=== PATIENT | female | born 1955 | race Caucasian/White ===

== ENCOUNTER 2016-09-02 08:36 | Emergency (ER) | payer MEDICARE, OTHER ==
[~2016-09-02] VITALS: Ht 157.5 cm; Wt 82.0 kg
[~2016-09-02 08:36] MED LIST: CIPR500T4 PO; HYDR-3498 PO; IBUP-1542 PO; TAMS-14 PO
[2016-09-02 08:39] VITALS: Ht 157.5 cm; Wt 82.0 kg
[2016-09-02] MEDS ORDERED: morphine 4 MG/ML VIAL IV STA (09:04)
[2016-09-02] MEDS ORDERED: ONDANSETRON 4 MG INJ IV STA (09:04)
[2016-09-02] MEDS ORDERED: SOD CHLORIDE 0.9% 1,000 ML IV STA (09:04)
--- NOTE | 2016-09-02 09:27 | ERD ---
ER Documentation Chief Complaint Date/Time DATE: 09/02/16 TIME: 09:25 Chief Complaint back pain rad abd x 2 weeks HPI 60-year-old female with a history of recurrent kidney stones comes emergency department intermittent right-sided flank pain for the past 2 weeks. Pain is intermittent, and the right flank and radiates the right anterior abdomen, sharp , moderate pain. Patient states that she had gone to [place] and had given her oral ketorolac which is 10 mg that she has been taking on and off for pain. She reports 3 episodes of hematuria. Has not had any dysuria, urgency or frequency. She denies fevers or chills. ROS All systems reviewed and are negative except as per history of present illness. Medications Home Meds Active Scripts Tramadol HCl (Tramadol HCl) 50 Mg Tablet, 50 MG PO Q4 Y for PAIN, #20 TAB Prov:DEE BERGMAN PA-C 09/02/16 Ciprofloxacin Hcl* (Ciprofloxacin Hcl*) 500 Mg Tablet, 500 MG PO BID for 3 Days , TAB Prov:DEE BERGMAN PA-C 09/02/16 Ciprofloxacin Hcl* (Ciprofloxacin Hcl*) 500 Mg Tablet, 250 MG PO BID for 3 Days , TAB Prov:DURBINJORDAN I. ONLINE EDUCATION MANAGER 04/08/15 Hydrocodone Bit-Acetaminophen* ([place]*) 5-325 Mg Tab, 1 TAB PO Q6 Y for PAIN, # 20 TAB Prov:DURBINJORDAN I. ONLINE EDUCATION MANAGER 04/08/15 Tamsulosin Hcl* (Flomax*) 0.4 Mg Cap.er.24h, 0.4 MG PO BID, #30 CAP Prov:DURBINJORDAN I. ONLINE EDUCATION MANAGER 04/08/15 Ibuprofen* (Motrin*) 600 Mg Tab, 600 MG PO Q6, #30 TAB Prov:DURBINJORDAN I. ONLINE EDUCATION MANAGER 04/08/15 Allergies Allergies: Coded Allergies: No Known Drug Allergy (Verified Allergy, Unknown, 04/09/15) PMhx/Soc History of Surgery: Yes (OVARY REMOVED, BLADDER RECONSTRUCTION, CHOLECYSTECTOMY ,CSECTIONX2) Anesthesia Reaction: No Hx Neurological Disorder: No Hx Respiratory Disorders: No Hx Cardiac Disorders: No Hx Psychiatric Problems: No Hx Miscellaneous Medical Probl: Yes (kidney stones) Hx Alcohol Use: No Hx Substance Use: No Hx Tobacco Use: No Physical Exam Vitals Vital Signs Date Time Temp Pulse Resp B/P Pulse Ox O2 Delivery O2 Flow Rate FiO2 6/8/17 08:39 98.1 66 18 154/80 99 Physical Exam General: Well-developed, well-nourished. The patient appears in no acute distress. HEENT: Head is normocephalic, atraumatic. No scleral icterus. Neck: Supple. Nontender. Lungs: Clear to auscultation. Normal air movement. Heart: Regular rate and rhythm. S1 and S2 are normal. No murmurs, gallops, or rubs. Abdomen: Soft, nontender, nondistended. Bowel sounds are normoactive. No CVA tenderness, negative Miller sign. Extremities: No clubbing or cyanosis. Normal pulses. Moving extremities x 4. No weakness. Neurologic: Alert and oriented 3. No focal deficits. Skin: Normal turgor. No rash or lesions. Result Diagram: 09/02/1623 09/02/1623 Results 24 hrs Laboratory Tests Test 09/02/16 09:23 White Blood Count 7.310^3/ul Red Blood Count 4.6610^6/ul Hemoglobin 13.7g/dl Hematocrit 41.9% Mean Corpuscular Volume 89.9fl Mean Corpuscular Hemoglobin 29.4pg Mean Corpuscular Hemoglobin Concent 32.7g/dl Red Cell Distribution Width 13.9% Platelet Count 78847^3/UL Mean Platelet Volume 10.5fl Neutrophils % 44.3% Lymphocytes % 42.5% Monocytes % 6.5% Eosinophils % 5.8% Basophils % 0.8% Nucleated Red Blood Cells % 0.0/100WBC Neutrophils # 3.210^3/ul Lymphocytes # 3.110^3/ul Monocytes # 0.510^3/ul Eosinophils # 0.410^3/ul Basophils # 0.110^3/ul Nucleated Red Blood Cells # 0.010^3/ul Urine Color YELLOW Urine Clarity CLEAR Urine pH 5.5 Urine Specific [place] 1.010 Urine Ketones NEGATIVE Urine Nitrite POSITIVE Urine Bilirubin NEGATIVE Urine Urobilinogen 0.2 E.U./dL Urine Leukocyte Esterase 1+ Urine Microscopic RBC >200/HPF Urine Microscopic WBC 2-5/HPF Urine Epithelial Cells FEW Urine Bacteria FEW Urine Hemoglobin 3+ Urine Glucose NEGATIVE% Urine Total Protein NEGATIVE Sodium Level 142mmol/L Potassium Level 4.8mmol/L Chloride Level 107mmol/L Carbon Dioxide Level 27mmol/L Anion Gap 13 Blood Urea Nitrogen 21mg/dl Creatinine 0.73mg/dl Glucose Level 100mg/dl Calcium Level 12.2mg/dl Total Bilirubin 0.3mg/dl Direct Bilirubin 0.00mg/dl Indirect Bilirubin 0.3mg/dl Aspartate Amino Transf (AST/SGOT) 23IU/L Alanine Aminotransferase (ALT/SGPT) 27IU/L Alkaline Phosphatase 100IU/L Total Protein 7.8g/dl Albumin 5.0g/dl Globulin 2.80g/dl Albumin/Globulin Ratio 1.78 Lipase 199U/L Current Medications Medications (Trade) Dose Ordered Sig/Glen Route PRN Reason Start Time Stop Time Status Last Admin Dose Admin Sodium Chloride (NS) 1,000 ml @ 1,000 mls/hr Q1H STAT IV 09/02/16 09:04 09/02/16 10:03 DC 09/02/16 09:26 Morphine Sulfate (morphine) 4 mg ONCE STAT IV 09/02/16 09:04 09/02/16 09:06 DC 09/02/16 09:25 Ondansetron HCl 4 mg 4 mg ONCE STAT IV 09/02/16 09:04 09/02/16 09:06 DC 09/02/16 09:25 Ceftriaxone Sodium (Rocephin) 50 ml @ 100 mls/hr ONCE ONCE IVPB 09/02/16 10:30 09/02/16 10:30 DC Procedures/MDM ED course: Line was established, blood and urine were obtained. She was given IV fluids normal saline 1 L. Patient had already been taking ketorolac at home, therefore she was given 1 dose of morphine 4 mg IV, as well as Zofran 4 mg IV. MDM: 52-year-old female comes in with recurrent kidney stones, complaining of intermittent right-sided flank pain for 2 weeks. Patient has a normal white count, no fever, normal renal function. She has nitrate positive urine consistent with a urinary tract infection with flank pain. She does not show any signs of pyelonephritis. I doubt septic kidney stones. I did discuss this case with my attending physician, including labs, and the decision was that there was to make much radiation risk for the patient to undergo another CT scan. She is not septic. And can be discharged home with oral Cipro. She has follow-up with her primary care doctor in 2 days. I have asked her to speak with her primary care physician to get a referral to see a urologist for outpatient follow-up. The case was reviewed and discussed with Dr. Morley who agrees with the plan of care including labs, treatment, and advanced imaging as appropriate. Departure Diagnosis: Primary Impression: Flank pain Additional Impression: UTI (urinary tract infection) Condition: DEE Tripp PA-C Sep 02, 2016 09:27
[2016-09-02 09:29] LABS: ADD SCAN DIFF NO
[2016-09-02 09:34] LABS: BASOPHIL # 0.1 10^3/ul (0.0-0.1); BASOPHILS % 0.8 % (0.0-2.0); EOSINOPHILS # 0.4 10^3/ul (0.0-0.5); EOSINOPHILS % 5.8 % (0.0-7.0); HEMATOCRIT 41.9 % (37.0-47.0); HEMOGLOBIN 13.7 g/dl (12.0-16.0); LYMPHOCYTES # 3.1 10^3/ul (0.8-2.9); LYMPHOCYTES % 42.5 % (15.0-51.0); MEAN CORPUSCULAR HEMOGLOBIN 29.4 pg (29.0-33.0); MEAN CORPUSCULAR HGB CONC 32.7 g/dl (32.0-37.0); MEAN CORPUSCULAR VOLUME 89.9 fl (82.0-101.0); MEAN PLATELET VOLUME 10.5 fl (7.4-10.4); MONOCYTE # 0.5 10^3/ul (0.3-0.9); MONOCYTES % 6.5 % (0.0-11.0); NEUTROPHIL # 3.2 10^3/ul (1.6-7.5); NEUTROPHILS % 44.3 % (39.0-77.0); PLATELET COUNT 244 10^3/UL (140-415); RED BLOOD COUNT 4.66 10^6/ul (4.20-5.40); RED CELL DISTRIBUTION WIDTH 13.9 % (11.5-14.5); WHITE BLOOD COUNT 7.3 10^3/ul (4.8-10.8)
[2016-09-02 09:50] LABS: ALBUMIN/GLOBULIN RATIO 1.78; BILIRUBIN,INDIRECT 0.3 mg/dl (0-1.1); BILIRUBIN,TOTAL 0.3 mg/dl (0.2-1.3); CALCIUM 12.2 mg/dl (8.4-10.2); CREATININE 0.73 mg/dl (0.44-1.00); POTASSIUM 4.8 mmol/L (3.5-5.1); TOTAL PROTEIN 7.8 g/dl (6.1-8.1)
[2016-09-02 09:58] LABS: URINE BILIRUBIN (Dip) NEGATIVE (NEGATIVE); URINE COLOR YELLOW (YELLOW); URINE GLUCOSE (Dip) NEGATIVE (NEGATIVE); URINE KETONES (Dip) NEGATIVE (NEGATIVE); URINE TOTAL PROTEIN (Dip) NEGATIVE (NEGATIVE)
[2016-09-02 09:59] LABS: ADD UMIC YES; BACTERIA,URINE FEW; URINE BLOOD (Dip) 3+ (NEGATIVE); URINE LEUKOCYTE ESTERASE (Dip) 1+ (NEGATIVE); URINE NITRITE (Dip) POSITIVE (NEGATIVE); URINE RBCS >200 /HPF (0); URINE UROBILINOGEN (Dip) 0.2 E.U./dL (0.1-1.0)
[2016-09-02] MEDS ORDERED: TRAM50TA2 PO (10:30)
[2016-09-02] MEDS ORDERED: CIPR500T4 PO (10:30)
[2016-09-02] MEDS ORDERED: CEFTRIAXONE 1 GM/50 ML (PMX) 50 ML IVPB ONE (10:30)
[2016-09-02 10:53] VITALS: BP 158/72; PULSE 60; RESP 20; TEMP 98.2
== END 2016-09-02 10:58 | disposition home or self-care (01) ==
LOC: FTE 08:36
DX: R10.9 Unspecified abdominal pain (principal); N39.0 Urinary tract infection, site not specified
CPT/HCPCS: 36415; 80053; 81001; 83690; 85025; 96374; 96375; 99284; J0696; J2270; J2405; J7030

== ENCOUNTER 2016-09-03 08:33 | Inpatient (IN) | payer MEDICARE, OTHER ==
[~2016-09-03] VITALS: Ht 160 cm; Wt 81.3 kg
[~2016-09-03 08:33] MED LIST changes: +TRAM50TA2 PO
[2016-09-03] MEDS ORDERED: ONDANSETRON 4 MG INJ IV STA (08:40)
[2016-09-03] MEDS ORDERED: SOD CHLORIDE 0.9% 500 ML IV STA ×2 (08:40→10:12)
[2016-09-03] MEDS ORDERED: HYDROmorphONE 1 MG/ML SYG IV STA (08:40)
[2016-09-03] MEDS ORDERED: KETOROLAC 30 MG INJ IV STA (08:40)
[2016-09-03 09:04] LABS: ADD SCAN DIFF NO
[2016-09-03 09:09] LABS: BASOPHIL # 0.1 10^3/ul (0.0-0.1); BASOPHILS % 0.7 % (0.0-2.0); EOSINOPHILS # 0.4 10^3/ul (0.0-0.5); EOSINOPHILS % 5.6 % (0.0-7.0); HEMATOCRIT 40.2 % (37.0-47.0); HEMOGLOBIN 13.2 g/dl (12.0-16.0); LYMPHOCYTES # 2.6 10^3/ul (0.8-2.9); LYMPHOCYTES % 36.8 % (15.0-51.0); MEAN CORPUSCULAR HEMOGLOBIN 29.6 pg (29.0-33.0); MEAN CORPUSCULAR HGB CONC 32.8 g/dl (32.0-37.0); MEAN CORPUSCULAR VOLUME 90.1 fl (82.0-101.0); MEAN PLATELET VOLUME 10.1 fl (7.4-10.4); MONOCYTE # 0.5 10^3/ul (0.3-0.9); MONOCYTES % 7.2 % (0.0-11.0); NEUTROPHIL # 3.5 10^3/ul (1.6-7.5); NEUTROPHILS % 49.6 % (39.0-77.0); PLATELET COUNT 218 10^3/UL (140-415); RED BLOOD COUNT 4.46 10^6/ul (4.20-5.40); RED CELL DISTRIBUTION WIDTH 13.9 % (11.5-14.5); WHITE BLOOD COUNT 7.1 10^3/ul (4.8-10.8)
[2016-09-03 09:30] LABS: ALBUMIN 4.7 g/dl (3.3-4.9); ALBUMIN/GLOBULIN RATIO 2.13; BILIRUBIN,INDIRECT 0.3 mg/dl (0-1.1); BILIRUBIN,TOTAL 0.3 mg/dl (0.2-1.3); CALCIUM 11.8 mg/dl (8.4-10.2); CREATININE 0.96 mg/dl (0.44-1.00); TOTAL PROTEIN 6.9 g/dl (6.1-8.1)
--- NOTE | 2016-09-03 09:51 | RADRPT ---
PROCEDURE: CT Abdomen and pelvis without contrast. CLINICAL INDICATION: History of kidney stones. Abdominal pain. TECHNIQUE: CT scan of the abdomen and pelvis without contrast was performed on a multidetector hig h-resolution CT scan. . Coronal and sagittal reformatted images were obtained from the [facility] e images. Standard CT scan of the abdomen pelvis without contrast protocols were performed. The total exam CTDI equals 18.91 mGy and the total exam DLP equals 1123.79 mGy-cm. One or more of the following dose reduction techniques were used: - Automated exposure control. - Adjustment of the mA and/or kV according to patient size. Use of iterative reconstruction technique. COMPARISON: CT abdomen pelvis without contrast 04/09/2015 FINDINGS: There is surgical clips adjacent to the left urinary bladder and pelvic region. The kidneys are nor mal in size no change in the 1.2 cm cyst involving the posterior left mid kidney. No other intra re nal masses bilaterally. There is a punctate approximately 3 mm non-obstructing inferior left renal calculus. No other calcified calculi involving the renal collecting systems. Within the proximal l eft ureter is a large 2 cm calcified calculus resulting in severe proximal left hydroureter and hydr onephrosis. In addition there there are 2 approximately 2-3 mm distal left ureteral calcified calcu li that are nonobstructing. There is a 6 mm right ureteral vesicle junction calcified calculus resu lting in severe right hydronephrosis and hydroureter. In addition there is a 5 mm calcified calculu s involving the distal right ureter approximately 2-3 cm proximal to the right ureteral vesicle junc tion calculus. Urinary bladder is contracted but otherwise unremarkable. The uterus is anteverted anteflexed but otherwise unremarkable. No adnexal masses. Status post cholecystectomy without biliary ductal dilation. The liver spleen pancreas and adrenal glands are unremarkable. There is diverticular changes of the sigmoid colon but no CT evidence of diverticulitis. The colon is otherwise unremarkable. The stomach and small bowel are unremarkable. No CT evidence of appendi citis. Negative for intra-abdominal free air, free fluid, abscesses or lymphadenopathy. The lung bases are unremarkable. The aorta is unremarkable. There are degenerative changes of the lower thoracic and lumbar spine without acute osseous findings are osteoblastic/osteolytic lesions. There is a total left hip prosthesis in place without evidence of dislocation or loosening. IMPRESSION: 1. Severe left hydronephrosis and proximal left hydroureter secondary to a large 2 cm calcified pro ximal left ureteral calculus. Note, there are additional 2 approximately 2-3 mm distal left uretera l calculi that are nonobstructing. 2. Severe right hydronephrosis and hydroureter secondary to a 6 mm right ureterovesical junction ca lcified calculus. In addition approximately 2-3 cm proximal to the right ureteral vesicle junction c alculus is a 5 mm calcified calculus. 3. 3 mm non-obstructing left inferior renal calcified calculus. 4. No change of a 1.2 cm cyst involving the posterior left mid kidney. 5. Status post cholecystectomy without biliary ductal dilation. 6. Diverticulosis of the sigmoid colon without CT evidence of diverticulitis. RPTAT:AAJJ Physician Katia Date Time Electronically viewed and signed by Anabel Lewis Physician on 09/03/2016 09:51 BM/
[2016-09-03 09:55] LABS: ADD UMIC YES; URINE BILIRUBIN (Dip) NEGATIVE (NEGATIVE); URINE BLOOD (Dip) 3+ (NEGATIVE); URINE COLOR LT. YELLOW (YELLOW); URINE GLUCOSE (Dip) NEGATIVE (NEGATIVE); URINE KETONES (Dip) NEGATIVE (NEGATIVE); URINE LEUKOCYTE ESTERASE (Dip) 1+ (NEGATIVE); URINE NITRITE (Dip) NEGATIVE (NEGATIVE); URINE TOTAL PROTEIN (Dip) NEGATIVE (NEGATIVE); URINE UROBILINOGEN (Dip) 0.2 E.U./dL (0.1-1.0)
[2016-09-03 10:06] LABS: BACTERIA,URINE MODERATE; URINE RBCS >200 /HPF (0)
[2016-09-03] MEDS ORDERED: CEFTRIAXONE 1 GM/50 ML (PMX) 50 ML IVPB ONE (10:30)
--- NOTE | 2016-09-03 10:50 | ERA ---
ER Documentation Chief Complaint Date/Time DATE: 09/03/16 TIME: 0840 Chief Complaint right flank pain HPI 60-year-old female presents to the emergency department complaining of severe right flank pain. Patient was initially evaluated yesterday and diagnosed with empiric kidney stones as well as a kidney infection. Despite outpatient medication, patient returns to the emergency department today complaining of severe colicky right flank pain radiating towards her groin. She has nausea but no vomiting. She denies fevers or chills. She denies diarrhea or hematuria. Patient describes her pain as severe in 9-10 out of 10. ROS All systems reviewed and are negative except as per history of present illness. Medications Home Meds Active Scripts Tramadol HCl (Tramadol HCl) 50 Mg Tablet, 50 MG PO Q4 Y for PAIN, #20 TAB Prov:DEE BERGMAN PA-C 09/02/16 Ciprofloxacin Hcl* (Ciprofloxacin Hcl*) 500 Mg Tablet, 500 MG PO BID for 3 Days , TAB Prov:DEE BERGMAN PA-C 09/02/16 Ibuprofen* (Motrin*) 600 Mg Tab, 600 MG PO Q6, #30 TAB Prov:DURBINJORDAN ARANDA I. STATISTICAL PROGRAMMER ANALYST 04/08/15 Discontinued Scripts Ciprofloxacin Hcl* (Ciprofloxacin Hcl*) 500 Mg Tablet, 250 MG PO BID for 3 Days , TAB Prov:DURBINJORDAN WHITE I. STATISTICAL PROGRAMMER ANALYST 04/08/15 Hydrocodone Bit-Acetaminophen* ([place]*) 5-325 Mg Tab, 1 TAB PO Q6 Y for PAIN, # 20 TAB Prov:JORDAN DURBIN I. STATISTICAL PROGRAMMER ANALYST 04/08/15 Tamsulosin Hcl* (Flomax*) 0.4 Mg Cap.er.24h, 0.4 MG PO BID, #30 CAP Prov:JORDAN DURBIN I. STATISTICAL PROGRAMMER ANALYST 04/08/15 Allergies Allergies: Coded Allergies: No Known Drug Allergy (Verified Allergy, Unknown, 09/03/16) PMhx/Soc History of Surgery: Yes (OVARY REMOVED, BLADDER RECONSTRUCTION, CHOLECYSTECTOMY ,CSECTIONX2) Anesthesia Reaction: No Hx Neurological Disorder: No Hx Respiratory Disorders: No Hx Cardiac Disorders: No Hx Psychiatric Problems: No Hx Miscellaneous Medical Probl: Yes (kidney stones) Hx Alcohol Use: No Hx Substance Use: No Hx Tobacco Use: No Smoking Status: Never smoker FmHx Noncontributory for chief complaint Physical Exam Vitals Vital Signs Date Time Temp Pulse Resp B/P Pulse Ox O2 Delivery O2 Flow Rate FiO2 09/03/16 08:36 98.1 67 19 170/83 99 09/03/16 08:35 98.4 72 18 151/82 99 Room Air Physical Exam GENERAL: The patient is well developed and appropriate for usual state of health in no apparent distress, but patient appears uncomfortable HEENT: Pupils equal, round, and reactive to light. EOMI. There is no scleral icterus. NECK: C-spine is soft and supple, there is no meningismus. There is no cervical lymphadenopathy. LUNGS: Clear to auscultation bilaterally. There are no rales, wheezes or rhonchi. HEART: Regular rate and rhythm, no murmurs, clicks, rubs or gallops. ABDOMEN: Soft, non-tender, non-distended. There are bowel sounds in all four quadrants. No rebound or guarding. EXTREMITIES: There is no peripheral cyanosis or edema. No focal swelling or erythema. NEURO: The patient moves all four extremities with 5/5 strength. Cranial nerves II - XII are intact. Normal gait. Alert and oriented SKIN: There is no apparent rash or petechiae. HEME/LYMPHATIC: There is no evidence of excessive bruising or lymphedema. PSYCHIATRIC: The patient does not appear anxious or depressed. Result Diagram: 09/03/16 0856 09/03/16 0856 Results 24 hrs Laboratory Tests Test 09/03/16 08:56 09/03/16 09:33 White Blood Count 7.110^3/ul Red Blood Count 4.4610^6/ul Hemoglobin 13.2g/dl Hematocrit 40.2% Mean Corpuscular Volume 90.1fl Mean Corpuscular Hemoglobin 29.6pg Mean Corpuscular Hemoglobin Concent 32.8g/dl Red Cell Distribution Width 13.9% Platelet Count 80193^3/UL Mean Platelet Volume 10.1fl Neutrophils % 49.6% Lymphocytes % 36.8% Monocytes % 7.2% Eosinophils % 5.6% Basophils % 0.7% Nucleated Red Blood Cells % 0.0/100WBC Neutrophils # 3.510^3/ul Lymphocytes # 2.610^3/ul Monocytes # 0.510^3/ul Eosinophils # 0.410^3/ul Basophils # 0.110^3/ul Nucleated Red Blood Cells # 0.010^3/ul Sodium Level 144mmol/L Potassium Level 5.0mmol/L Chloride Level 109mmol/L Carbon Dioxide Level 28mmol/L Anion Gap 12 Blood Urea Nitrogen 19mg/dl Creatinine 0.96mg/dl Glucose Level 94mg/dl Calcium Level 11.8mg/dl Total Bilirubin 0.3mg/dl Direct Bilirubin 0.00mg/dl Indirect Bilirubin 0.3mg/dl Aspartate Amino Transf (AST/SGOT) 23IU/L Alanine Aminotransferase (ALT/SGPT) 29IU/L Alkaline Phosphatase 76IU/L Total Protein 6.9g/dl Albumin 4.7g/dl Globulin 2.20g/dl Albumin/Globulin Ratio 2.13 Lipase 208U/L Urine Color LT. YELLOW Urine Clarity CLEAR Urine pH 6.0 Urine Specific [place] 1.010 Urine Ketones NEGATIVE Urine Nitrite NEGATIVE Urine Bilirubin NEGATIVE Urine Urobilinogen 0.2 E.U./dL Urine Leukocyte Esterase 1+ Urine Microscopic RBC >200/HPF Urine Microscopic WBC 5-10/HPF Urine Epithelial Cells FEW Urine Bacteria MODERATE Urine Hemoglobin 3+ Urine Glucose NEGATIVE% Urine Total Protein NEGATIVE Current Medications Medications (Trade) Dose Ordered Sig/Glen Route PRN Reason Start Time Stop Time Status Last Admin Dose Admin Sodium Chloride (NS) 500 ml @ 500 mls/hr Q1H STAT IV 09/03/16 08:40 09/03/16 09:39 DC 09/03/16 09:04 Hydromorphone HCl (Dilaudid) 1 mg ONCE STAT IV 09/03/16 08:40 09/03/16 08:42 DC 09/03/16 09:05 Ondansetron HCl (Zofran Inj) 4 mg ONCE STAT IV 09/03/16 08:40 09/03/16 08:42 DC 09/03/16 09:05 Ketorolac Tromethamine 30 mg 30 mg ONCE STAT IV 09/03/16 08:40 09/03/16 08:42 DC 09/03/16 09:05 Ceftriaxone Sodium 50 ml @ 100 mls/hr ONCE ONCE IVPB 09/03/16 10:30 09/03/16 10:59 09/03/16 10:12 Sodium Chloride (NS) 500 ml @ 500 mls/hr Q1H STAT IV 09/03/16 10:12 09/03/16 11:11 09/03/16 10:42 Procedures/MDM Patient was taken to a room, seen and evaluated. Comfort measures were initiated. Diagnostic tests were ordered and reviewed. RADIOLOGY: reviewed with the radiologist CONSULTATION: hospitalist was notified for admission, urology consultation was obtained REEVALUATION: Pain was controlled and patient remained hemo-dynamically stable MEDICAL DECISION MAKIN-year-old female presents the emergency part with flank pain of uncertain etiology. Differential diagnosis entertained was broad and potential high acuity, but ultimately the patient was found to have significant kidney stones with severe hydronephrosis. The size of the stones is very large and she has failed outpatient therapy with ongoing pain. She has a secondary infection which is concerning as well, but does not appear to be septic at this time. Patient will be admitted for urologic consultation, pain control, fluids, antibiotics and further treatment. Departure Diagnosis: Primary Impression: Kidney stone Condition: TREVON Burk Sep 03, 2016 10:50
[2016-09-03] MEDS ORDERED: HYDROCODONE/APAP (5/325) TAB PO PRN (16:30)
[2016-09-03] MEDS ORDERED: NITROGLYCERIN (SL) 0.4 MG TAB SL PRN (16:30)
[2016-09-03] MEDS ORDERED: ONDANSETRON 4 MG INJ IV PRN (16:30)
[2016-09-03] MEDS ORDERED: traMADol 50 MG TAB PO PRN (16:30)
[2016-09-03] MEDS ORDERED: DOCUSATE SODIUM 100 MG CAP PO PRN (16:30)
[2016-09-03] MEDS ORDERED: hydrALAzine 20 MG INJ IV PRN (16:30)
[2016-09-03] MEDS ORDERED: LORAZEPAM 2 MG INJ IV PRN (16:30)
[2016-09-03] MEDS ORDERED: morphine 2 MG INJ IV PRN (16:30)
[2016-09-03] MEDS ORDERED: NA PHOSPHATE/BIPHOS 133 ML ENEMA PR PRN (16:30)
[2016-09-03] MEDS ORDERED: MAGNESIUM HYDROXIDE 30ML CUP PO PRN (16:30)
[2016-09-03] MEDS ORDERED: NACL 0.9% 3 ML SYG IV SCH (16:30)
[2016-09-03] MEDS ORDERED: ALBUTEROL/IPRATROPIUM (NEB) 3 ML AMP HHN PRN (16:30)
[2016-09-03] MEDS: SOD CHLORIDE 0.45% 1,000 ML IV SCH ×2 (16:47→22:20)
[2016-09-03 17:16] LABS: INR 0.91; PROTIME 12.3 Sec (12.2-14.2)
[2016-09-03 17:17] LABS: PARTIAL THROMBOPLASTIN TIME 29.7 Sec (25.0-35.0)
--- NOTE | 2016-09-03 17:37 | HP ---
DATE OF ADMISSION: 09/03/2016 CHIEF COMPLAINT: Right flank pain. HISTORY OF PRESENT ILLNESS: A 60-year-old female with past medical history of prior kidney stones w laz came in with severe right flank pain going on for the last few days. She initially came into the ER yesterday and was diagnosed with empiric kidney stones as well as a UTI. She was sent home with outpatient medications including antibiotics and pain control medications, but the pain is still se rajeev, colicky in nature, radiating toward her groin. She has some nausea symptoms but no vomiting, so she decided to come back to the ER today. No fevers or chills. No upper or lower GI bleeding. No diarrhea or constipation. No hematuria. She described the pain 9/10 in intensity. When she cam e in, she had a CT scan performed that shows severe left hydronephrosis and proximal left hydrourete r secondary to large 2 cm calcified proximal left ureteral calculus. There are also additionally 2 approximately 2 x 3 mm distal left ureteral calculi that are nonobstructing. She also has severe ri ght hydronephrosis and hydroureter secondary to 6 mm right UV junction calcified calculus. There is also approximately 2 to 3 cm proximal right ureterovesical junction calculus and a 5 mm calcified c alculus and also 3 mm nonobstructing left inferior renal calcified calculus. The patient was hospit alized from 11/23/2014 to 11/27/2014 for kidney stone issue at that time and saw urology at that [facility]. PAST MEDICAL HISTORY: As stated above. ALLERGIES: NO KNOWN DRUG ALLERGIES. MEDICATIONS AT HOME: 1. Ciprofloxacin 500 mg b.i.d. 2. Motrin 600 mg q. 6 hours. 3. Tramadol 50 mg q. 4 p.r.n. PAST SURGICAL HISTORY: She has had ovarian removal in the past, bladder reconstruction in the past, cholecystectomy, and x2 in the past. SOCIAL HISTORY: Negative for smoking, drinking, or IV drug abuse. FAMILY HISTORY: Noncontributory. PHYSICAL EXAMINATION: VITAL SIGNS: T-max 98.4, pulse 67, respirations 18, blood pressure 151 to 170 systolic over 82 to 8 3 diastolic, saturating at 99% on room air. GENERAL: The patient is lying in bed, answering questions appropriately. No acute distress. HEENT: Pupils equal, round, react to light. Extraocular muscles intact. NECK: Supple, no thyromegaly. LUNGS: Clear to auscultation bilaterally. CARDIOVASCULAR: S1, S2 heard. No rubs or gallops. ABDOMEN: Soft, nontender, nondistended. Normal bowel sounds. No rebound or guarding. MUSCULOSKELETAL: No lower extremity bilaterally. NEUROLOGIC: No focal deficits. LABORATORIES: CBC is completely normal. Basic metabolic panel is normal. Calcium is a little high at 11.8. UA shows 1+ leukocyte esterase positive. IMAGING: CT abdomen and pelvis results above in HPI. ASSESSMENT AND PLAN: A 60-year-old female coming in with multiple kidney stones after experiencing flank pain, now with signs of a UTI and multiple kidney stones. Right flank pain, again secondary t o bilateral kidney stones. We will admit the patient, give her pain control medications, IV fluids, antiemetics, IV antibiotics, get a urology consult as well. Check a TSH, A1c and lipid panel. Put her on prophylaxis for GI with PPI and DVT prophylaxis with heparin subcutaneously. Dictated By: MO BILYL Conf#: [id number] DID#: [id number]
[2016-09-03] MEDS: PIPER-TAZO 3.375 GM IV (PMX) 100 ML IVPB SCH (18:03)
[2016-09-03 18:27] LABS: ADD UMIC YES; URINE BILIRUBIN (Dip) NEGATIVE (NEGATIVE); URINE BLOOD (Dip) 2+ (NEGATIVE); URINE COLOR LT. YELLOW (YELLOW); URINE GLUCOSE (Dip) NEGATIVE (NEGATIVE); URINE KETONES (Dip) NEGATIVE (NEGATIVE); URINE LEUKOCYTE ESTERASE (Dip) TRACE (NEGATIVE); URINE NITRITE (Dip) NEGATIVE (NEGATIVE); URINE TOTAL PROTEIN (Dip) NEGATIVE (NEGATIVE); URINE UROBILINOGEN (Dip) 0.2 E.U./dL (0.1-1.0)
[2016-09-03 18:34] LABS: URINE RBCS >50 /HPF (0)
[2016-09-03 21:02] VITALS: TEMP 97.8
[2016-09-03 21:34] VITALS: BP 145/67; PULSE 48; RESP 19
[2016-09-03 22:31] VITALS: BP 121/58; PULSE 45
[2016-09-03 22:33] VITALS: PULSE 45
[2016-09-03 22:55] VITALS: BP 133/60; PULSE 44
[2016-09-03 23:22] VITALS: BP 122/61; PULSE 49
[2016-09-03] MEDS: HEPARIN 5,000 UNIT/0.5 ML VIAL SC SCH (23:26)
[2016-09-04] VITALS (26 sets, daily range): BP systolic 122–159; BP diastolic 61–86; PULSE 45–88; RESP 10–22; Ht 160 cm; Wt 81.3 kg
[2016-09-04] MEDS: PIPER-TAZO 3.375 GM IV (PMX) 100 ML IVPB SCH ×5 (00:16→23:32)
[2016-09-04] MEDS: ACETAMINOPHEN 325 MG TAB PO PRN (04:16)
[2016-09-04] MEDS: SOD CHLORIDE 0.45% 1,000 ML IV SCH ×2 (05:09→17:25)
[2016-09-04 07:40] LABS: ADD SCAN DIFF NO
[2016-09-04 07:46] LABS: BASOPHILS % 0.7 % (0.0-2.0); EOSINOPHILS # 0.4 10^3/ul (0.0-0.5); EOSINOPHILS % 7.4 % (0.0-7.0); HEMATOCRIT 35.8 % (37.0-47.0); LYMPHOCYTES # 2.9 10^3/ul (0.8-2.9); LYMPHOCYTES % 48.9 % (15.0-51.0); MEAN CORPUSCULAR HEMOGLOBIN 30.5 pg (29.0-33.0); MEAN CORPUSCULAR HGB CONC 33.5 g/dl (32.0-37.0); MEAN CORPUSCULAR VOLUME 91.1 fl (82.0-101.0); MEAN PLATELET VOLUME 10.4 fl (7.4-10.4); MONOCYTE # 0.3 10^3/ul (0.3-0.9); MONOCYTES % 5.7 % (0.0-11.0); NEUTROPHIL # 2.2 10^3/ul (1.6-7.5); NEUTROPHILS % 37.1 % (39.0-77.0); PLATELET COUNT 192 10^3/UL (140-415); RED BLOOD COUNT 3.93 10^6/ul (4.20-5.40); RED CELL DISTRIBUTION WIDTH 13.9 % (11.5-14.5)
[2016-09-04 08:04] LABS: CHOL/HDL RATIO 4.9 RATIO
[2016-09-04 08:28] LABS: THYROID STIMULATING HORMONE 4.65 MIU/L (0.465-4.680)
[2016-09-04 09:07] LABS: CALCIUM 10.8 mg/dl (8.4-10.2); CREATININE 0.87 mg/dl (0.44-1.00); MAGNESIUM 1.8 mg/dl (1.7-2.5); PHOSPHORUS 2.8 mg/dl (2.5-4.9)
[2016-09-04] MEDS: HEPARIN 5,000 UNIT/0.5 ML VIAL SC SCH ×2 (09:12→20:48)
--- NOTE | 2016-09-04 09:44 | CONS ---
Date/Time of Note Date/Time of Note DATE: 09/04/16 TIME: 09:41 Assessment/Plan Assessment/Plan Chief Complaint/Hosp Course Bilateral ureteral stones bilateral hydronephrosis right-sided flank pain history of multiple stones in the past A suggested that she have bilateral stenting today. She understands I will not be removing the stones. She understands she will need to follow-up at a later date to have the stones removed. She can go have that done anywhere. The reason we are doing this is because I want avoid the risk of infection and the risk of renal failure. She understands of bilateral stenting will cause bladder discomfort All questions were answered she is also given the option of going home and coming back for definitive procedure but I do not think it is a good option because she has bilateral hydronephrosis All questions are answered nurses in attendance Problems: Consultation Date/Type/Reason Admit Date/Time Sep 03, 2016 at 10:47 Date of Consultation: Sep 04, 2016 Type of Consultation: Urology Reason for Consultation Stones Hx of Present Illness 61-year-old female who has had 2 admissions in the last couple of days to the emergency room for stone pain. The CT scan shows bilateral partially obstructing stones bilateral hydronephrosis. He has a large stone left proximal ureter and several smaller stones left lower ureter and she has has a lower ureteral stone on the right and her pain is on the right. She is bilateral moderate hydronephrosis She has had multiple stone surgeries by Dr. henry and other urologist as well. She denies fever or chills. Social History Smoking Status: Never smoker Exam/Review of Systems Vital Signs Vitals Vital Signs Date Time Temp Pulse Resp B/P Pulse Ox O2 Delivery O2 Flow Rate FiO2 09/04/16 08:45 52 09/04/16 07:02 98.2 19 122/62 94 09/04/16 00:46 Room Air Intake and Output 09/03/16 09/03/16 09/04/16 15:00 23:00 07:00 Intake Total 100 ml 815 ml Output Total 1700 ml Balance 100 ml -885 ml Exam Constitutional: alert, oriented Psych: no complaints Head: normocephalic Eyes: nl lids Neck: supple Respiratory: normal air movement Gastrointestinal: soft Musculoskeletal: other (Left hip replacement) Results Result Diagram: 09/04/16 0640 09/04/16 0640 Results 24 hrs Laboratory Tests Test 09/03/16 14:56 09/03/16 18:00 09/04/16 06:40 Prothrombin Time 12.3 Prothrombin Time Ratio 1.0 INR International Normalized Ratio 0.91 Activated Partial Thromboplast Time 29.7 Free Thyroxine 0.80 Urine Color LT. YELLOW Urine Clarity CLEAR Urine pH 6.0 Urine Specific [place] 1.010 Urine Ketones NEGATIVE Urine Nitrite NEGATIVE Urine Bilirubin NEGATIVE Urine Urobilinogen 0.2 E.U./dL Urine Leukocyte Esterase TRACE H Urine Microscopic RBC >50 Urine Microscopic WBC 2-5 Urine Epithelial Cells RARE Urine Hemoglobin 2+ H Urine Glucose NEGATIVE Urine Total Protein NEGATIVE White Blood Count 6.0 Red Blood Count 3.93 L Hemoglobin 12.0 Hematocrit 35.8 L Mean Corpuscular Volume 91.1 Mean Corpuscular Hemoglobin 30.5 Mean Corpuscular Hemoglobin Concent 33.5 Red Cell Distribution Width 13.9 Platelet Count 192 Mean Platelet Volume 10.4 Neutrophils % 37.1 L Lymphocytes % 48.9 Monocytes % 5.7 Eosinophils % 7.4 H Basophils % 0.7 Nucleated Red Blood Cells % 0.0 Neutrophils # 2.2 Lymphocytes # 2.9 Monocytes # 0.3 Eosinophils # 0.4 Basophils # 0.0 Nucleated Red Blood Cells # 0.0 Sodium Level 144 Potassium Level 4.0 Chloride Level 112 H Carbon Dioxide Level 27 Anion Gap 9 Blood Urea Nitrogen 12 Creatinine 0.87 Glucose Level 85 Hemoglobin A1c 5.1 Calcium Level 10.8 H Phosphorus Level 2.8 Magnesium Level 1.8 Triglycerides Level 126 Cholesterol Level 157 LDL Cholesterol, Calculated 100 HDL Cholesterol 32 L Cholesterol/HDL Ratio 4.9 Thyroid Stimulating Hormone (TSH) 4.650 Medications Medications Current Medications Ondansetron HCl (Zofran Inj) 4 mg Q6H PRN IV NAUSEA AND/OR VOMITING; Start 09/03 at 16:30 Acetaminophen (Tylenol Tab) 650 mg Q6H PRN PO PAIN LEVEL 1-3 OR FEVER Last administered on 09/04/16t 04:16; Admin Dose 650 MG; Start 09/03/16 at 16:30 Acetaminophen/ Hydrocodone Bitart ([place] (5/325)) 1 tab Q6H PRN PO MODERATE PAIN LEVEL 4-6; Start 09/03/16 at 16:30 Morphine Sulfate (morphine) 2 mg Q4H PRN IV SEVERE PAIN LEVEL 7-10; Start at 16:30 Docusate Sodium (Colace) 100 mg Q12H PRN PO CONSTIPATION; Start 09/03/16 at 16: 30 Magnesium Hydroxide (Milk Of Mag) 30 ml DAILY PRN PO CONSTIPATION; Start at 16:30 Sodium Biphosphate/ Sodium Phosphate (Fleet Enema) [address] CONSTIPATION; Start 09/03/16 at 16:30 Heparin Sodium (Porcine) 5000 unit 5,000 unit Q12 SC Last administered on 09:12; Admin Dose 5,000 UNIT; Start 09/03/16 at 21:00 Sodium Chloride (1/2 NS) 1,000 ml @ 75 mls/hr [id number] IV Last administered on 09/03/16 22:20; Admin Dose 75 MLS/HR; Start 09/03/16 at 16:22 Lorazepam 0.5 mg 0.5 mg Q6H PRN IV ANXIETY; Start 09/03/16 at 16:30 Piperacillin Sod/ Tazobactam Sod (Zosyn 3.375gm/ 100 ml (Pmx)) 100 ml @ 200 mls /hr Q6 IVPB Last administered on 09/04/16 05:16; Admin Dose 200 MLS/HR; Start 09/03/16 at 18:00 Hydralazine HCl (Apresoline) 10 mg Q6H PRN IV ELEVATED BLOOD PRESSURE; Start at 16:30 Clonidine (Catapres) 0.1 mg Q6H PRN PO ELEVATED BLOOD PRESSURE; Start 09/03/16 at 16:30 Nitroglycerin (Nitroglycerin (Sl Tab) 0.4 Mg) 1 tab Q5M PRN SL ANGINA; Start at 16:30 Tramadol HCl (Ultram) 50 mg Q4 PRN PO PAIN; Start 09/03/16 at 16:30 SHARON SIMON MD Sep 04, 2016 09:44
[2016-09-04] MEDS ORDERED: IOHEXOL 300MG/ML 30 ML BTL ONE (10:28)
[2016-09-04] MEDS ORDERED: MIDAZOLAM 1 MG/ML 2 ML INJ ONE (10:52)
[2016-09-04] MEDS ORDERED: PROPOFOL 20 ML ONE (10:52)
[2016-09-04] MEDS ORDERED: LIDOCAINE 2% (SDV) 5 ML INJ ONE (10:52)
[2016-09-04] MEDS ORDERED: FENTAnyl 50 MCG/ML VIAL ONE (11:22)
[2016-09-04] MEDS ORDERED: CEFAZOLIN 1 GM INJ ONE (11:36)
[2016-09-04] MEDS ORDERED: DEXAMETHASONE 4 MG/ML 1 ML INJ ONE (11:39)
[2016-09-04] MEDS ORDERED: FAMOTIDINE 20 MG INJ ONE (11:39)
[2016-09-04] MEDS ORDERED: ONDANSETRON 4 MG INJ ONE (11:39)
[2016-09-04] MEDS ORDERED: FENTAnyl 50 MCG/ML VIAL IV PRN (12:00)
[2016-09-04] MEDS ORDERED: PROCHLORPERAZINE 10 MG INJ IV PRN (12:00)
[2016-09-04] MEDS ORDERED: ONDANSETRON 4 MG INJ IV PRN (12:00)
[2016-09-04] MEDS ORDERED: MEPERIDINE 25 MG INJ IV PRN (12:00)
[2016-09-04] MEDS ORDERED: DIPHENHYDRAMINE 50 MG INJ IV PRN (12:00)
[2016-09-04] MEDS ORDERED: HYDROmorphONE (0.2 MG/ML) 10ML SYG IV PRN (12:00)
--- NOTE | 2016-09-04 12:29 | PN ---
Date/Time of Note Date/Time of Note DATE: 09/04/16 TIME: 12:25 Assessment/Plan VTE Prophylaxis VTE Prophylaxis Intervention: heparin Lines/Catheters IV Catheter Type (from Nrsg): Peripheral IV Urinary Cath still in place: No Assessment/Plan Chief Complaint/Hosp Course ASSESSMENT AND PLAN: 60-year-old female coming in with multiple kidney stones after experiencing flank pain, now with signs of a UTI and multiple kidney stones. 1. Right flank pain - again secondary to bilateral kidney stones. Pt with prior Hx of kidney stones. - f/u rec's and post procedure rec's (as pt getting B/L stenting performed by now) - continue pain control medications, IV fluids, antiemetics, IV antibiotics - f/u TSH, A1c and lipid panel. 2. GI ppx - with PPI 3. DVT prophylaxis - heparin subcutaneously. Problems: Subjective 24 Hr Interval Summary Free Text/Dictation Pt seen by team, off floor at procedure, no acute events overnight. Exam/Review of Systems Vital Signs Vitals Vital Signs Date Time Temp Pulse Resp B/P Pulse Ox O2 Delivery O2 Flow Rate FiO2 09/04/16 08:45 52 09/04/16 07:02 98.2 19 122/62 94 09/04/16 00:46 Room Air Intake and Output 09/03/16 09/03/16 09/04/16 15:00 23:00 07:00 Intake Total 100 ml 815 ml Output Total 1700 ml Balance 100 ml -885 ml Exam PE: - unable to be performed today b/c pt off floor at procedure Results Result Diagram: 09/04/16 0640 09/04/16 0640 Results 24 hrs Laboratory Tests Test 09/03/16 14:56 09/03/16 18:00 09/04/16 06:40 Prothrombin Time 12.3 Prothrombin Time Ratio 1.0 INR International Normalized Ratio 0.91 Activated Partial Thromboplast Time 29.7 Free Thyroxine 0.80 Urine Color LT. YELLOW Urine Clarity CLEAR Urine pH 6.0 Urine Specific [place] 1.010 Urine Ketones NEGATIVE Urine Nitrite NEGATIVE Urine Bilirubin NEGATIVE Urine Urobilinogen 0.2 E.U./dL Urine Leukocyte Esterase TRACE H Urine Microscopic RBC >50 Urine Microscopic WBC 2-5 Urine Epithelial Cells RARE Urine Hemoglobin 2+ H Urine Glucose NEGATIVE Urine Total Protein NEGATIVE White Blood Count 6.0 Red Blood Count 3.93 L Hemoglobin 12.0 Hematocrit 35.8 L Mean Corpuscular Volume 91.1 Mean Corpuscular Hemoglobin 30.5 Mean Corpuscular Hemoglobin Concent 33.5 Red Cell Distribution Width 13.9 Platelet Count 192 Mean Platelet Volume 10.4 Neutrophils % 37.1 L Lymphocytes % 48.9 Monocytes % 5.7 Eosinophils % 7.4 H Basophils % 0.7 Nucleated Red Blood Cells % 0.0 Neutrophils # 2.2 Lymphocytes # 2.9 Monocytes # 0.3 Eosinophils # 0.4 Basophils # 0.0 Nucleated Red Blood Cells # 0.0 Sodium Level 144 Potassium Level 4.0 Chloride Level 112 H Carbon Dioxide Level 27 Anion Gap 9 Blood Urea Nitrogen 12 Creatinine 0.87 Glucose Level 85 Hemoglobin A1c 5.1 Calcium Level 10.8 H Phosphorus Level 2.8 Magnesium Level 1.8 Triglycerides Level 126 Cholesterol Level 157 LDL Cholesterol, Calculated 100 HDL Cholesterol 32 L Cholesterol/HDL Ratio 4.9 Thyroid Stimulating Hormone (TSH) 4.650 Medications Medications Current Medications Ondansetron HCl (Zofran Inj) 4 mg Q6H PRN IV NAUSEA AND/OR VOMITING; Start 09/03 at 16:30 Acetaminophen (Tylenol Tab) 650 mg Q6H PRN PO PAIN LEVEL 1-3 OR FEVER Last administered on 09/04/16 04:16; Admin Dose 650 MG; Start 09/03/16 at 16:30 Acetaminophen/ Hydrocodone Bitart ([place] (5/325)) 1 tab Q6H PRN PO MODERATE PAIN LEVEL 4-6; Start 09/03/16 at 16:30 Morphine Sulfate (morphine) 2 mg Q4H PRN IV SEVERE PAIN LEVEL 7-10; Start at 16:30 Docusate Sodium (Colace) 100 mg Q12H PRN PO CONSTIPATION; Start 09/03/16 at 16: 30 Magnesium Hydroxide (Milk Of Mag) 30 ml DAILY PRN PO CONSTIPATION; Start at 16:30 Sodium Biphosphate/ Sodium Phosphate (Fleet Enema) 133 ml DAILY PRN [place] CONSTIPATION; Start 09/03/16 at 16:30 Heparin Sodium (Porcine) 5000 unit 5,000 unit Q12 SC Last administered on 09:12; Admin Dose 5,000 UNIT; Start 09/03/16 at 21:00 Sodium Chloride (1/2 NS) 1,000 ml @ 75 mls/hr [id number] IV Last administered on 09/03/16 22:20; Admin Dose 75 MLS/HR; Start 09/03/16 at 16:22 Lorazepam 0.5 mg 0.5 mg Q6H PRN IV ANXIETY; Start 09/03/16 at 16:30 Piperacillin Sod/ Tazobactam Sod (Zosyn 3.375gm/ 100 ml (Pmx)) 100 ml @ 200 mls /hr Q6 IVPB Last administered on 09/04/16 05:16; Admin Dose 200 MLS/HR; Start 09/03/16 at 18:00 Hydralazine HCl (Apresoline) 10 mg Q6H PRN IV ELEVATED BLOOD PRESSURE; Start at 16:30 Clonidine (Catapres) 0.1 mg Q6H PRN PO ELEVATED BLOOD PRESSURE; Start 09/03/16 at 16:30 Nitroglycerin (Nitroglycerin (Sl Tab) 0.4 Mg) 1 tab Q5M PRN SL ANGINA; Start at 16:30 Tramadol HCl (Ultram) 50 mg Q4 PRN PO PAIN; Start 09/03/16 at 16:30 MO ARAUJO Sep 04, 2016 12:29
--- NOTE | 2016-09-04 12:40 | OPR ---
Date/Time of Note Date/Time of Note DATE: 09/04/16 TIME: 12:34 Operative Report Procedure Date: Sep 04, 2016 Preoperative Diagnosis Bilateral ureteral stones bilateral [id number]-aspol flank pain Postoperative Diagnosis Same Operation Performed Cystoscopy right-sided retrograde pyelogram stent placement left-sided retrograde pyelogram stone manipulation and stent placement Surgeon: SHARON SIMON MD Anesthesia: general, other Estimated Blood Loss: minimal Tubes/Drains Bilateral stents Complications: None Indications Patient tolerated procedure well left the operating room satisfactory condition Operative\Procedure Findings Operative report Patient placed in the lithotomy position prepped and draped in sterile fashion cystoscopy is performed bladder is negative on the right side a ureteral catheter followed by guidewires inserted up into the kidney stent is inserted 7 x 22 double-J stent On the left side a retrograde pyelogram was performed a large stone was seen in the proximal ureter. If there are any stones distally they were bypassed by the ureteral catheter. I had great difficulty passing this stone with a wire. I used a contrast which would not all go beyond the stone. I attempted a Glidewire then an angled Glidewire and then I injected a large amount of jelly into the ureter and then again tried with a guidewire a Glidewire and angled sensor wire. I was careful not to undermine the mucosa to the best of my ability took about half an hour I was eventually able to get an angled glide wire into the kidney. But I could still not advance the ureteral 5 [place] catheter over the wire. Then I inserted a ureteral catheter alongside the wire and again I attempted with a second wire this time an angled sensor wire and was eventually able to pass stone after multiple attempts. I then still could not advance the 5 [place] open-ended catheter over the second wire. I then removed the first wire leaving the second wire and ureteral catheter over the second wire and was able to advance that into the kidney. I then removed the ureteral catheter and was able to successfully place a 6 x 24 double-J stent into the kidney. It took at least half an hour to 45 minutes to get the left side in. The conclusion bilateral stents are in good position based on cystoscopy and fluoroscopy. She had a large hydronephrosis on the left side which I drained and the fluid was clear SAHRON SIMON MD Sep 04, 2016 12:40
--- NOTE | 2016-09-04 16:55 | RADRPT ---
Vent Rate: 48 bpm RR Interval: 0 msec HI Interval: 190 msec QRS Duration: 88 msec QT Interval: 440 msec QTC Interval: 393 msec P-R-T [place]: 8 - 5 - 3 degrees Marked sinus bradycardia Abnormal ECG Nonspecific ST-T changes No previous tracing available for comparison Electronically Signed By: Joe Huitron [id number]
--- NOTE | 2016-09-04 17:20 | RADRPT ---
PROCEDURE: Fluoroscopy CLINICAL INDICATION: Ureteral stent placement. TECHNIQUE: 408 seconds fluoroscopic time utilized by Dr. SIMON for procedure. 21 images/sequences of are submitted. COMPARISON: None FINDINGS: There is left-sided proximal ureteral stone with left hydronephrosis is seen. Placement of left ure teral stent is demonstrated. IMPRESSION: Fluoroscopy utilized by Dr. SIMON for left-sided retrograde pyelogram with ureteral stent placement. Please see procedural report for complete details. RPTAT: QQ .Joe Santana MD, Date Time Electronically viewed and signed by .Joe Santana MD, on 09/04/2016 17:19 .L/
[2016-09-05] VITALS (12 sets, daily range): BP systolic 130–139; BP diastolic 58–67; PULSE 42–60; RESP 18–19
[2016-09-05] MEDS: PIPER-TAZO 3.375 GM IV (PMX) 100 ML IVPB SCH ×4 (05:34→23:48)
[2016-09-05] MEDS: SOD CHLORIDE 0.45% 1,000 ML IV SCH (09:06)
[2016-09-05] MEDS: HEPARIN 5,000 UNIT/0.5 ML VIAL SC SCH ×2 (09:11→22:52)
[2016-09-05 09:52] LABS: ADD SCAN DIFF NO
[2016-09-05 09:55] LABS: BASOPHILS % 0.3 % (0.0-2.0); EOSINOPHILS % 0.3 % (0.0-7.0); HEMATOCRIT 36.2 % (37.0-47.0); LYMPHOCYTES # 2.9 10^3/ul (0.8-2.9); LYMPHOCYTES % 29.2 % (15.0-51.0); MEAN CORPUSCULAR HEMOGLOBIN 29.8 pg (29.0-33.0); MEAN CORPUSCULAR HGB CONC 33.1 g/dl (32.0-37.0); MEAN CORPUSCULAR VOLUME 89.8 fl (82.0-101.0); MEAN PLATELET VOLUME 11.1 fl (7.4-10.4); MONOCYTE # 0.6 10^3/ul (0.3-0.9); MONOCYTES % 5.6 % (0.0-11.0); NEUTROPHIL # 6.3 10^3/ul (1.6-7.5); NEUTROPHILS % 64.3 % (39.0-77.0); PLATELET COUNT 194 10^3/UL (140-415); RED BLOOD COUNT 4.03 10^6/ul (4.20-5.40); RED CELL DISTRIBUTION WIDTH 13.8 % (11.5-14.5); WHITE BLOOD COUNT 9.8 10^3/ul (4.8-10.8)
[2016-09-05 10:18] LABS: CALCIUM 11.3 mg/dl (8.4-10.2); CREATININE 0.84 mg/dl (0.44-1.00); POTASSIUM 3.9 mmol/L (3.5-5.1)
--- NOTE | 2016-09-05 15:44 | PDOCDIS ---
Discharge Instructions CONDITION Patient Condition: Stable HOME CARE INSTRUCTIONS: Diet Instructions: Low Fat /Cholesterol ACTIVITY: Activity Restrictions: Slowly Increase Activity FOLLOW UP/APPOINTMENTS Appointments Take your meds, see your doctor in the clinic MO ARAUJO Sep 05, 2016 15:44
[2016-09-05] MEDS ORDERED: HYDR-906 PO (15:46)
[2016-09-05] MEDS ORDERED: LEVO750T8 PO (15:46)
[2016-09-05] MEDS ORDERED: SOD CHLORIDE 0.9% 250 ML IV ONE (16:00)
--- NOTE | 2016-09-05 16:13 | DS ---
DATE OF ADMISSION: 09/03/2016 DATE OF DISCHARGE: 09/05/2016 HOSPITAL COURSE: The patient came in with right flank pain. She has a prior history of multiple ki dney stones, including procedure in the past. She was admitted and found multiple with kidney stone s again. Seen by urology team and admitted to med/surg floor. She underwent surgical procedure; sp ecifically, she had bilateral ureteral stones, bilateral right-sided flank pain, and she underwent c ystoscopy, right-sided retrograde pyelogram, stent placement, left side retrograde pyelograms, stone manipulation, and stent placement. The patient tolerated the procedure well. She had some bradyca rdia but afterward was asymptomatic. The bradycardia has been there in the past. No known history of any heart blocks. In any event, she had some mild hematuria afterward, but her vital signs were stable, her hemoglobin was stable. She was able to ambulate and tolerate a p.o. diet. She had some mildly high calcium levels as well. She was given IV fluids as well. If her heart rate continues to be greater than 55, we will discharge her home today in improved condition. She will be sent with the following medications: 1. Levaquin 750 mg p.o. daily for 7 days. 2. [place] 5/325, one tab p.o. q. 6 p.r.n. 3. Tramadol 50 mg p.o. q. 6 p.r.n. She will follow up with urology team in the clinic in the next 1 to 2 weeks for possible further man ipulation of her other kidney stones and has strict return precautions in the event she develops any further hematuria or flank pain or groin pain. FINAL DIAGNOSES: 1. Right flank pain secondary to bilateral kidney stones status post cystoscopy and right-sided ret rograde pyelogram and stent placement and left-sided retrograde pyelogram and stone manipulation and stent placement. 2. Urinary tract infection. 3. Prior history of multiple kidney stones in the past. Time spent discharging the patient: 40 minutes. Dictated By: MO BILLY Conf#: [id number] DID#: [id number]
[2016-09-06] VITALS (8 sets, daily range): BP systolic 135–146; BP diastolic 66–75; PULSE 48–56; RESP 17–19
[2016-09-06] MEDS: SOD CHLORIDE 0.45% 1,000 ML IV SCH ×2 (01:27→11:02)
[2016-09-06] MEDS: PIPER-TAZO 3.375 GM IV (PMX) 100 ML IVPB SCH ×2 (05:51→11:25)
[2016-09-06 08:19] LABS: ADD SCAN DIFF NO
[2016-09-06] MEDS: HEPARIN 5,000 UNIT/0.5 ML VIAL SC SCH (08:24)
[2016-09-06 08:30] LABS: BASOPHIL # 0.1 10^3/ul (0.0-0.1); BASOPHILS % 0.6 % (0.0-2.0); EOSINOPHILS # 0.3 10^3/ul (0.0-0.5); EOSINOPHILS % 3.5 % (0.0-7.0); HEMATOCRIT 35.8 % (37.0-47.0); HEMOGLOBIN 11.7 g/dl (12.0-16.0); LYMPHOCYTES # 3.8 10^3/ul (0.8-2.9); LYMPHOCYTES % 47.2 % (15.0-51.0); MEAN CORPUSCULAR HEMOGLOBIN 29.5 pg (29.0-33.0); MEAN CORPUSCULAR HGB CONC 32.7 g/dl (32.0-37.0); MEAN CORPUSCULAR VOLUME 90.2 fl (82.0-101.0); MEAN PLATELET VOLUME 10.6 fl (7.4-10.4); MONOCYTE # 0.5 10^3/ul (0.3-0.9); MONOCYTES % 6.2 % (0.0-11.0); NEUTROPHIL # 3.4 10^3/ul (1.6-7.5); NEUTROPHILS % 42.1 % (39.0-77.0); PLATELET COUNT 186 10^3/UL (140-415); RED BLOOD COUNT 3.97 10^6/ul (4.20-5.40); RED CELL DISTRIBUTION WIDTH 14.2 % (11.5-14.5); WHITE BLOOD COUNT 8.1 10^3/ul (4.8-10.8)
[2016-09-06] MEDS: ACETAMINOPHEN 325 MG TAB PO PRN (08:31)
[2016-09-06 09:31] LABS: CALCIUM 11.1 mg/dl (8.4-10.2); CREATININE 0.81 mg/dl (0.44-1.00); POTASSIUM 4.1 mmol/L (3.5-5.1)
== END 2016-09-06 13:28 | disposition home or self-care (01) | DRG 669 ==
LOC: E/R 08:33 → MS2 10:47 → TEL 21:05
PROVIDERS: ADMIT Internal Medicine; ATTEND Internal Medicine
PROC: 0TC68ZZ Extirpation of Matter from Right Ureter, Via Natural or Artificial Opening Endoscopic (ICD-10-PCS; 2016-09-04)
PROC: 0T778DZ Dilation of Left Ureter with Intraluminal Device, Via Natural or Artificial Opening Endoscopic (ICD-10-PCS; 2016-09-04)
PROC: BT1B1ZZ Fluoroscopy of Bladder and Urethra using Low Osmolar Contrast (ICD-10-PCS; 2016-09-04)
PROC: 0TC78ZZ Extirpation of Matter from Left Ureter, Via Natural or Artificial Opening Endoscopic (ICD-10-PCS; principal; 2016-09-04 10:30)
DX: N13.2 Hydronephrosis with renal and ureteral calculous obstruction (principal); N39.0 Urinary tract infection, site not specified; Z87.442 Personal history of urinary calculi
CPT/HCPCS: 36415; 74176; 74430; 80048; 80053; 80061; 81001; 83036; 83690; 83735; 84100; 84439; 84443; 85025; 85610; 85730; 87086; 93005; 96365; 96366; 96375; C2617; J0690; J0696; J1100; J1170; J1644; J1885; J2175; J2250; J2270; J2405; J2543; J3010; J7040; Q9967

== ENCOUNTER 2016-09-08 23:32 | Inpatient (IN) | payer MEDICARE, OTHER ==
[~2016-09-08] VITALS: Ht 160 cm; Wt 78.6 kg
[~2016-09-08 23:32] MED LIST changes: -CIPR500T4 PO; -HYDR-3498 PO; +HYDR-906 PO; -IBUP-1542 PO; +LEVO750T8 PO; -TAMS-14 PO
[2016-09-09] MEDS ORDERED: SOD CHLORIDE 0.9% 1,000 ML IV STA (00:56)
[2016-09-09 01:36] LABS: ADD SCAN DIFF NO
[2016-09-09 01:39] LABS: BASOPHIL # 0.1 10^3/ul (0.0-0.1); BASOPHILS % 0.5 % (0.0-2.0); EOSINOPHILS # 0.3 10^3/ul (0.0-0.5); EOSINOPHILS % 1.8 % (0.0-7.0); HEMATOCRIT 42.9 % (37.0-47.0); HEMOGLOBIN 14.4 g/dl (12.0-16.0); LYMPHOCYTES # 2.4 10^3/ul (0.8-2.9); LYMPHOCYTES % 17.1 % (15.0-51.0); MEAN CORPUSCULAR HEMOGLOBIN 29.6 pg (29.0-33.0); MEAN CORPUSCULAR HGB CONC 33.6 g/dl (32.0-37.0); MEAN CORPUSCULAR VOLUME 88.1 fl (82.0-101.0); MEAN PLATELET VOLUME 10.7 fl (7.4-10.4); MONOCYTE # 0.9 10^3/ul (0.3-0.9); MONOCYTES % 6.5 % (0.0-11.0); NEUTROPHIL # 10.4 10^3/ul (1.6-7.5); NEUTROPHILS % 73.3 % (39.0-77.0); PLATELET COUNT 251 10^3/UL (140-415); RED BLOOD COUNT 4.87 10^6/ul (4.20-5.40); RED CELL DISTRIBUTION WIDTH 13.9 % (11.5-14.5); WHITE BLOOD COUNT 14.1 10^3/ul (4.8-10.8)
[2016-09-09 01:41] LABS: ADD UMIC YES; UR BLOOD (Dip) 3+ (NEGATIVE); UR CLARITY CLEAR (CLEAR); UR COLOR RED (YELLOW); UR GLUCOSE (Dip) NEGATIVE (NEGATIVE); UR KETONES (Dip) TRACE (NEGATIVE); UR LEUKOCYTE ESTERASE (Dip) 2+ (NEGATIVE); UR NITRITE (Dip) POSITIVE (NEGATIVE); UR TOTAL PROTEIN (Dip) 4+ (NEGATIVE); UR UROBILINOGEN (Dip) 1.0 E.U./dL (0.1-1.0)
[2016-09-09 01:52] LABS: UR BILIRUBIN (Dip) NEGATIVE (NEGATIVE)
[2016-09-09 01:54] LABS: URINE RBCS >200 /HPF (0)
[2016-09-09 01:55] LABS: UR BACTERIA MODERATE; UR SQUAMOUS EPITHELIAL CELL MODERATE
[2016-09-09 02:16] LABS: CALCIUM 12.3 mg/dl (8.4-10.2); CREATININE 0.82 mg/dl (0.44-1.00); POTASSIUM 4.1 mmol/L (3.5-5.1)
[2016-09-09] MEDS: morphine 4 MG/ML VIAL IV STA ×2 (03:48→03:51)
[2016-09-09] MEDS ORDERED: ONDANSETRON 4 MG INJ IV PRN (04:00)
[2016-09-09] MEDS ORDERED: PIPER-TAZO 3.375 GM IV (PMX) 100 ML IVPB ONE (04:00)
[2016-09-09] MEDS ORDERED: ACETAMINOPHEN 325 MG TAB PO PRN ×2 (04:00→06:00)
[2016-09-09] MEDS ORDERED: OMEG-129 PO (04:41)
[2016-09-09 04:59] VITALS: Ht 160 cm; Wt 78.6 kg
[2016-09-09 05:00] VITALS: BP 127/68; PULSE 68; RESP 18
--- NOTE | 2016-09-09 05:08 | ERA ---
ER Documentation Chief Complaint Date/Time DATE: 09/09/16 TIME: 04:31 Chief Complaint right flank pain, epigastric pain HPI 60-year-old female with a recent history of bilateral obstructing kidney stones complicated by infection and hydronephrosis status post stent placement discharged 3 days ago returning to the ER with worsening right flank pain and low-grade fevers. She has been having associated chills, palpitations, and dizziness. She denies any nausea, vomiting, diarrhea, dysuria. She continues to have hematuria after the procedure. She is taking Levaquin, but it does not seem to be helping. She has an appointment to see the urologist this Tuesday. ROS All systems reviewed and are negative except as per history of present illness. Medications Home Meds Active Scripts Levofloxacin* (Levofloxacin*) 750 Mg Tablet, 750 MG PO DAILY for 7 Days, TAB Prov:MO ARAUJO S. 09/05/16 Hydrocodone/Acetaminophen ([place] 5-325 Tablet) 1 Each Tablet, 1 EACH PO Q6 for 10 Days, TAB Prov:MO ARAUJO S. 09/05/16 Tramadol HCl (Tramadol HCl) 50 Mg Tablet, 50 MG PO Q4 Y for PAIN, #20 TAB Prov:DEE BERGMAN PA-C 09/02/16 Discontinued Scripts Ciprofloxacin Hcl* (Ciprofloxacin Hcl*) 500 Mg Tablet, 500 MG PO BID for 3 Days , TAB Prov:DEE BERGMAN PA-C 09/02/16 Ibuprofen* (Motrin*) 600 Mg Tab, 600 MG PO Q6, #30 TAB Prov:DURBINJORDAN I. HOOP RIVETER 04/08/15 Ciprofloxacin Hcl* (Ciprofloxacin Hcl*) 500 Mg Tablet, 250 MG PO BID for 3 Days , TAB Prov:DURBINJORDAN I. HOOP RIVETER 04/08/15 Hydrocodone Bit-Acetaminophen* ([place]*) 5-325 Mg Tab, 1 TAB PO Q6 Y for PAIN, # 20 TAB Prov:DURBINJORDAN I. HOOP RIVETER 04/08/15 Tamsulosin Hcl* (Flomax*) 0.4 Mg Cap.er.24h, 0.4 MG PO BID, #30 CAP Prov:DURBINJORDAN I. HOOP RIVETER 04/08/15 Allergies Allergies: Coded Allergies: No Known Drug Allergy (Verified Allergy, Unknown, 09/03/16) PMhx/Soc History of Surgery: Yes (left knee reconstruction (Feb 2016), left hip replacement (Feb 2016)) Anesthesia Reaction: No Hx Neurological Disorder: No Hx Respiratory Disorders: Yes (asthma attacks every few years ) Hx Cardiac Disorders: No Hx Psychiatric Problems: No Hx Miscellaneous Medical Probl: Yes (right rotary cuff reconstruction, cholecystectomy, varicose veins surgery) Hx Alcohol Use: No Hx Substance Use: No Hx Tobacco Use: No Smoking Status: Never smoker FmHx Family History: No diabetes Physical Exam Vitals Vital Signs Date Time Temp Pulse Resp B/P Pulse Ox O2 Delivery O2 Flow Rate FiO2 09/09/16 02:44 79 18 117/78 98 Room Air 09/08/16 23:41 100.3 90 20 116/56 98 Physical Exam Const: Well-appearing, no distress, nontoxic Head: Atraumatic Eyes: Normal Conjunctiva ENT: Normal External Ears, Nose and Mouth. Neck: Full range of motion..~ No meningismus. Resp: Clear to auscultation bilaterally Cardio: Regular rate and rhythm, no murmurs Abd: Soft, right lower quadrant tenderness to palpation, no rebound or guarding, non distended. Normal bowel sounds Skin: No petechiae or rashes Back: Right CVA tenderness to palpation Ext: No cyanosis, or edema Neur: Awake and alert Psych: Normal Mood and Affect Result Diagram: 09/09/1610709/09/16107 Results 24 hrs Laboratory Tests Test 09/09/16 01:08 White Blood Count 14.110^3/ul Red Blood Count 4.8710^6/ul Hemoglobin 14.4g/dl Hematocrit 42.9% Mean Corpuscular Volume 88.1fl Mean Corpuscular Hemoglobin 29.6pg Mean Corpuscular Hemoglobin Concent 33.6g/dl Red Cell Distribution Width 13.9% Platelet Count 38096^3/UL Mean Platelet Volume 10.7fl Neutrophils % 73.3% Lymphocytes % 17.1% Monocytes % 6.5% Eosinophils % 1.8% Basophils % 0.5% Nucleated Red Blood Cells % 0.0/100WBC Neutrophils # 10.410^3/ul Lymphocytes # 2.410^3/ul Monocytes # 0.910^3/ul Eosinophils # 0.310^3/ul Basophils # 0.110^3/ul Nucleated Red Blood Cells # 0.010^3/ul Urine Color RED Urine Clarity CLEAR Urine pH 5.5 Urine Specific [employer] 1.025 Urine Ketones TRACE Urine Nitrite POSITIVE Urine Bilirubin NEGATIVE Urine Urobilinogen 1.0 E.U./dL Urine Leukocyte Esterase 2+ Urine Microscopic RBC >200/HPF Urine Microscopic WBC 25-50/HPF Urine Squamous Epithelial Cells MODERATE Urine Bacteria MODERATE Urine Hemoglobin 3+ Urine Glucose NEGATIVE% Urine Total Protein 4+ Sodium Level 140mmol/L Potassium Level 4.1mmol/L Chloride Level 106mmol/L Carbon Dioxide Level 24mmol/L Anion Gap 14 Blood Urea Nitrogen 14mg/dl Creatinine 0.82mg/dl Glucose Level 132mg/dl Calcium Level 12.3mg/dl Current Medications Medications (Trade) Dose Ordered Sig/Glen Route PRN Reason Start Time Stop Time Status Last Admin Dose Admin Sodium Chloride 1,000 ml @ 1,000 mls/hr Q1H STAT IV 09/09/16 00:56 09/09/16 01:55 DC 09/09/16 01:20 Piperacillin Sod/ Tazobactam Sod (Zosyn 3.375gm/ 100 ml (Pmx)) 100 ml @ 200 mls/hr ONCE ONCE IVPB 09/09/16 04:00 09/09/16 04:29 DC 09/09/16 03:52 Ondansetron HCl (Zofran Inj) 4 mg BRIDGE ORDER PRN IV NAUSEA AND/OR VOMITING 09/09/16 04:00 09/10/16 03:59 Acetaminophen (Tylenol Tab) 650 mg ER BRIDGE PRN PO MILD PAIN/FEVER 09/09/16 04:00 09/10/16 03:59 Morphine Sulfate (morphine) 4 mg ONCE STAT IV 09/09/16 03:38 09/09/16 03:39 DC Procedures/MDM Labs: CBC shows leukocytosis, urinalysis shows evidence of infection Ultrasound kidneys: Per tech read, bilateral hydronephrosis, left greater than right. Stent appears to be in bladder. Final read pending by radiologist [facility] Patient is presenting with signs and symptoms consistent with pyelonephritis. It seems that her stents may have failed as she continues to have persistent hydronephrosis. Her vitals were notable for a low-grade fever. Urinalysis shows evidence of infection. It is possible she is failing outpatient antibiotics or has grown a new buttock that is resistant to Levaquin. Urine culture was sent. IV fluids were started. Zosyn IV was given. Patient will be admitted for further workup and management. I spoke with , the urologist on-call, who recommended an ultrasound of the kidneys to evaluate for hydronephrosis. If the patient has persistent hydronephrosis, she may need nephrostomy tubes. I spoke with the admitting doctor, Dr. Savage, who will consult interventional radiology in the morning if needed. Accepting Care Team: Current data and ongoing care discussed. Time: Time of admission Primary Provider: Hussein Consulting: Jimbo Outstanding Data: none Departure Diagnosis: Primary Impression: Pyelonephritis Additional Impression: Bilateral hydronephrosis Condition: Serious LA MASTERS MD Sep 09, 2016 05:04
[2016-09-09] MEDS ORDERED: NACL 0.9% 3 ML SYG IV SCH (06:00)
[2016-09-09] MEDS ORDERED: PANTOPRAZOLE 40 MG INJ IV SCH (06:00)
--- NOTE | 2016-09-09 06:09 | HP ---
Date/Time of Note Date/Time of Note DATE: 09/09/16 TIME: 05:53 Assessment/Plan VTE Prophylaxis VTE Prophylaxis Intervention: LMWH Lines/Catheters IV Catheter Type (from [facility]): Saline Lock Urinary Cath still in place: No Assessment/Plan Chief Complaint/Hosp Course This is a 52-year-old female being admitted to the [facility] floor for: #1 Complicated UTI: Patient had positive urinalysis for nitrites and leuk esterase. And with right flank pain there is possibility of pyelonephritis. At the current time will obtain renal ultrasound to evaluate the kidneys bilaterally. As she was on fluoroquinolone therapy at home and developed this infection at the current time will try a different medication secondary to the complicated UTI as well as may be any possible resistance. Will try Zosyn 3.375 IV. Will obtain urine culture. Based on renal ultrasound we will consider urology consultation versus IR consultation for possible nephrostomy tube. #2 hypercalcemia: Patient states that she has been told she has hypercalcemia however she did not know why. Will order parathyroid hormone level at this time. #3 Bilateral renal calculi: Patient previously was admitted and diagnosed with bilateral colliculi in the setting of hydronephrosis. She and had bilateral stent placed at that time. We will continue to monitor in order renal ultrasound and adjust treatment strategy as indicated. #4 DVT and GI prophylaxis: Lovenox, Protonix. Further treatment strategy will be implemented as per the clinical course Problems: HPI/ROS Admit Date/Time Admit Date/Time Sep 09, 2016 at 03:39 Hx of Present Illness Chief complaint: Right flank pain 60-year-old female with a recent history of bilateral obstructing kidney stones complicated by infection and hydronephrosis status post stent placement discharged 3 days ago returning to the ER with worsening right flank pain and low-grade fevers. She has been having associated chills, palpitations, and dizziness. She denies any nausea, vomiting, diarrhea, dysuria. She continues to have hematuria after the procedure. She is taking Levaquin, but it does not seem to be helping. She has an appointment to see the urologist this Tuesday. Patient states the pain starts in her right flank and radiates down towards the anterior abdomen. Allergies: NKDA Medications: See May Const: As per HPI Eyes : No pain discharge or redness or change in visual acuity ENT: No pain, sore throat, congestion, congestion, dysphagia or discharge Respiratory: No shortness of breath, cough, sputum, wheezing, or pleuritic pain Cardiovascular: No chest pain, palpitation, PND, or edema GI : no change in appetite, abdominal pain, nausea, vomiting, diarrhea, constipation, or change in the color his stool Genitourinary: As per HPI Musculoskeletal: No joint pain, back pain, neck pain, restricted range of motion in neck or joints Skin: No rash, bruising or hives Neuro: No headache, dizziness, syncope, seizure, focal weakness Endocrine: No polyuria, polydipsia, temperature intolerance Psych: No hallucination, depression, anxiety or suicidal ideation PMH/Family/Social Past Medical History Arthritis, hypercalcemia, kidney stone Past Surgical History Bilateral ureteral stent placement, laser lithotripsy, cholecystectomy, oophorectomy, left hip surgery, left knee surgery, right shoulder rotator cuff repair. Family History Significant Family History: heart disease (Arrhythmia: Mother) Social History Alcohol Use: none Smoking Status: Never smoker Drug Use: none Exam/Review of Systems Vital Signs Vitals Vital Signs Date Time Temp Pulse Resp B/P Pulse Ox O2 Delivery O2 Flow Rate FiO2 09/09/16 05:00 97.7 68 18 127/68 97 Room Air Exam Exam General: This is a pleasant 52-year-old female currently lying in bed in no acute distress HEENT: Atraumatic, normocephalic. The pupils are equal, round and reactive. Extraocular motor are intact Neck: Supple with full range of motion. No rigidity or meningismus Chest: Nontender Lungs: Clear to auscultation bilaterally no crackles rales or wheezing Heart: Normal S1-S2, Regular rhythm and rate. No murmur, S3, or S4 Abdomen: Soft, mild tenderness to palpation of the right abdominal quadrant, right side costovertebral angle tenderness to palpation Extremities: Normal to inspection, no edema no cyanosis Neurologic: Normal mental status, speech normal, cranial nerves II through XII are intact, motor and sensory are intact, no focal weakness Labs Result Diagram: 09/09/168 09/09/16 0108 MARIO CARABALLO Sep 09, 2016 06:05
[2016-09-09] MEDS: SOD CHLORIDE 0.9% 1,000 ML IV SCH ×3 (06:33→21:02)
--- NOTE | 2016-09-09 06:49 | RADRPT ---
PROCEDURE: ULTRASOUND RETROPERITONEUM CLINICAL INDICATION: 60-year-old female with history of bilateral obstructive uropathy and recent left ureteral stent placement September 04, 2016. TECHNIQUE: Multiple sonographic images of the retroperitoneum were obtained. The images were revi ewed on a PACS workstation. COMPARISON: None. FINDINGS: The kidneys are visualized. The right kidney measures 11.1 x 4.9 x 6.0 cm. There is mild right-sided hydronephrosis. There is a shadowing echogenic focus within the right kidney measuring 4 mm consis tent with a calculus. The left kidney measures 10.6 x 5.3 x 4.5 cm. There is [id number] left- sided hydronephrosis. There is a left mid renal cyst measuring approximately 1.2 x 1.1 cm. The dis yas aspect of the ureteral stent is identified within the urinary bladder. IMPRESSION: 1. Mild right-sided hydronephrosis with nonobstructing right renal calculus. 2. [id number] left-sided hydronephrosis with ureteral stent identified within the bladder. 3. Small left renal cyst. .Chun Caballero MD, MD Date Time Electronically viewed and signed by .Chun Caballero MD, on 09/09/2016 06:49 .M/
[2016-09-09 08:30] VITALS: BP 110/63; RESP 14
[2016-09-09] MEDS: morphine 2 MG INJ IV PRN (09:16)
--- NOTE | 2016-09-09 09:44 | PN ---
Date/Time of Note Date/Time of Note DATE: 09/09/16 TIME: 09:40 Assessment/Plan VTE Prophylaxis VTE Prophylaxis Intervention: LMWH, SCD's Lines/Catheters IV Catheter Type (from Nrsg): Saline Lock Urinary Cath still in place: No Assessment/Plan Assessment/Plan 60 yo F admitted last month for kidney stones c/b hydro sp bl ureteral stent placement here for hematuria and fevers, concern for UTI v pyelo from infected kidney stone. PLAN case dw Dr Rodriguez of service. Will obtain NCCT A/P to eval stent patency if stents obstructed, will need exchange cont abx, ivfs-->urine culture in process strain urine for potential stone analysis Subjective 24 Hr Interval Summary Free Text/Dictation Pt reports pain control is ok. Anxious about the status of her stents Exam/Review of Systems Vital Signs Vitals Vital Signs Date Time Temp Pulse Resp B/P Pulse Ox O2 Delivery O2 Flow Rate FiO2 09/09/16 08:30 98.1 63 14 110/63 97 09/09/16 05:00 Room Air Exam anxious, laying in bed no mrg lungs clear abd soft no le edema Results Result Diagram: 09/09/16 0108 09/09/16 0108 Results 24 hrs Laboratory Tests Test 09/09/16 01:08 09/09/16 08:50 09/09/16 08:51 White Blood Count 14.1 #H Red Blood Count 4.87 # Hemoglobin 14.4 # Hematocrit 42.9 Mean Corpuscular Volume 88.1 Mean Corpuscular Hemoglobin 29.6 Mean Corpuscular Hemoglobin Concent 33.6 Red Cell Distribution Width 13.9 Platelet Count 251 # Mean Platelet Volume 10.7 H Neutrophils % 73.3 Lymphocytes % 17.1 Monocytes % 6.5 Eosinophils % 1.8 Basophils % 0.5 Nucleated Red Blood Cells % 0.0 Neutrophils # 10.4 H Lymphocytes # 2.4 Monocytes # 0.9 Eosinophils # 0.3 Basophils # 0.1 Nucleated Red Blood Cells # 0.0 Urine Color RED Urine Clarity CLEAR Urine pH 5.5 Urine Specific [place] 1.025 Urine Ketones TRACE H Urine Nitrite POSITIVE H Urine Bilirubin NEGATIVE Urine Urobilinogen 1.0 E.U./dL Urine Leukocyte Esterase 2+ H Urine Microscopic RBC >200 Urine Microscopic WBC 25-50 Urine Squamous Epithelial Cells MODERATE Urine Bacteria MODERATE Urine Hemoglobin 3+ H Urine Glucose NEGATIVE Urine Total Protein 4+ H Sodium Level 140 Potassium Level 4.1 Chloride Level 106 Carbon Dioxide Level 24 Anion Gap 14 Blood Urea Nitrogen 14 Creatinine 0.82 Glucose Level 132 Calcium Level 12.3 H Parathyroid Hormone (Intact) Bedside Glucose 98 Medications Medications Current Medications Sodium Chloride (NS) 1,000 ml @ 100 mls/hr Q10H IV Last administered on 06:33; Admin Dose 100 MLS/HR; Start 09/09/16 at 05:56 Ondansetron HCl (Zofran Inj) 4 mg Q6H PRN IV NAUSEA AND/OR VOMITING; Start at 06:00 Acetaminophen (Tylenol Tab) 650 mg Q6H PRN PO PAIN LEVEL 1-3 OR FEVER; Start at 06:00 Morphine Sulfate (morphine) 2 mg Q4H PRN IV SEVERE PAIN LEVEL 7-10 Last administered on 09/09/16 09:16; Admin Dose 2 MG; Start 09/09/16 at 06:00 Enoxaparin Sodium 40 mg 40 mg DAILY SC ; Start 09/09/16 at 09:00 Piperacillin Sod/ Tazobactam Sod (Zosyn 3.375gm/ 100 ml (Pmx)) 100 ml @ 200 mls /hr Q8 IVPB ; Start 09/09/16 at 14:00 LUIS IRWIN MD Sep 09, 2016 09:44
[2016-09-09] MEDS: ENOXAPARIN 40 MG/0.4 ML SYG SC SCH (10:26)
[2016-09-09] MEDS: PIPER-TAZO 3.375 GM IV (PMX) 100 ML IVPB SCH ×2 (14:42→21:02)
--- NOTE | 2016-09-09 15:04 | RADRPT ---
PROCEDURE: CT scan of the abdomen and pelvis without IV contrast. CLINICAL INDICATION: Evaluate for stones. History of ureteral stents. TECHNIQUE: Thin section axial, coronal and sagittal images were performed through the abdomen and pelvis without contrast. Radiation Dose: CTDI: 20.6 and DLP: 1238. One or more of the following dose reduction techniques were used: - Automated exposure control. - Adjustment of the mA and/or kV according to patient size. Use of iterative reconstruction technique. COMPARISON: Chest x-ray 04/30/2016 06:18 a.m. FINDINGS: Soft tissues: There is a scar from an incision in the midline of the lower abdomen. There is a 1 cm by the 1.8 cm hernia to the left of the incision which contains a bowel loop. The neck of the servando ia measures 1 cm.. Lungs and pleural spaces: The lungs are hyperinflated with increased AP diameter the chest noted. T here is atelectasis in the periphery of the right lower lobe and near the pleural surface in the lef t lower lobe. No pleural effusion or pulmonary nodule is identified. Heart: The heart is normal in size. No pericardial effusion is identified. The liver, common bile duct and gallbladder: Liver is enlarged measuring 18.3 cm AP. No hepatic mas s or intrahepatic biliary ductal dilatation is identified. The gallbladder is surgically removed wi th clips in the jose alfredo hepatis area and medial to the lower right lobe of the liver. Gastrointestinal: There is no evidence of a hiatal hernia. The stomach and small bowel loops are no rmal. There is fecal material throughout most of the colon. There is a midline umbilical hernia. It contains only fat. Some suture material is noted inferior to the cecum which might relate to katerina or cholecystectomy or other surgery. Pancreas: Pancreas is normal. The extrahepatic common bile duct measures 6.5 mm. Kidneys, bladder and adrenal glands : The adrenal glands are normal. There is moderate hydronephros is of the left kidney. There is a 1.5 mm nonobstructive nephrolith in the lower third of the left k idney. There is a 1.2 cm cyst in the subcapsular dorsal lower third of the left kidney. There is a double-J stent extending from the left renal pelvis to the left side of urinary bladder. There is a 8.8 mm x 5.90 mm ureterolith adjacent to the stent in the proximal third of the left ureter. There is a second 4 mm ureterolith adjacent to the stent proximal to the larger ureterolith. There is mild hydronephrosis of the right kidney with a double-J right ureteral stent extending from the right renal pelvis to the right side of the urinary bladder. There are 2 stones identified irma cent to the distal portion of the right ureteral stent. The more proximal ureterolith measures 3.4 mm. The more distal ureterolith measures 4 mm. Spleen: Normal. Lymph nodes: No enlarged periportal, retroperitoneal, mesenteric, pelvic sidewall or inguinal lymph nodes are identified. Reproductive system and pelvis : The uterus is anteflexed and normal in size. No abnormal adnexal m ass or free fluid is noted in the pelvis. Bony elements: There is a total left hip arthroplasty. The acetabular and femoral components are an atomically aligned. There are degenerative changes in the right hip. There are degenerative osteop hytes in the thoracic and lumbar spine. There is disk space narrowing at L4-5 with dorsal spondylos is. There is no evidence of spondylolysis or spondylolisthesis. No acute bony fracture or bone met astasis is identified. Vasculature: Normal. IMPRESSION: 1. A 4 mm ureterolith and adjacent larger ureterolith measuring at least 9 x 6 mm in size is identi fied adjacent to the stent in the proximal left ureter resulting in moderate hydronephrosis of the l eft kidney. 2. 3.4 mm an adjacent 4 mm ureterolith seen the distal right ureter at the right ureteral vesicle j unction causing mild hydronephrosis of the right kidney. 3. Suture material in the next of the cecum which might relate to prior appendectomy. 4. Bilateral double-J ureteral stents extend from the renal pelvis sees to the urinary bladder. Th ere is moderate hydronephrosis of the left kidney. There is very mild hydronephrosis of the right k idney. 5. 1.2 cm subcapsular benign cyst dorsal lower third right kidney. 1.5 mm nonobstructive nephrolit h lower third left kidney. 6. Status post total left hip arthroplasty. 7. There is a midline lower abdominal wall incision with a 1.8 cm AP incisional hernia which contai ns a small bowel loop inferior to the umbilicus. The neck of the hernia measures 1 cm transverse by about 1.4 cm in height. 8. Osteoarthritis of the thoracic and lumbosacral spine. 9. Hepatomegaly with evidence of prior cholecystectomy. 10. Small midline umbilical hernia. 11. Pulmonary hyperinflation with atelectasis in the dependent portions of the right and left lower lobes may. Fernandez Grullon Physician Date Time Electronically viewed and signed by Fernandez Grullon, Physician on 09/09/2016 15:04 /
[2016-09-09 19:00] VITALS: BP 126/67; RESP 19
[2016-09-10] MEDS: SOD CHLORIDE 0.9% 1,000 ML IV SCH ×3 (01:02→21:56)
[2016-09-10 05:04] LABS: ADD SCAN DIFF NO
[2016-09-10 05:26] LABS: BASOPHIL # 0.1 10^3/ul (0.0-0.1); BASOPHILS % 0.9 % (0.0-2.0); EOSINOPHILS # 0.7 10^3/ul (0.0-0.5); HEMATOCRIT 36.5 % (37.0-47.0); HEMOGLOBIN 12.2 g/dl (12.0-16.0); LYMPHOCYTES # 3.5 10^3/ul (0.8-2.9); LYMPHOCYTES % 44.3 % (15.0-51.0); MEAN CORPUSCULAR HEMOGLOBIN 30.2 pg (29.0-33.0); MEAN CORPUSCULAR HGB CONC 33.4 g/dl (32.0-37.0); MEAN CORPUSCULAR VOLUME 90.3 fl (82.0-101.0); MEAN PLATELET VOLUME 11.1 fl (7.4-10.4); MONOCYTE # 0.6 10^3/ul (0.3-0.9); MONOCYTES % 7.1 % (0.0-11.0); NEUTROPHILS % 38.1 % (39.0-77.0); PLATELET COUNT 201 10^3/UL (140-415); RED BLOOD COUNT 4.04 10^6/ul (4.20-5.40); RED CELL DISTRIBUTION WIDTH 14.6 % (11.5-14.5); WHITE BLOOD COUNT 7.9 10^3/ul (4.8-10.8)
[2016-09-10 06:01] LABS: ALBUMIN 3.9 g/dl (3.3-4.9); ALBUMIN/GLOBULIN RATIO 4.87; BILIRUBIN,INDIRECT 0.3 mg/dl (0-1.1); BILIRUBIN,TOTAL 0.3 mg/dl (0.2-1.3); CALCIUM 11.4 mg/dl (8.4-10.2); CREATININE 0.73 mg/dl (0.44-1.00); POTASSIUM 3.9 mmol/L (3.5-5.1); TOTAL PROTEIN 4.7 g/dl (6.1-8.1)
[2016-09-10] MEDS: PIPER-TAZO 3.375 GM IV (PMX) 100 ML IVPB SCH ×3 (06:17→21:13)
[2016-09-10 07:00] VITALS: BP 112/59; RESP 18
[2016-09-10] MEDS: ENOXAPARIN 40 MG/0.4 ML SYG SC SCH (09:20)
[2016-09-10] MEDS: traMADol 50 MG TAB PO PRN ×2 (10:51→23:15)
--- NOTE | 2016-09-10 13:35 | PN ---
Date/Time of Note Date/Time of Note DATE: 09/10/16 TIME: 13:34 Assessment/Plan VTE Prophylaxis VTE Prophylaxis Intervention: SCD's Lines/Catheters IV Catheter Type (from Nrs): Peripheral IV Urinary Cath still in place: No Assessment/Plan Assessment/Plan 60 yo F admitted last month for kidney stones c/b hydro sp bl ureteral stent placement here for hematuria and fevers, concern for UTI v pyelo from infected kidney stone. PLAN case dw Dr Rodriguez of service. stents patent cont abx, ivfs-->urine culture in process if sterile culture at 48 hours, consider stopping abx strain urine for potential stone analysis Subjective 24 Hr Interval Summary Free Text/Dictation Feeling much better. CT results from yesterday dw pt Exam/Review of Systems Vital Signs Vitals Vital Signs Date Time Temp Pulse Resp B/P Pulse Ox O2 Delivery O2 Flow Rate FiO2 09/10/16 07:00 98.0 63 18 112/59 98 09/09/16 05:00 Room Air Intake and Output 09/09/16 09/09/16 09/10/16 15:00 23:00 07:00 Intake Total 2100 ml 1950 ml Output Total 850 ml Balance 2100 ml 1100 ml Exam nad, sitting up in bed rrr lungs clear abd soft no rashes Results Result Diagram: 09/10/16 0424 09/10/16 0424 Results 24 hrs Laboratory Tests Test 09/10/16 04:24 White Blood Count 7.9 # Red Blood Count 4.04 L Hemoglobin 12.2 Hematocrit 36.5 L Mean Corpuscular Volume 90.3 Mean Corpuscular Hemoglobin 30.2 Mean Corpuscular Hemoglobin Concent 33.4 Red Cell Distribution Width 14.6 H Platelet Count 201 Mean Platelet Volume 11.1 H Neutrophils % 38.1 L Lymphocytes % 44.3 Monocytes % 7.1 Eosinophils % 9.0 H Basophils % 0.9 Nucleated Red Blood Cells % 0.0 Neutrophils # 3.0 Lymphocytes # 3.5 H Monocytes # 0.6 Eosinophils # 0.7 H Basophils # 0.1 Nucleated Red Blood Cells # 0.0 Sodium Level 143 Potassium Level 3.9 Chloride Level 114 H Carbon Dioxide Level 25 Anion Gap 8 Blood Urea Nitrogen 12 Creatinine 0.73 Glucose Level 95 Calcium Level 11.4 H Total Bilirubin 0.3 Direct Bilirubin 0.00 Indirect Bilirubin 0.3 Aspartate Amino Transf (AST/SGOT) 28 Alanine Aminotransferase (ALT/SGPT) 39 Alkaline Phosphatase 72 Total Protein 4.7 L Albumin 3.9 Globulin 0.80 L Albumin/Globulin Ratio 4.87 Medications Medications Current Medications Sodium Chloride (NS) 1,000 ml @ 100 mls/hr Q10H IV Last administered on 12:58; Admin Dose 100 MLS/HR; Start 09/09/16 at 05:56 Ondansetron HCl (Zofran Inj) 4 mg Q6H PRN IV NAUSEA AND/OR VOMITING; Start at 06:00 Acetaminophen (Tylenol Tab) 650 mg Q6H PRN PO PAIN LEVEL 1-3 OR FEVER; Start at 06:00 Morphine Sulfate (morphine) 2 mg Q4H PRN IV SEVERE PAIN LEVEL 7-10 Last administered on 09/09/16 09:16; Admin Dose 2 MG; Start 09/09/16 at 06:00 Enoxaparin Sodium 40 mg 40 mg DAILY SC Last administered on 09/10/16 09:20; Admin Dose 40 MG; Start 09/09/16 at 09:00 Piperacillin Sod/ Tazobactam Sod (Zosyn 3.375gm/ 100 ml (Pmx)) 100 ml @ 200 mls /hr Q8 IVPB Last administered on 09/10/16 06:17; Admin Dose 200 MLS/HR; Start 09/09/16 at 14:00 Tramadol HCl (Ultram) 50 mg Q4H PRN PO PAIN Last administered on 09/10/16 10: 51; Admin Dose 50 MG; Start 09/09/16 at 10:00 LUIS IRWIN MD Sep 10, 2016 13:35
[2016-09-10 19:00] VITALS: BP 124/68; RESP 18
[2016-09-11] MEDS: traMADol 50 MG TAB PO PRN ×3 (04:52→23:34)
[2016-09-11] MEDS: PIPER-TAZO 3.375 GM IV (PMX) 100 ML IVPB SCH ×3 (05:16→21:20)
[2016-09-11 07:00] VITALS: BP 128/72; RESP 18
[2016-09-11] MEDS: ENOXAPARIN 40 MG/0.4 ML SYG SC SCH (08:29)
[2016-09-11] MEDS: SOD CHLORIDE 0.9% 1,000 ML IV SCH ×3 (10:14→21:20)
--- NOTE | 2016-09-11 14:01 | PN ---
Date/Time of Note Date/Time of Note DATE: 09/11/16 TIME: 14:01 Assessment/Plan VTE Prophylaxis VTE Prophylaxis Intervention: SCD's Lines/Catheters IV Catheter Type (from Nrsg): Peripheral IV Urinary Cath still in place: No Assessment/Plan Assessment/Plan 60 yo F admitted last month for kidney stones c/b hydro sp bl ureteral stent placement here for hematuria and fevers, concern for UTI v pyelo from infected kidney stone. PLAN case dw Dr Rodriguez of service 09.10. stents patent. No indication for intervention. cont abx, ivfs-->urine culture remains negative. Possible symptoms solely due to kidney stones? ID consult for abx assistance strain urine for potential stone analysis discharge pending ID recs Subjective 24 Hr Interval Summary Free Text/Dictation Urine culture still negative. Pt feels well though still with occ R sided flank pain Exam/Review of Systems Vital Signs Vitals Vital Signs Date Time Temp Pulse Resp B/P Pulse Ox O2 Delivery O2 Flow Rate FiO2 09/11/16 07:00 97.9 58 18 128/72 98 09/09/16 05:00 Room Air Intake and Output 09/10/16 09/10/16 09/11/16 15:00 23:00 07:00 Intake Total 2100 ml 1850 ml Output Total 1100 ml 1300 ml Balance 1000 ml 550 ml Exam nad, pleasant, sitting up in bed no mrg lungs clear abd soft no le edema urine culture still ng Results Result Diagram: 09/10/16 0424 09/10/16 0424 Medications Medications Current Medications Sodium Chloride (NS) 1,000 ml @ 100 mls/hr Q10H IV Last administered on 10:14; Admin Dose 100 MLS/HR; Start 09/09/16 at 05:56 Ondansetron HCl (Zofran Inj) 4 mg Q6H PRN IV NAUSEA AND/OR VOMITING; Start at 06:00 Acetaminophen (Tylenol Tab) 650 mg Q6H PRN PO PAIN LEVEL 1-3 OR FEVER; Start at 06:00 Morphine Sulfate (morphine) 2 mg Q4H PRN IV SEVERE PAIN LEVEL 7-10 Last administered on 09/09/16 09:16; Admin Dose 2 MG; Start 09/09/16 at 06:00 Enoxaparin Sodium 40 mg 40 mg DAILY SC Last administered on 09/11/16 08:29; Admin Dose 40 MG; Start 09/09/16 at 09:00 Piperacillin Sod/ Tazobactam Sod (Zosyn 3.375gm/ 100 ml (Pmx)) 100 ml @ 200 mls /hr Q8 IVPB Last administered on 09/11/16 13:41; Admin Dose 200 MLS/HR; Start 09/09/16 at 14:00 Tramadol HCl (Ultram) 50 mg Q4H PRN PO PAIN Last administered on 09/11/16 13: 40; Admin Dose 50 MG; Start 09/09/16 at 10:00 LUIS IRWIN MD Sep 11, 2016 14:01
[2016-09-11] MEDS: morphine 2 MG INJ IV PRN (16:46)
[2016-09-11 19:00] VITALS: BP 137/79; RESP 20
--- NOTE | 2016-09-11 20:21 | CONS ---
DATE OF ADMISSION: 09/09/2016 DATE OF CONSULTATION: 09/11/2016 TYPE OF CONSULTATION: Infectious disease. REASON FOR CONSULTATION: Antibiotic management. HISTORY OF PRESENT ILLNESS: Dominique Chen is a 60-year-old female who comes in with right flank pain. She has recent history: 1. Bilateral obstructing kidney stones, complicated by infection and hydronephrosis. 2. Status post stent placement. The patient was discharged 3 days ago, but returned to the emergency room with worsening right flank pain associated with chills, palpitations and dizziness. She denies nausea, vomiting. She continu es to have hematuria. She is on Levaquin, but it does not seem to be helping. The patient states t hat the pain in her right flank radiates toward the anterior abdomen. She, therefore, was admitted on . On admission, white count was 14.1; H and H of 14.4, 42.9; platelet count 251,000. BUN an d creatinine 14/0.82, and glucose random was 132. She had a renal ultrasound which showed mild righ t-sided hydronephrosis, with nonobstructing right renal calculus, [id number] left-sided hydron ephrosis with ureteral stent identified within the bladder. A small left renal cyst. She had a CT scan of the abdomen and pelvis which showed a 4-mm ureterolith, adjacent larger ureterolith measurin g 9.6 in size, adjacent to the stent in the proximal left ureter resulting in moderate hydronephrosi s of the left kidney. She also has a 3.-mm to 4-mm ureterolith in the distal right ureter, at the r ight ureterovesicular junction causing mild hydronephrosis of the right kidney, suture material next to the cecum possibly related to prior appendectomy, bilateral double J ureteral stents extending f rom the renal pelvis to the urinary bladder, moderate hydronephrosis of left kidney, very mild hydro nephrosis of the right kidney, midline abdominal incision. She has an incisional hernia. This cont ains a small bowel loop inferior to the umbilicus. The neck of the hernia and measures 1 cm transve rse x about 1.4 cm in height, osteoarthritis, hepatomegaly, a small midline umbilical hernia, pulmon janna hyperinflation in the dependent portions of the right and left lower lobes. Urine culture showe d no growth. Her white count on the was 7.9. Urine showed 25 to 50 white cells per high-power field, 2+ leukocyte esterase, greater than 200 red cells per high powered field, and the BUN/creati nine 12/0.73. The patient was started on Zosyn 3.375 g q.6. PAST MEDICAL HISTORY: Operations, as outlined. FAMILY HISTORY: Noncontributory. SOCIAL HISTORY: She does not smoke, drink or abuse drugs. ALLERGIES: NONE TO PENICILLIN, SULFA OR FOODS. MEDICATIONS: Per chart. REVIEW OF SYSTEMS: As per HPI. PHYSICAL EXAMINATION GENERAL: The patient is a pleasant, 52-year-old female who is alert, responsive, in no acute distre ss. VITAL SIGNS: Stable. She is afebrile. SKIN: Without generalized rash. HEENT: Within normal limits. NECK: Supple. LYMPHATIC: Lymph nodes, none palpable. CHEST: Decreased breath sounds at the bases. HEART: Without murmur or gallop. ABDOMEN: Soft, nontender, without organosplenomegaly or masses. EXTREMITIES: Without cyanosis, clubbing, or edema. RECTAL: Deferred. GENITAL: Deferred. NEUROLOGIC: No focal neurological abnormalities. IMPRESSION AND PLAN: Presently, the patient will be seen by Dr. Rodriguez of service. Stents are pat ent, no indication for intervention. Symptoms may be related just to the kidney stones. For the ti me being, we will continue her on antibiotic therapy, but I would keep her for the next 24 to 48 salina rs, and if all is well, then stop the Zosyn and send her home. I will dictate my findings to the hospitalist. Dictated By: TAWANA BENNETT MD, JD/HARJINDER Conf#: [id number] DID#: [id number]
[2016-09-12] MEDS: SOD CHLORIDE 0.9% 1,000 ML IV SCH ×3 (03:56→16:23)
[2016-09-12] MEDS: PIPER-TAZO 3.375 GM IV (PMX) 100 ML IVPB SCH ×3 (05:23→21:17)
[2016-09-12 08:18] VITALS: BP 141/76; RESP 16
[2016-09-12] MEDS: ENOXAPARIN 40 MG/0.4 ML SYG SC SCH (09:26)
--- NOTE | 2016-09-12 10:48 | PN ---
Date/Time of Note Date/Time of Note DATE: 09/12/16 TIME: 10:47 Assessment/Plan VTE Prophylaxis VTE Prophylaxis Intervention: SCD's Lines/Catheters IV Catheter Type (from Nrsg): Peripheral IV Urinary Cath still in place: No Assessment/Plan Assessment/Plan 60 yo F admitted last month for kidney stones c/b hydro sp bl ureteral stent placement here for hematuria and fevers, concern for UTI v pyelo from infected kidney stone. PLAN case dw Dr Rodriguez of service 09.10. stents patent. No indication for intervention. cont abx, ivfs-->urine culture remains negative. Possible symptoms solely due to kidney stones? ID consult for abx assistance-->per Dr Harrison cont abx for time being strain urine for potential stone analysis discharge pending ID recs Subjective 24 Hr Interval Summary Free Text/Dictation Still with occ eps of R flank pain Exam/Review of Systems Vital Signs Vitals Vital Signs Date Time Temp Pulse Resp B/P Pulse Ox O2 Delivery O2 Flow Rate FiO2 09/12/16 08:18 97.7 60 16 141/76 98 09/09/16 05:00 Room Air Intake and Output 09/11/16 09/11/16 09/12/16 15:00 23:00 07:00 Intake Total 100 ml 2500 ml 800 ml Output Total 1600 ml 1150 ml Balance 100 ml 900 ml -350 ml Exam nad, pleasant no mrg lungs clear abd soft no rashes Results Result Diagram: 09/10/16 0424 09/10/16 0424 Medications Medications Current Medications Sodium Chloride (NS) 1,000 ml @ 100 mls/hr Q10H IV Last administered on 21:20; Admin Dose 100 MLS/HR; Start 09/09/16 at 05:56 Ondansetron HCl (Zofran Inj) 4 mg Q6H PRN IV NAUSEA AND/OR VOMITING; Start at 06:00 Acetaminophen (Tylenol Tab) 650 mg Q6H PRN PO PAIN LEVEL 1-3 OR FEVER; Start at 06:00 Morphine Sulfate (morphine) 2 mg Q4H PRN IV SEVERE PAIN LEVEL 7-10 Last administered on 09/11/16 16:46; Admin Dose 2 MG; Start 09/09/16 at 06:00 Enoxaparin Sodium 40 mg 40 mg DAILY SC Last administered on 09/12/16 09:26; Admin Dose 40 MG; Start 09/09/16 at 09:00 Piperacillin Sod/ Tazobactam Sod (Zosyn 3.375gm/ 100 ml (Pmx)) 100 ml @ 200 mls /hr Q8 IVPB Last administered on 09/12/16 05:23; Admin Dose 200 MLS/HR; Start 09/09/16 at 14:00 Tramadol HCl (Ultram) 50 mg Q4H PRN PO PAIN Last administered on 09/11/16 23: 34; Admin Dose 50 MG; Start 09/09/16 at 10:00 LUIS IRWIN MD Sep 12, 2016 10:48
--- NOTE | 2016-09-12 18:25 | PN ---
DATE: 09/12/2016 SUBJECTIVE: No acute changes. Patient is alert, feels better. She still has right flank pain radi ating in her right groin and also the back of her thigh. No labs this morning. MICROBIOLOGY: Urine culture negative. ANTIMICROBIALS: The patient is on Zosyn day #4. PHYSICAL EXAMINATION: GENERAL: Well-developed, middle-aged woman who is alert, in no distress. HEENT: Atraumatic, normocephalic. Sclerae anicteric. Buccal mucosa dry. NECK: Supple. CHEST: Rise symmetrical. Breath sounds clear. HEART: S1, S2. ABDOMEN: Soft. Bowel sounds present. EXTREMITIES: Without cyanosis. ASSESSMENT: 1. Right flank and groin pain, questionable pyelonephritis, although urine culture remains negative . 2. Kidney stones, status post ureteral stent placement. 3. Systemic inflammatory response syndrome secondary to above. 4. Right-sided and mild to moderate left-sided hydronephrosis with nonobstructive right renal calcu [place]. PLAN: The patient is clinically improving. Again, urine cultures have been negative. She looks no ntoxic and nonseptic. She is being seen by Dr. Rodriguez in service outpatient and there is no indica tion for intervention at this point. We are going to keep her on Zosyn and anticipate discharge her on oral amoxicillin and follow with Urology as an outpatient. Dictated By: DARYL MCDERMOTT WAREHOUSE TECHNICIAN for [employer] Conf#: [id number] DID#: [id number]
[2016-09-12 20:30] VITALS: BP 157/83; RESP 18
[2016-09-12] MEDS: traMADol 50 MG TAB PO PRN (21:18)
[2016-09-13] MEDS: ONDANSETRON 4 MG INJ IV PRN (02:32)
[2016-09-13] MEDS: SOD CHLORIDE 0.9% 1,000 ML IV SCH ×3 (02:33→23:28)
[2016-09-13] MEDS: PIPER-TAZO 3.375 GM IV (PMX) 100 ML IVPB SCH (05:45)
[2016-09-13 08:12] VITALS: BP 128/65; RESP 57
[2016-09-13] MEDS: ENOXAPARIN 40 MG/0.4 ML SYG SC SCH (08:21)
--- NOTE | 2016-09-13 12:58 | CONS ---
Date/Time of Note Date/Time of Note DATE: 09/13/16 TIME: 12:57 Assessment/Plan Assessment/Plan Chief Complaint/Hosp Course SUBJECTIVE: No acute changes. Sleeping, no fevers. MICROBIOLOGY: Urine culture negative. ANTIMICROBIALS: The patient is on Zosyn day #5. PHYSICAL EXAMINATION: GENERAL: Well-developed, middle-aged woman who is alert, in no distress. HEENT: Atraumatic, normocephalic. Sclerae anicteric. Buccal mucosa dry. NECK: Supple. CHEST: Rise symmetrical. Breath sounds clear. HEART: S1, S2. ABDOMEN: Soft. Bowel sounds present. EXTREMITIES: Without cyanosis. ASSESSMENT: 1. Right flank and groin pain, questionable pyelonephritis, although urine culture remains negative. 2. Kidney stones, status post ureteral stent placement. 3. Systemic inflammatory response syndrome secondary to above. 4. Right-sided and mild to moderate left-sided hydronephrosis with nonobstructive right renal calculus. PLAN: Stable, urine cultures have been negative. Will change abx to oral Amoxicillin, pt to f/u with DR Rodriguez op for further rec-s ==> no indication for intervention at this point. DW staff Problems: Consultation Date/Type/Reason Admit Date/Time Sep 09, 2016 at 03:39 Initial Consult Date Type of Consultation: ID Exam/Review of Systems Vital Signs Vitals Vital Signs Date Time Temp Pulse Resp B/P Pulse Ox O2 Delivery O2 Flow Rate FiO2 09/13/16 08:12 97.8 57 57 128/65 98 Intake and Output 09/12/16 09/12/16 09/13/16 15:00 23:00 07:00 Intake Total 200 ml 2740 ml 1900 ml Output Total 2700 ml 2300 ml Balance 200 ml 40 ml -400 ml Results Result Diagram: 09/10/16 0424 09/10/16 0424 Medications Medications Current Medications Sodium Chloride (NS) 1,000 ml @ 100 mls/hr Q10H IV Last administered on 02:33; Admin Dose 100 MLS/HR; Start 09/09/16 at 05:56 Ondansetron HCl (Zofran Inj) 4 mg Q6H PRN IV NAUSEA AND/OR VOMITING Last administered on 09/13/16 02:32; Admin Dose 4 MG; Start 09/09/16 at 06:00 Acetaminophen (Tylenol Tab) 650 mg Q6H PRN PO PAIN LEVEL 1-3 OR FEVER Last administered on 09/13/16 10:32; Admin Dose 650 MG; Start 09/09/16 at 06:00 Enoxaparin Sodium 40 mg 40 mg DAILY SC Last administered on 09/13/16 08:21; Admin Dose 40 MG; Start 09/09/16 at 09:00 Piperacillin Sod/ Tazobactam Sod (Zosyn 3.375gm/ 100 ml (Pmx)) 100 ml @ 200 mls /hr Q8 IVPB Last administered on 09/13/16 05:45; Admin Dose 200 MLS/HR; Start 09/09/16 at 14:00 Tramadol HCl (Ultram) 50 mg Q4H PRN PO PAIN Last administered on 09/12/16 21: 18; Admin Dose 50 MG; Start 09/09/16 at 10:00 Morphine Sulfate (morphine) 3 mg Q4H PRN IV SEVERE PAIN LEVEL 7-10; Start 09/12 at 11:00 DARYL MCDERMOTT NP Sep 13, 2016 12:58
[2016-09-13] MEDS: traMADol 50 MG TAB PO PRN ×2 (13:54→23:28)
[2016-09-13] MEDS: AMOXICILLIN 500 MG CAP PO SCH ×2 (14:41→21:26)
--- NOTE | 2016-09-13 21:49 | PN ---
Date/Time of Note Date/Time of Note DATE: 09/13/16 TIME: 21:49 Assessment/Plan VTE Prophylaxis VTE Prophylaxis Intervention: LMWH Lines/Catheters IV Catheter Type (from Nrsg): Peripheral IV Urinary Cath still in place: No Assessment/Plan Assessment/Plan IMPRESSION 1. Pyelonephritis 2. left-sided hydronephrosis with nonobstructive right renal calculus 3. Bilateral Ureterolithiasis: with hx of recent stent PLAN cont abx likely dc tmrw see Dr. Dsouza note from yesterday Subjective 24 Hr Interval Summary Free Text/Dictation no acute overnight events Exam/Review of Systems Vital Signs Vitals Vital Signs Date Time Temp Pulse Resp B/P Pulse Ox O2 Delivery O2 Flow Rate FiO2 09/13/16 08:12 97.8 57 57 128/65 98 Intake and Output 09/12/16 09/12/16 09/13/16 15:00 23:00 07:00 Intake Total 200 ml 2740 ml 1900 ml Output Total 2700 ml 2300 ml Balance 200 ml 40 ml -400 ml Exam Constitutional: alert, oriented, well developed Head: atraumatic, normocephalic Eyes: EOMI, PERRL Respiratory: clear to auscultation, normal air movement Cardiovascular: nl pulses, regular rate and rhythm Gastrointestinal: soft Extremities: normal pulses Results Result Diagram: 09/10/16 0424 09/10/16 0424 Medications Medications Current Medications Sodium Chloride (NS) 1,000 ml @ 100 mls/hr Q10H IV Last administered on 13:50; Admin Dose 100 MLS/HR; Start 09/09/16 at 05:56 Ondansetron HCl (Zofran Inj) 4 mg Q6H PRN IV NAUSEA AND/OR VOMITING Last administered on 09/13/16 02:32; Admin Dose 4 MG; Start 09/09/16 at 06:00 Acetaminophen (Tylenol Tab) 650 mg Q6H PRN PO PAIN LEVEL 1-3 OR FEVER Last administered on 09/13/16 10:32; Admin Dose 650 MG; Start 09/09/16 at 06:00 Enoxaparin Sodium (Lovenox) 40 mg DAILY SC Last administered on 09/13/16 08:21 ; Admin Dose 40 MG; Start 09/09/16 at 09:00 Tramadol HCl (Ultram) 50 mg Q4H PRN PO PAIN Last administered on 09/13/16 13: 54; Admin Dose 50 MG; Start 09/09/16 at 10:00 Morphine Sulfate (morphine) 3 mg Q4H PRN IV SEVERE PAIN LEVEL 7-10; Start 09/12 at 11:00 Amoxicillin (Amoxicillin) 500 mg Q8 PO Last administered on 09/13/16 21:26; Admin Dose 500 MG; Start 09/13/16 at 14:00 LAZARO JUAREZ MD Sep 13, 2016 21:49
[2016-09-14] MEDS: AMOXICILLIN 500 MG CAP PO SCH ×3 (06:27→21:19)
[2016-09-14 07:00] VITALS: BP 138/75; RESP 20
[2016-09-14] MEDS: ENOXAPARIN 40 MG/0.4 ML SYG SC SCH (08:36)
[2016-09-14] MEDS: traMADol 50 MG TAB PO PRN ×2 (12:20→21:19)
--- NOTE | 2016-09-14 12:55 | PN ---
DATE: 09/14/2016 INFECTIOUS DISEASE PROGRESS NOTE SUBJECTIVE: No acute events overnight. No fevers. The patient is alert, feels better. Still with some discomfort in the right lung, but no dysuria, no hematuria. MICROBIOLOGY: Urine culture came back negative. ANTIMICROBIALS: The patient is status Zosyn for 5 days now and amoxicillin. PHYSICAL EXAMINATION: GENERAL: Well-developed, middle-aged woman who is alert, in no distress. HEENT: Head atraumatic, normocephalic. Sclerae anicteric. Buccal mucosa pink. NECK: Supple, trachea midline. CHEST: Rise symmetrical. Breath sounds clear. HEART: S1, S2. ABDOMEN: Soft, bowel sounds present. EXTREMITIES: No cyanosis. ASSESSMENT: 1. Right flank pain secondary to kidney stones and pyelonephritis with urinalysis on admission was positive; however, negative urine culture, responding to antibiotics. 2. Bilateral hydronephrosis with a history of Double-J right ureteral stent. 3. Systemic inflammatory response syndrome on admission secondary to above. PLAN: The patient is stable, clinically improving. She is being followed by a urologist outpatient. We will continue her on current antimicrobials. Dictated By: DARYL MCDERMOTT APARTMENT RENTAL CLERK for [employer] Conf#: [id number] DID#: [id number]
[2016-09-14] MEDS: SOD CHLORIDE 0.9% 1,000 ML IV SCH (14:14)
[2016-09-14] MEDS: ONDANSETRON 4 MG INJ IV PRN (15:40)
[2016-09-14 20:45] VITALS: BP 118/68; PULSE 68; RESP 18
[2016-09-15] MEDS: SOD CHLORIDE 0.9% 1,000 ML IV SCH ×3 (03:07→14:10)
[2016-09-15] MEDS: AMOXICILLIN 500 MG CAP PO SCH ×3 (05:16→21:59)
[2016-09-15 08:00] VITALS: BP 118/69; RESP 20
[2016-09-15] MEDS: ENOXAPARIN 40 MG/0.4 ML SYG SC SCH (10:28)
--- NOTE | 2016-09-15 12:46 | PN ---
DATE: 09/15/2016 SUBJECTIVE: No events overnight. No fevers. The patient is awake, started to have some burning with urination and stated that urine is getting darker. No fevers. ANTIMICROBIALS: Amoxicillin, status post 5 days of Zosyn. MICROBIOLOGY: Urine culture had been negative. PHYSICAL EXAMINATION: GENERAL: This is well-developed, middle-aged woman who is alert, in no distress. HEENT: Head atraumatic, normocephalic. Sclerae anicteric. Buccal mucosa pink. NECK: Supple. CHEST: Rise symmetrical. Breath sounds clear. HEART: S1, S2. ABDOMEN: Soft, bowel tones present. EXTREMITIES: Without cyanosis or edema. ASSESSMENT: 1. Acute pyelonephritis with urine culture on admission had been negative, but positive urinalysis. 2. Obstructive uropathy status post bilateral double-J stent placement. 3. Bilateral hydronephrosis, moderate on the left and mild on the right. 4. Systemic inflammatory response syndrome on admission secondary to above. PLAN: We are going to repeat urine culture. Continue patient on amoxicillin, if she continues to have symptoms we may restart her on IV antibiotics. Dictated By: DARYL MCDERMOTT PARALLEL COMPUTING SOFTWARE ENGINEER for [employer] Conf#: [id number] DID#: [id number]
[2016-09-15] MEDS: traMADol 50 MG TAB PO PRN ×2 (14:12→21:05)
[2016-09-15 19:53] VITALS: BP 147/72; RESP 20
[2016-09-16] MEDS: SOD CHLORIDE 0.9% 1,000 ML IV SCH ×3 (00:56→20:52)
[2016-09-16] MEDS: traMADol 50 MG TAB PO PRN ×2 (00:59→18:22)
[2016-09-16] MEDS: AMOXICILLIN 500 MG CAP PO SCH ×3 (05:46→21:18)
[2016-09-16 06:00] LABS: ADD SCAN DIFF NO
[2016-09-16 06:14] LABS: BASOPHIL # 0.1 10^3/ul (0.0-0.1); BASOPHILS % 0.5 % (0.0-2.0); EOSINOPHILS # 0.5 10^3/ul (0.0-0.5); EOSINOPHILS % 5.3 % (0.0-7.0); HEMATOCRIT 34.1 % (37.0-47.0); HEMOGLOBIN 11.4 g/dl (12.0-16.0); LYMPHOCYTES % 40.8 % (15.0-51.0); MEAN CORPUSCULAR HEMOGLOBIN 29.8 pg (29.0-33.0); MEAN CORPUSCULAR HGB CONC 33.4 g/dl (32.0-37.0); MEAN CORPUSCULAR VOLUME 89.3 fl (82.0-101.0); MEAN PLATELET VOLUME 10.7 fl (7.4-10.4); MONOCYTE # 0.7 10^3/ul (0.3-0.9); MONOCYTES % 7.3 % (0.0-11.0); NEUTROPHIL # 4.5 10^3/ul (1.6-7.5); NEUTROPHILS % 45.9 % (39.0-77.0); PLATELET COUNT 205 10^3/UL (140-415); RED BLOOD COUNT 3.82 10^6/ul (4.20-5.40); WHITE BLOOD COUNT 9.7 10^3/ul (4.8-10.8)
[2016-09-16 06:47] LABS: ALBUMIN 3.6 g/dl (3.3-4.9); ALBUMIN/GLOBULIN RATIO 1.63; BILIRUBIN,INDIRECT 0.1 mg/dl (0-1.1); BILIRUBIN,TOTAL 0.1 mg/dl (0.2-1.3); CALCIUM 11.5 mg/dl (8.4-10.2); CREATININE 0.62 mg/dl (0.44-1.00); POTASSIUM 3.8 mmol/L (3.5-5.1); TOTAL PROTEIN 5.8 g/dl (6.1-8.1)
[2016-09-16 08:04] VITALS: BP 109/54; RESP 19
[2016-09-16] MEDS: ENOXAPARIN 40 MG/0.4 ML SYG SC SCH (09:52)
--- NOTE | 2016-09-16 13:47 | PN ---
DATE: 09/16/2016 INFECTIOUS DISEASE PROGRESS NOTE SUBJECTIVE: No events overnight. No fevers. The patient is alert, feels better, looks comfortable . Urine culture from yesterday, preliminary negative. ANTIMICROBIALS: AMOXICILLIN. PHYSICAL EXAMINATION: GENERAL: Well-developed, middle-aged woman who is alert, in no distress. HEENT: Head atraumatic, normocephalic. Sclerae anicteric. Buccal mucosa pink. NECK: Supple, trachea midline. CHEST: Chest rise is symmetrical. Breath sounds diminished to the bases. ABDOMEN: Soft. Bowel tones present. EXTREMITIES: No cyanosis. ASSESSMENT: 1. Pyelonephritis. So far urine cultures since admission have been negative and repeat urine cultu re negative as well. The patient is symptomatically improving. 2. Kidney stones. Status post bilateral stent placement. 3. Bilateral hydronephrosis. 4. Status post systemic inflammatory response syndrome on admission. PLAN: The patient remains stable, clinically improving. Urine culture remains negative. We will k eep her on the current antimicrobials for a total of 2 weeks. The patient is being followed by Dr. Rodriguez in urology consultation as an outpatient. Dictated By: DARYL MCDERMOTT FACING CUTTING MACHINE OPERATOR for [employer] Conf#: [id number] DID#: [id number]
[2016-09-16 14:15] VITALS: BP 168/81; RESP 19
[2016-09-16] MEDS: morphine 4 MG/ML VIAL IV PRN (19:58)
[2016-09-16 20:07] VITALS: BP 131/67; RESP 20
--- NOTE | 2016-09-16 23:51 | PN ---
Date/Time of Note Date/Time of Note DATE: 09/16/16 TIME: 23:51 Assessment/Plan VTE Prophylaxis VTE Prophylaxis Intervention: SCD's Lines/Catheters IV Catheter Type (from Nrsg): Peripheral IV Urinary Cath still in place: No Assessment/Plan Assessment/Plan IMPRESSION 1. Pyelonephritis 2. left-sided hydronephrosis with nonobstructive right renal calculus 3. Bilateral Ureterolithiasis: with hx of recent stent PLAN cont abx pain mgmt see Dr. Dsouza note from yesterday Subjective 24 Hr Interval Summary Free Text/Dictation c/o continued bloody urine Exam/Review of Systems Vital Signs Vitals Vital Signs Date Time Temp Pulse Resp B/P Pulse Ox O2 Delivery O2 Flow Rate FiO2 09/16/16 20:07 98.5 65 20 131/67 98 09/14/16 20:45 Room Air Intake and Output 09/15/16 09/15/16 09/16/16 15:00 23:00 07:00 Intake Total 2000 ml 1975 ml Output Total 1600 ml 2500 ml Balance 400 ml -525 ml Exam Constitutional: alert, oriented, well developed Head: atraumatic, normocephalic Eyes: EOMI, PERRL Respiratory: clear to auscultation, normal air movement Cardiovascular: nl pulses, regular rate and rhythm Gastrointestinal: soft Extremities: normal pulses Results Result Diagram: 09/16/16 0438 09/16/16 0450 Results 24 hrs Laboratory Tests Test 09/16/16 04:38 09/16/16 04:50 09/16/16 11:45 White Blood Count 9.7 # Red Blood Count 3.82 L Hemoglobin 11.4 L Hematocrit 34.1 L Mean Corpuscular Volume 89.3 Mean Corpuscular Hemoglobin 29.8 Mean Corpuscular Hemoglobin Concent 33.4 Red Cell Distribution Width 14.0 Platelet Count 205 Mean Platelet Volume 10.7 H Neutrophils % 45.9 Lymphocytes % 40.8 Monocytes % 7.3 Eosinophils % 5.3 Basophils % 0.5 Nucleated Red Blood Cells % 0.0 Neutrophils # 4.5 Lymphocytes # 4.0 H Monocytes # 0.7 Eosinophils # 0.5 Basophils # 0.1 Nucleated Red Blood Cells # 0.0 Sodium Level 145 H Potassium Level 3.8 Chloride Level 111 H Carbon Dioxide Level 25 Anion Gap 13 Blood Urea Nitrogen 11 Creatinine 0.62 Glucose Level 92 Calcium Level 11.5 H Total Bilirubin 0.1 L Direct Bilirubin 0.00 Indirect Bilirubin 0.1 Aspartate Amino Transf (AST/SGOT) 23 Alanine Aminotransferase (ALT/SGPT) 22 Alkaline Phosphatase 69 Total Protein 5.8 L Albumin 3.6 Globulin 2.20 Albumin/Globulin Ratio 1.63 Lab Scanned Report REFERENCE LAB Medications Medications Current Medications Sodium Chloride (NS) 1,000 ml @ 100 mls/hr Q10H IV Last administered on 20:52; Admin Dose 100 MLS/HR; Start 09/09/16 at 05:56 Ondansetron HCl (Zofran Inj) 4 mg Q6H PRN IV NAUSEA AND/OR VOMITING Last administered on 09/14/16 15:40; Admin Dose 4 MG; Start 09/09/16 at 06:00 Acetaminophen (Tylenol Tab) 650 mg Q6H PRN PO PAIN LEVEL 1-3 OR FEVER Last administered on 09/13/16 10:32; Admin Dose 650 MG; Start 09/09/16 at 06:00 Enoxaparin Sodium (Lovenox) 40 mg DAILY SC Last administered on 09/16/16 09:52 ; Admin Dose 40 MG; Start 09/09/16 at 09:00 Tramadol HCl (Ultram) 50 mg Q4H PRN PO PAIN Last administered on 09/16/16 18: 22; Admin Dose 50 MG; Start 09/09/16 at 10:00 Morphine Sulfate (morphine) 3 mg Q4H PRN IV SEVERE PAIN LEVEL 7-10 Last administered on 09/16/16 19:58; Admin Dose 3 MG; Start 09/12/16 at 11:00 Amoxicillin (Amoxicillin) 500 mg Q8 PO Last administered on 09/16/16 21:18; Admin Dose 500 MG; Start 09/13/16 at 14:00 LAZARO JUAREZ MD Sep 16, 2016 23:51
[2016-09-17] MEDS: SOD CHLORIDE 0.9% 1,000 ML IV SCH ×2 (03:56→08:27)
[2016-09-17] MEDS: AMOXICILLIN 500 MG CAP PO SCH (05:33)
[2016-09-17 05:46] LABS: ADD SCAN DIFF NO
[2016-09-17 05:51] LABS: BASOPHIL # 0.1 10^3/ul (0.0-0.1); BASOPHILS % 0.7 % (0.0-2.0); EOSINOPHILS # 0.5 10^3/ul (0.0-0.5); EOSINOPHILS % 5.9 % (0.0-7.0); HEMATOCRIT 34.6 % (37.0-47.0); HEMOGLOBIN 11.6 g/dl (12.0-16.0); LYMPHOCYTES # 3.5 10^3/ul (0.8-2.9); MEAN CORPUSCULAR HEMOGLOBIN 30.2 pg (29.0-33.0); MEAN CORPUSCULAR HGB CONC 33.5 g/dl (32.0-37.0); MEAN CORPUSCULAR VOLUME 90.1 fl (82.0-101.0); MEAN PLATELET VOLUME 10.6 fl (7.4-10.4); MONOCYTE # 0.6 10^3/ul (0.3-0.9); MONOCYTES % 6.9 % (0.0-11.0); NEUTROPHILS % 46.2 % (39.0-77.0); PLATELET COUNT 209 10^3/UL (140-415); RED BLOOD COUNT 3.84 10^6/ul (4.20-5.40); RED CELL DISTRIBUTION WIDTH 13.9 % (11.5-14.5); WHITE BLOOD COUNT 8.7 10^3/ul (4.8-10.8)
[2016-09-17 06:48] LABS: ALBUMIN 3.8 g/dl (3.3-4.9); ALBUMIN/GLOBULIN RATIO 1.65; BILIRUBIN,INDIRECT 0.2 mg/dl (0-1.1); BILIRUBIN,TOTAL 0.2 mg/dl (0.2-1.3); CALCIUM 11.7 mg/dl (8.4-10.2); CREATININE 0.68 mg/dl (0.44-1.00); POTASSIUM 4.2 mmol/L (3.5-5.1); TOTAL PROTEIN 6.1 g/dl (6.1-8.1)
[2016-09-17 07:55] VITALS: BP 138/76; RESP 19
[2016-09-17] MEDS: ENOXAPARIN 40 MG/0.4 ML SYG SC SCH (08:30)
[2016-09-17] MEDS: traMADol 50 MG TAB PO PRN (12:27)
[2016-09-17] MEDS: FLUCONAZOLE 100 MG TAB PO SCH (13:43)
[2016-09-17] MEDS: MEROPENEM 500 MG/100 ML (PMX) 100 ML IVPB SCH ×2 (13:54→21:37)
[2016-09-17 19:38] VITALS: BP 145/70; PULSE 84; RESP 18
--- NOTE | 2016-09-17 23:51 | PN ---
Date/Time of Note Date/Time of Note DATE: 09/17/16 TIME: 23:51 Assessment/Plan VTE Prophylaxis VTE Prophylaxis Intervention: SCD's Lines/Catheters IV Catheter Type (from Nrsg): Peripheral IV Urinary Cath still in place: No Assessment/Plan Assessment/Plan IMPRESSION 1. Pyelonephritis 2. left-sided hydronephrosis with nonobstructive right renal calculus 3. Bilateral Ureterolithiasis: with hx of recent stent PLAN cont abx, now on Meropenem see Dr. Dsouza note from 09/12 for more info Subjective 24 Hr Interval Summary Free Text/Dictation c/o right flank pain Exam/Review of Systems Vital Signs Vitals Vital Signs Date Time Temp Pulse Resp B/P Pulse Ox O2 Delivery O2 Flow Rate FiO2 09/17/16 19:38 98.5 84 18 145/70 97 Room Air Intake and Output 09/16/16 09/16/16 09/17/16 15:00 23:00 07:00 Intake Total 400 ml 2240 ml 1600 ml Output Total 2100 ml 2800 ml Balance 400 ml 140 ml -1200 ml Exam Constitutional: alert, oriented, well developed Head: atraumatic, normocephalic Eyes: EOMI, PERRL Respiratory: clear to auscultation, normal air movement Cardiovascular: nl pulses, regular rate and rhythm Gastrointestinal: soft Extremities: normal pulses Results Result Diagram: 09/17/16 0435 09/17/16 0435 Results 24 hrs Laboratory Tests Test 09/17/16 04:35 White Blood Count 8.7 Red Blood Count 3.84 L Hemoglobin 11.6 L Hematocrit 34.6 L Mean Corpuscular Volume 90.1 Mean Corpuscular Hemoglobin 30.2 Mean Corpuscular Hemoglobin Concent 33.5 Red Cell Distribution Width 13.9 Platelet Count 209 Mean Platelet Volume 10.6 H Neutrophils % 46.2 Lymphocytes % 40.0 Monocytes % 6.9 Eosinophils % 5.9 Basophils % 0.7 Nucleated Red Blood Cells % 0.0 Neutrophils # 4.0 Lymphocytes # 3.5 H Monocytes # 0.6 Eosinophils # 0.5 Basophils # 0.1 Nucleated Red Blood Cells # 0.0 Sodium Level 144 Potassium Level 4.2 Chloride Level 110 Carbon Dioxide Level 26 Anion Gap 12 Blood Urea Nitrogen 11 Creatinine 0.68 Glucose Level 91 Calcium Level 11.7 H Total Bilirubin 0.2 Direct Bilirubin 0.00 Indirect Bilirubin 0.2 Aspartate Amino Transf (AST/SGOT) 21 Alanine Aminotransferase (ALT/SGPT) 26 Alkaline Phosphatase 58 Total Protein 6.1 Albumin 3.8 Globulin 2.30 Albumin/Globulin Ratio 1.65 Medications Medications Current Medications Sodium Chloride (NS) 1,000 ml @ 100 mls/hr Q10H IV Last administered on 08:27; Admin Dose 100 MLS/HR; Start 09/09/16 at 05:56 Ondansetron HCl (Zofran Inj) 4 mg Q6H PRN IV NAUSEA AND/OR VOMITING Last administered on 09/14/16 15:40; Admin Dose 4 MG; Start 09/09/16 at 06:00 Acetaminophen (Tylenol Tab) 650 mg Q6H PRN PO PAIN LEVEL 1-3 OR FEVER Last administered on 09/13/16 10:32; Admin Dose 650 MG; Start 09/09/16 at 06:00 Enoxaparin Sodium (Lovenox) 40 mg DAILY SC Last administered on 09/17/16 08:30 ; Admin Dose 40 MG; Start 09/09/16 at 09:00 Tramadol HCl (Ultram) 50 mg Q4H PRN PO PAIN Last administered on 09/17/16 12: 27; Admin Dose 50 MG; Start 09/09/16 at 10:00 Morphine Sulfate 3 mg 3 mg Q4H PRN IV SEVERE PAIN LEVEL 7-10 Last administered on 09/16/16 19:58; Admin Dose 3 MG; Start 09/12/16 at 11:00 Meropenem (Merrem 500 Mg/ 100 ml (Pmx)) 100 ml @ 200 mls/hr Q8 IVPB Last administered on 09/17/16 21:37; Admin Dose 200 MLS/HR; Start 09/17/16 at 14:00 Fluconazole (Diflucan) 100 mg DAILY PO Last administered on 09/17/16 13:43; Admin Dose 100 MG; Start 09/17/16 at 13:00 LAZARO JUAREZ MD Sep 17, 2016 23:51
[2016-09-18] MEDS: SOD CHLORIDE 0.9% 1,000 ML IV SCH ×3 (00:19→20:00)
[2016-09-18] MEDS: MEROPENEM 500 MG/100 ML (PMX) 100 ML IVPB SCH ×3 (06:02→22:08)
[2016-09-18] MEDS: traMADol 50 MG TAB PO PRN ×2 (06:31→13:59)
[2016-09-18 08:03] VITALS: BP 171/81; RESP 15
[2016-09-18 09:11] VITALS: BP 141/70; PULSE 62
[2016-09-18] MEDS: FLUCONAZOLE 100 MG TAB PO SCH (09:12)
[2016-09-18] MEDS: ENOXAPARIN 40 MG/0.4 ML SYG SC SCH (09:15)
--- NOTE | 2016-09-18 14:20 | PN ---
Date/Time of Note Date/Time of Note DATE: 09/18/16 TIME: 14:19 Assessment/Plan VTE Prophylaxis VTE Prophylaxis Intervention: SCD's Lines/Catheters IV Catheter Type (from Nrsg): Peripheral IV Urinary Cath still in place: No Assessment/Plan Assessment/Plan IMPRESSION 1. Pyelonephritis 2. left-sided hydronephrosis with nonobstructive right renal calculus 3. Bilateral Ureterolithiasis: with hx of recent stent PLAN cont abx, now on Meropenem see Dr. Dsouza note from 09/12 for more info Subjective 24 Hr Interval Summary Free Text/Dictation still with bloody urine Exam/Review of Systems Vital Signs Vitals Vital Signs Date Time Temp Pulse Resp B/P Pulse Ox O2 Delivery O2 Flow Rate FiO2 09/18/16 09:11 62 141/70 09/18/16 08:03 97.7 15 98 09/17/16 19:38 Room Air Intake and Output 09/17/16 09/17/16 09/18/16 15:00 23:00 07:00 Intake Total 300 ml 2120 ml 2400 ml Output Total 1500 ml 1700 ml Balance 300 ml 620 ml 700 ml Exam Constitutional: alert, oriented, well developed Head: atraumatic, normocephalic Eyes: EOMI, PERRL Respiratory: clear to auscultation, normal air movement Cardiovascular: nl pulses, regular rate and rhythm Gastrointestinal: soft Extremities: normal pulses Results Result Diagram: 09/17/16 0435 09/17/16 0435 Medications Medications Current Medications Sodium Chloride (NS) 1,000 ml @ 100 mls/hr Q10H IV Last administered on 12:39; Admin Dose 100 MLS/HR; Start 09/09/16 at 05:56 Ondansetron HCl (Zofran Inj) 4 mg Q6H PRN IV NAUSEA AND/OR VOMITING Last administered on 09/14/16 15:40; Admin Dose 4 MG; Start 09/09/16 at 06:00 Acetaminophen (Tylenol Tab) 650 mg Q6H PRN PO PAIN LEVEL 1-3 OR FEVER Last administered on 09/13/16 10:32; Admin Dose 650 MG; Start 09/09/16 at 06:00 Enoxaparin Sodium (Lovenox) 40 mg DAILY SC Last administered on 09/18/16 09:15 ; Admin Dose 40 MG; Start 09/09/16 at 09:00 Tramadol HCl (Ultram) 50 mg Q4H PRN PO PAIN Last administered on 09/18/16 13: 59; Admin Dose 50 MG; Start 09/09/16 at 10:00 Morphine Sulfate 3 mg 3 mg Q4H PRN IV SEVERE PAIN LEVEL 7-10 Last administered on 09/16/16 19:58; Admin Dose 3 MG; Start 09/12/16 at 11:00 Meropenem (Merrem 500 Mg/ 100 ml (Pmx)) 100 ml @ 200 mls/hr Q8 IVPB Last administered on 09/18/16 13:59; Admin Dose 200 MLS/HR; Start 09/17/16 at 14:00 Fluconazole (Diflucan) 100 mg DAILY PO Last administered on 09/18/16 09:12; Admin Dose 100 MG; Start 09/17/16 at 13:00 LAZARO JUAREZ MD Sep 18, 2016 14:20
--- NOTE | 2016-09-18 15:37 | CONS ---
Date/Time of Note Date/Time of Note DATE: 09/18/16 TIME: 15:36 Assessment/Plan Assessment/Plan Chief Complaint/Hosp Course ID PROGRESS NOTE SUBJECTIVE: Alert, no complaints, no fevers, chart reviewed, pt is completing ABX for Pyelonephritis MICRO: URINE CULTURE Final Organism 1 ENTEROBACTER CLOACAE COLONY COUNT <10,000 CFU/ml Organism 2 SCOTT ALBICANS COLONY COUNT <10,000 CFU/ml E CLOACAE M.I.C. RX --------- --- CEFOTAXIME S CIPROFLOXACIN <=0.25 S GENTAMICIN <=1 S LEVOFLOXACIN <=0.12 S NITROFURANTOIN 32 S TOBRAMYCIN <=1 S TRIMETHOPRIM/SULFAMETHOXAZOLE >=320 R ANTIMICROBIALS: Merrem, Diflucan s/p AMOXICILLIN. PHYSICAL EXAMINATION: GENERAL: Well-developed, middle-aged woman who is alert, in no distress. HEENT: Head atraumatic, normocephalic. Sclerae anicteric. Buccal mucosa pink. NECK: Supple, trachea midline. CHEST: Chest rise is symmetrical. Breath sounds diminished to the bases. ABDOMEN: Soft. Bowel tones present. EXTREMITIES: No cyanosis. ID ASSESSMENT: 1. Pyelonephritis. URINE CULTURE Final Organism 1 ENTEROBACTER CLOACAE COLONY COUNT <10,000 CFU/ml Organism 2 SCOTT ALBICANS COLONY COUNT <10,000 CFU/ml E CLOACAE M.I.C. RX --------- --- CEFOTAXIME S CIPROFLOXACIN <=0.25 S GENTAMICIN <=1 S LEVOFLOXACIN <=0.12 S NITROFURANTOIN 32 S TOBRAMYCIN <=1 S TRIMETHOPRIM/SULFAMETHOXAZOLE >=320 R 2. Kidney stones. Status post bilateral stent placement. 3. Bilateral hydronephrosis. 4. Status post systemic inflammatory response syndrome on admission. ID PLAN: * Continue Merrem + Diflucan ABX to complete total 2 weeks = DAY #3 days * May DC on ABX when cleared by primary * The patient is being followed by Dr. Rodriguez in urology consultation as an outpatient. . Problems: Consultation Date/Type/Reason Admit Date/Time Sep 09, 2016 at 03:39 Initial Consult Date Type of Consultation: ID Exam/Review of Systems Vital Signs Vitals Vital Signs Date Time Temp Pulse Resp B/P Pulse Ox O2 Delivery O2 Flow Rate FiO2 09/18/16 09:11 62 141/70 09/18/16 08:03 97.7 15 98 09/17/16 19:38 Room Air Intake and Output 09/17/16 09/17/16 09/18/16 15:00 23:00 07:00 Intake Total 300 ml 2120 ml 2400 ml Output Total 1500 ml 1700 ml Balance 300 ml 620 ml 700 ml Results Result Diagram: 09/17/16 0435 09/17/16 0435 Medications Medications Current Medications Sodium Chloride (NS) 1,000 ml @ 100 mls/hr Q10H IV Last administered on 12:39; Admin Dose 100 MLS/HR; Start 09/09/16 at 05:56 Ondansetron HCl (Zofran Inj) 4 mg Q6H PRN IV NAUSEA AND/OR VOMITING Last administered on 09/14/16 15:40; Admin Dose 4 MG; Start 09/09/16 at 06:00 Acetaminophen (Tylenol Tab) 650 mg Q6H PRN PO PAIN LEVEL 1-3 OR FEVER Last administered on 09/13/16 10:32; Admin Dose 650 MG; Start 09/09/16 at 06:00 Enoxaparin Sodium (Lovenox) 40 mg DAILY SC Last administered on 09/18/16 09:15 ; Admin Dose 40 MG; Start 09/09/16 at 09:00 Tramadol HCl (Ultram) 50 mg Q4H PRN PO PAIN Last administered on 09/18/16 13: 59; Admin Dose 50 MG; Start 09/09/16 at 10:00 Morphine Sulfate 3 mg 3 mg Q4H PRN IV SEVERE PAIN LEVEL 7-10 Last administered on 09/16/16 19:58; Admin Dose 3 MG; Start 09/12/16 at 11:00 Meropenem (Merrem 500 Mg/ 100 ml (Pmx)) 100 ml @ 200 mls/hr Q8 IVPB Last administered on 09/18/16 13:59; Admin Dose 200 MLS/HR; Start 09/17/16 at 14:00 Fluconazole (Diflucan) 100 mg DAILY PO Last administered on 09/18/16 09:12; Admin Dose 100 MG; Start 09/17/16 at 13:00 JUDE GREGORY NP Sep 18, 2016 15:36
[2016-09-18] MEDS: morphine 4 MG/ML VIAL IV PRN (16:05)
[2016-09-18 19:51] VITALS: BP 135/73; PULSE 78; RESP 18
[2016-09-19] MEDS: traMADol 50 MG TAB PO PRN ×2 (00:11→12:30)
[2016-09-19 04:55] LABS: ADD SCAN DIFF NO
[2016-09-19 05:02] LABS: BASOPHIL # 0.1 10^3/ul (0.0-0.1); BASOPHILS % 0.6 % (0.0-2.0); EOSINOPHILS # 0.5 10^3/ul (0.0-0.5); EOSINOPHILS % 5.8 % (0.0-7.0); HEMATOCRIT 35.3 % (37.0-47.0); HEMOGLOBIN 11.8 g/dl (12.0-16.0); LYMPHOCYTES # 3.7 10^3/ul (0.8-2.9); LYMPHOCYTES % 42.9 % (15.0-51.0); MEAN CORPUSCULAR HEMOGLOBIN 29.9 pg (29.0-33.0); MEAN CORPUSCULAR HGB CONC 33.4 g/dl (32.0-37.0); MEAN CORPUSCULAR VOLUME 89.4 fl (82.0-101.0); MEAN PLATELET VOLUME 10.2 fl (7.4-10.4); MONOCYTE # 0.6 10^3/ul (0.3-0.9); MONOCYTES % 6.8 % (0.0-11.0); NEUTROPHIL # 3.7 10^3/ul (1.6-7.5); NEUTROPHILS % 43.4 % (39.0-77.0); PLATELET COUNT 218 10^3/UL (140-415); RED BLOOD COUNT 3.95 10^6/ul (4.20-5.40); RED CELL DISTRIBUTION WIDTH 13.6 % (11.5-14.5); WHITE BLOOD COUNT 8.6 10^3/ul (4.8-10.8)
[2016-09-19 05:39] LABS: ALBUMIN 3.9 g/dl (3.3-4.9); ALBUMIN/GLOBULIN RATIO 1.77; BILIRUBIN,INDIRECT 0.2 mg/dl (0-1.1); BILIRUBIN,TOTAL 0.2 mg/dl (0.2-1.3); CALCIUM 11.5 mg/dl (8.4-10.2); CREATININE 0.69 mg/dl (0.44-1.00); POTASSIUM 4.3 mmol/L (3.5-5.1); TOTAL PROTEIN 6.1 g/dl (6.1-8.1)
[2016-09-19] MEDS: MEROPENEM 500 MG/100 ML (PMX) 100 ML IVPB SCH ×2 (06:07→13:49)
[2016-09-19] MEDS: SOD CHLORIDE 0.9% 1,000 ML IV SCH ×2 (06:07→10:58)
[2016-09-19 08:03] VITALS: BP 149/72; RESP 18
[2016-09-19] MEDS: FLUCONAZOLE 100 MG TAB PO SCH (09:02)
[2016-09-19] MEDS: ENOXAPARIN 40 MG/0.4 ML SYG SC SCH (09:03)
[2016-09-19] MEDS ORDERED: HYDR-902 PO (13:34)
[2016-09-19] MEDS ORDERED: FLUC100T PO (13:34)
[2016-09-19] MEDS ORDERED: CIPR500T4 PO (13:34)
--- NOTE | 2016-09-19 13:36 | PDOCDIS ---
Discharge Instructions CONDITION Patient Condition: Stable HOME CARE INSTRUCTIONS: Special Diet: regular ACTIVITY: Activity Restrictions: Slowly Increase Activity FOLLOW UP/APPOINTMENTS Follow-up Plan follow-up with Urology OTHER ORDERS: Other Orders: Call 911 and go to the nearest ER if you develop severe abdominal/flank pain, continued bloody urine, fever/chills, chest pain or shortness of breath LAZARO JUAREZ MD Sep 19, 2016 13:36
== END 2016-09-19 15:20 | disposition home or self-care (01) | DRG 690 ==
LOC: E/R 23:32 → MS1 09-09 03:39
PROVIDERS: ADMIT Family Medicine; ATTEND Family Medicine
DX: N10 Acute pyelonephritis (principal); N13.30 Unspecified hydronephrosis; N20.1 Calculus of ureter; N20.0 Calculus of kidney; E83.52 Hypercalcemia; B96.89 Other specified bacterial agents as the cause of diseases classified elsewhere; Z96.0 Presence of urogenital implants
CPT/HCPCS: 36415; 74176; 76775; 80048; 80053; 81001; 82330; 82962; 83970; 85025; 87086; 96374; C9113; J1650; J2185; J2270; J2405; J2543; J7030

== ENCOUNTER 2016-09-23 12:26 | Inpatient (IN) | payer MEDICARE, OTHER ==
[~2016-09-23] VITALS: Ht 160 cm; Wt 81.7 kg
[~2016-09-23 12:26] MED LIST changes: +CIPR500T4 PO; +FLUC100T PO; +HYDR-902 PO; -HYDR-906 PO; -LEVO750T8 PO; +OMEG-129 PO
[2016-09-23] MEDS ORDERED: SOD CHLORIDE 0.9% 1,000 ML IV STA ×2 (12:56→15:03)
[2016-09-23] MEDS ORDERED: ONDANSETRON 4 MG INJ IV STA (13:08)
[2016-09-23] MEDS ORDERED: morphine 4 MG/ML VIAL IV STA (13:08)
[2016-09-23 13:24] LABS: BASOPHIL # 0.1 10^3/ul (0.0-0.1); BASOPHILS % 0.6 % (0.0-2.0); EOSINOPHILS # 0.2 10^3/ul (0.0-0.5); EOSINOPHILS % 2.1 % (0.0-7.0); HEMATOCRIT 42.1 % (37.0-47.0); HEMOGLOBIN 14.6 g/dl (12.0-16.0); LYMPHOCYTES # 3.7 10^3/ul (0.8-2.9); LYMPHOCYTES % 34.6 % (15.0-51.0); MEAN CORPUSCULAR HEMOGLOBIN 30.5 pg (29.0-33.0); MEAN CORPUSCULAR HGB CONC 34.7 g/dl (32.0-37.0); MEAN CORPUSCULAR VOLUME 88.1 fl (82.0-101.0); MEAN PLATELET VOLUME 10.5 fl (7.4-10.4); MONOCYTE # 0.8 10^3/ul (0.3-0.9); MONOCYTES % 7.6 % (0.0-11.0); NEUTROPHIL # 5.9 10^3/ul (1.6-7.5); NEUTROPHILS % 54.8 % (39.0-77.0); PLATELET COUNT 301 10^3/UL (140-415); RED BLOOD COUNT 4.78 10^6/ul (4.20-5.40); RED CELL DISTRIBUTION WIDTH 13.5 % (11.5-14.5); WHITE BLOOD COUNT 10.7 10^3/ul (4.8-10.8)
[2016-09-23 13:32] LABS: ADD UMIC YES; UR ASCORBIC ACID NEGATIVE (NEGATIVE); UR BACTERIA FEW /HPF (NONE SEEN); UR BILIRUBIN (Dip) NEGATIVE (NEGATIVE); UR BLOOD (Dip) 3+ mg/dL (NEGATIVE); UR CLARITY CLOUDY (CLEAR); UR COLOR RED (YELLOW); UR GLUCOSE (Dip) NEGATIVE (NEGATIVE); UR KETONES (Dip) NEGATIVE (NEGATIVE); UR LEUKOCYTE ESTERASE (Dip) 2+ Leu/ul (NEGATIVE); UR NITRITE (Dip) NEGATIVE (NEGATIVE); UR RBC > 182 /HPF (0-5); UR SPECIFIC GRAVITY (Dip) 1.011 (1.003-1.030); UR SQUAMOUS EPITHELIAL CELL FEW /HPF (FEW); UR TOTAL PROTEIN (Dip) 2+ mg/dl (NEGATIVE); UR UROBILINOGEN (Dip) NEGATIVE (NEGATIVE)
[2016-09-23 13:42] LABS: ALBUMIN/GLOBULIN RATIO 1.56; BILIRUBIN,INDIRECT 0.5 mg/dl (0-1.1); BILIRUBIN,TOTAL 0.5 mg/dl (0.2-1.3); CREATININE 0.77 mg/dl (0.44-1.00); POTASSIUM 3.8 mmol/L (3.5-5.1); TOTAL PROTEIN 8.2 g/dl (6.1-8.1)
[2016-09-23 13:48] LABS: ADD SCAN DIFF NO
[2016-09-23 13:51] LABS: CALCIUM 13.5 mg/dl (8.4-10.2)
[2016-09-23] MEDS ORDERED: CIPROFLOXACIN 400MG/D5W 200 ML IVPB ONE (14:00)
[2016-09-23 14:25] LABS: UR WBC CLUMPS MANY /HPF (NONE SEEN)
--- NOTE | 2016-09-23 14:35 | RADRPT ---
PROCEDURE: CT scan of the abdomen and pelvis without IV contrast. CLINICAL INDICATION: Flank pain. Evaluate for stones. History of ureteral stents. TECHNIQUE: Thin section axial, coronal and sagittal images were performed through the abdomen and pelvis without contrast. One or more of the following dose reduction techniques were used: Automate d exposure control. Adjustment of the mA and/or kV according to patient size. Use of iterative recon struction technique. Radiation Dose: CTDI: 17.65 mGy and DLP: 996.1 mGy/cm. COMPARISON: CT abdomen pelvis from 09/09/2016. FINDINGS: The lung bases are clear. The heart is normal in size. No pericardial effusion is identified. There is interval increased moderate to severe bilateral hydronephrosis. Three nonobstructive calcu li are present within the inferior pole of the left kidney measuring up to 3.5 mm in diameter. Two of these are new since the prior exam. Bilateral double J ureteral stents remain in place. Again s een within the distal right ureter are two stones adjacent to the distal portion of the right ureter al stent. The more proximal ureterolith measures 3.4 mm. The more distal ureterolith measures 4 mm . Within the proximal left ureter, the previously described 9 x 6 mm ureterolith and 4 mm ureterol ith located adjacent to the proximal stent in the proximal third of the left ureter, are stable. Int erval increased bilateral periureteral fat stranding is likely reactive. A simple appearing left mahesh al cyst is again noted. Liver is enlarged measuring 18.3 cm AP. No hepatic mass or intrahepatic biliary ductal dilatation i s identified. The gallbladder is surgically removed with clips in the jose alfredo hepatis area and medial to the lower right lobe of the liver. A midline paraincisional hernia is again noted containing a loop of nonobstructed small bowel . The neck of the hernia measures 1 cm. There is no evidence of a hiatal hernia. The stomach and small b owel loops are normal. There is fecal material throughout most of the colon. There is a midline um bilical hernia. It contains only fat. Some suture material is noted inferior to the cecum which mi ght relate to prior cholecystectomy or other surgery. Pancreas is normal. The extrahepatic common bile duct measures 6.5 mm. The spleen is normal. The adrenal glands are normal. No enlarged periportal, retroperitoneal, mesenteric, pelvic sidewall or inguinal lymph nodes are khushbu ntified. The uterus is anteflexed and normal in size. No abnormal adnexal mass or free fluid is no rosa in the pelvis. There is a total left hip arthroplasty. The acetabular and femoral components are anatomically alig alisia. There are degenerative changes in the right hip. There are degenerative osteophytes in the th oracic and lumbar spine. There is disk space narrowing at L4-5 with dorsal spondylosis. There is n o evidence of spondylolysis or spondylolisthesis. No acute bony fracture or bone metastasis is iden tified. IMPRESSION: 1. Interval increased moderate to severe bilateral hydronephrosis with stable bilateral double J ur eteral stents in place and persistent bilateral ureteroliths within the proximal left ureter and dis yas right ureter, as described above and pictured below. Interval increased bilateral periureteral fat stranding is likely reactive. 2. Three nonobstructive left renal calculi measuring up to 3.5 mm, two of which are new since the p rior exam. 3. Small midline paraincisional hernia containing a loop of nonobstructed small bowel. 4. Osteoarthritis of the thoracic and lumbosacral spine. 5. Hepatomegaly with evidence of prior cholecystectomy. 6. Small midline umbilical hernia. 7. Status post total left hip arthroplasty. RPTAT: JJ .Javier Tom MD, Date Time Electronically viewed and signed by .Javier Tom MD, on 09/23/2016 14:35 .A/
[2016-09-23] MEDS ORDERED: SOD CHLORIDE 0.9% 1,000 ML IV SCH (14:53)
[2016-09-23] MEDS ORDERED: ACETAMINOPHEN 325 MG TAB PO PRN (15:00)
[2016-09-23] MEDS ORDERED: DOCUSATE SODIUM 100 MG CAP PO PRN (15:00)
[2016-09-23] MEDS ORDERED: NACL 0.9% 3 ML SYG IV SCH (15:00)
[2016-09-23] MEDS ORDERED: ONDANSETRON 4 MG INJ IV PRN (15:00)
--- NOTE | 2016-09-23 15:02 | HP ---
Date/Time of Note Date/Time of Note DATE: 09/23/16 TIME: 15:02 Assessment/Plan VTE Prophylaxis VTE Prophylaxis Intervention: SCD's Lines/Catheters Urinary Cath still in place: No Assessment/Plan Assessment/Plan 60 yo F with pmhx nephrolithiasis (likely 2/2 hypercalcemia from hyperparathyroidism) presents with L flank pain and worsening nephrolithiasis burden #nephrolithiasis eval to Dr Rodriguez (contacted by ED) to see if nephrostomy tubes v new ureteral stents are indicated IVFs and urine straining #hyperparathyroidism with resultant hypercalcemia and symptomatic nephrolithiasis: PTH checked during last admission given her hypercalcemia found to be elevated to high 140s will obtain endo consult in AM cont IVFs HPI/ROS Admit Date/Time Admit Date/Time Hx of Present Illness 60 yo F with h/o nephrolithiasis with resulting ureteral obstruction requiring ureteral stenting last admitted earlier this month for aseptic pyelonephritis presents with flank pain, hematuria. Imaging with worsening kidney stone burden. ROS 10pROS neg except as per HPI PMH/Family/Social Social History Smoking Status: Never smoker Exam/Review of Systems Vital Signs Vitals Vital Signs Date Time Temp Pulse Resp B/P Pulse Ox O2 Delivery O2 Flow Rate FiO2 09/23/16 12:37 97.4 83 18 134/66 98 Exam Exam sitting up in bed no mrg lungs clear abd soft +L CVA tenderness Labs Result Diagram: 09/23/16 1312 09/23/16 1312 Medications Medications Current Medications Sodium Chloride (NS) 1,000 ml @ 80 mls/hr [id number] IV ; Start 09/23/16 at 14:53 ; Stop 09/24/16 at 03:22 Acetaminophen (Tylenol Tab) 650 mg Q6H PRN PO PAIN LEVEL 1-3 OR FEVER; Start at 15:00; Status UNV Acetaminophen/ Hydrocodone Bitart ([place] (5/325)) 1 tab Q6H PRN PO MODERATE PAIN LEVEL 4-6; Start 09/23/16 at 15:00; Status UNV Docusate Sodium (Colace) 100 mg Q12H PRN PO CONSTIPATION; Start 09/23/16 at 15: 00; Status UNV Enoxaparin Sodium (Lovenox) 40 mg DAILY SC ; Start 09/24/16 at 09:00; Status UNV LUIS IRWIN MD Sep 23, 2016 15:02
--- NOTE | 2016-09-23 15:14 | ERA ---
ER Documentation Chief Complaint Date/Time DATE: 09/23/16 TIME: 15:10 Chief Complaint bilat flank and pelvic pain x 3 days but worse today; hematuria HPI This is a 60-year-old female who presents to the emergency room for evaluation of flank pain and pelvic pain for the past 3 days. This patient does state she has a history of multiple kidney stones, and recent stent placement done at this hospital. She states that her pain is progressively gotten worse and she localizes the pain to the lower portion of the back and she describes it as an achy pain worse with urination. She states today she noted that her urine was darker than normal and her pain was more than normal. The patient came to the ER for evaluation. The patient states that she was supposed to see a urologist as an outpatient, however she was not able to get in because the next available appointment was 1 month from now ROS All systems reviewed and are negative except as per history of present illness. Medications Home Meds Active Scripts Ciprofloxacin Hcl* (Ciprofloxacin Hcl*) 500 Mg Tablet, 500 MG PO BID, #10 TAB Prov:LAZARO JUAREZ MD 09/19/16 Fluconazole* (Diflucan*) 100 Mg Tablet, 100 MG PO DAILY, #5 TAB Prov:LAZARO JUAREZ MD 09/19/16 Hydrocodone/Acetaminophen ([place] 10-325 Tablet) 1 Each Tablet, 1 EACH PO Q4H WHILE AWAKE, #60 TAB Prov:LAZARO JUAREZ MD 09/19/16 Reported Medications Omega3,5,6,7,9 No.1/[place] Oil (Complete [place] Softgel) 1 Each Capsule, 1 EACH PO, CAP 09/09/16 Discontinued Scripts Tramadol HCl (Tramadol HCl) 50 Mg Tablet, 50 MG PO Q4 Y for PAIN, #20 TAB Prov:DEE BERGMAN PA-C 09/02/16 Levofloxacin* (Levofloxacin*) 750 Mg Tablet, 750 MG PO DAILY for 7 Days, TAB Prov:OM ARAUJO S. 09/05/16 Hydrocodone/Acetaminophen ([place] 5-325 Tablet) 1 Each Tablet, 1 EACH PO Q6 for 10 Days, TAB Prov:MO ARAUJO S. 09/05/16 Allergies Allergies: Coded Allergies: No Known Drug Allergy (Unverified Allergy, Unknown, 09/23/16) PMhx/Soc History of Surgery: Yes (LEFT KNEE SX 12-2017 , LEFT HIP 02/2017 [id number], URETERAL STENTS) Anesthesia Reaction: No Hx Neurological Disorder: No Hx Respiratory Disorders: Yes (HX ASTHMA) Hx Cardiac Disorders: No Hx Psychiatric Problems: No Hx Miscellaneous Medical Probl: Yes (HAD OVARIES REMOVAL 2006, KIDNEY STONES) Hx Alcohol Use: Yes (WINE - OCCASIONAL) Hx Substance Use: No Hx Tobacco Use: No Smoking Status: Never smoker Physical Exam Vitals Vital Signs Date Time Temp Pulse Resp B/P Pulse Ox O2 Delivery O2 Flow Rate FiO2 09/23/16 15:06 79 18 130/70 100 Room Air 09/23/16 12:37 97.4 83 18 134/66 98 Physical Exam INITIAL VITAL SIGNS: Reviewed by me GENERAL: The patient is well developed and appropriate for usual state of health in no apparent distress HEENT: Pupils equal, round, and reactive to light. EOMI. There is no scleral icterus. NECK: C-spine is soft and supple, there is no meningismus. There is no cervical lymphadenopathy. LUNGS: Clear to auscultation bilaterally. There are no rales, wheezes or rhonchi. HEART: Regular rate and rhythm, no murmurs, clicks, rubs or gallops. ABDOMEN: Bilateral CVAT soft, non-tender, non-distended. There are bowel sounds in all four quadrants. No rebound or guarding. EXTREMITIES: There is no peripheral cyanosis or edema. No focal swelling or erythema. NEUROLOGICAL: The patient moves all four extremities with 5/5 strength. Cranial nerves II - XII are intact. Normal gait. Alert and oriented SKIN: There is no apparent rash or petechiae. HEME/LYMPHATIC: There is no evidence of excessive bruising or lymphedema. PSYCHIATRIC: The patient does not appear anxious or depressed. Result Diagram: 09/23/16 1312 09/23/16 1312 Results 24 hrs Laboratory Tests Test 09/23/16 13:00 09/23/16 13:12 Urine Color RED Urine Clarity CLOUDY Urine pH 7.0 Urine Specific [place] 1.011 Urine Ketones NEGATIVEmg/dL Urine Nitrite NEGATIVEmg/dL Urine Bilirubin NEGATIVEmg/dL Urine Urobilinogen NEGATIVEmg/dL Urine Leukocyte Esterase 2+Caterina/ul Urine Microscopic RBC > 182/HPF Urine Microscopic WBC > 182/HPF Urine Squamous Epithelial Cells FEW/HPF Urine Bacteria FEW/HPF Urine Hemoglobin 3+mg/dL Urine Glucose NEGATIVEmg/dL Urine Total Protein 2+mg/dl White Blood Count 10.710^3/ul Red Blood Count 4.7810^6/ul Hemoglobin 14.6g/dl Hematocrit 42.1% Mean Corpuscular Volume 88.1fl Mean Corpuscular Hemoglobin 30.5pg Mean Corpuscular Hemoglobin Concent 34.7g/dl Red Cell Distribution Width 13.5% Platelet Count 29515^3/UL Mean Platelet Volume 10.5fl Neutrophils % 54.8% Lymphocytes % 34.6% Monocytes % 7.6% Eosinophils % 2.1% Basophils % 0.6% Nucleated Red Blood Cells % 0.0/100WBC Neutrophils # 5.910^3/ul Lymphocytes # 3.710^3/ul Monocytes # 0.810^3/ul Eosinophils # 0.210^3/ul Basophils # 0.110^3/ul Nucleated Red Blood Cells # 0.010^3/ul Sodium Level 142mmol/L Potassium Level 3.8mmol/L Chloride Level 104mmol/L Carbon Dioxide Level 27mmol/L Anion Gap 15 Blood Urea Nitrogen 12mg/dl Creatinine 0.77mg/dl Glucose Level 108mg/dl Calcium Level 13.5mg/dl Total Bilirubin 0.5mg/dl Direct Bilirubin 0.00mg/dl Indirect Bilirubin 0.5mg/dl Aspartate Amino Transf (AST/SGOT) 30IU/L Alanine Aminotransferase (ALT/SGPT) 35IU/L Alkaline Phosphatase 90IU/L Total Protein 8.2g/dl Albumin 5.0g/dl Globulin 3.20g/dl Albumin/Globulin Ratio 1.56 Lipase 136U/L Current Medications Medications (Trade) Dose Ordered Sig/Glen Route PRN Reason Start Time Stop Time Status Last Admin Dose Admin Sodium Chloride (NS) 1,000 ml @ 1,000 mls/hr Q1H STAT IV 09/23/16 12:56 09/23/16 13:55 DC 09/23/16 13:24 Morphine Sulfate (morphine) 4 mg ONCE STAT IV 09/23/16 13:08 09/23/16 13:09 DC 09/23/16 13:24 Ondansetron HCl 4 mg 4 mg ONCE STAT IV 09/23/16 13:08 09/23/16 13:09 DC 09/23/16 13:24 Ciprofloxacin/ Dextrose 200 ml @ 200 mls/hr ONCE ONCE IVPB 09/23/16 14:00 09/23/16 14:59 DC 09/23/16 13:55 Sodium Chloride (NS) 1,000 ml @ 80 mls/hr [id number] IV 09/23/16 14:53 09/24/16 03:22 Ondansetron HCl (Zofran Inj) 4 mg BRIDGE ORDER PRN IV NAUSEA AND/OR VOMITING 09/23/16 15:00 09/24/16 14:59 Acetaminophen (Tylenol Tab) 650 mg ER BRIDGE PRN PO MILD PAIN/FEVER 09/23/16 15:00 09/24/16 14:59 IV Flush (NS 3 ml) 3 ml PER PROTOCOL IV 09/23/16 15:00 UNV Acetaminophen (Tylenol Tab) 650 mg Q6H PRN PO PAIN LEVEL 1-3 OR FEVER 09/23/16 15:00 UNV Acetaminophen/ Hydrocodone Bitart ([place] (5/325)) 1 tab Q6H PRN PO MODERATE PAIN LEVEL 4-6 09/23/16 15:00 UNV Docusate Sodium (Colace) 100 mg Q12H PRN PO CONSTIPATION 09/23/16 15:00 UNV Enoxaparin Sodium 40 mg 40 mg DAILY SC 09/24/16 09:00 UNV Sodium Chloride (NS) 1,000 ml @ 1,000 mls/hr Q1H STAT IV 09/23/16 15:03 09/23/16 16:02 Procedures/MDM CT abdomen pelvis without: 1. Interval increased moderate to severe bilateral hydronephrosis with stable bilateral double J ureteral stents in place and persistent bilateral ureteroliths within the proximal left ureter and distal right ureter, as described above and pictured below. Interval increased bilateral periureteral fat stranding is likely reactive. 2. Three nonobstructive left renal calculi measuring up to 3.5 mm, two of which are new since the prior exam. 3. Small midline paraincisional hernia containing a loop of nonobstructed small bowel. 4. Osteoarthritis of the thoracic and lumbosacral spine. 5. Hepatomegaly with evidence of prior cholecystectomy. 6. Small midline umbilical hernia. 7. Status post total left hip arthroplasty. This 60-year-old female presents to the emergency room for evaluation of worsening flank pain. She does have a history of bilateral ureterolithiasis with hydronephrosis and ureteral stents in place. This patient was complaining of worsening pain. When I evaluated this patient she did have bilateral CVAT and I did repeat a CAT scan which shows 2 new left renal calculi. This patient' s lab work does demonstrate hypercalcemia with a calcium level of greater than 13. I do feel that this is the etiology of her ureterolithiasis. I did look at this patient's previous admission and previous workup. I was concerned because this patient had a gradually increased level of calcium. I did check a parathyroid hormone and that was elevated and I do feel that because of her hypercalcemia and subsequent renal sounds are primary hyperparathyroidism. This patient will be placed in for admission at this [facility] floor with urology consult and endocrinology consult as well. Departure Diagnosis: Primary Impression: Ureterolithiasis Additional Impressions: Hydronephrosis Hypercalcemia Hyperparathyroidism Condition: Stable MICHAELA OSUNA DO Sep 23, 2016 15:13
[2016-09-23 16:08] LABS: CALCIUM 12.5 mg/dl (8.4-10.2); CREATININE 0.68 mg/dl (0.44-1.00); POTASSIUM 3.7 mmol/L (3.5-5.1)
[2016-09-23] MEDS: ACETAMINOPHEN 325 MG TAB PO PRN (19:11)
[2016-09-23] MEDS ORDERED: KETOROLAC 30 MG INJ IV STA (21:04)
[2016-09-23 23:36] VITALS: Ht 160 cm; Wt 81.7 kg
[2016-09-24] MEDS: SOD CHLORIDE 0.9% 1,000 ML IV SCH ×5 (00:16→18:09)
[2016-09-24 06:22] LABS: BASOPHIL # 0.1 10^3/ul (0.0-0.1); BASOPHILS % 0.8 % (0.0-2.0); EOSINOPHILS # 0.5 10^3/ul (0.0-0.5); EOSINOPHILS % 7.2 % (0.0-7.0); HEMATOCRIT 33.8 % (37.0-47.0); HEMOGLOBIN 11.6 g/dl (12.0-16.0); LYMPHOCYTES # 3.4 10^3/ul (0.8-2.9); LYMPHOCYTES % 44.6 % (15.0-51.0); MEAN CORPUSCULAR HEMOGLOBIN 30.8 pg (29.0-33.0); MEAN CORPUSCULAR HGB CONC 34.3 g/dl (32.0-37.0); MEAN CORPUSCULAR VOLUME 89.7 fl (82.0-101.0); MEAN PLATELET VOLUME 11.1 fl (7.4-10.4); MONOCYTE # 0.6 10^3/ul (0.3-0.9); MONOCYTES % 8.1 % (0.0-11.0); PLATELET COUNT 234 10^3/UL (140-415); RED BLOOD COUNT 3.77 10^6/ul (4.20-5.40); RED CELL DISTRIBUTION WIDTH 13.6 % (11.5-14.5); WHITE BLOOD COUNT 7.6 10^3/ul (4.8-10.8)
[2016-09-24 06:43] LABS: CALCIUM 12.3 mg/dl (8.4-10.2); CREATININE 0.73 mg/dl (0.44-1.00); POTASSIUM 4.2 mmol/L (3.5-5.1)
[2016-09-24 07:22] LABS: ADD SCAN DIFF NO
[2016-09-24 08:43] VITALS: BP 122/67; RESP 18
[2016-09-24] MEDS: ENOXAPARIN 40 MG/0.4 ML SYG SC SCH (08:48)
--- NOTE | 2016-09-24 09:48 | RADRPT ---
PROCEDURE: Renal Ultrasound CLINICAL INDICATION: Flank pain. TECHNIQUE: Evaluation of the kidneys and bladder was performed as well with jones scale and color and Doppler evaluation using a curved array transducer. The images were reviewed on a high-resoluti on PACS workstation. COMPARISON: CT abdomen pelvis 09/23/2016 FINDINGS: The kidneys are well visualized. There is moderate to severe bilateral hydronephrosis. Echogenic st ructures within the bilateral kidneys and bladder are most consistent with known ureteral stents. The right kidney measures 12.2 cm in length. The left kidney measures 10.5 cm in length. No gloria nephric fluid collection is seen. IMPRESSION: 1. Persistent moderate to severe bilateral hydronephrosis. RPTAT: KK .Sanajy Valverde MD, MD Date Time Electronically viewed and signed by .Sanjay Valverde MD, MD on 09/24/2016 09:48 .B/
[2016-09-24] MEDS: HYDROCODONE/APAP (5/325) TAB PO PRN (10:16)
[2016-09-24] MEDS: morphine 2 MG INJ IV PRN (11:46)
--- NOTE | 2016-09-24 14:14 | PN ---
Date/Time of Note Date/Time of Note DATE: 09/24/16 TIME: 14:13 Assessment/Plan VTE Prophylaxis VTE Prophylaxis Intervention: SCD's Lines/Catheters IV Catheter Type (from Nrsg): Peripheral IV Urinary Cath still in place: No Assessment/Plan Assessment/Plan 60 yo F with pmhx nephrolithiasis (likely 2/2 hypercalcemia from hyperparathyroidism) presents with L flank pain and worsening nephrolithiasis burden #nephrolithiasis eval to Dr Rodriguez to see if nephrostomy tubes v new ureteral stents are indicated IVFs, pain control and urine straining I personally spoke with Dr Rodriguez this AM. He stated he would see the patient over the weekend and anticipated procedural intervention on tuesday #hyperparathyroidism with resultant hypercalcemia and symptomatic nephrolithiasis: PTH checked during last admission given her hypercalcemia found to be elevated to high 140s nephrology on consult cont IVFs Subjective 24 Hr Interval Summary Free Text/Dictation Pt still with L flank pain Exam/Review of Systems Vital Signs Vitals Vital Signs Date Time Temp Pulse Resp B/P Pulse Ox O2 Delivery O2 Flow Rate FiO2 09/24/16 08:43 97.7 57 18 122/67 97 09/23/16 19:00 Room Air Intake and Output 09/23/16 09/23/16 09/24/16 14:59 22:59 06:59 Intake Total 675 ml Output Total 400 ml Balance 275 ml Exam uncomfortable at times, laying in bed no mrg abd soft no rashes responds to questions appropriately ANTONELLA result reviewed Results Result Diagram: 09/24/16 0515 09/24/16 0517 Results 24 hrs Laboratory Tests Test 09/23/16 15:30 09/24/16 05:15 09/24/16 05:17 09/24/16 09:20 Sodium Level 140 145 H Potassium Level 3.7 4.2 Chloride Level 108 109 Carbon Dioxide Level 24 27 Anion Gap 12 13 Blood Urea Nitrogen 11 16 Creatinine 0.68 0.73 Glucose Level 88 102 Calcium Level 12.5 H 12.3 H Phosphorus Level 2.9 White Blood Count 7.6 # Red Blood Count 3.77 #L Hemoglobin 11.6 #L Hematocrit 33.8 L Mean Corpuscular Volume 89.7 Mean Corpuscular Hemoglobin 30.8 Mean Corpuscular Hemoglobin Concent 34.3 Red Cell Distribution Width 13.6 Platelet Count 234 # Mean Platelet Volume 11.1 H Neutrophils % 39.0 Lymphocytes % 44.6 Monocytes % 8.1 Eosinophils % 7.2 H Basophils % 0.8 Nucleated Red Blood Cells % 0.0 Neutrophils # 3.0 Lymphocytes # 3.4 H Monocytes # 0.6 Eosinophils # 0.5 Basophils # 0.1 Nucleated Red Blood Cells # 0.0 C-Reactive Protein 0.9 Vitamin D 1,25-Dihydroxy 15.8 L Test 09/24/16 09:30 09/24/16 10:25 Erythrocyte Sedimentation Rate 10 Ionized Calcium (Measured) 1.8 H Medications Medications Current Medications Acetaminophen (Tylenol Tab) 650 mg Q6H PRN PO PAIN LEVEL 1-3 OR FEVER Last administered on 09/23/16 19:11; Admin Dose 650 MG; Start 09/23/16 at 15:00 Acetaminophen/ Hydrocodone Bitart ([place] (5/325)) 1 tab Q6H PRN PO MODERATE PAIN LEVEL 4-6 Last administered on 09/24/16 10:16; Admin Dose 1 TAB; Start at 15:00 Docusate Sodium (Colace) 100 mg Q12H PRN PO CONSTIPATION; Start 09/23/16 at 15: 00 Enoxaparin Sodium 40 mg 40 mg DAILY SC ; Start 09/24/16 at 09:00 Sodium Chloride (NS) 1,000 ml @ 125 mls/hr Q8H IV Last administered on 08:50; Admin Dose 125 MLS/HR; Start 09/23/16 at 22:00 Morphine Sulfate (morphine) 1 mg Q3H PRN IV pain Last administered on 11:46; Admin Dose 1 MG; Start 09/24/16 at 11:30 LUIS IRWIN MD Sep 24, 2016 14:13
--- NOTE | 2016-09-24 17:38 | CONS ---
Date/Time of Note Date/Time of Note DATE: 09/24/16 TIME: 17:37 Assessment/Plan Assessment/Plan Additional Assessment/Plan # Bilateral Moderate Hydronephrosis due to obstrucive uropathy # Recurrent Nephrolithiasis with Hypercalcemia, Hyperparathyroidism with Last PTH 140 on last admissio, normally PTH should be suppressed with Hypercalcemia, Pt denies any Ca intake/Calcium containing meds Plan: IV fluids has been ordered Pt need Urology consult for moderate to severe hydronephrosis BP stable Thyroids US will order Nuclear parathyroid scan to assess for parathyroid adenoma vs Hyperplasia Thanks for consultation,w ill continue to follow up on patient Pain control as per pMD Consultation Date/Type/Reason Admit Date/Time 09/23/2016 Date of Consultation: Sep 24, 2016 Type of Consultation: NEPHROLOGY Reason for Consultation Hypercalcemia, Symptomatic, recurrent nephrolithiasis, elevated PTH Referring Provider: LUIS IRWIN MD Hx of Present Illness 60 yo F with h/o nephrolithiasis with resulting ureteral obstruction requiring ureteral stenting last admitted earlier this month for aseptic pyelonephritis presents with flank pain, hematuria. Imaging with worsening kidney stone burden. nephrology has been consulted for Hypercalcemia and rule out primary hyperparathyroidism Constitutional: improved Eyes: no complaints ENT: no complaints Respiratory: no complaints Cardiovascular: no complaints Gastrointestinal: decreased appetite, nausea, vomiting Genitourinary: no complaints Musculoskeletal: back pain, restricted range of motion Skin: no complaints Neurologic: no complaints Endocrine: no complaints Lymphatic: no complaints Psychological: no complaints Immunologic: no complaints Past Medical History Medical History: other (Nephrolithiasis ) Past Surgical History Past Surgical Hx: no surgical history Family History Significant Family History: no pertinent family hx Social History Alcohol Use: none Smoking Status: Never smoker Drug Use: none Exam/Review of Systems Vital Signs Vitals Vital Signs Date Time Temp Pulse Resp B/P Pulse Ox O2 Delivery O2 Flow Rate FiO2 09/24/16 08:43 97.7 57 18 122/67 97 09/23/16 19:00 Room Air Intake and Output 09/23/16 09/23/16 09/24/16 15:00 23:00 07:00 Intake Total 675 ml Output Total 400 ml Balance 275 ml Exam Constitutional: alert Psych: no complaints Head: normocephalic ENMT: nl external ears & nose Neck: supple Respiratory: clear to auscultation Cardiovascular: nl pulses, regular rate and rhythm Gastrointestinal: non-tender, soft Musculoskeletal: nl extremities to inspection, nl gait and stance, other ( BIlateral CVA tenderness, R>L) Extremities: normal pulses Neurological: SCHEDULING AGENT II-XII intact Skin: nl turgor Lymph: nl lymph nodes Results Result Diagram: 09/24/16 0515 09/24/16 0517 Results 24 hrs Laboratory Tests Test 09/24/16 05:15 09/24/16 05:17 09/24/16 09:20 09/24/16 09:30 White Blood Count 7.6 # Red Blood Count 3.77 #L Hemoglobin 11.6 #L Hematocrit 33.8 L Mean Corpuscular Volume 89.7 Mean Corpuscular Hemoglobin 30.8 Mean Corpuscular Hemoglobin Concent 34.3 Red Cell Distribution Width 13.6 Platelet Count 234 # Mean Platelet Volume 11.1 H Neutrophils % 39.0 Lymphocytes % 44.6 Monocytes % 8.1 Eosinophils % 7.2 H Basophils % 0.8 Nucleated Red Blood Cells % 0.0 Neutrophils # 3.0 Lymphocytes # 3.4 H Monocytes # 0.6 Eosinophils # 0.5 Basophils # 0.1 Nucleated Red Blood Cells # 0.0 Sodium Level 145 H Potassium Level 4.2 Chloride Level 109 Carbon Dioxide Level 27 Anion Gap 13 Blood Urea Nitrogen 16 Creatinine 0.73 Glucose Level 102 Calcium Level 12.3 H C-Reactive Protein 0.9 Vitamin D 1,25-Dihydroxy 15.8 L Erythrocyte Sedimentation Rate 10 Test 09/24/16 10:25 Ionized Calcium (Measured) 1.8 H Medications Medications Current Medications Acetaminophen (Tylenol Tab) 650 mg Q6H PRN PO PAIN LEVEL 1-3 OR FEVER Last administered on 09/23/16 19:11; Admin Dose 650 MG; Start 09/23/16 at 15:00 Acetaminophen/ Hydrocodone Bitart ([place] (5/325)) 1 tab Q6H PRN PO MODERATE PAIN LEVEL 4-6 Last administered on 09/24/16 10:16; Admin Dose 1 TAB; Start at 15:00 Docusate Sodium (Colace) 100 mg Q12H PRN PO CONSTIPATION; Start 09/23/16 at 15: 00 Enoxaparin Sodium 40 mg 40 mg DAILY SC ; Start 09/24/16 at 09:00 Sodium Chloride (NS) 1,000 ml @ 125 mls/hr Q8H IV Last administered on 08:50; Admin Dose 125 MLS/HR; Start 09/23/16 at 22:00 Morphine Sulfate (morphine) 1 mg Q3H PRN IV pain Last administered on 11:46; Admin Dose 1 MG; Start 09/24/16 at 11:30 JANI ADAMS MD Sep 24, 2016 17:38
[2016-09-24] MEDS: ACETAMINOPHEN 325 MG TAB PO PRN (18:09)
[2016-09-24 22:01] VITALS: BP 132/87; RESP 16
--- NOTE | 2016-09-25 00:10 | RADRPT ---
PROCEDURE: US Thyroid. CLINICAL INDICATION: Hypercalcemia TECHNIQUE: Multiple sonographic images of the thyroid were obtained. Transverse and sagittal imagi ng of the gland and gloria-thyroidal tissues was performed with a high frequency linear array transduc er. Color interrogation was performed as well. The images were reviewed on a PACS workstation. COMPARISON: No prior studies are available for comparison. FINDINGS: The thyroid gland is diffusely heterogeneous.. The right lobe of the thyroid gland measures 5.4 x 2. 3 x 1.9 cm in length. The left lobe of the thyroid gland measures 4.4 x 2.1 x 2.1 cm. There is cys t discrete solid mass within the midpole of the right lobe measuring 9 x 7 x 9 mm. The isthmus is o f normal thickness at 6 mm.. The adjacent gloria-thyroidal tissues are equally unremarkable. IMPRESSION: Diffusely heterogeneous thyroid gland with a focal nodule in the right lobe. RPTAT: HMVK .Kaushik Guzman MD, Date Time Electronically viewed and signed by .Kaushik Guzman MD, MD on 09/25/2016 00:10 .K/
[2016-09-25 08:15] VITALS: BP 144/68; RESP 20
[2016-09-25] MEDS: HYDROCODONE/APAP (5/325) TAB PO PRN ×2 (08:59→16:43)
[2016-09-25] MEDS: SOD CHLORIDE 0.9% 1,000 ML IV SCH ×2 (09:01→17:58)
[2016-09-25] MEDS: ENOXAPARIN 40 MG/0.4 ML SYG SC SCH (09:02)
--- NOTE | 2016-09-25 11:26 | PN ---
Date/Time of Note Date/Time of Note DATE: 09/25/16 TIME: 11:25 Assessment/Plan VTE Prophylaxis VTE Prophylaxis Intervention: SCD's Lines/Catheters IV Catheter Type (from Nrsg): Peripheral IV Urinary Cath still in place: No Assessment/Plan Assessment/Plan 60 yo F with pmhx nephrolithiasis (likely 2/2 hypercalcemia from hyperparathyroidism) presents with L flank pain and worsening nephrolithiasis burden #nephrolithiasis eval to Dr Rodriguez to see if nephrostomy tubes v new ureteral stents are indicated IVFs, pain control and urine straining I personally spoke with Dr Rodriguez 09.24. He stated he would see the patient over the weekend and anticipated procedural intervention on tuesday #hyperparathyroidism with resultant hypercalcemia and symptomatic nephrolithiasis: PTH checked during last admission given her hypercalcemia found to be elevated to high 140s nephrology on consult cont IVFs Subjective 24 Hr Interval Summary Free Text/Dictation Pre Op orders from anesthesia ordered, but unclear what procedure pt is being pre op'ed for. Pt without complaint Exam/Review of Systems Vital Signs Vitals Vital Signs Date Time Temp Pulse Resp B/P Pulse Ox O2 Delivery O2 Flow Rate FiO2 09/25/16 08:15 97.7 63 20 144/68 97 09/23/16 19:00 Room Air Intake and Output 09/24/16 09/24/16 09/25/16 15:00 23:00 07:00 Intake Total 375 ml 1500 ml 800 ml Output Total 1700 ml 3000 ml Balance 375 ml -200 ml -2200 ml Exam nad laying in bed no mrg lungs clear abd soft no rashes thyroid US results noted Results Result Diagram: 09/24/16 0515 09/24/16 05 Medications Medications Current Medications Acetaminophen (Tylenol Tab) 650 mg Q6H PRN PO PAIN LEVEL 1-3 OR FEVER Last administered on 09/24/16 18:09; Admin Dose 650 MG; Start 09/23/16 at 15:00 Acetaminophen/ Hydrocodone Bitart ([place] (5/325)) 1 tab Q6H PRN PO MODERATE PAIN LEVEL 4-6 Last administered on 09/25/16 08:59; Admin Dose 1 TAB; Start at 15:00 Docusate Sodium (Colace) 100 mg Q12H PRN PO CONSTIPATION; Start 6/29/17 at 15: 00 Enoxaparin Sodium (Lovenox) 40 mg DAILY SC Last administered on 09/25/16 09:02 ; Admin Dose 40 MG; Start 09/24/16 at 09:00 Morphine Sulfate 1 mg 1 mg Q3H PRN IV pain Last administered on 09/24/16 11:46 ; Admin Dose 1 MG; Start 09/24/16 at 11:30 Sodium Chloride (NS) 1,000 ml @ 125 mls/hr Q8H IV Last administered on 09:01; Admin Dose 125 MLS/HR; Start 09/25/16 at 09:00 LUIS IRWIN MD Sep 25, 2016 11:26
[2016-09-25] MEDS ORDERED: ONDANSETRON (ODT) 4 MG TAB ODT PRN (11:30)
[2016-09-25 19:55] VITALS: BP 129/60; RESP 18
--- NOTE | 2016-09-25 22:44 | CONS ---
Date/Time of Note Date/Time of Note DATE: 09/25/16 TIME: 22:41 Assessment/Plan Assessment/Plan Chief Complaint/Hosp Course 60 yo F with h/o nephrolithiasis with resulting ureteral obstruction requiring ureteral stenting last admitted earlier this month for aseptic pyelonephritis presents with flank pain, hematuria. Imaging with worsening kidney stone burden. nephrology has been consulted for Hypercalcemia and rule out primary hyperparathyroidism Problems: Additional Assessment/Plan # Bilateral Moderate Hydronephrosis due to obstrucive uropathy # Recurrent Nephrolithiasis with Hypercalcemia, Hyperparathyroidism with Last PTH 140 on last admissio, normally PTH should be suppressed with Hypercalcemia, Pt denies any Ca intake/Calcium containing meds Plan: IV fluids has been ordered Ca 12.3 today, US thyroid showed Diffusely heterogeneous thyroid gland with a focal nodule in the right lobe. Pt need Urology consult for moderate to severe hydronephrosis BP stable Nuclear parathyroid scan to assess for parathyroid adenoma vs Hyperplasia- pending at this time, PTH 140, ca 12.3 will follow up Consultation Date/Type/Reason Admit Date/Time Sep 23, 2016 at 14:54 Initial Consult Date 09/24/16 Type of Consultation: NEPHROLOGY Referring Provider: LUIS IRWIN MD 24 HR Interval Summary Free Text/Dictation Pain controlled, awaiting urology consult Exam/Review of Systems Vital Signs Vitals Vital Signs Date Time Temp Pulse Resp B/P Pulse Ox O2 Delivery O2 Flow Rate FiO2 09/25/16 19:55 98.1 60 18 129/60 97 09/23/16 19:00 Room Air Intake and Output 09/24/16 09/24/16 09/25/16 15:00 23:00 07:00 Intake Total 375 ml 1500 ml 800 ml Output Total 1700 ml 3000 ml Balance 375 ml -200 ml -2200 ml Results Result Diagram: 09/24/16 0515 09/24/16 0517 Results 24 hrs Laboratory Tests Test 09/25/16 10:50 Thyroid Stimulating Hormone (TSH) 2.520 Medications Medications Current Medications Acetaminophen (Tylenol Tab) 650 mg Q6H PRN PO PAIN LEVEL 1-3 OR FEVER Last administered on 09/24/16t 18:09; Admin Dose 650 MG; Start 09/23/16 at 15:00 Acetaminophen/ Hydrocodone Bitart ([place] (5/325)) 1 tab Q6H PRN PO MODERATE PAIN LEVEL 4-6 Last administered on 09/25/16 16:43; Admin Dose 1 TAB; Start at 15:00 Docusate Sodium (Colace) 100 mg Q12H PRN PO CONSTIPATION; Start 09/23/16 at 15: 00 Enoxaparin Sodium (Lovenox) 40 mg DAILY SC Last administered on 09/25/16 09:02 ; Admin Dose 40 MG; Start 09/24/16 at 09:00 Morphine Sulfate 1 mg 1 mg Q3H PRN IV pain Last administered on 09/24/16 11:46 ; Admin Dose 1 MG; Start 09/24/16 at 11:30 Sodium Chloride (NS) 1,000 ml @ 125 mls/hr Q8H IV Last administered on 17:58; Admin Dose 125 MLS/HR; Start 09/25/16 at 09:00 Ondansetron HCl (Zofran Odt) 4 mg Q6H PRN ODT nausea; Start 09/25/16 at 11:30 Ondansetron HCl (Zofran Inj) 4 mg Q6H PRN IV NAUSEA AND/OR VOMITING; Start 09/25 at 11:30 JANI ADAMS MD Sep 25, 2016 22:43
[2016-09-26] MEDS: ACETAMINOPHEN 325 MG TAB PO PRN ×2 (00:40→23:48)
[2016-09-26] MEDS: SOD CHLORIDE 0.9% 1,000 ML IV SCH ×4 (01:00→18:30)
[2016-09-26 05:51] LABS: BASOPHILS % 0.5 % (0.0-2.0); EOSINOPHILS # 0.6 10^3/ul (0.0-0.5); EOSINOPHILS % 7.7 % (0.0-7.0); HEMATOCRIT 32.9 % (37.0-47.0); HEMOGLOBIN 10.9 g/dl (12.0-16.0); LYMPHOCYTES # 3.3 10^3/ul (0.8-2.9); LYMPHOCYTES % 45.1 % (15.0-51.0); MEAN CORPUSCULAR HEMOGLOBIN 29.7 pg (29.0-33.0); MEAN CORPUSCULAR HGB CONC 33.1 g/dl (32.0-37.0); MEAN CORPUSCULAR VOLUME 89.6 fl (82.0-101.0); MEAN PLATELET VOLUME 10.7 fl (7.4-10.4); MONOCYTE # 0.6 10^3/ul (0.3-0.9); MONOCYTES % 7.5 % (0.0-11.0); NEUTROPHIL # 2.9 10^3/ul (1.6-7.5); NEUTROPHILS % 39.1 % (39.0-77.0); PLATELET COUNT 217 10^3/UL (140-415); RED BLOOD COUNT 3.67 10^6/ul (4.20-5.40); RED CELL DISTRIBUTION WIDTH 13.3 % (11.5-14.5); WHITE BLOOD COUNT 7.3 10^3/ul (4.8-10.8)
[2016-09-26 05:56] LABS: INR 0.94; PROTIME 12.6 Sec (12.2-14.2)
[2016-09-26 05:57] LABS: PARTIAL THROMBOPLASTIN TIME 31.5 Sec (25.0-35.0)
[2016-09-26 06:01] LABS: CALCIUM 11.8 mg/dl (8.4-10.2); CREATININE 0.58 mg/dl (0.44-1.00); POTASSIUM 3.8 mmol/L (3.5-5.1)
[2016-09-26 06:35] LABS: ADD SCAN DIFF NO
[2016-09-26] MEDS: ENOXAPARIN 40 MG/0.4 ML SYG SC SCH (09:00)
[2016-09-26 10:12] VITALS: BP 135/63; RESP 17
[2016-09-26] MEDS: HYDROCODONE/APAP (5/325) TAB PO PRN (10:38)
--- NOTE | 2016-09-26 14:07 | PN ---
Date/Time of Note Date/Time of Note DATE: 09/26/16 TIME: 14:06 Assessment/Plan VTE Prophylaxis VTE Prophylaxis Intervention: SCD's Lines/Catheters IV Catheter Type (from Nrs): Peripheral IV Urinary Cath still in place: No Assessment/Plan Assessment/Plan 60 yo F with pmhx nephrolithiasis (likely 2/2 hypercalcemia from hyperparathyroidism) presents with L flank pain and worsening nephrolithiasis burden #nephrolithiasis Dr Rodriguez from service following, procedural intervention planned for tomorrow IVFs, pain control and urine straining I #hyperparathyroidism with resultant hypercalcemia and symptomatic nephrolithiasis: PTH checked during last admission given her hypercalcemia found to be elevated to high 140s nephrology on consult cont IVFs Subjective 24 Hr Interval Summary Free Text/Dictation Pain control ok. States urologist came by and said pt would be going for a procedure tomorrow but doesn't know what type of procedure it will be. Exam/Review of Systems Vital Signs Vitals Vital Signs Date Time Temp Pulse Resp B/P Pulse Ox O2 Delivery O2 Flow Rate FiO2 09/26/16 10:12 98.3 88 17 135/63 96 09/23/16 19:00 Room Air Intake and Output 09/25/16 09/25/16 09/26/16 15:00 23:00 07:00 Intake Total 3000 ml 2125 ml Output Total 1800 ml 1700 ml Balance 1200 ml 425 ml Exam nad laying in bed no mrg lungs clear abd soft no rashes Results Result Diagram: 09/26/16 0515 09/26/16 0515 Results 24 hrs Laboratory Tests Test 09/26/16 05:15 White Blood Count 7.3 Red Blood Count 3.67 L Hemoglobin 10.9 L Hematocrit 32.9 L Mean Corpuscular Volume 89.6 Mean Corpuscular Hemoglobin 29.7 Mean Corpuscular Hemoglobin Concent 33.1 Red Cell Distribution Width 13.3 Platelet Count 217 Mean Platelet Volume 10.7 H Neutrophils % 39.1 Lymphocytes % 45.1 Monocytes % 7.5 Eosinophils % 7.7 H Basophils % 0.5 Nucleated Red Blood Cells % 0.0 Neutrophils # 2.9 Lymphocytes # 3.3 H Monocytes # 0.6 Eosinophils # 0.6 H Basophils # 0.0 Nucleated Red Blood Cells # 0.0 Prothrombin Time 12.6 Prothrombin Time Ratio 1.0 INR International Normalized Ratio 0.94 Activated Partial Thromboplast Time 31.5 Sodium Level 146 H Potassium Level 3.8 Chloride Level 108 Carbon Dioxide Level 27 Anion Gap 15 Blood Urea Nitrogen 11 Creatinine 0.58 Glucose Level 93 Calcium Level 11.8 H Medications Medications Current Medications Acetaminophen (Tylenol Tab) 650 mg Q6H PRN PO PAIN LEVEL 1-3 OR FEVER Last administered on 09/26/16 00:40; Admin Dose 650 MG; Start 09/23/16 at 15:00 Acetaminophen/ Hydrocodone Bitart ([place] (5/325)) 1 tab Q6H PRN PO MODERATE PAIN LEVEL 4-6 Last administered on 09/26/16 10:38; Admin Dose 1 TAB; Start at 15:00 Docusate Sodium (Colace) 100 mg Q12H PRN PO CONSTIPATION; Start 09/23/16 at 15: 00 Enoxaparin Sodium (Lovenox) 40 mg DAILY SC Last administered on 09/25/16 09:02 ; Admin Dose 40 MG; Start 09/24/16 at 09:00 Morphine Sulfate 1 mg 1 mg Q3H PRN IV pain Last administered on 09/24/16 11:46 ; Admin Dose 1 MG; Start 09/24/16 at 11:30 Sodium Chloride (NS) 1,000 ml @ 125 mls/hr Q8H IV Last administered on 10:42; Admin Dose 125 MLS/HR; Start 09/25/16 at 09:00 Ondansetron HCl (Zofran Odt) 4 mg Q6H PRN ODT nausea; Start 09/25/16 at 11:30 Ondansetron HCl (Zofran Inj) 4 mg Q6H PRN IV NAUSEA AND/OR VOMITING; Start 09/25 at 11:30 LUIS IRWIN MD Sep 26, 2016 14:07
--- NOTE | 2016-09-26 15:38 | CONS ---
Date/Time of Note Date/Time of Note DATE: 09/26/16 TIME: 15:36 Assessment/Plan Assessment/Plan Chief Complaint/Hosp Course 60 yo F with h/o nephrolithiasis with resulting ureteral obstruction requiring ureteral stenting last admitted earlier this month for aseptic pyelonephritis presents with flank pain, hematuria. Imaging with worsening kidney stone burden. nephrology has been consulted for Hypercalcemia and rule out primary hyperparathyroidism Problems: Additional Assessment/Plan # Bilateral Moderate Hydronephrosis due to obstrucive uropathy # Recurrent Nephrolithiasis with Hypercalcemia, Hyperparathyroidism with Last PTH 140 on last admissio, normally PTH should be suppressed with Hypercalcemia, Pt denies any Ca intake/Calcium containing meds Plan: IV fluids has been ordered Ca slightly improved to 11.8- US thyroid showed Diffusely heterogeneous thyroid gland with a focal nodule in the right lobe. S/p Urology consult for moderate to severe hydronephrosis- possible plan for Intervention by urology for moderate hydronephrosis Nuclear parathyroid scan to assess for parathyroid adenoma vs Hyperplasia- pending at this time, PTH 140, ca 12.3 hold lovenox for surgery will follow up Consultation Date/Type/Reason Admit Date/Time Sep 23, 2016 at 14:54 Initial Consult Date 09/24/16 Type of Consultation: NEPHROLOGY Referring Provider: LUIS IRWIN MD 24 HR Interval Summary Free Text/Dictation Ca slightly improved to 11.8, BP stable, Plan for Some procedure by Urology tomorrow Exam/Review of Systems Vital Signs Vitals Vital Signs Date Time Temp Pulse Resp B/P Pulse Ox O2 Delivery O2 Flow Rate FiO2 09/26/16 10:12 98.3 88 17 135/63 96 09/23/16 19:00 Room Air Intake and Output 09/25/16 09/25/16 09/26/16 15:00 23:00 07:00 Intake Total 3000 ml 2125 ml Output Total 1800 ml 1700 ml Balance 1200 ml 425 ml Results Result Diagram: 09/26/16 0515 09/26/16 0515 Results 24 hrs Laboratory Tests Test 09/26/16 05:15 White Blood Count 7.3 Red Blood Count 3.67 L Hemoglobin 10.9 L Hematocrit 32.9 L Mean Corpuscular Volume 89.6 Mean Corpuscular Hemoglobin 29.7 Mean Corpuscular Hemoglobin Concent 33.1 Red Cell Distribution Width 13.3 Platelet Count 217 Mean Platelet Volume 10.7 H Neutrophils % 39.1 Lymphocytes % 45.1 Monocytes % 7.5 Eosinophils % 7.7 H Basophils % 0.5 Nucleated Red Blood Cells % 0.0 Neutrophils # 2.9 Lymphocytes # 3.3 H Monocytes # 0.6 Eosinophils # 0.6 H Basophils # 0.0 Nucleated Red Blood Cells # 0.0 Prothrombin Time 12.6 Prothrombin Time Ratio 1.0 INR International Normalized Ratio 0.94 Activated Partial Thromboplast Time 31.5 Sodium Level 146 H Potassium Level 3.8 Chloride Level 108 Carbon Dioxide Level 27 Anion Gap 15 Blood Urea Nitrogen 11 Creatinine 0.58 Glucose Level 93 Calcium Level 11.8 H Medications Medications Current Medications Acetaminophen (Tylenol Tab) 650 mg Q6H PRN PO PAIN LEVEL 1-3 OR FEVER Last administered on 09/26/16 00:40; Admin Dose 650 MG; Start 09/23/16 at 15:00 Acetaminophen/ Hydrocodone Bitart ([place] (5/325)) 1 tab Q6H PRN PO MODERATE PAIN LEVEL 4-6 Last administered on 09/26/16 10:38; Admin Dose 1 TAB; Start at 15:00 Docusate Sodium (Colace) 100 mg Q12H PRN PO CONSTIPATION; Start 09/23/16 at 15: 00 Enoxaparin Sodium (Lovenox) 40 mg DAILY SC Last administered on 09/25/16 09:02 ; Admin Dose 40 MG; Start 09/24/16 at 09:00 Morphine Sulfate 1 mg 1 mg Q3H PRN IV pain Last administered on 09/24/16 11:46 ; Admin Dose 1 MG; Start 09/24/16 at 11:30 Sodium Chloride (NS) 1,000 ml @ 125 mls/hr Q8H IV Last administered on 10:42; Admin Dose 125 MLS/HR; Start 09/25/16 at 09:00 Ondansetron HCl (Zofran Odt) 4 mg Q6H PRN ODT nausea; Start 09/25/16 at 11:30 Ondansetron HCl (Zofran Inj) 4 mg Q6H PRN IV NAUSEA AND/OR VOMITING; Start 09/25 at 11:30 JANI ADAMS MD Sep 26, 2016 15:38
[2016-09-26] MEDS: morphine 2 MG INJ IV PRN (17:30)
[2016-09-26] MEDS: ONDANSETRON 4 MG INJ IV PRN (19:53)
[2016-09-26 20:25] VITALS: BP 148/77; RESP 19
[2016-09-27] VITALS (16 sets, daily range): BP systolic 137–187; BP diastolic 64–86; PULSE 54–68; RESP 15–21
[2016-09-27] MEDS: SOD CHLORIDE 0.9% 1,000 ML IV SCH ×4 (02:25→16:45)
[2016-09-27] MEDS: ENOXAPARIN 40 MG/0.4 ML SYG SC SCH (09:00)
--- NOTE | 2016-09-27 10:15 | PN ---
Date/Time of Note Date/Time of Note DATE: 09/27/16 TIME: 10:13 Assessment/Plan VTE Prophylaxis VTE Prophylaxis Intervention: SCD's Lines/Catheters IV Catheter Type (from Nrsg): Peripheral IV Urinary Cath still in place: No Assessment/Plan Assessment/Plan 60 yo F with pmhx nephrolithiasis (likely 2/2 hypercalcemia from hyperparathyroidism) presents with L flank pain and worsening nephrolithiasis burden #nephrolithiasis Dr Rodriguez of following. plan for cysto and bl ureteroscopy today per patient IVFs, pain control and urine straining #hyperparathyroidism with resultant hypercalcemia and symptomatic nephrolithiasis: PTH checked during last admission given her hypercalcemia found to be elevated to high 140s nephrology on consult-->assistance much appreciated nm parathyroid scan planned for today #migraines: Fioricet PRN dispo pending intervention and nephrology w/u Subjective 24 Hr Interval Summary Free Text/Dictation Pt reports a migraine of the past 2 days which is slowly improving Exam/Review of Systems Vital Signs Vitals Vital Signs Date Time Temp Pulse Resp B/P Pulse Ox O2 Delivery O2 Flow Rate FiO2 09/27/16 07:51 98.2 68 17 146/70 95 09/23/16 19:00 Room Air Intake and Output 09/26/16 09/26/16 09/27/16 15:00 23:00 07:00 Intake Total 1700 ml 1880 ml Output Total 1975 ml 3200 ml Balance -275 ml -1320 ml Exam nad, pleasant no mrg lungs clear abd soft no le edema Results Result Diagram: 09/26/16 0515 09/26/16 0515 Medications Medications Current Medications Acetaminophen (Tylenol Tab) 650 mg Q6H PRN PO PAIN LEVEL 1-3 OR FEVER Last administered on 09/26/16 23:48; Admin Dose 650 MG; Start 09/23/16 at 15:00 Acetaminophen/ Hydrocodone Bitart ([place] (5/325)) 1 tab Q6H PRN PO MODERATE PAIN LEVEL 4-6 Last administered on 09/26/16 10:38; Admin Dose 1 TAB; Start at 15:00 Docusate Sodium (Colace) 100 mg Q12H PRN PO CONSTIPATION; Start 09/23/16 at 15: 00 Enoxaparin Sodium (Lovenox) 40 mg DAILY SC Last administered on 09/25/16 09:02 ; Admin Dose 40 MG; Start 09/24/16 at 09:00 Morphine Sulfate 1 mg 1 mg Q3H PRN IV pain Last administered on 09/26/16 17:30 ; Admin Dose 1 MG; Start 09/24/16 at 11:30 Sodium Chloride (NS) 1,000 ml @ 125 mls/hr Q8H IV Last administered on 02:25; Admin Dose 125 MLS/HR; Start 09/25/16 at 09:00 Ondansetron HCl (Zofran Odt) 4 mg Q6H PRN ODT nausea; Start 09/25/16 at 11:30 Ondansetron HCl (Zofran Inj) 4 mg Q6H PRN IV NAUSEA AND/OR VOMITING Last administered on 09/26/16 19:53; Admin Dose 4 MG; Start 09/25/16 at 11:30 LUIS IRWIN MD Sep 27, 2016 10:15
[2016-09-27] MEDS: morphine 2 MG INJ IV PRN ×2 (11:15→19:47)
--- NOTE | 2016-09-27 15:04 | HPN ---
Date/Time of Note Date/Time of Note DATE: 09/27/16 TIME: 15:03 Interval H&P Admission Note Pt. seen H&P reviewed: No system changes MIRELLA FIGUEROA MD Sep 27, 2016 15:04
[2016-09-27] MEDS ORDERED: MIDAZOLAM 1 MG/ML 2 ML INJ ONE (15:13)
[2016-09-27] MEDS ORDERED: FENTAnyl 50 MCG/ML VIAL ONE (15:13)
[2016-09-27] MEDS ORDERED: PROPOFOL 20 ML ONE (15:31)
[2016-09-27] MEDS ORDERED: CEFAZOLIN 1 GM INJ ONE (15:36)
[2016-09-27] MEDS ORDERED: LIDOCAINE 1% (MDV) 20 ML INJ ONE (15:45)
[2016-09-27] MEDS ORDERED: HYDROCODONE/APAP (10/325) TAB GTB PRN (16:30)
--- NOTE | 2016-09-27 16:36 | PN ---
Date/Time of Note Date/Time of Note DATE: 09/27/16 TIME: 16:34 Assessment/Plan VTE Prophylaxis VTE Prophylaxis Intervention: other (getting lovenox) Lines/Catheters IV Catheter Type (from Nrsg): Peripheral IV Urinary Cath still in place: No Subjective 24 Hr Interval Summary Free Text/Dictation Pt can be discharged in the AM F/U in my office for double J stent removal Please send home on antibiotics Exam/Review of Systems Vital Signs Vitals Vital Signs Date Time Temp Pulse Resp B/P Pulse Ox O2 Delivery O2 Flow Rate FiO2 09/27/16 07:51 98.2 68 17 146/70 95 09/23/16 19:00 Room Air Intake and Output 09/26/16 09/26/16 09/27/16 15:00 23:00 07:00 Intake Total 1700 ml 1880 ml Output Total 1975 ml 3200 ml Balance -275 ml -1320 ml Results Result Diagram: 09/26/16 0515 09/26/16 0515 Medications Medications Current Medications Acetaminophen (Tylenol Tab) 650 mg Q6H PRN PO PAIN LEVEL 1-3 OR FEVER Last administered on 09/26/16 23:48; Admin Dose 650 MG; Start 09/23/16 at 15:00 Acetaminophen/ Hydrocodone Bitart ([facility] [place] [facility] (5/325)) 1 tab Q6H PRN PO MODERATE PAIN LEVEL 4-6 Last administered on 09/26/16 10:38; Admin Dose 1 TAB; Start at 15:00 Docusate Sodium (Colace) 100 mg Q12H PRN PO CONSTIPATION; Start 09/23/16 at 15: 00 Enoxaparin Sodium (Lovenox) 40 mg DAILY SC Last administered on 09/25/16 09:02 ; Admin Dose 40 MG; Start 09/24/16 at 09:00 Morphine Sulfate 1 mg 1 mg Q3H PRN IV pain Last administered on 09/27/16 11:15 ; Admin Dose 1 MG; Start 09/24/16 at 11:30 Sodium Chloride (NS) 1,000 ml @ 125 mls/hr Q8H IV Last administered on 16:03; Start 09/25/16 at 09:00 Ondansetron HCl (Zofran Odt) 4 mg Q6H PRN ODT nausea; Start 09/25/16 at 11:30 Ondansetron HCl (Zofran Inj) 4 mg Q6H PRN IV NAUSEA AND/OR VOMITING Last administered on 09/26/16t 19:53; Admin Dose 4 MG; Start 09/25/16 at 11:30 Acetaminophen/ Butalbital/ Caffeine (Fioricet) 1 tab Q6H PRN PO PAIN; Start 09/27/16 at 10:30 MIRELLA FIGUEROA MD Sep 27, 2016 16:36
[2016-09-27] MEDS ORDERED: DIPHENHYDRAMINE 50 MG INJ IV PRN (17:00)
[2016-09-27] MEDS ORDERED: MEPERIDINE 25 MG INJ IV PRN (17:00)
[2016-09-27] MEDS ORDERED: HYDROmorphONE (0.2 MG/ML) 10ML SYG IV PRN ×2 (17:00)
[2016-09-27] MEDS ORDERED: ONDANSETRON 4 MG INJ IV PRN (17:00)
[2016-09-27] MEDS ORDERED: hydrALAzine 20 MG INJ ONE (17:35)
[2016-09-27] MEDS ORDERED: hydrALAzine 20 MG INJ IV ONE (18:00)
--- NOTE | 2016-09-27 18:05 | RADRPT ---
PROCEDURE: Intraoperative imaging of the abdomen and pelvis with fluoroscopy. CLINICAL INDICATION: Abdominal pain. Intraoperative. TECHNIQUE: 8 images of the abdomen and pelvis were obtained in the operating room with an image in tensifier. No radiologist was in attendance. 11.4 seconds of fluoroscopy time was used. COMPARISON: CT scan of the abdomen and pelvis dated 09/23/2016. FINDINGS: Images demonstrate instrumentation of both ureters and kidneys final images demonstrate placement of bilateral double pigtail ureteral stents. IMPRESSION: 1. Satisfactory intraoperative imaging of the abdomen and pelvis. RPTAT: QQ .Devendra Frank MD, Date Time Electronically viewed and signed by .Devendra Frank MD, on 09/27/2016 18:05 .R/
[2016-09-27] MEDS: ONDANSETRON 4 MG INJ IV PRN (18:13)
--- NOTE | 2016-09-27 19:13 | CONS ---
Date/Time of Note Date/Time of Note DATE: 09/27/16 TIME: 19:11 Assessment/Plan Assessment/Plan Chief Complaint/Hosp Course 60 yo F with h/o nephrolithiasis with resulting ureteral obstruction requiring ureteral stenting last admitted earlier this month for aseptic pyelonephritis presents with flank pain, hematuria. Imaging with worsening kidney stone burden. nephrology has been consulted for Hypercalcemia and rule out primary hyperparathyroidism Problems: Additional Assessment/Plan # Bilateral Moderate Hydronephrosis due to obstrucive uropathy # Recurrent Nephrolithiasis with Hypercalcemia, Hyperparathyroidism with Last PTH 140 on last admissio, normally PTH should be suppressed with Hypercalcemia, Pt denies any Ca intake/Calcium containing meds Plan: s/p Cystogram today Ca slightly improved to 11.8- US thyroid showed Diffusely heterogeneous thyroid gland with a focal nodule in the right lobe. S/p Urology consult for moderate to severe hydronephrosis- possible plan for Intervention by urology for moderate hydronephrosis Nuclear parathyroid scan to assess for parathyroid adenoma vs Hyperplasia- pending at this time, PTH 140, ca 12.3 will follow up Consultation Date/Type/Reason Admit Date/Time Sep 23, 2016 at 14:54 Initial Consult Date 09/24/16 Type of Consultation: NEPHROLOGY Referring Provider: LUIS IRWIN MD Exam/Review of Systems Vital Signs Vitals Vital Signs Date Time Temp Pulse Resp B/P Pulse Ox O2 Delivery O2 Flow Rate FiO2 09/27/16 17:37 60 19 150/86 97 Room Air 09/27/16 16:54 98.3 Intake and Output 09/26/16 09/26/16 09/27/16 14:59 22:59 06:59 Intake Total 1700 ml 1880 ml Output Total 1975 ml 3200 ml Balance -275 ml -1320 ml Exam Constitutional: alert Psych: no complaints Head: normocephalic ENMT: nl external ears & nose Neck: supple Respiratory: clear to auscultation Cardiovascular: nl pulses, regular rate and rhythm Gastrointestinal: non-tender, soft Musculoskeletal: nl extremities to inspection, nl gait and stance, other ( BIlateral CVA tenderness, R>L) Extremities: normal pulses Neurological: SUPPORT SPECIALIST II-XII intact Skin: nl turgor Lymph: nl lymph node Results Result Diagram: 09/26/1615 09/26/1615 Medications Medications Current Medications Acetaminophen (Tylenol Tab) 650 mg Q6H PRN PO PAIN LEVEL 1-3 OR FEVER Last administered on 09/26/16 23:48; Admin Dose 650 MG; Start 09/23/16 at 15:00 Docusate Sodium (Colace) 100 mg Q12H PRN PO CONSTIPATION; Start 09/23/16 at 15: 00 Ondansetron HCl (Zofran Odt) 4 mg Q6H PRN ODT nausea; Start 09/25/16 at 11:30 Ondansetron HCl (Zofran Inj) 4 mg Q6H PRN IV NAUSEA AND/OR VOMITING Last administered on 09/27/16 18:13; Admin Dose 4 MG; Start 09/25/16 at 11:30 Acetaminophen/ Butalbital/ Caffeine (Fioricet) 1 tab Q6H PRN PO PAIN; Start 09/27/16 at 10:30 Enoxaparin Sodium (Lovenox) 40 mg DAILY SC ; Start 09/28/16 at 09:00 Acetaminophen/ Hydrocodone Bitart ([place] (10/325)) 1 tab Q4H PRN GTB PAIN; Start 09/27/16 at 16:30 Morphine Sulfate 1 mg 1 mg Q4H PRN IV PAIN; Start 09/27/16 at 16:30 Potassium Chloride/Sodium Chloride (KCl/1/2 NS) 1,005 ml @ 100 mls/hr Q10H3M IV ; Start 09/27/16 at 16:30 JANI ADAMS MD Sep 27, 2016 19:13
[2016-09-27] MEDS: POTASSIUM CHLORIDE 10 MEQ in SOD CHLORIDE 0.45% 1,000 ML IV SCH (19:55)
--- NOTE | 2016-09-27 20:57 | RADRPT ---
Vent Rate: 63 bpm RR Interval: 0 msec ME Interval: 184 msec QRS Duration: 82 msec QT Interval: 396 msec QTC Interval: 405 msec P-R-T [place]: 50 - 47 - 21 degrees Normal sinus rhythm Normal ECG Electronically Signed By: Georgi Uribe [id number]
[2016-09-27] MEDS: ACET/BUTAL/CAFF TAB PO PRN (22:45)
[2016-09-28] MEDS: POTASSIUM CHLORIDE 10 MEQ in SOD CHLORIDE 0.45% 1,000 ML IV SCH ×3 (04:40→14:11)
[2016-09-28] MEDS: ACET/BUTAL/CAFF TAB PO PRN ×2 (04:41→16:02)
[2016-09-28 08:21] VITALS: BP 128/60; RESP 18
[2016-09-28] MEDS: ENOXAPARIN 40 MG/0.4 ML SYG SC SCH (09:16)
--- NOTE | 2016-09-28 09:32 | PN ---
Date/Time of Note Date/Time of Note DATE: 09/28/16 TIME: 09:29 Assessment/Plan VTE Prophylaxis VTE Prophylaxis Intervention: LMWH Lines/Catheters IV Catheter Type (from Nrs): Peripheral IV Urinary Cath still in place: Yes Reason Cath still needed: other (indicate) Assessment/Plan Chief Complaint/Hosp Course 1. Bilateral moderate to severe hydronephrosis. Status post cystoscopy with bilateral ureteroscopy and bilateral JJ stent replacement on 09/27/2016. Continue pain control. Continue antibiotics. 2. Recurrent nephrolithiasis with hypercalcemia. Continue IV hydration. Continue management as per urology and nephrology. 3. Vitamin D deficiency. Management as per nephrology. 4. Migraine headache. Continue as needed analgesics. 5. Fluids. Regular diet as tolerated. 6. DVT prophylaxis. Subcutaneous Lovenox. Bilateral sequential compression devices. 7. Gastrointestinal prophylaxis. Not indicated. 8. Plan. Continue IV hydration. Continue antibiotics. Continue pain control. The patient is scheduled for a nuclear medicine parathyroid scan. Await clearance from consultants before discharge. Case discussed with . Problems: Subjective 24 Hr Interval Summary Free Text/Dictation Complains of minimal abdominal pain. Exam/Review of Systems Vital Signs Vitals Vital Signs Date Time Temp Pulse Resp B/P Pulse Ox O2 Delivery O2 Flow Rate FiO2 09/28/16 08:21 98.3 54 18 128/60 97 09/27/16 17:37 Room Air Intake and Output 09/27/16 09/27/16 09/28/16 15:00 23:00 07:00 Intake Total 1150 ml 1620 ml Output Total 10 ml 4500 ml Balance 1140 ml -2880 ml Exam General: Adequately build 60 year-old female lying in bed in no apparent distress. HEENT: Normocephalic, atraumatic. Eyes: Anicteric sclerae, conjunctivae clear. ENT: Nasal septum midline, oral mucosa moist. Neck supple, no JVD noticed. Respiratory: Bilaterally clear breath sounds. No use of accessory muscles of respiration. No adventitious breath sounds. Cardiovascular: S1, S2 heard. No murmurs or gallops. Abdomen: Soft and nondistended. Bowel sounds positive in all 4 quadrants. Minimal right and left lower quadrant tenderness. Genitourinary: Coley catheter in place. Extremities: No cyanosis, no clubbing, no edema. Peripheral pulses palpable. Neurologic: Cranial nerves II through XII grossly intact. The patient is awake, alert, and oriented. Skin: Normal skin turgor. No skin rashes. Results Result Diagram: 09/26/1651409/26/16 0515 Medications Medications Current Medications Acetaminophen (Tylenol Tab) 650 mg Q6H PRN PO PAIN LEVEL 1-3 OR FEVER Last administered on 09/26/16 23:48; Admin Dose 650 MG; Start 09/23/16 at 15:00 Docusate Sodium (Colace) 100 mg Q12H PRN PO CONSTIPATION; Start 09/23/16 at 15: 00 Ondansetron HCl (Zofran Odt) 4 mg Q6H PRN ODT nausea; Start 09/25/16 at 11:30 Ondansetron HCl (Zofran Inj) 4 mg Q6H PRN IV NAUSEA AND/OR VOMITING Last administered on 09/27/16 18:13; Admin Dose 4 MG; Start 09/25/16 at 11:30 Acetaminophen/ Butalbital/ Caffeine (Fioricet) 1 tab Q6H PRN PO PAIN Last administered on 09/28/16 04:41; Admin Dose 1 TAB; Start 09/27/16 at 10:30 Enoxaparin Sodium (Lovenox) 40 mg DAILY SC Last administered on 09/28/16 09:16 ; Admin Dose 40 MG; Start 09/28/16 at 09:00 Acetaminophen/ Hydrocodone Bitart ([place] (10/325)) 1 tab Q4H PRN GTB PAIN; Start 09/27/16 at 16:30 Morphine Sulfate 1 mg 1 mg Q4H PRN IV PAIN Last administered on 09/27/16 19:47 ; Admin Dose 1 MG; Start 09/27/16 at 16:30 Potassium Chloride/Sodium Chloride (KCl/1/2 NS) 1,005 ml @ 100 mls/hr Q10H3M IV Last administered on 09/28/16 04:40; Admin Dose 100 MLS/HR; Start 09/27/16 at 16:30 YOSELIN GARNETT NP Sep 28, 2016 09:32
[2016-09-28] MEDS: CEFTRIAXONE 1 GM/50 ML (PMX) 50 ML IVPB SCH (10:56)
--- NOTE | 2016-09-28 14:01 | CONS ---
Date/Time of Note Date/Time of Note DATE: 09/28/16 TIME: 13:57 Assessment/Plan Assessment/Plan Chief Complaint/Hosp Course 60 yo F with h/o nephrolithiasis with resulting ureteral obstruction requiring ureteral stenting last admitted earlier this month for aseptic pyelonephritis presents with flank pain, hematuria. Imaging with worsening kidney stone burden. nephrology has been consulted for Hypercalcemia and rule out primary hyperparathyroidism Problems: Additional Assessment/Plan # Bilateral Moderate Hydronephrosis due to obstrucive uropathy s/p cystogram with stent placement by Urology # Recurrent Nephrolithiasis with Hypercalcemia, Hyperparathyroidism with Last PTH 140 on last admissio, normally PTH should be suppressed with Hypercalcemia, Pt denies any Ca intake/Calcium containing meds Plan: s/p Cystogram with Bilateral Ureteral Stent placement , no labs today Ca slightly improved to 11.8- US thyroid showed Diffusely heterogeneous thyroid gland with a focal nodule in the right lobe. S/p Urology consult for moderate to severe hydronephrosis- s/p cystogram with stent placement Nuclear parathyroid scan to assess for parathyroid adenoma vs Hyperplasia- pending at this time, PTH 140, ca 11.8 will follow up pt needs to see me in clinic as outpatient upon discharge( she is not ready for discharge yet) Consultation Date/Type/Reason Admit Date/Time Sep 23, 2016 at 14:54 Initial Consult Date 09/24/16 Type of Consultation: NEPHROLOGY Referring Provider: LUIS IRWIN MD Exam/Review of Systems Vital Signs Vitals Vital Signs Date Time Temp Pulse Resp B/P Pulse Ox O2 Delivery O2 Flow Rate FiO2 09/28/16 08:21 98.3 54 18 128/60 97 09/27/16 17:37 Room Air Intake and Output 09/27/16 09/27/16 09/28/16 15:00 23:00 07:00 Intake Total 1150 ml 1620 ml Output Total 10 ml 4500 ml Balance 1140 ml -2880 ml Exam Constitutional: alert Psych: no complaints Head: normocephalic ENMT: nl external ears & nose Neck: supple Respiratory: clear to auscultation Cardiovascular: nl pulses, regular rate and rhythm Gastrointestinal: non-tender, soft Musculoskeletal: nl extremities to inspection, nl gait and stance, other ( BIlateral CVA tenderness, R>L) Extremities: normal pulses Neurological: FLAVORING MACHINE OPERATOR II-XII intact Skin: nl turgor Lymph: nl lymph node Results Result Diagram: 09/26/1615 09/26/1615 Medications Medications Current Medications Acetaminophen (Tylenol Tab) 650 mg Q6H PRN PO PAIN LEVEL 1-3 OR FEVER Last administered on 09/26/16 23:48; Admin Dose 650 MG; Start 09/23/16 at 15:00 Docusate Sodium (Colace) 100 mg Q12H PRN PO CONSTIPATION; Start 09/23/16 at 15: 00 Ondansetron HCl (Zofran Odt) 4 mg Q6H PRN ODT nausea; Start 09/25/16 at 11:30 Ondansetron HCl (Zofran Inj) 4 mg Q6H PRN IV NAUSEA AND/OR VOMITING Last administered on 09/27/16 18:13; Admin Dose 4 MG; Start 09/25/16 at 11:30 Acetaminophen/ Butalbital/ Caffeine (Fioricet) 1 tab Q6H PRN PO PAIN Last administered on 09/28/16 04:41; Admin Dose 1 TAB; Start 09/27/16 at 10:30 Enoxaparin Sodium (Lovenox) 40 mg DAILY SC Last administered on 09/28/16 09:16 ; Admin Dose 40 MG; Start 09/28/16 at 09:00 Acetaminophen/ Hydrocodone Bitart ([place] (10/325)) 1 tab Q4H PRN GTB PAIN; Start 09/27/16 at 16:30 Morphine Sulfate 1 mg 1 mg Q4H PRN IV PAIN Last administered on 09/27/16 19:47 ; Admin Dose 1 MG; Start 09/27/16 at 16:30 Potassium Chloride 10 meq/ Sodium Chloride 1,005 ml @ 100 mls/hr Q10H3M IV Last administered on 09/28/16 04:40; Admin Dose 100 MLS/HR; Start 09/27/16 at 16: 30 Ceftriaxone Sodium (Rocephin) 50 ml @ 100 mls/hr Q24H IVPB Last administered on 09/28/16 10:56; Admin Dose 100 MLS/HR; Start 09/28/16 at 09:30 JANI ADAMS MD Sep 28, 2016 14:01
[2016-09-28 16:03] VITALS: BP 135/64; RESP 19
[2016-09-28 20:00] VITALS: BP 129/61; RESP 19
[2016-09-28] MEDS: morphine 2 MG INJ IV PRN (20:58)
[2016-09-28] MEDS: ONDANSETRON 4 MG INJ IV PRN (21:29)
[2016-09-29] MEDS: ACET/BUTAL/CAFF TAB PO PRN ×3 (01:30→18:21)
[2016-09-29] MEDS: POTASSIUM CHLORIDE 10 MEQ in SOD CHLORIDE 0.45% 1,000 ML IV SCH ×3 (01:30→18:45)
--- NOTE | 2016-09-29 03:55 | RADRPT ---
PROCEDURE: Nuclear medicine parathyroid scan CLINICAL INDICATION: Elevated PTH, Recurrent kidney stone, Hypercalcemia TECHNIQUE: Intravenous injection of 20.3 mCi of technetium 99m sestamibi was performed. AP and ob lique views of the neck were obtained 5 minutes and 3 hours following injection. COMPARISON: 09/24/2016 ultrasound FINDINGS: Relatively homogeneous uptake of the thyroid is seen on the initial scan. On the delayed images, th ere is a focal rounded area of increased uptake in the region of the upper pole of the left thyroid. Mild residual increased uptake in the upper pole of the right thyroid may correspond to the nodule seen on ultrasound. Uptake is seen in the minor salivary glands as expected. IMPRESSION: Retained uptake in or at the level of the upper pole of the left thyroid suspicious for parathyroid adenoma. Physician Claudio Date Time Electronically viewed and signed by Josiane Jewell Physician on 09/29/2016 03:54 SILVIA/
[2016-09-29 05:28] LABS: ADD SCAN DIFF NO
[2016-09-29 05:37] LABS: BASOPHILS % 0.3 % (0.0-2.0); EOSINOPHILS # 1.1 10^3/ul (0.0-0.5); EOSINOPHILS % 10.6 % (0.0-7.0); HEMATOCRIT 32.7 % (37.0-47.0); HEMOGLOBIN 11.3 g/dl (12.0-16.0); LYMPHOCYTES % 30.7 % (15.0-51.0); MEAN CORPUSCULAR HEMOGLOBIN 30.1 pg (29.0-33.0); MEAN CORPUSCULAR HGB CONC 34.6 g/dl (32.0-37.0); MEAN CORPUSCULAR VOLUME 87.2 fl (82.0-101.0); MEAN PLATELET VOLUME 11.1 fl (7.4-10.4); MONOCYTE # 0.9 10^3/ul (0.3-0.9); MONOCYTES % 8.6 % (0.0-11.0); NEUTROPHIL # 4.9 10^3/ul (1.6-7.5); NEUTROPHILS % 49.6 % (39.0-77.0); PLATELET COUNT 220 10^3/UL (140-415); RED BLOOD COUNT 3.75 10^6/ul (4.20-5.40); WHITE BLOOD COUNT 9.9 10^3/ul (4.8-10.8)
[2016-09-29 06:08] LABS: CALCIUM 11.4 mg/dl (8.4-10.2); CREATININE 0.65 mg/dl (0.44-1.00); POTASSIUM 3.2 mmol/L (3.5-5.1)
[2016-09-29 06:29] LABS: MAGNESIUM 1.5 mg/dl (1.7-2.5); PHOSPHORUS 2.5 mg/dl (2.5-4.9)
[2016-09-29 07:00] VITALS: BP 140/66; RESP 18
[2016-09-29] MEDS ORDERED: POTASSIUM CHLORIDE (SR) 20 MEQ TAB PO STA (07:52)
--- NOTE | 2016-09-29 07:52 | PN ---
Date/Time of Note Date/Time of Note DATE: 09/29/16 TIME: 07:49 Assessment/Plan VTE Prophylaxis VTE Prophylaxis Intervention: SCD's Lines/Catheters IV Catheter Type (from Nrsg): Peripheral IV Urinary Cath still in place: Yes Reason Cath still needed: other (indicate) Assessment/Plan Chief Complaint/Hosp Course 1. Bilateral moderate to severe hydronephrosis. Status post cystoscopy with bilateral ureteroscopy and bilateral JJ stent replacement on 09/27/2016. Continue pain control. Continue antibiotics. 2. Recurrent nephrolithiasis with hypercalcemia. Continue IV hydration. Continue management as per urology and nephrology. 3. Vitamin D deficiency. Management as per nephrology. 4. Migraine headache. Continue as needed analgesics. 5. Nuclear medicine parathyroid scan showing retained uptake in or at the level of the upper pole of the left thyroid suspicious for parathyroid adenoma. Will call endocrinology consult. 6. Fluids. Regular diet as tolerated. 7. DVT prophylaxis. Subcutaneous Lovenox. Bilateral sequential compression devices. 8. Gastrointestinal prophylaxis. Not indicated. 9. Plan. Continue IV hydration. Continue antibiotics. Replete potassium and magnesium. Continue pain control. Will call endocrinology consult. Case discussed with . Problems: Subjective 24 Hr Interval Summary Free Text/Dictation Abdominal pain well controlled. Denies any nausea vomiting today. Exam/Review of Systems Vital Signs Vitals Vital Signs Date Time Temp Pulse Resp B/P Pulse Ox O2 Delivery O2 Flow Rate FiO2 09/28/16 20:00 98.1 68 19 129/61 96 09/27/16 17:37 Room Air Intake and Output 09/28/16 09/28/16 09/29/16 15:00 23:00 07:00 Intake Total 1450 ml 700 ml 1863 ml Output Total 800 ml 400 ml 1600 ml Balance 650 ml 300 ml 263 ml Exam General: Adequately build 60 year-old female lying in bed in no apparent distress. HEENT: Normocephalic, atraumatic. Eyes: Anicteric sclerae, conjunctivae clear. ENT: Nasal septum midline, oral mucosa moist. Neck supple, no JVD noticed. Respiratory: Bilaterally clear breath sounds. No use of accessory muscles of respiration. No adventitious breath sounds. Cardiovascular: S1, S2 heard. No murmurs or gallops. Abdomen: Soft and nondistended. Bowel sounds positive in all 4 quadrants. Minimal right and left lower quadrant tenderness. Genitourinary: Coley catheter in place. Extremities: No cyanosis, no clubbing, no edema. Peripheral pulses palpable. Neurologic: Cranial nerves II through XII grossly intact. The patient is awake, alert, and oriented. Skin: Normal skin turgor. No skin rashes. Results Result Diagram: 09/29/16 0445 09/29/165 Results 24 hrs Laboratory Tests Test 09/29/16 04:45 White Blood Count 9.9 # Red Blood Count 3.75 L Hemoglobin 11.3 L Hematocrit 32.7 L Mean Corpuscular Volume 87.2 Mean Corpuscular Hemoglobin 30.1 Mean Corpuscular Hemoglobin Concent 34.6 Red Cell Distribution Width 13.0 Platelet Count 220 Mean Platelet Volume 11.1 H Neutrophils % 49.6 Lymphocytes % 30.7 Monocytes % 8.6 Eosinophils % 10.6 H Basophils % 0.3 Nucleated Red Blood Cells % 0.0 Neutrophils # 4.9 Lymphocytes # 3.0 H Monocytes # 0.9 Eosinophils # 1.1 H Basophils # 0.0 Nucleated Red Blood Cells # 0.0 Sodium Level 144 Potassium Level 3.2 L Chloride Level 104 Carbon Dioxide Level 28 Anion Gap 15 Blood Urea Nitrogen 9 Creatinine 0.65 Glucose Level 92 Calcium Level 11.4 H Phosphorus Level 2.5 Magnesium Level 1.5 L Medications Medications Current Medications Acetaminophen (Tylenol Tab) 650 mg Q6H PRN PO PAIN LEVEL 1-3 OR FEVER Last administered on 09/26/16 23:48; Admin Dose 650 MG; Start 09/23/16 at 15:00 Docusate Sodium (Colace) 100 mg Q12H PRN PO CONSTIPATION; Start 09/23/16 at 15: 00 Ondansetron HCl (Zofran Odt) 4 mg Q6H PRN ODT nausea; Start 09/25/16 at 11:30 Ondansetron HCl (Zofran Inj) 4 mg Q6H PRN IV NAUSEA AND/OR VOMITING Last administered on 09/28/16 21:29; Admin Dose 4 MG; Start 09/25/16 at 11:30 Acetaminophen/ Butalbital/ Caffeine (Fioricet) 1 tab Q6H PRN PO PAIN Last administered on 09/29/16 01:30; Admin Dose 1 TAB; Start 09/27/16 at 10:30 Enoxaparin Sodium (Lovenox) 40 mg DAILY SC Last administered on 09/28/16 09:16 ; Admin Dose 40 MG; Start 09/28/16 at 09:00 Acetaminophen/ Hydrocodone Bitart ([place] (10)) 1 tab Q4H PRN GTB PAIN; Start 09/27/16 at 16:30 Morphine Sulfate 1 mg 1 mg Q4H PRN IV PAIN Last administered on 09/28/16 20:58 ; Admin Dose 1 MG; Start 09/27/16 at 16:30 Potassium Chloride 10 meq/ Sodium Chloride 1,005 ml @ 100 mls/hr Q10H3M IV Last administered on 09/29/16 01:30; Admin Dose 100 MLS/HR; Start 09/27/16 at 16: 30 Ceftriaxone Sodium (Rocephin) 50 ml @ 100 mls/hr Q24H IVPB Last administered on 09/28/16 10:56; Admin Dose 100 MLS/HR; Start 09/28/16 at 09:30 YOSELIN GARNETT NP Sep 29, 2016 07:51
[2016-09-29] MEDS ORDERED: MAGNESIUM SULFATE 2 GM/50 ML 50 ML IVPB ONE (08:30)
[2016-09-29] MEDS: CEFTRIAXONE 1 GM/50 ML (PMX) 50 ML IVPB SCH (08:50)
[2016-09-29] MEDS: ENOXAPARIN 40 MG/0.4 ML SYG SC SCH (09:00)
--- NOTE | 2016-09-29 12:25 | CONS ---
Date/Time of Note Date/Time of Note DATE: 09/29/16 TIME: 12:23 Assessment/Plan Assessment/Plan Chief Complaint/Hosp Course 60 yo F with h/o nephrolithiasis with resulting ureteral obstruction requiring ureteral stenting last admitted earlier this month for aseptic pyelonephritis presents with flank pain, hematuria. Imaging with worsening kidney stone burden. nephrology has been consulted for Hypercalcemia and rule out primary hyperparathyroidism Problems: Additional Assessment/Plan # Bilateral Moderate Hydronephrosis due to obstrucive uropathy s/p cystogram with stent placement by Urology # Recurrent Nephrolithiasis with Hypercalcemia, Hyperparathyroidism with Last PTH 140 on last admissio, normally PTH should be suppressed with Hypercalcemia, Pt denies any Ca intake/Calcium containing meds # parathyroid adenoma on Parathyroid Nuclear scan Plan: s/p Cystogram with Bilateral Ureteral Stent placement Ca slightly improved to 11.8- US thyroid showed Diffusely heterogeneous thyroid gland with a focal nodule in the right lobe. S/p Urology consult for moderate to severe hydronephrosis- s/p cystogram with stent placement Nuclear parathyroid scan showed parathyroid adenoma, need endocrine consult will follow up pt needs to see me in clinic as outpatient upon discharge( she is not ready for discharge yet) Consultation Date/Type/Reason Admit Date/Time Sep 23, 2016 at 14:54 Initial Consult Date 09/24/16 Type of Consultation: NEPHROLOGY Reason for Consultation Hypercalcemia, s/p ROSALINO , Recurrent nephrolithiasis Referring Provider: LUIS IRWIN MD 24 HR Interval Summary Free Text/Dictation Nuclear medicine Parthyroid suspicious for Parathyroid adenoma Exam/Review of Systems Vital Signs Vitals Vital Signs Date Time Temp Pulse Resp B/P Pulse Ox O2 Delivery O2 Flow Rate FiO2 09/29/16 07:00 98.7 67 18 140/66 97 09/27/16 17:37 Room Air Intake and Output 09/28/16 09/28/16 09/29/16 15:00 23:00 07:00 Intake Total 1450 ml 700 ml 1863 ml Output Total 800 ml 400 ml 1600 ml Balance 650 ml 300 ml 263 ml Exam Constitutional: alert Psych: no complaints Head: normocephalic ENMT: nl external ears & nose Neck: supple Respiratory: clear to auscultation Cardiovascular: nl pulses, regular rate and rhythm Gastrointestinal: non-tender, soft Musculoskeletal: nl extremities to inspection, nl gait and stance, other ( BIlateral CVA tenderness, R>L) Extremities: normal pulses Neurological: STUDENT LIFE DEAN II-XII intact Skin: nl turgor Lymph: nl lymph node Results Result Diagram: 09/29/1644409/29/16444 Results 24 hrs Laboratory Tests Test 09/29/16 04:45 White Blood Count 9.9 # Red Blood Count 3.75 L Hemoglobin 11.3 L Hematocrit 32.7 L Mean Corpuscular Volume 87.2 Mean Corpuscular Hemoglobin 30.1 Mean Corpuscular Hemoglobin Concent 34.6 Red Cell Distribution Width 13.0 Platelet Count 220 Mean Platelet Volume 11.1 H Neutrophils % 49.6 Lymphocytes % 30.7 Monocytes % 8.6 Eosinophils % 10.6 H Basophils % 0.3 Nucleated Red Blood Cells % 0.0 Neutrophils # 4.9 Lymphocytes # 3.0 H Monocytes # 0.9 Eosinophils # 1.1 H Basophils # 0.0 Nucleated Red Blood Cells # 0.0 Sodium Level 144 Potassium Level 3.2 L Chloride Level 104 Carbon Dioxide Level 28 Anion Gap 15 Blood Urea Nitrogen 9 Creatinine 0.65 Glucose Level 92 Calcium Level 11.4 H Phosphorus Level 2.5 Magnesium Level 1.5 L Medications Medications Current Medications Acetaminophen (Tylenol Tab) 650 mg Q6H PRN PO PAIN LEVEL 1-3 OR FEVER Last administered on 09/26/16 23:48; Admin Dose 650 MG; Start 09/23/16 at 15:00 Docusate Sodium (Colace) 100 mg Q12H PRN PO CONSTIPATION; Start 09/23/16 at 15: 00 Ondansetron HCl (Zofran Odt) 4 mg Q6H PRN ODT nausea; Start 09/25/16 at 11:30 Ondansetron HCl (Zofran Inj) 4 mg Q6H PRN IV NAUSEA AND/OR VOMITING Last administered on 09/28/16 21:29; Admin Dose 4 MG; Start 09/25/16 at 11:30 Acetaminophen/ Butalbital/ Caffeine (Fioricet) 1 tab Q6H PRN PO PAIN Last administered on 09/29/16 08:48; Admin Dose 1 TAB; Start 09/27/16 at 10:30 Enoxaparin Sodium (Lovenox) 40 mg DAILY SC Last administered on 09/29/16 09:00 ; Admin Dose 40 MG; Start 09/28/16 at 09:00 Acetaminophen/ Hydrocodone Bitart ([place] ()) 1 tab Q4H PRN GTB PAIN; Start 09/27/16 at 16:30 Morphine Sulfate 1 mg 1 mg Q4H PRN IV PAIN Last administered on 09/28/16 20:58 ; Admin Dose 1 MG; Start 09/27/16 at 16:30 Potassium Chloride 10 meq/ Sodium Chloride 1,005 ml @ 100 mls/hr Q10H3M IV Last administered on 09/29/16 01:30; Admin Dose 100 MLS/HR; Start 09/27/16 at 16: 30 Ceftriaxone Sodium (Rocephin) 50 ml @ 100 mls/hr Q24H IVPB Last administered on 09/29/16 08:50; Admin Dose 100 MLS/HR; Start 09/28/16 at 09:30 JANI ADAMS MD Sep 29, 2016 12:25
--- NOTE | 2016-09-29 13:42 | CONS ---
Date/Time of Note Date/Time of Note DATE: 09/29/16 TIME: 13:21 Assessment/Plan Assessment/Plan Problems: (1) Primary hyperparathyroidism Status: Chronic Comment: Malaika 60-year-old female. She reports no history of thyroid disorder. She however has had multiple recurrent renal stones; some problems of depression; osteoporosis with fractures. She has been identified by the primary care team is having elevated serum calcium was above 11 and an elevated ionized calcium in the setting of an elevated PTH level and a modestly suppressed vitamin D level. Her nuclear medicine sestamibi scan has identified a left upper pole parathyroid adenoma. She also has a right lower pole thyroid nodule is less than 1 cm in size. She has no family history to suggest an dulce or DULCE syndrome. She has no personal history to suggest an DULCE or MEN syndrome. She is recently had a surgical intervention for hydronephrosis. This establishes a diagnosis of primary hyperparathyroidism. While she does have vitamin D deficiency this is not secondary hyperparathyroidism. Indication for surgery is already established and the real issue here will be finding incompetent parathyroid surgeon. We are fortunate that we do have such an individual on our medical staff. I will contact Dr. Juan Hough to see the patient in consultation and proceed directly with parathyroidectomy. Please note that she is at some risk for postoperative hungry bone syndrome and hypocalcemia. Postoperatively she will need vitamin D and calcium supplementation. I am not doing that preoperatively due to her recurrent renal stone disease. Consultation Date/Type/Reason Admit Date/Time Sep 23, 2016 at 14:54 Date of Consultation: Sep 29, 2016 Type of Consultation: Endocrinology Reason for Consultation Primary hyperparathyroidism with complications of osteoporosis fractures recurrent renal stones etc. Referring Provider: LUIS IRWIN MD Hx of Present Illness 60-year-old female with a history of calcium disturbance. The duration of this is probably at least 10 years. She has had recurrent renal stones and has developed osteoporosis. In addition she has had dysthymia. She has not had peptic ulcer disease she has not had hypertension she has not had any sequelae to suggest ME and or DULCE syndromes. The primary care team has already got a positive nuclear medicine sestamibi scan; and the appropriate laboratory testing to establish the diagnosis. Constitutional: no complaints Eyes: no complaints Respiratory: no complaints Cardiovascular: no complaints Gastrointestinal: constipation, decreased appetite, nausea, vomiting Genitourinary: bleeding, flank pain Musculoskeletal: back pain, restricted range of motion Skin: no complaints Neurologic: no complaints Endocrine: no complaints Lymphatic: no complaints Psychological: no complaints Immunologic: no complaints Past Medical History Primary hyperparathyroidism; osteoporosis; history of arthritis; bone fractures ; recurrent renal stones; chronic kidney disease Medical History: other (Nephrolithiasis ) Past Surgical History Past Surgical Hx: noncontributory Family History Significant Family History: no pertinent family hx Social History Alcohol Use: none Smoking Status: Never smoker Drug Use: none Exam/Review of Systems Vital Signs Vitals Vital Signs Date Time Temp Pulse Resp B/P Pulse Ox O2 Delivery O2 Flow Rate FiO2 09/29/16 07:00 98.7 67 18 140/66 97 09/27/16 17:37 Room Air Intake and Output 09/28/16 09/28/16 09/29/16 15:00 23:00 07:00 Intake Total 1450 ml 700 ml 1863 ml Output Total 800 ml 400 ml 1600 ml Balance 650 ml 300 ml 263 ml Exam Constitutional: alert, oriented Neck: non-tender, supple Respiratory: clear to auscultation, normal air movement Cardiovascular: nl pulses, regular rate and rhythm Gastrointestinal: nl liver, spleen, non-tender, soft Results Result Diagram: 09/29/16 0445 09/29/16 0445 Results 24 hrs Laboratory Tests Test 09/29/16 04:45 White Blood Count 9.9 # Red Blood Count 3.75 L Hemoglobin 11.3 L Hematocrit 32.7 L Mean Corpuscular Volume 87.2 Mean Corpuscular Hemoglobin 30.1 Mean Corpuscular Hemoglobin Concent 34.6 Red Cell Distribution Width 13.0 Platelet Count 220 Mean Platelet Volume 11.1 H Neutrophils % 49.6 Lymphocytes % 30.7 Monocytes % 8.6 Eosinophils % 10.6 H Basophils % 0.3 Nucleated Red Blood Cells % 0.0 Neutrophils # 4.9 Lymphocytes # 3.0 H Monocytes # 0.9 Eosinophils # 1.1 H Basophils # 0.0 Nucleated Red Blood Cells # 0.0 Sodium Level 144 Potassium Level 3.2 L Chloride Level 104 Carbon Dioxide Level 28 Anion Gap 15 Blood Urea Nitrogen 9 Creatinine 0.65 Glucose Level 92 Calcium Level 11.4 H Phosphorus Level 2.5 Magnesium Level 1.5 L Medications Medications Current Medications Acetaminophen (Tylenol Tab) 650 mg Q6H PRN PO PAIN LEVEL 1-3 OR FEVER Last administered on 09/26/16 23:48; Admin Dose 650 MG; Start 09/23/16 at 15:00 Docusate Sodium (Colace) 100 mg Q12H PRN PO CONSTIPATION; Start 09/23/16 at 15: 00 Ondansetron HCl (Zofran Odt) 4 mg Q6H PRN ODT nausea; Start 09/25/16 at 11:30 Ondansetron HCl (Zofran Inj) 4 mg Q6H PRN IV NAUSEA AND/OR VOMITING Last administered on 09/28/16 21:29; Admin Dose 4 MG; Start 09/25/16 at 11:30 Acetaminophen/ Butalbital/ Caffeine (Fioricet) 1 tab Q6H PRN PO PAIN Last administered on 09/29/16 08:48; Admin Dose 1 TAB; Start 09/27/16 at 10:30 Enoxaparin Sodium (Lovenox) 40 mg DAILY SC Last administered on 09/29/16 09:00 ; Admin Dose 40 MG; Start 09/28/16 at 09:00 Acetaminophen/ Hydrocodone Bitart ([place] (10/325)) 1 tab Q4H PRN GTB PAIN; Start 09/27/16 at 16:30 Morphine Sulfate 1 mg 1 mg Q4H PRN IV PAIN Last administered on 09/28/16 20:58 ; Admin Dose 1 MG; Start 09/27/16 at 16:30 Potassium Chloride 10 meq/ Sodium Chloride 1,005 ml @ 100 mls/hr Q10H3M IV Last administered on 09/29/16 01:30; Admin Dose 100 MLS/HR; Start 09/27/16 at 16: 30 Ceftriaxone Sodium (Rocephin) 50 ml @ 100 mls/hr Q24H IVPB Last administered on 09/29/16 08:50; Admin Dose 100 MLS/HR; Start 09/28/16 at 09:30 FOX COOPER MD Sep 29, 2016 13:31
--- NOTE | 2016-09-29 15:15 | CONS ---
Date/Time of Note Date/Time of Note DATE: 09/29/16 TIME: 15:09 Assessment/Plan Assessment/Plan Chief Complaint/Hosp Course hyperparathyroidism parathyroid adenoma Problems: Additional Assessment/Plan plan parathyroidectomy. will [facility] primary team as to the timing risks and benefits [facility] Consultation Date/Type/Reason Admit Date/Time Sep 23, 2016 at 14:54 Date of Consultation: Oct 06, 2016 Type of Consultation: ENT Reason for Consultation Parathyroidectomy Hx of Present Illness Charjohn 60-year-old female. She reports no history of thyroid disorder. She however has had multiple recurrent renal stones; some problems of depression; osteoporosis with fractures. She has been identified by the primary care team is having elevated serum calcium was above 11 and an elevated ionized calcium in the setting of an elevated PTH level and a modestly suppressed vitamin D level. Her nuclear medicine sestamibi scan has identified a left upper pole parathyroid adenoma. She also has a right lower pole thyroid nodule is less than 1 cm in size. She has no family history to suggest an mal or MAL syndrome. She has no personal history to suggest an MAL or MEN syndrome. She is recently had a surgical intervention for hydronephrosis. This establishes a diagnosis of primary hyperparathyroidism. While she does have vitamin D deficiency this is not secondary hyperparathyroidism. Please note that she is at some risk for postoperative hungry bone syndrome and hypocalcemia. I agree that postoperatively she will need vitamin D and calcium supplementation Constitutional: no complaints Eyes: no complaints Respiratory: no complaints Cardiovascular: no complaints Gastrointestinal: constipation, decreased appetite, nausea, vomiting Genitourinary: bleeding, flank pain Musculoskeletal: back pain, restricted range of motion Skin: no complaints Neurologic: no complaints Endocrine: no complaints Lymphatic: no complaints Psychological: no complaints Immunologic: no complaints Constitutional: no complaints Eyes: no complaints Respiratory: no complaints Cardiovascular: no complaints Gastrointestinal: constipation, decreased appetite, nausea, vomiting Genitourinary: bleeding, flank pain Musculoskeletal: back pain, restricted range of motion Skin: no complaints Neurologic: no complaints Endocrine: no complaints Lymphatic: no complaints Psychological: no complaints Immunologic: no complaints Past Medical History Medical History: no pertinent history, other (Nephrolithiasis ) Past Surgical History Past Surgical Hx: noncontributory, other Family History Significant Family History: no pertinent family hx Social History Alcohol Use: none Smoking Status: Never smoker Drug Use: none Exam/Review of Systems Vital Signs Vitals Vital Signs Date Time Temp Pulse Resp B/P Pulse Ox O2 Delivery O2 Flow Rate FiO2 09/29/16 07:00 98.7 67 18 140/66 97 09/27/16 17:37 Room Air Intake and Output 09/28/16 09/28/16 09/29/16 15:00 23:00 07:00 Intake Total 1450 ml 700 ml 1863 ml Output Total 800 ml 400 ml 1600 ml Balance 650 ml 300 ml 263 ml Exam Constitutional: alert Psych: no complaints Head: normocephalic Eyes: nl conjunctiva ENMT: nl external ears & nose Neck: supple Respiratory: clear to auscultation Cardiovascular: regular rate and rhythm Gastrointestinal: soft Extremities: normal pulses Neurological: PERSONAL DEVELOPMENT MENTOR II-XII intact Lymph: nl lymph nodes Results Result Diagram: 09/29/1644409/29/16444 Results 24 hrs Laboratory Tests Test 09/29/16 04:45 White Blood Count 9.9 # Red Blood Count 3.75 L Hemoglobin 11.3 L Hematocrit 32.7 L Mean Corpuscular Volume 87.2 Mean Corpuscular Hemoglobin 30.1 Mean Corpuscular Hemoglobin Concent 34.6 Red Cell Distribution Width 13.0 Platelet Count 220 Mean Platelet Volume 11.1 H Neutrophils % 49.6 Lymphocytes % 30.7 Monocytes % 8.6 Eosinophils % 10.6 H Basophils % 0.3 Nucleated Red Blood Cells % 0.0 Neutrophils # 4.9 Lymphocytes # 3.0 H Monocytes # 0.9 Eosinophils # 1.1 H Basophils # 0.0 Nucleated Red Blood Cells # 0.0 Sodium Level 144 Potassium Level 3.2 L Chloride Level 104 Carbon Dioxide Level 28 Anion Gap 15 Blood Urea Nitrogen 9 Creatinine 0.65 Glucose Level 92 Calcium Level 11.4 H Phosphorus Level 2.5 Magnesium Level 1.5 L Medications Medications Current Medications Acetaminophen (Tylenol Tab) 650 mg Q6H PRN PO PAIN LEVEL 1-3 OR FEVER Last administered on 09/26/16t 23:48; Admin Dose 650 MG; Start 09/23/16 at 15:00 Docusate Sodium (Colace) 100 mg Q12H PRN PO CONSTIPATION; Start 09/23/16 at 15: 00 Ondansetron HCl (Zofran Odt) 4 mg Q6H PRN ODT nausea; Start 09/25/16 at 11:30 Ondansetron HCl (Zofran Inj) 4 mg Q6H PRN IV NAUSEA AND/OR VOMITING Last administered on 09/28/16 21:29; Admin Dose 4 MG; Start 09/25/16 at 11:30 Acetaminophen/ Butalbital/ Caffeine (Fioricet) 1 tab Q6H PRN PO PAIN Last administered on 09/29/16 08:48; Admin Dose 1 TAB; Start 09/27/16 at 10:30 Enoxaparin Sodium (Lovenox) 40 mg DAILY SC Last administered on 09/29/16 09:00 ; Admin Dose 40 MG; Start 09/28/16 at 09:00 Acetaminophen/ Hydrocodone Bitart ([place] ()) 1 tab Q4H PRN GTB PAIN; Start 09/27/16 at 16:30 Morphine Sulfate 1 mg 1 mg Q4H PRN IV PAIN Last administered on 09/28/16 20:58 ; Admin Dose 1 MG; Start 09/27/16 at 16:30 Potassium Chloride 10 meq/ Sodium Chloride 1,005 ml @ 100 mls/hr Q10H3M IV Last administered on 09/29/16 14:30; Admin Dose 100 MLS/HR; Start 09/27/16 at 16: 30 Ceftriaxone Sodium (Rocephin) 50 ml @ 100 mls/hr Q24H IVPB Last administered on 09/29/16 08:50; Admin Dose 100 MLS/HR; Start 09/28/16 at 09:30 Cholecalciferol (Vitamin D) 1,000 unit DAILY PO ; Start 09/29/16 at 14:15 VALERIE WALTER MD Sep 29, 2016 15:15
[2016-09-29 16:30] LABS: ACETYLCHOLINE RECEPTOR AB <0.30 nmol/L
[2016-09-29] MEDS: CHOLECALCIFEROL 1,000 UNIT TAB PO SCH (18:15)
[2016-09-29 20:03] VITALS: BP 122/60; RESP 17
[2016-09-30] MEDS: POTASSIUM CHLORIDE 10 MEQ in SOD CHLORIDE 0.45% 1,000 ML IV SCH ×3 (01:02→19:31)
[2016-09-30 05:05] LABS: ADD SCAN DIFF NO
[2016-09-30 05:18] LABS: BASOPHILS % 0.5 % (0.0-2.0); EOSINOPHILS # 1.3 10^3/ul (0.0-0.5); EOSINOPHILS % 17.4 % (0.0-7.0); HEMATOCRIT 33.2 % (37.0-47.0); HEMOGLOBIN 11.4 g/dl (12.0-16.0); LYMPHOCYTES # 2.8 10^3/ul (0.8-2.9); LYMPHOCYTES % 35.9 % (15.0-51.0); MEAN CORPUSCULAR HEMOGLOBIN 30.1 pg (29.0-33.0); MEAN CORPUSCULAR HGB CONC 34.3 g/dl (32.0-37.0); MEAN CORPUSCULAR VOLUME 87.6 fl (82.0-101.0); MEAN PLATELET VOLUME 10.8 fl (7.4-10.4); MONOCYTE # 0.6 10^3/ul (0.3-0.9); MONOCYTES % 7.4 % (0.0-11.0); NEUTROPHILS % 38.5 % (39.0-77.0); PLATELET COUNT 222 10^3/UL (140-415); RED BLOOD COUNT 3.79 10^6/ul (4.20-5.40); RED CELL DISTRIBUTION WIDTH 13.3 % (11.5-14.5); WHITE BLOOD COUNT 7.7 10^3/ul (4.8-10.8)
[2016-09-30 05:38] LABS: MAGNESIUM 1.9 mg/dl (1.7-2.5); PHOSPHORUS 2.6 mg/dl (2.5-4.9)
[2016-09-30 05:41] LABS: POTASSIUM 3.8 mmol/L (3.5-5.1)
[2016-09-30 06:09] LABS: CREATININE 0.61 mg/dl (0.44-1.00)
[2016-09-30 08:37] VITALS: BP 128/60; RESP 18
[2016-09-30] MEDS: CHOLECALCIFEROL 1,000 UNIT TAB PO SCH (08:58)
[2016-09-30] MEDS: CEFTRIAXONE 1 GM/50 ML (PMX) 50 ML IVPB SCH (08:58)
[2016-09-30] MEDS: ENOXAPARIN 40 MG/0.4 ML SYG SC SCH (09:01)
[2016-09-30] MEDS: ACET/BUTAL/CAFF TAB PO PRN ×2 (09:03→20:39)
--- NOTE | 2016-09-30 11:08 | RADRPT ---
Vent Rate: 60 bpm RR Interval: 0 msec TX Interval: 184 msec QRS Duration: 86 msec QT Interval: 390 msec QTC Interval: 390 msec P-R-T [place]: 48 - 39 - 37 degrees Normal sinus rhythm with sinus arrhythmia ST abnormality, possible digitalis effect Abnormal ECG Electronically Signed By: Pancho Savage [id number]
--- NOTE | 2016-09-30 13:16 | PN ---
Date/Time of Note Date/Time of Note DATE: 09/30/16 TIME: 13:12 Assessment/Plan VTE Prophylaxis VTE Prophylaxis Intervention: LMWH Lines/Catheters IV Catheter Type (from Nrs): Peripheral IV Urinary Cath still in place: Yes Reason Cath still needed: urinary retention Assessment/Plan Chief Complaint/Hosp Course S: No distress. Some lower genitourinary abd pain. [place]?. Positive nausea poor appetite. Diarrhea. No upper abd pain. Nonproductive cough. O: Vital signs stable PE No pallor. Irregular enlarged thyroid Regular no tachycardia Clear Bowel sounds present, nontender, nondistended, no RR G. No edema Assessment and plan 1. Obstructive uropathy, nephrolithiasis. Sp stent placement. DC [place] if ok with urology. 2. Hyperparathyroidism with symptomatic hypercalcemia. Improved. 3. Parathyroid adenoma left upper pole. Patient medically optimized for surgery. Low perioperative risk. May proceed forward when surgical time is available. 4. Chronic depression 5. Chronic osteoporosis 6. Vitamin D deficiency 7. Anemia 8. Diarrhea. Problems: Exam/Review of Systems Vital Signs Vitals Vital Signs Date Time Temp Pulse Resp B/P Pulse Ox O2 Delivery O2 Flow Rate FiO2 09/30/16 08:37 98.0 63 18 128/60 98 09/27/16 17:37 Room Air Intake and Output 09/29/16 09/29/16 09/30/16 15:00 23:00 07:00 Intake Total 500 ml 1930 ml 2100 ml Output Total 2050 ml 1700 ml Balance 500 ml -120 ml 400 ml Results Result Diagram: 09/30/16 0447 09/30/16 0447 Results 24 hrs Laboratory Tests Test 09/29/16 14:30 09/30/16 04:47 Hepatitis B Surface Antigen NEGATIVE Hepatitis C Antibody NEGATIVE White Blood Count 7.7 # Red Blood Count 3.79 L Hemoglobin 11.4 L Hematocrit 33.2 L Mean Corpuscular Volume 87.6 Mean Corpuscular Hemoglobin 30.1 Mean Corpuscular Hemoglobin Concent 34.3 Red Cell Distribution Width 13.3 Platelet Count 222 Mean Platelet Volume 10.8 H Neutrophils % 38.5 L Lymphocytes % 35.9 Monocytes % 7.4 Eosinophils % 17.4 H Basophils % 0.5 Nucleated Red Blood Cells % 0.0 Neutrophils # 3.0 Lymphocytes # 2.8 Monocytes # 0.6 Eosinophils # 1.3 H Basophils # 0.0 Nucleated Red Blood Cells # 0.0 Sodium Level 143 Potassium Level 3.8 Chloride Level 110 Carbon Dioxide Level 28 Anion Gap 9 # Blood Urea Nitrogen 6 L Creatinine 0.61 Glucose Level 94 Calcium Level 11.0 H Phosphorus Level 2.6 Magnesium Level 1.9 Medications Medications Current Medications Acetaminophen (Tylenol Tab) 650 mg Q6H PRN PO PAIN LEVEL 1-3 OR FEVER Last administered on 09/26/16 23:48; Admin Dose 650 MG; Start 09/23/16 at 15:00 Docusate Sodium (Colace) 100 mg Q12H PRN PO CONSTIPATION; Start 09/23/16 at 15: 00 Ondansetron HCl (Zofran Odt) 4 mg Q6H PRN ODT nausea; Start 09/25/16 at 11:30 Ondansetron HCl (Zofran Inj) 4 mg Q6H PRN IV NAUSEA AND/OR VOMITING Last administered on 09/28/16 21:29; Admin Dose 4 MG; Start 09/25/16 at 11:30 Acetaminophen/ Butalbital/ Caffeine (Fioricet) 1 tab Q6H PRN PO PAIN Last administered on 09/30/16 09:03; Admin Dose 1 TAB; Start 09/27/16 at 10:30 Enoxaparin Sodium (Lovenox) 40 mg DAILY SC Last administered on 09/30/16 09:01 ; Admin Dose 40 MG; Start 09/28/16 at 09:00 Acetaminophen/ Hydrocodone Bitart ([place] (10325)) 1 tab Q4H PRN GTB PAIN; Start 09/27/16 at 16:30 Morphine Sulfate 1 mg 1 mg Q4H PRN IV PAIN Last administered on 09/28/16 20:58 ; Admin Dose 1 MG; Start 09/27/16 at 16:30 Potassium Chloride 10 meq/ Sodium Chloride 1,005 ml @ 100 mls/hr Q10H3M IV Last administered on 09/30/16 11:26; Admin Dose 100 MLS/HR; Start 09/27/16 at 16: 30 Ceftriaxone Sodium (Rocephin) 50 ml @ 100 mls/hr Q24H IVPB Last administered on 09/30/16 08:58; Admin Dose 100 MLS/HR; Start 09/28/16 at 09:30 Cholecalciferol (Vitamin D) 1,000 unit DAILY PO Last administered on 09/30/16t 08:58; Admin Dose 1,000 UNIT; Start 09/29/16 at 14:15 KELVIN ORTIZ MD Sep 30, 2016 13:16
--- NOTE | 2016-09-30 14:13 | CONS ---
Date/Time of Note Date/Time of Note DATE: 09/30/16 TIME: 14:11 Assessment/Plan Assessment/Plan Chief Complaint/Hosp Course 60-year-old female with a history of calcium disturbance. The duration of this is probably at least 10 years. She has had recurrent renal stones and has developed osteoporosis. In addition she has had dysthymia. She has not had peptic ulcer disease she has not had hypertension she has not had any sequelae to suggest ME and or DULCE syndromes. The primary care team has already got a positive nuclear medicine sestamibi scan; and the appropriate laboratory testing to establish the diagnosis. Problems: (1) Primary hyperparathyroidism Status: Chronic Comment: She has been seen in consultation by our colleague Dr. Hough. He is graciously already set her up for surgery in 7 days. This is the appropriate course of action. Our main concern will be for postoperative hungry bone syndrome with hypocalcemia. From an endocrine standpoint she can be discharged and brought back electively. Please note regarding the issues for her recurrent renal stones and her recent cystoscopies I am not commenting on the plan here in deferring that off to the expertise of Dr. Figueroa. Consultation Date/Type/Reason Admit Date/Time Sep 23, 2016 at 14:54 Initial Consult Date 10/06/16 Type of Consultation: Endocrinology Reason for Consultation Primary hyperparathyroidism with multiple complications Referring Provider: LUIS IRWIN MD 24 HR Interval Summary Constitutional: no complaints Exam/Review of Systems Vital Signs Vitals Vital Signs Date Time Temp Pulse Resp B/P Pulse Ox O2 Delivery O2 Flow Rate FiO2 09/30/16 08:37 98.0 63 18 128/60 98 09/27/16 17:37 Room Air Intake and Output 09/29/16 09/29/16 09/30/16 15:00 23:00 07:00 Intake Total 500 ml 1930 ml 2100 ml Output Total 2050 ml 1700 ml Balance 500 ml -120 ml 400 ml Exam No changes Results Result Diagram: 09/30/16 0447 09/30/16 0447 Results 24 hrs Laboratory Tests Test 09/29/16 14:30 09/30/16 04:47 Hepatitis B Surface Antigen NEGATIVE Hepatitis C Antibody NEGATIVE White Blood Count 7.7 # Red Blood Count 3.79 L Hemoglobin 11.4 L Hematocrit 33.2 L Mean Corpuscular Volume 87.6 Mean Corpuscular Hemoglobin 30.1 Mean Corpuscular Hemoglobin Concent 34.3 Red Cell Distribution Width 13.3 Platelet Count 222 Mean Platelet Volume 10.8 H Neutrophils % 38.5 L Lymphocytes % 35.9 Monocytes % 7.4 Eosinophils % 17.4 H Basophils % 0.5 Nucleated Red Blood Cells % 0.0 Neutrophils # 3.0 Lymphocytes # 2.8 Monocytes # 0.6 Eosinophils # 1.3 H Basophils # 0.0 Nucleated Red Blood Cells # 0.0 Sodium Level 143 Potassium Level 3.8 Chloride Level 110 Carbon Dioxide Level 28 Anion Gap 9 # Blood Urea Nitrogen 6 L Creatinine 0.61 Glucose Level 94 Calcium Level 11.0 H Phosphorus Level 2.6 Magnesium Level 1.9 Medications Medications Current Medications Acetaminophen (Tylenol Tab) 650 mg Q6H PRN PO PAIN LEVEL 1-3 OR FEVER Last administered on 09/26/16 23:48; Admin Dose 650 MG; Start 09/23/16 at 15:00 Docusate Sodium (Colace) 100 mg Q12H PRN PO CONSTIPATION; Start 09/23/16 at 15: 00 Ondansetron HCl (Zofran Odt) 4 mg Q6H PRN ODT nausea; Start 09/25/16 at 11:30 Ondansetron HCl (Zofran Inj) 4 mg Q6H PRN IV NAUSEA AND/OR VOMITING Last administered on 09/28/16 21:29; Admin Dose 4 MG; Start 09/25/16 at 11:30 Acetaminophen/ Butalbital/ Caffeine (Fioricet) 1 tab Q6H PRN PO PAIN Last administered on 09/30/16 09:03; Admin Dose 1 TAB; Start 09/27/16 at 10:30 Enoxaparin Sodium (Lovenox) 40 mg DAILY SC Last administered on 09/30/16 09:01 ; Admin Dose 40 MG; Start 09/28/16 at 09:00 Acetaminophen/ Hydrocodone Bitart ([place] ()) 1 tab Q4H PRN GTB PAIN; Start 09/27/16 at 16:30 Morphine Sulfate 1 mg 1 mg Q4H PRN IV PAIN Last administered on 09/28/16 20:58 ; Admin Dose 1 MG; Start 09/27/16 at 16:30 Potassium Chloride 10 meq/ Sodium Chloride 1,005 ml @ 50 mls/hr Q20H6M IV Last administered on 09/30/16 11:26; Admin Dose 100 MLS/HR; Start 09/27/16 at 16: 30 Ceftriaxone Sodium (Rocephin) 50 ml @ 100 mls/hr Q24H IVPB Last administered on 09/30/16 08:58; Admin Dose 100 MLS/HR; Start 09/28/16 at 09:30 Cholecalciferol (Vitamin D) 1,000 unit DAILY PO Last administered on 09/30/16 08:58; Admin Dose 1,000 UNIT; Start 09/29/16 at 14:15 Lactobacillus Acidophilus/ Rhamnosus (Culturelle) 1 cap BID PO ; Start 09/30/16 at 21:00 Copies To: CC: MIRELLA FIGUEROA MD, JOSHUA A MD Sep 30, 2016 14:12
[2016-09-30] MEDS: morphine 2 MG INJ IV PRN (14:59)
--- NOTE | 2016-09-30 16:37 | RADRPT ---
PROCEDURE: XR Chest. CLINICAL INDICATION: Pyelonephritis. TECHNIQUE: Single frontal view. COMPARISON: 11/23/2014. FINDINGS: The lungs are clear. The heart size is normal. There is no pleural effusion. There is no pneumothorax. IMPRESSION: 1. Normal chest radiograph. 2. No change from 11/23/2014. RPTAT: QQ .Devendra Frank MD, MD Date Time Electronically viewed and signed by .Devendra Frank MD, MD on 09/30/2016 16:36 .R/
--- NOTE | 2016-09-30 16:54 | CONS ---
Date/Time of Note Date/Time of Note DATE: 09/30/16 TIME: 16:52 Assessment/Plan Assessment/Plan Chief Complaint/Hosp Course 60 yo F with h/o nephrolithiasis with resulting ureteral obstruction requiring ureteral stenting last admitted earlier this month for aseptic pyelonephritis presents with flank pain, hematuria. Imaging with worsening kidney stone burden. nephrology has been consulted for Hypercalcemia and rule out primary hyperparathyroidism Problems: Additional Assessment/Plan # Bilateral Moderate Hydronephrosis due to obstrucive uropathy s/p cystogram with stent placement by Urology # Recurrent Nephrolithiasis with Hypercalcemia, Hyperparathyroidism with Last PTH 140 on last admissio, normally PTH should be suppressed with Hypercalcemia, Pt denies any Ca intake/Calcium containing meds # parathyroid adenoma on Parathyroid Nuclear scan Plan: s/p Cystogram with Bilateral Ureteral Stent placement Ca slightly improved to 11.8- US thyroid showed Diffusely heterogeneous thyroid gland with a focal nodule in the right lobe. S/p Urology consult for moderate to severe hydronephrosis- s/p cystogram with stent placement Nuclear parathyroid scan showed parathyroid adenoma,s/p Endocrine and ENT consult, plan for parathyroidectomy will follow up pt needs to see me in clinic as outpatient upon discharge( she is not ready for discharge yet) Consultation Date/Type/Reason Admit Date/Time Sep 23, 2016 at 14:54 Initial Consult Date 09/24/16 Type of Consultation: NEPHROLOGY Referring Provider: LUIS IRWIN MD 24 HR Interval Summary Free Text/Dictation no acute events, S/p Endocrine consult, s/p ENT consult, plan for parathyroidectomy Exam/Review of Systems Vital Signs Vitals Vital Signs Date Time Temp Pulse Resp B/P Pulse Ox O2 Delivery O2 Flow Rate FiO2 09/30/16 08:37 98.0 63 18 128/60 98 09/27/16 17:37 Room Air Intake and Output 09/29/16 09/29/16 09/30/16 15:00 23:00 07:00 Intake Total 500 ml 1930 ml 2100 ml Output Total 2050 ml 1700 ml Balance 500 ml -120 ml 400 ml Exam Constitutional: alert Psych: no complaints Head: normocephalic ENMT: nl external ears & nose Neck: supple Respiratory: clear to auscultation Cardiovascular: nl pulses, regular rate and rhythm Gastrointestinal: non-tender, soft Musculoskeletal: nl extremities to inspection, nl gait and stance, other ( BIlateral CVA tenderness, R>L) Extremities: normal pulses Neurological: MOLD UNLOADER II-XII intact Skin: nl turgor Lymph: nl lymph node Results Result Diagram: 09/30/1644609/30/16446 Results 24 hrs Laboratory Tests Test 09/30/16 04:47 White Blood Count 7.7 # Red Blood Count 3.79 L Hemoglobin 11.4 L Hematocrit 33.2 L Mean Corpuscular Volume 87.6 Mean Corpuscular Hemoglobin 30.1 Mean Corpuscular Hemoglobin Concent 34.3 Red Cell Distribution Width 13.3 Platelet Count 222 Mean Platelet Volume 10.8 H Neutrophils % 38.5 L Lymphocytes % 35.9 Monocytes % 7.4 Eosinophils % 17.4 H Basophils % 0.5 Nucleated Red Blood Cells % 0.0 Neutrophils # 3.0 Lymphocytes # 2.8 Monocytes # 0.6 Eosinophils # 1.3 H Basophils # 0.0 Nucleated Red Blood Cells # 0.0 Sodium Level 143 Potassium Level 3.8 Chloride Level 110 Carbon Dioxide Level 28 Anion Gap 9 # Blood Urea Nitrogen 6 L Creatinine 0.61 Glucose Level 94 Calcium Level 11.0 H Phosphorus Level 2.6 Magnesium Level 1.9 Medications Medications Current Medications Acetaminophen (Tylenol Tab) 650 mg Q6H PRN PO PAIN LEVEL 1-3 OR FEVER Last administered on 09/26/16 23:48; Admin Dose 650 MG; Start 09/23/16 at 15:00 Docusate Sodium (Colace) 100 mg Q12H PRN PO CONSTIPATION; Start 09/23/16 at 15: 00 Ondansetron HCl (Zofran Odt) 4 mg Q6H PRN ODT nausea; Start 09/25/16 at 11:30 Ondansetron HCl (Zofran Inj) 4 mg Q6H PRN IV NAUSEA AND/OR VOMITING Last administered on 09/28/16 21:29; Admin Dose 4 MG; Start 09/25/16 at 11:30 Acetaminophen/ Butalbital/ Caffeine (Fioricet) 1 tab Q6H PRN PO PAIN Last administered on 09/30/16 09:03; Admin Dose 1 TAB; Start 09/27/16 at 10:30 Enoxaparin Sodium (Lovenox) 40 mg DAILY SC Last administered on 7/6/17at 09:01 ; Admin Dose 40 MG; Start 09/28/16 at 09:00 Acetaminophen/ Hydrocodone Bitart ([place] (10/)) 1 tab Q4H PRN GTB PAIN; Start 09/27/16 at 16:30 Morphine Sulfate 1 mg 1 mg Q4H PRN IV PAIN Last administered on 09/30/16 14:59 ; Admin Dose 1 MG; Start 09/27/16 at 16:30 Potassium Chloride 10 meq/ Sodium Chloride 1,005 ml @ 50 mls/hr Q20H6M IV Last administered on 09/30/16 11:26; Admin Dose 100 MLS/HR; Start 09/27/16 at 16: 30 Ceftriaxone Sodium (Rocephin) 50 ml @ 100 mls/hr Q24H IVPB Last administered on 09/30/16 08:58; Admin Dose 100 MLS/HR; Start 09/28/16 at 09:30 Cholecalciferol (Vitamin D) 1,000 unit DAILY PO Last administered on 09/30/16 08:58; Admin Dose 1,000 UNIT; Start 09/29/16 at 14:15 Lactobacillus Acidophilus/ Rhamnosus (Culturelle) 1 cap BID PO ; Start 09/30/16 at 21:00 JANI ADAMS MD Sep 30, 2016 16:54
[2016-09-30] MEDS: LACTOBACILLUS RHAMNOSUS CAP PO SCH (20:39)
[2016-09-30 22:26] VITALS: BP 130/71; RESP 20
[2016-10-01 05:02] LABS: ADD SCAN DIFF NO
[2016-10-01 05:05] LABS: BASOPHILS % 0.4 % (0.0-2.0); EOSINOPHILS # 1.3 10^3/ul (0.0-0.5); EOSINOPHILS % 17.6 % (0.0-7.0); HEMATOCRIT 32.7 % (37.0-47.0); HEMOGLOBIN 11.1 g/dl (12.0-16.0); LYMPHOCYTES # 2.6 10^3/ul (0.8-2.9); LYMPHOCYTES % 35.4 % (15.0-51.0); MEAN CORPUSCULAR HEMOGLOBIN 29.8 pg (29.0-33.0); MEAN CORPUSCULAR HGB CONC 33.9 g/dl (32.0-37.0); MEAN CORPUSCULAR VOLUME 87.9 fl (82.0-101.0); MONOCYTE # 0.5 10^3/ul (0.3-0.9); MONOCYTES % 6.8 % (0.0-11.0); NEUTROPHIL # 2.9 10^3/ul (1.6-7.5); NEUTROPHILS % 39.5 % (39.0-77.0); PLATELET COUNT 235 10^3/UL (140-415); RED BLOOD COUNT 3.72 10^6/ul (4.20-5.40); RED CELL DISTRIBUTION WIDTH 13.2 % (11.5-14.5); WHITE BLOOD COUNT 7.3 10^3/ul (4.8-10.8)
[2016-10-01 05:20] LABS: INR 0.93; PROTIME 12.5 Sec (12.2-14.2)
[2016-10-01 05:47] LABS: ALBUMIN 3.5 g/dl (3.3-4.9); ALBUMIN/GLOBULIN RATIO 1.59; CREATININE 0.6 mg/dl (0.44-1.00); TOTAL PROTEIN 5.7 g/dl (6.1-8.1)
[2016-10-01] MEDS: POTASSIUM CHLORIDE 10 MEQ in SOD CHLORIDE 0.45% 1,000 ML IV SCH (06:19)
[2016-10-01] MEDS: ACET/BUTAL/CAFF TAB PO PRN ×2 (07:03→15:52)
[2016-10-01 08:05] VITALS: BP 137/65; RESP 18
[2016-10-01] MEDS: CEFTRIAXONE 1 GM/50 ML (PMX) 50 ML IVPB SCH (09:09)
[2016-10-01] MEDS: LACTOBACILLUS RHAMNOSUS CAP PO SCH ×2 (09:09→20:12)
[2016-10-01] MEDS: CHOLECALCIFEROL 1,000 UNIT TAB PO SCH (09:09)
[2016-10-01] MEDS: ENOXAPARIN 40 MG/0.4 ML SYG SC SCH (09:20)
--- NOTE | 2016-10-01 15:24 | DS ---
Date/Time of Note Date/Time of Note DATE: 10/01/16 TIME: 15:18 Discharge Summary Admission/Discharge Info Admit Date/Time Sep 23, 2016 at 14:54 Discharge Date/Time Hx of Present Illness 60 yo F with h/o nephrolithiasis with resulting ureteral obstruction requiring ureteral stenting last admitted earlier this month for aseptic pyelonephritis presents with flank pain, hematuria. Imaging with worsening kidney stone burden. Hospital Course Hospital course 60-year-old female admitted with obstructive uropathy nephrolithiasis hypercalcemia. Seen by urology, endocrinology, renal, ENT. In terms of obstructive uropathy was due to nephrolithiasis. She underwent status post stent placement and cystogram. Stents will need the stents in place for a little while. Follow-up with urology. Stable and fit for discharge. In terms of hypercalcemia patient was seen by ENT and endocrinology. Plan is for parathyroidectomy next week. 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 In terms of renal failure, it is stable and improved. Will need to follow-up with renal in 1-2 weeks. Patient still has some dysuria, possibly due to Coley irritation. Urine culture negative. A/P 1. Obstructive uropathy, nephrolithiasis. Sp stent placement. DC Coley 2. Hyperparathyroidism with symptomatic hypercalcemia. Improved. 3. Parathyroid adenoma left upper pole. Patient medically optimized for surgery. Low perioperative risk. May proceed forward when surgical time is available. 4. Chronic depression 5. Chronic osteoporosis 6. Vitamin D deficiency 7. Anemia 8. Diarrhea. Diet: Regular Activity: As tolerated DME none Allergies none CODE STATUS full Condition stable Barriers discharge: Retention. Pending tests none Functional status awake alert agrees to plan of care Reason for admission obstructive uropathy New medications Tylenol as needed Colace as needed Levaquin 500 daily for 3 more days Vitamin D 1000 units daily Parathyroid scan shows suspicious left upper lobe adenoma. Renal ultrasound and thyroid ultrasound done to CT abdomen/pelvis IMPRESSION: 1. Interval increased moderate to severe bilateral hydronephrosis with stable bilateral double J ureteral stents in place and persistent bilateral ureteroliths within the proximal left ureter and distal right ureter, as described above and pictured below. Interval increased bilateral periureteral fat stranding is likely reactive. 2. Three nonobstructive left renal calculi measuring up to 3.5 mm, two of which are new since the prior exam. 3. Small midline paraincisional hernia containing a loop of nonobstructed small bowel. 4. Osteoarthritis of the thoracic and lumbosacral spine. 5. Hepatomegaly with evidence of prior cholecystectomy. 6. Small midline umbilical hernia. 7. Status post total left hip arthroplasty. Home Meds Active Scripts Ciprofloxacin Hcl* (Ciprofloxacin Hcl*) 500 Mg Tablet, 500 MG PO BID, #10 TAB Prov:LAZRAO JUAREZ MD 09/19/16 Fluconazole* (Diflucan*) 100 Mg Tablet, 100 MG PO DAILY, #5 TAB Prov:LAZARO JUAREZ MD 09/19/16 Hydrocodone/Acetaminophen ([place] 10-325 Tablet) 1 Each Tablet, 1 EACH PO Q4H WHILE AWAKE, #60 TAB Prov:LAZARO JUAREZ MD 09/19/16 Reported Medications Omega3,5,6,7,9 No.1/[place] Oil (Complete [place] Softgel) 1 Each Capsule, 1 EACH PO, CAP 09/09/16 Primary Care Provider Addison Gonzales Pending Labs Laboratory Tests Test 10/01/16 04:20 White Blood Count 7.310^3/ul (4.8-10.8) Red Blood Count 3.7210^6/ul (4.20-5.40) Hemoglobin 11.1g/dl (12.0-16.0) Hematocrit 32.7% (37.0-47.0) Mean Corpuscular Volume 87.9fl (82.0-101.0) Mean Corpuscular Hemoglobin 29.8pg (29.0-33.0) Mean Corpuscular Hemoglobin Concent 33.9g/dl (32.0-37.0) Red Cell Distribution Width 13.2% (11.5-14.5) Platelet Count 27829^3/UL (140-415) Mean Platelet Volume 11.0fl (7.4-10.4) Neutrophils % 39.5% (39.0-77.0) Lymphocytes % 35.4% (15.0-51.0) Monocytes % 6.8% (0.0-11.0) Eosinophils % 17.6% (0.0-7.0) Basophils % 0.4% (0.0-2.0) Nucleated Red Blood Cells % 0.0/100WBC (0.0-0.0) Neutrophils # 2.910^3/ul (1.6-7.5) Lymphocytes # 2.610^3/ul (0.8-2.9) Monocytes # 0.510^3/ul (0.3-0.9) Eosinophils # 1.310^3/ul (0.0-0.5) Basophils # 0.010^3/ul (0.0-0.1) Nucleated Red Blood Cells # 0.010^3/ul (0.0-0.0) Prothrombin Time 12.5Sec (12.2-14.2) Prothrombin Time Ratio 1.0 INR International Normalized Ratio 0.93 Sodium Level 147mmol/L (135-144) Potassium Level 4.0mmol/L (3.5-5.1) Chloride Level 108mmol/L (97-110) Carbon Dioxide Level 30mmol/L (21-31) Anion Gap 13 (8-16) Blood Urea Nitrogen 9mg/dl (7-20) Creatinine 0.60mg/dl (0.44-1.00) Glucose Level 94mg/dl (70-220) Calcium Level 11.0mg/dl (8.4-10.2) Total Bilirubin 0.0mg/dl (0.2-1.3) Direct Bilirubin 0.00mg/dl (0.00-0.20) Indirect Bilirubin 0.0mg/dl (0-1.1) Aspartate Amino Transf (AST/SGOT) 19IU/L (15-46) Alanine Aminotransferase (ALT/SGPT) 24IU/L (13-69) Alkaline Phosphatase 62IU/L (42-121) Total Protein 5.7g/dl (6.1-8.1) Albumin 3.5g/dl (3.3-4.9) Globulin 2.20g/dl (1.3-3.2) Albumin/Globulin Ratio 1.59 KELVIN ORTIZ MD Oct 01, 2016 15:23
--- NOTE | 2016-10-01 15:26 | PDOCDIS ---
Discharge Instructions DIAGNOSIS Discharge Diagnosis Obstructive uropathy/hypercalcemia CONDITION Patient Condition: Good HOME CARE INSTRUCTIONS: Special Diet: Regular ACTIVITY: Activity Restrictions: Slowly Increase Activity FOLLOW UP/APPOINTMENTS Follow-up Plan Appointment primary [address] Dutch H[address] Nguyen [address] Srinivasan Lewsi [address] Rodriguez 2 week KELVIN ORTIZ MD Oct 01, 2016 15:26
[2016-10-01] MEDS ORDERED: LACT1CAP57 PO (15:29)
[2016-10-01] MEDS ORDERED: CHOL100062 PO (15:29)
[2016-10-01] MEDS ORDERED: ACET325T40 PO (15:29)
[2016-10-01] MEDS ORDERED: LEVO500T72 PO (15:29)
[2016-10-01] MEDS ORDERED: DOCU-216 PO (15:29)
--- NOTE | 2016-10-01 17:06 | CONS ---
Date/Time of Note Date/Time of Note DATE: 10/01/16 TIME: 17:06 Assessment/Plan Assessment/Plan Chief Complaint/Hosp Course 60 yo F with h/o nephrolithiasis with resulting ureteral obstruction requiring ureteral stenting last admitted earlier this month for aseptic pyelonephritis presents with flank pain, hematuria. Imaging with worsening kidney stone burden. nephrology has been consulted for Hypercalcemia and rule out primary hyperparathyroidism Problems: Additional Assessment/Plan # Bilateral Moderate Hydronephrosis due to obstrucive uropathy s/p cystogram with stent placement by Urology # Recurrent Nephrolithiasis with Hypercalcemia, Hyperparathyroidism with Last PTH 140 on last admissio, normally PTH should be suppressed with Hypercalcemia, Pt denies any Ca intake/Calcium containing meds # parathyroid adenoma on Parathyroid Nuclear scan Plan: s/p Cystogram with Bilateral Ureteral Stent placement Ca slightly improved to 11.8- US thyroid showed Diffusely heterogeneous thyroid gland with a focal nodule in the right lobe. S/p Urology consult for moderate to severe hydronephrosis- s/p cystogram with stent placement Nuclear parathyroid scan showed parathyroid adenoma,s/p Endocrine and ENT consult, plan for parathyroidectomy will follow up pt needs to see me in clinic as outpatient upon discharge 2-3 weeks Consultation Date/Type/Reason Admit Date/Time Sep 23, 2016 at 14:54 Initial Consult Date 09/24/16 Type of Consultation: NEPHROLOGY Referring Provider: LUIS IRWIN MD 24 HR Interval Summary Free Text/Dictation doing ok, BP stable, paln for parathyroid surgery Exam/Review of Systems Vital Signs Vitals Vital Signs Date Time Temp Pulse Resp B/P Pulse Ox O2 Delivery O2 Flow Rate FiO2 10/01/16 08:05 97.5 58 18 137/65 98 09/27/16 17:37 Room Air Intake and Output 09/30/16 09/30/16 10/01/16 15:00 23:00 07:00 Intake Total 50 ml 1150 ml 2160 ml Output Total 2500 ml Balance 50 ml 1150 ml -340 ml Results Result Diagram: 10/01/16 0420 10/01/16 0420 Results 24 hrs Laboratory Tests Test 10/01/16 04:20 White Blood Count 7.3 Red Blood Count 3.72 L Hemoglobin 11.1 L Hematocrit 32.7 L Mean Corpuscular Volume 87.9 Mean Corpuscular Hemoglobin 29.8 Mean Corpuscular Hemoglobin Concent 33.9 Red Cell Distribution Width 13.2 Platelet Count 235 Mean Platelet Volume 11.0 H Neutrophils % 39.5 Lymphocytes % 35.4 Monocytes % 6.8 Eosinophils % 17.6 H Basophils % 0.4 Nucleated Red Blood Cells % 0.0 Neutrophils # 2.9 Lymphocytes # 2.6 Monocytes # 0.5 Eosinophils # 1.3 H Basophils # 0.0 Nucleated Red Blood Cells # 0.0 Prothrombin Time 12.5 Prothrombin Time Ratio 1.0 INR International Normalized Ratio 0.93 Sodium Level 147 H Potassium Level 4.0 Chloride Level 108 Carbon Dioxide Level 30 Anion Gap 13 Blood Urea Nitrogen 9 Creatinine 0.60 Glucose Level 94 Calcium Level 11.0 H Total Bilirubin 0.0 L Direct Bilirubin 0.00 Indirect Bilirubin 0.0 Aspartate Amino Transf (AST/SGOT) 19 Alanine Aminotransferase (ALT/SGPT) 24 Alkaline Phosphatase 62 Total Protein 5.7 L Albumin 3.5 Globulin 2.20 Albumin/Globulin Ratio 1.59 Medications Medications Current Medications Acetaminophen (Tylenol Tab) 650 mg Q6H PRN PO PAIN LEVEL 1-3 OR FEVER Last administered on 09/26/16 23:48; Admin Dose 650 MG; Start 09/23/16 at 15:00 Ondansetron HCl (Zofran Odt) 4 mg Q6H PRN ODT nausea; Start 09/25/16 at 11:30 Ondansetron HCl (Zofran Inj) 4 mg Q6H PRN IV NAUSEA AND/OR VOMITING Last administered on 09/28/16 21:29; Admin Dose 4 MG; Start 09/25/16 at 11:30 Acetaminophen/ Butalbital/ Caffeine (Fioricet) 1 tab Q6H PRN PO PAIN Last administered on 10/01/16 15:52; Admin Dose 1 TAB; Start 09/27/16 at 10:30 Enoxaparin Sodium (Lovenox) 40 mg DAILY SC Last administered on 10/01/16 09:20 ; Admin Dose 40 MG; Start 09/28/16 at 09:00 Acetaminophen/ Hydrocodone Bitart ([place] (10/325)) 1 tab Q4H PRN GTB PAIN; Start 09/27/16 at 16:30 Morphine Sulfate (morphine) 1 mg Q4H PRN IV PAIN Last administered on 09/30/16 14:59; Admin Dose 1 MG; Start 09/27/16 at 16:30 Cholecalciferol (Vitamin D) 1,000 unit DAILY PO Last administered on 10/01/16 09:09; Admin Dose 1,000 UNIT; Start 09/29/16 at 14:15 Lactobacillus Acidophilus/ Rhamnosus (Culturelle) 1 cap BID PO Last administered on 10/01/16 09:09; Admin Dose 1 CAP; Start 09/30/16 at 21:00 Docusate Sodium (Colace) 100 mg HS PRN PO CONSTIPATION; Start 10/01/16 at 21:00 Levofloxacin (Levaquin) 500 mg DAILY@06 PO ; Start 10/02/16 at 06:00 JANI ADAMS MD Oct 01, 2016 17:06
[2016-10-01] MEDS: morphine 2 MG INJ IV PRN (17:47)
[2016-10-01] MEDS ORDERED: DOCUSATE SODIUM 100 MG CAP PO PRN (21:00)
[2016-10-01 21:39] VITALS: BP 116/56; RESP 20
[2016-10-02] MEDS ORDERED: LEVOFLOXACIN 500 MG TAB PO SCH (06:00)
== END 2016-10-01 21:25 | disposition home or self-care (01) | DRG 669 ==
LOC: E/R 12:26 → PP2 14:54 → MS1 09-28 14:40
PROVIDERS: ADMIT Internal Medicine; ATTEND Internal Medicine
PROC: 0TC68ZZ Extirpation of Matter from Right Ureter, Via Natural or Artificial Opening Endoscopic (ICD-10-PCS; 2016-09-27)
PROC: 0T788DZ Dilation of Bilateral Ureters with Intraluminal Device, Via Natural or Artificial Opening Endoscopic (ICD-10-PCS; 2016-09-27)
PROC: 0TC78ZZ Extirpation of Matter from Left Ureter, Via Natural or Artificial Opening Endoscopic (ICD-10-PCS; principal; 2016-09-27 14:30)
DX: N13.2 Hydronephrosis with renal and ureteral calculous obstruction (principal); E55.9 Vitamin D deficiency, unspecified; E21.0 Primary hyperparathyroidism; G43.909 Migraine, unspecified, not intractable, without status migrainosus; D35.1 Benign neoplasm of parathyroid gland; M81.0 Age-related osteoporosis without current pathological fracture; D64.9 Anemia, unspecified; F32.9 Major depressive disorder, single episode, unspecified; R19.7 Diarrhea, unspecified
CPT/HCPCS: 36415; 71010; 74176; 74430; 76536; 76775; 78070; 80048; 80053; 81001; 82306; 82330; 82652; 83519; 83690; 83735; 84100; 84443; 85025; 85610; 85651; 85730; 86140; 86803; 87081; 87086; 87340; 88300; 93005; 96374; 96375; A9500; C2617; J0360; J0690; J0696; J0744; J1650; J1885; J2250; J2270; J2405; J3010; J3475; J3480; J7030

== ENCOUNTER 2016-10-07 09:24 | Inpatient (IN) | payer MEDICARE, OTHER ==
[2016-10-06 13:18] VITALS: BMI 29.3
[2016-10-07] VITALS (24 sets, daily range): BP systolic 116–161; BP diastolic 62–86; PULSE 73–106; RESP 10–19; Ht 160 cm; Wt 74.9 kg
[~2016-10-07] VITALS: Ht 160 cm; Wt 74.9 kg
[~2016-10-07 09:24] MED LIST changes: +ACET325T40 PO; +CEFAZOLIN 1 GM INJ ONE; +CHOL100062 PO; -CIPR500T4 PO; +DEXAMETHASONE 4 MG/ML 1 ML INJ ONE; +DOCU-216 PO; +FENTAnyl 50 MCG/ML VIAL ONE; -FLUC100T PO; +GLYCOPYRROLATE 0.4 MG INJ ONE; +HYDROmorphONE 2 MG/ML SYG ONE; +LACT1CAP57 PO; +LEVO500T72 PO; +LIDOCAINE 2% (SDV) 5 ML INJ ONE; +METOCLOPRAMIDE 10 MG INJ ONE; +MIDAZOLAM 1 MG/ML 2 ML INJ ONE; +NEOSTIGMINE 3 MG/3 ML SYRINGE ONE; +ONDANSETRON 4 MG INJ ONE; +PROPOFOL 200 MG INJ ONE; +ROCURONIUM 50 MG INJ ONE; +SUCCINYLCHOLINE CHLORIDE 100 MG/5 ML SYG IV ONE; -TRAM50TA2 PO
[2016-10-07] MEDS ORDERED: LACTATED RINGER'S 1,000 ML IV SCH (10:00)
[2016-10-07] MEDS ORDERED: LIDOCAINE 2%/EPI (MDV) 20ML INJ ONE (11:21)
[2016-10-07] MEDS ORDERED: METOCLOPRAMIDE 10 MG INJ IV PRN (11:30)
[2016-10-07] MEDS ORDERED: ONDANSETRON 4 MG INJ IV PRN ×2 (11:30→13:30)
[2016-10-07] MEDS: HYDROmorphONE (0.2 MG/ML) 10ML SYG IV PRN ×3 (13:23→17:20)
--- NOTE | 2016-10-07 13:26 | OPR ---
Date/Time of Note Date/Time of Note DATE: 10/07/16 TIME: 13:16 Operative Report Free Text/Dictation parathyroidectomy Preoperative Diagnosis parathyroid adenoma Postoperative Diagnosis same Operation/Procedure Performed parathyroidectomy Surgeon: VALERIE WALTER MD Anesthesia: general, other Estimated Blood Loss: minimal Specimens left upper parathyroid adenoma Grafts/Implants none Complications: None VALERIE WALTER MD Oct 07, 2016 13:26
[2016-10-07] MEDS ORDERED: HYDROCODONE/APAP (5/325) TAB PO PRN (13:30)
[2016-10-07] MEDS ORDERED: ACETAMINOPHEN 325 MG TAB PO PRN (13:30)
[2016-10-07] MEDS: CEFAZOLIN 2 GM/50 ML (PMX) 50 ML IVPB SCH ×2 (14:00→21:43)
[2016-10-07] MEDS: LACTATED RINGER'S 1,000 ML IV SCH ×2 (15:30→23:04)
--- NOTE | 2016-10-07 15:58 | HP ---
Date/Time of Note Date/Time of Note DATE: 10/07/16 TIME: 15:54 Assessment/Plan VTE Prophylaxis VTE Prophylaxis Intervention: SCD's Lines/Catheters IV [facility]ter Type (from [facility]): Peripheral IV Assessment/Plan Problems: (1) Primary hyperparathyroidism Status: Chronic Comment: She is now postop. Will need to follow her closely watching for hypo- calcium the hungry bone syndrome. Also not a guarantee given her clinical presentation duration this is a legitimate possibility. She will be also repleted with vitamin D since she had a known mild vitamin D deficiency per (2) Recurrent kidney stones Status: Chronic Comment: Noted. Now that she has had the parathyroid adenoma resected we can go ahead and replete the vitamin D HPI/ROS Admit Date/Time Admit Date/Time October 07, 2016 Hx of Present Illness Malaika 60-year-old female with a history of primary hyper parathyroidism with hypercalcemia and recurrent renal stones. She had been identified as having primary hyperparathyroidism and the parathyroid adenoma was identified radiologically. She has been brought in electively for resection of same and is now postoperative. ROS Constitutional: fatigue ENT: no complaints Respiratory: no complaints Cardiovascular: no complaints Gastrointestinal: no complaints Genitourinary: no complaints Musculoskeletal: no complaints (Specifically denies muscle cramping) Neurologic: no complaints PMH/Family/Social Past Medical History Primary hyperparathyroidism; recurrent renal stone disease; history of acute kidney injury Past Surgical History Status post placement of a double-J stent for renal stone induced hydronephrosis Past Surgical Hx: noncontributory, other Family History Significant Family History: no pertinent family hx Social History Alcohol Use: none Smoking Status: Never smoker Drug Use: none Exam/Review of Systems Vital Signs Vitals Vital Signs Date Time Temp Pulse Resp B/P Pulse Ox O2 Delivery O2 Flow Rate FiO2 10/07/16 15:33 Nasal Cannula 2.0 10/07/16 15:05 100 15 135/77 96 10/07/16 14:55 98.0 Exam Constitutional: alert Eyes: EOMI, nl conjunctiva, nl lids, nl sclera Neck: non-tender, supple Respiratory: clear to auscultation, normal air movement Cardiovascular: nl pulses, regular rate and rhythm Gastrointestinal: nl liver, spleen, non-tender, soft Extremities: normal pulses Neurological: PATTERN MARKER II-XII intact, nl mental status, nl speech, nl strength Medications Medications Current Medications Lactated Ringer's 1,000 ml @ 100 mls/hr Q10H IV ; Start 10/07/16 at 13:04 Cefazolin Sodium/ Dextrose (Ancef 2 Gm/50 ml (Pmx)) 50 ml @ 100 mls/hr Q8 IVPB ; Start 10/07/16 at 14:00; Stop 10/08/16 at 06:29 Acetaminophen (Tylenol Tab) 650 mg Q6H PRN PO PAIN AND OR ELEVATED TEMP; Start 10/07/16 at 13:30 Acetaminophen/ Hydrocodone Bitart ([place] (5/325)) 1 tab Q6H PRN PO PAIN LEVEL 6 -10; Start 10/07/16 at 13:30 Ondansetron HCl (Zofran Inj) 4 mg Q6H PRN IV NAUSEA AND/OR VOMITING; Start at 13:30 Ergocalciferol (Drisdol) 50,000 unit Th@18 PO ; Start 10/07/16 at 18:00; Status UNV Docusate Sodium (Colace) 100 mg Q12H PRN PO CONSTIPATION; Start 10/07/16 at 16: 00; Status UNV Magnesium Hydroxide (Milk Of Mag) 30 ml DAILY PRN PO CONSTIPATION; Start at 16:00; Status UNV Famotidine (Pepcid) 20 mg Q12 PO ; Start 10/07/16 at 21:00; Status UNV Copies To: CC: MIRELLA FIGUEROA MD, JOSHUA A MD Oct 07, 2016 15:58
[2016-10-07] MEDS ORDERED: DOCUSATE SODIUM 100 MG CAP PO PRN (16:00)
[2016-10-07] MEDS ORDERED: NACL 0.9% 3 ML SYG IV SCH (16:00)
[2016-10-07] MEDS ORDERED: MAGNESIUM HYDROXIDE 30ML CUP PO PRN (16:00)
[2016-10-07] MEDS ORDERED: ERGOCALCIFEROL 50,000 UNIT CAP PO SCH (18:00)
[2016-10-07] MEDS: CALCIUM CARBONATE 1.25 GM TAB PO SCH (20:37)
[2016-10-07] MEDS: FAMOTIDINE 20 MG TAB PO SCH (20:37)
[2016-10-08 02:00] VITALS: BP 105/52; RESP 18
[2016-10-08] MEDS: LACTATED RINGER'S 1,000 ML IV SCH ×3 (04:36→19:04)
[2016-10-08] MEDS: CEFAZOLIN 2 GM/50 ML (PMX) 50 ML IVPB SCH ×2 (05:58→14:22)
[2016-10-08 06:56] LABS: CALCIUM 11.1 mg/dl (8.4-10.2); CREATININE 0.74 mg/dl (0.44-1.00); POTASSIUM 3.7 mmol/L (3.5-5.1)
[2016-10-08 08:09] VITALS: BP 118/55; RESP 18
[2016-10-08] MEDS: FAMOTIDINE 20 MG TAB PO SCH ×2 (09:32→20:36)
[2016-10-08] MEDS: CALCIUM CARBONATE 1.25 GM TAB PO SCH ×2 (09:32→14:22)
[2016-10-08] MEDS ORDERED: HYDROmorphONE 1 MG/ML SYG IV STA (10:55)
[2016-10-08 12:57] LABS: CALCIUM 11.4 mg/dl (8.4-10.2); CREATININE 0.69 mg/dl (0.44-1.00); POTASSIUM 4.1 mmol/L (3.5-5.1)
[2016-10-08] MEDS: HYDROmorphONE 1 MG/ML SYG IV PRN ×2 (14:20→17:41)
[2016-10-08 15:38] VITALS: BP 163/73; RESP 18
--- NOTE | 2016-10-08 17:35 | PN ---
Date/Time of Note Date/Time of Note DATE: 10/08/16 TIME: 17:33 Assessment/Plan VTE Prophylaxis VTE Prophylaxis Intervention: other Lines/Catheters IV C[facility]ter Type (from [facility]): Peripheral IV Assessment/Plan Problems: (1) Status post parathyroidectomy Status: Acute Comment: There is a question of possible redness at the surgical site. I am going to hold her tonight and have the surgeon take a look at this. (2) Primary hyperparathyroidism Status: Chronic Comment: Her serum calcium is following although she can follow with the abruptness that I had been concerned before. We will continue to follow her serum calciums Subjective 24 Hr Interval Summary Free Text/Dictation Patient reports that over the course of the day she has had increasing tenderness and swelling Constitutional: no complaints (Denies fever chills or sweats) Respiratory: no complaints Cardiovascular: no complaints Gastrointestinal: no complaints Genitourinary: no complaints Exam/Review of Systems Vital Signs Vitals Vital Signs Date Time Temp Pulse Resp B/P Pulse Ox O2 Delivery O2 Flow Rate FiO2 10/08/16 15:38 98.8 57 18 163/73 95 10/07/16 16:05 Nasal Cannula 2.0 Intake and Output 10/07/16 10/07/16 10/08/16 15:00 23:00 07:00 Intake Total 1250 ml 740 ml 1320 ml Output Total 25 ml Balance 1225 ml 740 ml 1320 ml Exam Constitutional: alert, oriented Neck: other (At surgical site there is a area of erythema with mild warmth), supple Respiratory: clear to auscultation, normal air movement Results Result Diagram: 10/08/16 1202 Results 24 hrs Laboratory Tests Test 10/07/16 17:55 10/07/16 20:10 10/08/16 02:23 10/08/16 05:37 Ionized Calcium (Measured) 1.6 H Calcium Level 11.5 H 11.2 H 11.1 H Sodium Level 139 Potassium Level 3.7 Chloride Level 102 Carbon Dioxide Level 32 H Anion Gap 9 Blood Urea Nitrogen 10 Creatinine 0.74 Glucose Level 96 Test 10/08/16 12:02 10/08/16 13:52 Sodium Level 136 Potassium Level 4.1 Chloride Level 103 Carbon Dioxide Level 32 H Anion Gap 5 L Blood Urea Nitrogen 10 Creatinine 0.69 Glucose Level 93 Calcium Level 11.4 H 11.1 H Medications Medications Current Medications Lactated Ringer's (Lr) 1,000 ml @ 100 mls/hr Q10H IV Last administered on 10/08 04:36; Admin Dose 100 MLS/HR; Start 10/07/16 at 13:04 Acetaminophen (Tylenol Tab) 650 mg Q6H PRN PO PAIN AND OR ELEVATED TEMP Last administered on 10/08/16 02:45; Admin Dose 650 MG; Start 10/07/16 at 13:30 Acetaminophen/ Hydrocodone Bitart ([place] (5/325)) 1 tab Q6H PRN PO PAIN LEVEL 6 -10 Last administered on 10/07/16 17:04; Admin Dose 1 TAB; Start 10/07/16 at 13 :30 Ondansetron HCl (Zofran Inj) 4 mg Q6H PRN IV NAUSEA AND/OR VOMITING; Start at 13:30 Ergocalciferol (Drisdol) 50,000 unit Th@18 PO Last administered on 10/07/16 17 :04; Admin Dose 50,000 UNIT; Start 10/07/16 at 18:00 Docusate Sodium (Colace) 100 mg Q12H PRN PO CONSTIPATION; Start 10/07/16 at 16: 00 Magnesium Hydroxide (Milk Of Mag) 30 ml DAILY PRN PO CONSTIPATION; Start at 16:00 Famotidine (Pepcid) 20 mg Q12 PO Last administered on 10/08/16 09:32; Admin Dose 20 MG; Start 10/07/16 at 21:00 Calcium Carbonate ([place] Calcium) 1.25 gm TID PO Last administered on 14:22; Admin Dose 1.25 GM; Start 10/07/16 at 21:00 Hydromorphone HCl (Dilaudid) 1 mg Q3H PRN IV PAIN Last administered on 14:20; Admin Dose 1 MG; Start 10/08/16 at 11:00 FOX COOPER MD Oct 08, 2016 17:35
[2016-10-08] MEDS ORDERED: VANCOMYCIN IV PER PHARMACY XX SCH (18:00)
[2016-10-08] MEDS ORDERED: VANCOMYCIN 1.5 GM in SOD CHLORIDE 0.9% 250 ML IVPB SCH (18:30)
[2016-10-08 19:24] LABS: CREATININE 0.65 mg/dl (0.44-1.00); POTASSIUM 3.5 mmol/L (3.5-5.1)
[2016-10-08 19:29] VITALS: BP 130/63; RESP 20
[2016-10-09 01:23] LABS: CALCIUM 10.8 mg/dl (8.4-10.2); CREATININE 0.6 mg/dl (0.44-1.00); POTASSIUM 3.5 mmol/L (3.5-5.1)
[2016-10-09 02:00] VITALS: BP 131/73; RESP 20
[2016-10-09] MEDS: LACTATED RINGER'S 1,000 ML IV SCH ×2 (05:23→15:04)
--- NOTE | 2016-10-09 07:21 | PN ---
Date/Time of Note Date/Time of Note DATE: 10/09/16 TIME: 07:18 Assessment/Plan VTE Prophylaxis VTE Prophylaxis Intervention: SCD's Lines/Catheters IV Catheter Type (from Nrs): Peripheral IV Assessment/Plan Problems: (1) Primary hyperparathyroidism Status: Chronic Comment: Calciums are drifting down gently which while less common is a good sign,. She will need f/u levels in 1,3,6 months to observe properly. Renal stone disease as per urology if they can do it. (2) Status post parathyroidectomy Status: Acute Comment: Stable Subjective 24 Hr Interval Summary Free Text/Dictation patient reports she is feeling significantly better today Constitutional: no complaints Respiratory: no complaints Cardiovascular: no complaints Gastrointestinal: no complaints Musculoskeletal: no complaints Exam/Review of Systems Vital Signs Vitals Vital Signs Date Time Temp Pulse Resp B/P Pulse Ox O2 Delivery O2 Flow Rate FiO2 10/09/16 02:00 98.6 87 20 131/73 95 10/07/16 16:05 Nasal Cannula 2.0 Intake and Output 10/08/16 10/08/16 10/09/16 15:00 23:00 07:00 Intake Total 2430 ml 750 ml Output Total 1600 ml Balance 2430 ml -850 ml Exam Constitutional: alert, oriented Neck: non-tender, other (erythema much improved), supple Respiratory: clear to auscultation, normal air movement Cardiovascular: nl pulses, regular rate and rhythm Results Result Diagram: 10/09/16 0045 Results 24 hrs Laboratory Tests Test 10/08/16 12:02 10/08/16 13:52 10/08/16 17:25 10/08/16 19:45 Sodium Level 136 144 Potassium Level 4.1 3.5 Chloride Level 103 101 Carbon Dioxide Level 32 H 30 Anion Gap 5 L 17 #H Blood Urea Nitrogen 10 9 Creatinine 0.69 0.65 Glucose Level 93 101 Calcium Level 11.4 H 11.1 H 11.0 H 10.8 H Test 10/09/16 00:45 10/09/16 02:00 Sodium Level 145 H Potassium Level 3.5 Chloride Level 101 Carbon Dioxide Level 31 Anion Gap 17 H Blood Urea Nitrogen 8 Creatinine 0.60 Glucose Level 97 Calcium Level 10.8 H 10.7 H Medications Medications Current Medications Lactated Ringer's (Lr) 1,000 ml @ 100 mls/hr Q10H IV Last administered on 10/09 05:23; Admin Dose 100 MLS/HR; Start 10/07/16 at 13:04 Acetaminophen (Tylenol Tab) 650 mg Q6H PRN PO PAIN AND OR ELEVATED TEMP Last administered on 10/08/16 02:45; Admin Dose 650 MG; Start 10/07/16 at 13:30 Acetaminophen/ Hydrocodone Bitart ([place] (5/325)) 1 tab Q6H PRN PO PAIN LEVEL 6 -10 Last administered on 10/07/16 17:04; Admin Dose 1 TAB; Start 10/07/16 at 13 :30 Ondansetron HCl (Zofran Inj) 4 mg Q6H PRN IV NAUSEA AND/OR VOMITING Last administered on 10/08/16 17:40; Admin Dose 4 MG; Start 10/07/16 at 13:30 Docusate Sodium (Colace) 100 mg Q12H PRN PO CONSTIPATION; Start 10/07/16 at 16: 00 Magnesium Hydroxide (Milk Of Mag) 30 ml DAILY PRN PO CONSTIPATION; Start at 16:00 Famotidine (Pepcid) 20 mg Q12 PO Last administered on 10/08/16 09:32; Admin Dose 20 MG; Start 10/07/16 at 21:00 Calcium Carbonate (Oyster Shell Calcium) 1.25 gm TID PO Last administered on 14:22; Admin Dose 1.25 GM; Start 10/07/16 at 21:00; Status Future Hold Hydromorphone HCl 1 mg 1 mg Q3H PRN IV PAIN Last administered on 10/08/16 17: 41; Admin Dose 1 MG; Start 10/08/16 at 11:00 Vancomycin HCl (Vancocin) 250 ml @ 125 mls/hr Q12H IVPB ; Start 10/09/16 at 09: 00 Copies To: CC: MIRELLA FIGUEROA MD,FOX Judd MD Oct 09, 2016 07:21
[2016-10-09 07:53] VITALS: BP 146/70; RESP 16
[2016-10-09] MEDS: FAMOTIDINE 20 MG TAB PO SCH (08:37)
[2016-10-09] MEDS: HYDROmorphONE 1 MG/ML SYG IV PRN (08:37)
[2016-10-09 08:54] LABS: CALCIUM 10.8 mg/dl (8.4-10.2); CREATININE 0.62 mg/dl (0.44-1.00); POTASSIUM 3.8 mmol/L (3.5-5.1)
[2016-10-09] MEDS ORDERED: VANCOMYCIN 1 GM in NS 250 ML IVPB SCH (09:00)
--- NOTE | 2016-10-09 12:02 | PN ---
Date/Time of Note Date/Time of Note DATE: 10/09/16 TIME: 11:55 Assessment/Plan VTE Prophylaxis VTE Prophylaxis Intervention: contraindicated VTE Contraindication Reason: bleeding VTE Confirmed-Overlap Tx Rcvd Pt Rcvd Overlap Therapy: No Reason for no Overlap Therapy: Contraindicated Lines/Catheters IV Catheter Type (from Nrsg): Peripheral IV Subjective 24 Hr Interval Summary Free Text/Dictation POD 2 parathyroidectomy, calcium drifting down. PTH pending. Pt feels well. Constitutional: No chills, No diaphoresis, No disoriented, No febrile, No improved, No no complaints, No other, No poor po, No requiring IVF, No requiring O2 Eyes: No discharge, No no complaints, No other, No pain, No redness, No visual change ENT: No bleeding, No congestion, No discharge, No dysphagia, No no complaints, No other, No pain, No sore throat Respiratory: No cough, No no complaints, No other, No pain, No pleuritic pain, No shortness of breath, No sputum, No wheezing Cardiovascular: No chest pain, No edema, No lightheadedness, No no complaints, No orthopenea, No other, No palpitations, No paroxysmal nocturnal dyspnea Gastrointestinal: no complaints, No blood, No constipation, No decreased appetite, No diarrhea, No flatus, No nausea, No other, No pain, No passing stool, No vomiting Genitourinary: No bleeding, No discharge, No dysuria, No flank pain, No hematuria, No no complaints, No other Musculoskeletal: No back pain, No bone/joint pain, No neck pain, No no complaints, No other, No restricted range of motion, No swelling Skin: No bruising, No erythema, No laceration, No no complaints, No other, No pruritis, No rash, No skin lesions Neurologic: No confusion, No dizziness, No focal-weakness, No headache, No no complaints, No other, No seizure, No syncope Lymphatic: No adenopathy, No lymphadema, No no complaints, No other, No tender nodes Psychological: No anxiety, No confusion, No depression, No nl mood/affect, No no complaints, No other, No suicidal Immunologic: No immunodeficiency, No no complaints, No other, No pruritis, No rhinitis, No urticaria Exam/Review of Systems Vital Signs Vitals Vital Signs Date Time Temp Pulse Resp B/P Pulse Ox O2 Delivery O2 Flow Rate FiO2 10/09/16 07:53 98.1 80 16 146/70 93 10/07/16 16:05 Nasal Cannula 2.0 Intake and Output 10/08/16 10/08/16 10/09/16 15:00 23:00 07:00 Intake Total 950 ml 2980 ml 750 ml Output Total 1600 ml Balance 950 ml 2980 ml -850 ml Exam neck minimal tenderness, no hematoma formation, minimal erythema ENMT: intubated, mucosa pink and moist, nl external ears & nose, nl lips & teeth, nl nasal mucosa & septum, other, tympanic membranes Neck: bruits, jvd, masses, non-tender, nuchal rigidity, other, supple, thyromegaly Results Result Diagram: 10/09/16 0759 Results 24 hrs Laboratory Tests Test 10/08/16 12:02 10/08/16 13:52 10/08/16 17:25 10/08/16 19:45 Sodium Level 136 144 Potassium Level 4.1 3.5 Chloride Level 103 101 Carbon Dioxide Level 32 H 30 Anion Gap 5 L 17 #H Blood Urea Nitrogen 10 9 Creatinine 0.69 0.65 Glucose Level 93 101 Calcium Level 11.4 H 11.1 H 11.0 H 10.8 H Test 10/09/16 00:45 10/09/16 02:00 10/09/16 07:59 Sodium Level 145 H 146 H Potassium Level 3.5 3.8 Chloride Level 101 103 Carbon Dioxide Level 31 33 H Anion Gap 17 H 14 Blood Urea Nitrogen 8 6 L Creatinine 0.60 0.62 Glucose Level 97 92 Calcium Level 10.8 H 10.7 H 10.8 H Ionized Calcium (Measured) 1.4 Medications Medications Current Medications Lactated Ringer's (Lr) 1,000 ml @ 100 mls/hr Q10H IV Last administered on 10/09 05:23; Admin Dose 100 MLS/HR; Start 10/07/16 at 13:04 Acetaminophen (Tylenol Tab) 650 mg Q6H PRN PO PAIN AND OR ELEVATED TEMP Last administered on 10/08/16 02:45; Admin Dose 650 MG; Start 10/07/16 at 13:30 Acetaminophen/ Hydrocodone Bitart ([place] (5/325)) 1 tab Q6H PRN PO PAIN LEVEL 6 -10 Last administered on 10/07/16 17:04; Admin Dose 1 TAB; Start 10/07/16 at 13 :30 Ondansetron HCl (Zofran Inj) 4 mg Q6H PRN IV NAUSEA AND/OR VOMITING Last administered on 10/08/16 17:40; Admin Dose 4 MG; Start 10/07/16 at 13:30 Docusate Sodium (Colace) 100 mg Q12H PRN PO CONSTIPATION; Start 10/07/16 at 16: 00 Magnesium Hydroxide (Milk Of Mag) 30 ml DAILY PRN PO CONSTIPATION; Start at 16:00 Famotidine (Pepcid) 20 mg Q12 PO Last administered on 10/09/16 08:37; Admin Dose 20 MG; Start 10/07/16 at 21:00 Calcium Carbonate (Oyster Shell Calcium) 1.25 gm TID PO Last administered on 14:22; Admin Dose 1.25 GM; Start 10/07/16 at 21:00; Status Future Hold Hydromorphone HCl 1 mg 1 mg Q3H PRN IV PAIN Last administered on 10/09/16 08: 37; Admin Dose 1 MG; Start 10/08/16 at 11:00 Vancomycin HCl (Vancocin) 250 ml @ 125 mls/hr Q12H IVPB Last administered on 08:37; Admin Dose 125 MLS/HR; Start 10/09/16 at 09:00 Miscellaneous Information (*Rx Drug Level Order Reminder*) VANCOMYCIN TROUGH AT 0800 ONCE ONCE XX ; Start 10/10/16 at 08:00; Stop 10/10/16 at 08:01 VALERIE WALTER MD Oct 09, 2016 12:01
--- NOTE | 2016-10-09 12:23 | PDOCDIS ---
Discharge Instructions CONDITION Patient Condition: Good HOME CARE INSTRUCTIONS: Diet Instructions: RegularSpecial Diet: clears ACTIVITY: Activity Restrictions: Avoid heavy lifting FOLLOW UP/APPOINTMENTS Follow-up Plan 5 days REFERRALS Agency Name and Phone Number: none VALERIE WALTER MD Oct 09, 2016 12:23
[2016-10-09 13:21] LABS: CALCIUM 10.2 mg/dl (8.4-10.2); CREATININE 0.6 mg/dl (0.44-1.00); POTASSIUM 3.3 mmol/L (3.5-5.1)
[2016-10-09 16:20] VITALS: BP 122/70; PULSE 80; RESP 16
--- NOTE | 2016-10-13 03:48 | OPR ---
DATE OF OPERATION: 10/07/2016 PREOPERATIVE DIAGNOSIS: Parathyroid adenoma left upper pole. POSTOPERATIVE DIAGNOSIS: Parathyroid adenoma left upper pole. PROCEDURE PERFORMED: Neck exploration with parathyroidectomy. SURGEON: Juan Hough MD INDICATIONS: Hypercalcemia, hyperparathyroidism with parathyroid adenoma. DESCRIPTION OF PROCEDURE: The patient was consented and placed supine on the operating room table. After induction of general anesthesia, the neck was hyperextended. Ten mL of 1 percent lidocaine neck. The neck was prepped and draped in sterile fashion. A was used to make a curvilinear skin incision sternal notch. was elevated, the strap muscles divided in the midline. The thyroid fascia was visualized. Dissection of the left side of the thyroid was performed. The superior pole vessels were identified and ligated. The inferior pole vessels were identified. Inferior parathyroid was visualized, which appeared normal. Superior pole parathyroid was identified, which was significantly enlarged. Dissection was completed. The was ligated. It was . The adenoma was removed without difficulty. The wound was irrigated. Surgicel was applied into the wound. The deep fascia was closed with a 4-0 chromic in a fashion. The skin was closed with 5-0 subcuticular Monocryl. Dressings were applied. . Dictated By: Juan Hough MD /fnt/ec /Document#: [id number]
--- NOTE | 2016-10-13 15:41 | PN ---
DATE: 10/08/2016 SUBJECTIVE DATA: The patient has a history of having undergone a parathyroidectomy yesterday, admitted for calcium observation. OBJECTIVE DATA: On examination, there is mild erythema of the wound. Otherwise, the wound is dry and intact. There is no or evidence of hematoma formation. ASSESSMENT: Postoperative day 1 from neck exploration and parathyroidectomy. RECOMMENDATION: Continue to monitor her calcium levels, start vancomycin for wound infection and monitor calcium with possible discharge once wound inflammation subsides. Dictated By: Juan Hough MD /fnt/ec /Document#: [id number]
== END 2016-10-09 16:50 | disposition home or self-care (01) | DRG 627 ==
LOC: SDS 09:24 → MS2 14:00 → SDS 14:00 → MS2 14:43
PROVIDERS: ADMIT Internal Medicine; ATTEND Internal Medicine
PROC: 0GBM0ZZ Excision of Left Superior Parathyroid Gland, Open Approach (ICD-10-PCS; principal; 2016-10-07 12:30)
DX: D35.1 Benign neoplasm of parathyroid gland (principal); E83.52 Hypercalcemia; N20.0 Calculus of kidney
CPT/HCPCS: 80048; 82310; 82330; 83970; 84132; 88307; 88331; J0690; J1100; J1170; J2250; J2405; J2710; J2765; J3010; J3370; J7050; J7120; J7999

== ENCOUNTER 2016-11-22 14:35 | Inpatient (IN) | payer MEDICARE, OTHER ==
[~2016-11-22] VITALS: Ht 160 cm; Wt 81.4 kg
[2016-11-22] MEDS ORDERED: SOD CHLORIDE 0.9% 1,000 ML IV STA (18:26)
[2016-11-22] MEDS ORDERED: PIPER-TAZO 3.375 GM IV (PMX) 100 ML IVPB STA (18:26)
--- NOTE | 2016-11-22 18:29 | ERA ---
ER Documentation Chief Complaint Date/Time DATE: 11/22/16 TIME: 18:27 Chief Complaint BAXK PAIN, FLANK PAIN, WEAKNESS, FEELS FAINT HPI This is a 52-year-old female sent by Dr. Srinivasan Lewis for admission to the hospital for drug resistant UTI. The patient had bilateral ureter stents placed by Dr. Rodriguez on October 19. Patient states that she has had urinary frequency and is seeing her doctor multiple times with multiple urinary tract infections. She has tried several antibiotics multiple times without any relief. She has taken 10 days of keflex and levaquin. She has lots of suprapubic pain and frequency but no dysuria no fever no back pain. ROS All systems reviewed and are negative except as per history of present illness. Medications Home Meds Reported Medications Nitrofurantoin Monohyd Macrocr* (Macrobid*) 100 Mg Capsr, 100 MG PO DAILY for 10 Days, CAP START DATE 11/17/16 FOR 10 DAYS 11/22/16 Cephalexin* (Cephalexin*) 500 Mg Capsule, 500 MG PO DAILY, #10 CAP START DATE 11/17/16 FOR 10 DAYS 11/22/16 Allergies Allergies: Coded Allergies: No Known Drug Allergy (Unverified Allergy, Unknown, 10/07/16) PMhx/Soc History of Surgery: Yes (KIDNEY STENTS, OOPHRECTOMY BILAT, RIGHT SHOULDER, LEFT HIP, GALL BLADDER) Anesthesia Reaction: No Hx Neurological Disorder: No Hx Respiratory Disorders: Yes (ASTHMA) Hx Cardiac Disorders: No Hx Psychiatric Problems: No Hx Miscellaneous Medical Probl: Yes (KIDNEY STONES) Hx Alcohol Use: No Hx Substance Use: No Hx Tobacco Use: No FmHx Family History: No coronary disease Physical Exam Vitals Vital Signs Date Time Temp Pulse Resp B/P Pulse Ox O2 Delivery O2 Flow Rate FiO2 11/22/16 14:45 99.2 81 16 124/71 100 Physical Exam Const: Well-developed, well-nourished Head: Atraumatic, normocephalic Eyes: Normal Conjunctiva, PERRLA, EOMI, normal sclera, no nystagmus ENT: Normal External Ears, Nose and Mouth, moist mucus membranes. Neck: Full range of motion. No meningismus, no lymphadenopathy. Resp: Clear to auscultation bilaterally, no wheezing, rhonchi, rales Cardio: Regular rate and rhythm, no murmurs, S1 S2 present Abd: Soft, suprapubic tenderness is mild non distended. Normal bowel sounds, no guarding or rebound, no pulsitile abdominal masses or bruits Skin: No petechiae or rashes, no ecchymosis , no maculopapular rash Back: No midline or flank tenderness Ext: No cyanosis, or edema, FROM x 4, normal inspection, neurovascularly intact x 4 Neur: Awake and alert, STR 5/5 x 4, sensation intact x 4, no focal findings, cerebellum intact Psych: Normal Mood and Affect Result Diagram: 11/22/16189911/22/161899 Results 24 hrs Laboratory Tests Test 11/22/16 19:00 White Blood Count 8.510^3/ul Red Blood Count 4.3410^6/ul Hemoglobin 12.9g/dl Hematocrit 38.9% Mean Corpuscular Volume 89.6fl Mean Corpuscular Hemoglobin 29.7pg Mean Corpuscular Hemoglobin Concent 33.2g/dl Red Cell Distribution Width 13.2% Platelet Count 15206^3/UL Mean Platelet Volume 10.4fl Neutrophils % 47.1% Lymphocytes % 40.8% Monocytes % 8.3% Eosinophils % 3.0% Basophils % 0.6% Nucleated Red Blood Cells % 0.0/100WBC Neutrophils # (Manual) 4.010^3/ul Lymphocytes # 3.510^3/ul Monocytes # 0.710^3/ul Eosinophils # 0.310^3/ul Basophils # 0.110^3/ul Nucleated Red Blood Cells # 0.010^3/ul Urine Color YELLOW Urine Clarity CLOUDY Urine pH 6.0 Urine Specific [place] 1.016 Urine Ketones NEGATIVEmg/dL Urine Nitrite NEGATIVEmg/dL Urine Bilirubin NEGATIVEmg/dL Urine Urobilinogen NEGATIVEmg/dL Urine Leukocyte Esterase 3+Caterina/ul Urine Microscopic RBC 80/HPF Urine Microscopic WBC > 182/HPF Urine Bacteria MODERATE/HPF Urine Mucus FEW/HPF Urine Yeast (Budding) FEW/HPF Urine Hemoglobin 2+mg/dL Urine Glucose NEGATIVEmg/dL Urine Total Protein 2+mg/dl Sodium Level 143mmol/L Potassium Level 4.1mmol/L Chloride Level 101mmol/L Carbon Dioxide Level 30mmol/L Anion Gap 16 Blood Urea Nitrogen 13mg/dl Creatinine 0.67mg/dl Glucose Level 94mg/dl Calcium Level 10.3mg/dl Total Bilirubin 0.3mg/dl Direct Bilirubin 0.00mg/dl Indirect Bilirubin 0.3mg/dl Aspartate Amino Transf (AST/SGOT) 27IU/L Alanine Aminotransferase (ALT/SGPT) 22IU/L Alkaline Phosphatase 86IU/L Total Protein 7.5g/dl Albumin 4.1g/dl Globulin 3.40g/dl Albumin/Globulin Ratio 1.20 Lipase 174U/L Current Medications Medications (Trade) Dose Ordered Sig/Glen Route PRN Reason Start Time Stop Time Status Last Admin Dose Admin Sodium Chloride 1,000 ml @ 1,000 mls/hr Q1H STAT IV 11/22/16 18:26 11/22/16 19:25 DC 11/22/16 19:19 Piperacillin Sod/ Tazobactam Sod (Zosyn 3.375gm/ 100 ml (Pmx)) 100 ml @ 200 mls/hr ONCE STAT IVPB 11/22/16 18:26 11/22/16 18:55 DC 11/22/16 19:19 Procedures/MDM Patient has a urinary tract infection. I spoke with Dr. Lewis and informed him of the labs. He wants to admit for IV antibiotics and await urine culture Departure Diagnosis: Primary Impression: Cystitis Condition: Stable KENAN MUNOZ DO Nov 22, 2016 18:29
[2016-11-22 19:34] LABS: BASOPHIL # 0.1 10^3/ul (0.0-0.1); BASOPHILS % 0.6 % (0.0-2.0); EOSINOPHILS # 0.3 10^3/ul (0.0-0.5); HEMATOCRIT 38.9 % (37.0-47.0); HEMOGLOBIN 12.9 g/dl (12.0-16.0); LYMPHOCYTES # 3.5 10^3/ul (0.8-2.9); LYMPHOCYTES % 40.8 % (15.0-51.0); MEAN CORPUSCULAR HEMOGLOBIN 29.7 pg (29.0-33.0); MEAN CORPUSCULAR HGB CONC 33.2 g/dl (32.0-37.0); MEAN CORPUSCULAR VOLUME 89.6 fl (82.0-101.0); MEAN PLATELET VOLUME 10.4 fl (7.4-10.4); MONOCYTE # 0.7 10^3/ul (0.3-0.9); MONOCYTES % 8.3 % (0.0-11.0); NEUTROPHILS % 47.1 % (39.0-77.0); PLATELET COUNT 221 10^3/UL (140-415); RED BLOOD COUNT 4.34 10^6/ul (4.20-5.40); RED CELL DISTRIBUTION WIDTH 13.2 % (11.5-14.5); WHITE BLOOD COUNT 8.5 10^3/ul (4.8-10.8)
[2016-11-22 19:43] LABS: ADD UMIC YES; UR ASCORBIC ACID NEGATIVE (NEGATIVE); UR BACTERIA MODERATE /HPF (NONE SEEN); UR BILIRUBIN (Dip) NEGATIVE (NEGATIVE); UR BLOOD (Dip) 2+ mg/dL (NEGATIVE); UR BUDDING YEAST FEW /HPF (NONE SEEN); UR CLARITY CLOUDY (CLEAR); UR COLOR YELLOW (YELLOW); UR GLUCOSE (Dip) NEGATIVE (NEGATIVE); UR KETONES (Dip) NEGATIVE (NEGATIVE); UR LEUKOCYTE ESTERASE (Dip) 3+ Leu/ul (NEGATIVE); UR MUCUS FEW /HPF (NONE SEEN); UR NITRITE (Dip) NEGATIVE (NEGATIVE); UR RBC 80 /HPF (0-5); UR SPECIFIC GRAVITY (Dip) 1.016 (1.003-1.030); UR TOTAL PROTEIN (Dip) 2+ mg/dl (NEGATIVE); UR UROBILINOGEN (Dip) NEGATIVE (NEGATIVE); UR WBC CLUMPS FEW /HPF (NONE SEEN)
[2016-11-22 19:51] LABS: ALBUMIN 4.1 g/dl (3.3-4.9); ALBUMIN/GLOBULIN RATIO 1.2; BILIRUBIN,INDIRECT 0.3 mg/dl (0-1.1); BILIRUBIN,TOTAL 0.3 mg/dl (0.2-1.3); CALCIUM 10.3 mg/dl (8.4-10.2); CREATININE 0.67 mg/dl (0.44-1.00); POTASSIUM 4.1 mmol/L (3.5-5.1); TOTAL PROTEIN 7.5 g/dl (6.1-8.1)
[2016-11-22] MEDS ORDERED: CEPH500C PO (20:08)
[2016-11-22] MEDS ORDERED: NITR-58 PO (20:08)
[2016-11-22] MEDS ORDERED: SOD CHLORIDE 0.9% 1,000 ML IV SCH (20:14)
[2016-11-22] MEDS ORDERED: ONDANSETRON 4 MG INJ IV PRN (20:30)
[2016-11-22] MEDS ORDERED: ACETAMINOPHEN 325 MG TAB PO PRN (20:30)
[2016-11-22 21:39] VITALS: PULSE 65
[2016-11-22 22:00] VITALS: BP 118/69; RESP 19
[2016-11-22 22:50] VITALS: Ht 160 cm; Wt 81.4 kg
[2016-11-23] MEDS ORDERED: ACETAMINOPHEN 325 MG TAB PO PRN
[2016-11-23] MEDS ORDERED: ONDANSETRON 4 MG INJ IV PRN
[2016-11-23 01:08] LABS: BASOPHILS % 0.6 % (0.0-2.0); EOSINOPHILS # 0.2 10^3/ul (0.0-0.5); HEMATOCRIT 36.2 % (37.0-47.0); HEMOGLOBIN 11.5 g/dl (12.0-16.0); LYMPHOCYTES % 44.4 % (15.0-51.0); MEAN CORPUSCULAR HEMOGLOBIN 28.6 pg (29.0-33.0); MEAN CORPUSCULAR HGB CONC 31.8 g/dl (32.0-37.0); MEAN PLATELET VOLUME 10.4 fl (7.4-10.4); MONOCYTE # 0.5 10^3/ul (0.3-0.9); MONOCYTES % 7.7 % (0.0-11.0); NEUTROPHILS % 43.9 % (39.0-77.0); PLATELET COUNT 190 10^3/UL (140-415); RED BLOOD COUNT 4.02 10^6/ul (4.20-5.40); RED CELL DISTRIBUTION WIDTH 13.2 % (11.5-14.5); WHITE BLOOD COUNT 6.8 10^3/ul (4.8-10.8)
[2016-11-23 01:24] LABS: ALBUMIN 3.1 g/dl (3.3-4.9); ALBUMIN/GLOBULIN RATIO 1.06; BILIRUBIN,INDIRECT 0.1 mg/dl (0-1.1); BILIRUBIN,TOTAL 0.1 mg/dl (0.2-1.3); CALCIUM 9.4 mg/dl (8.4-10.2); CREATININE 0.66 mg/dl (0.44-1.00); MAGNESIUM 1.9 mg/dl (1.7-2.5); PHOSPHORUS 3.5 mg/dl (2.5-4.9); POTASSIUM 3.5 mmol/L (3.5-5.1)
[2016-11-23 02:00] VITALS: BP 110/57; RESP 19
[2016-11-23] MEDS: SOD CHLORIDE 0.9% 1,000 ML IV SCH ×3 (02:21→16:37)
[2016-11-23] MEDS ORDERED: VANCOMYCIN IV PER PHARMACY XX SCH (07:30)
[2016-11-23 08:30] VITALS: BP 115/60; RESP 19
[2016-11-23] MEDS ORDERED: VANCOMYCIN 1.5 GM in SOD CHLORIDE 0.9% 250 ML IVPB SCH (09:00)
[2016-11-23] MEDS: CEFEPIME 1GM/50 ML (PMX) 50 ML IVPB SCH ×2 (09:59→20:55)
[2016-11-23] MEDS: morphine 4 MG/ML VIAL IV PRN (10:08)
--- NOTE | 2016-11-23 10:21 | HP ---
Date/Time of Note Date/Time of Note DATE: 11/23/16 TIME: 10:12 Assessment/Plan VTE Prophylaxis VTE Prophylaxis Intervention: SCD's Lines/Catheters IV [facility] Peripheral IV Urinary Cath still in place: No Assessment/Plan Assessment/Plan 1. Recurrent UTI -IV antibiotic -Follow-up culture results -Notify urology about patient's admission to see if ureteral stent needs to be removed. 2. History of obstructive uropathy, status post bilateral stent placement -See above 3. History of parathyroid adenoma, status post parathyroidectomy -Her calcium seem to have normalized after surgery -No acute issue here HPI/ROS Admit Date/Time Admit Date/Time Nov 22, 2016 at 20:15 Hx of Present Illness Patient is a 60-year-old female with history of obstructive uropathy status post bilateral stent placement, hyperparathyroidism and parathyroid adenoma status post recent parathyroidectomy, depression, anemia who was sent for UTI and flank/lower back pain. Patient seems to have failed outpatient treatment. She says she was diagnosed with a UTI 3 weeks ago and has been on antibiotics since. Her antibiotics had been adjusted but she continues to be symptomatic with persistent UTI and as such she was sent here for evaluation. Patient was recently admitted here and had bilateral stent placement for obstructive uropathy. She also recently underwent parathyroidectomy for parathyroid adenoma. She presented to the ER, urinalysis was consistent with severe UTI. Vitals stable with normal white count. . PMH/Family/Social Past Surgical History Past Surgical Hx: noncontributory, other Social History Smoking Status: Never smoker Exam/Review of Systems Vital Signs Vitals Vital Signs Date Time Temp Pulse Resp B/P Pulse Ox O2 Delivery O2 Flow Rate FiO2 11/23/16 08:30 98.4 56 19 115/60 99 11/22/16 21:39 Room Air Intake and Output 11/22/16 11/22/16 11/23/16 15:00 23:00 07:00 Intake Total 1700 ml Balance 1700 ml Exam Constitutional: alert, oriented, well developed Head: atraumatic, normocephalic Eyes: EOMI Neck: non-tender, supple Respiratory: clear to auscultation, normal air movement Cardiovascular: nl pulses, regular rate and rhythm Gastrointestinal: soft Extremities: normal pulses Labs Result Diagram: 11/23/162 8/29/17 0032 Medications Medications Current Medications Cefepime HCl (Maxipime 1gm/50 ml (Pmx)) 50 ml @ 100 mls/hr Q12 IVPB Last administered on 11/23/16 09:59; Admin Dose 100 MLS/HR; Start 11/23/16 at 09:00 Morphine Sulfate (morphine) 3 mg Q4H PRN IV SEVERE PAIN LEVEL 7-10 Last administered on 11/23/16 10:08; Admin Dose 3 MG; Start 11/23/16 at 00:00 Ondansetron HCl (Zofran Inj) 4 mg Q6H PRN IV NAUSEA AND/OR VOMITING; Start at 00:00 Acetaminophen 650 mg 650 mg Q6H PRN PO PAIN AND OR ELEVATED TEMP; Start at 00:00 Sodium Chloride 1,000 ml @ 100 mls/hr Q10H IV Last administered on 11/23/16 02:21; Admin Dose 100 MLS/HR; Start 11/23/16 at 00:00; Stop 11/24/16 at 00:00 Vancomycin HCl/ Sodium Chloride (Vancocin/NS) 250 ml @ 83.333 mls/ hr ONCE IVPB Last administered on 11/23/16 09:59; Admin Dose 83.333 MLS/HR; Start at 09:00; Stop 11/23/16 at 11:59 LAZARO JUAREZ MD Nov 23, 2016 10:21
[2016-11-23] MEDS ORDERED: DIPHENHYDRAMINE 50 MG INJ IV PRN (14:00)
[2016-11-23 15:00] VITALS: BP 106/55; RESP 19
[2016-11-23 19:35] VITALS: BP 102/54; RESP 18
[2016-11-24 02:35] VITALS: BP 142/65; RESP 18
[2016-11-24] MEDS: SOD CHLORIDE 0.9% 1,000 ML IV SCH (04:19)
[2016-11-24 05:43] LABS: BASOPHIL # 0.1 10^3/ul (0.0-0.1); BASOPHILS % 0.7 % (0.0-2.0); EOSINOPHILS # 0.2 10^3/ul (0.0-0.5); EOSINOPHILS % 2.8 % (0.0-7.0); HEMOGLOBIN 11.8 g/dl (12.0-16.0); LYMPHOCYTES # 3.1 10^3/ul (0.8-2.9); LYMPHOCYTES % 42.6 % (15.0-51.0); MEAN CORPUSCULAR HEMOGLOBIN 29.8 pg (29.0-33.0); MEAN CORPUSCULAR HGB CONC 32.8 g/dl (32.0-37.0); MEAN CORPUSCULAR VOLUME 90.9 fl (82.0-101.0); MEAN PLATELET VOLUME 10.6 fl (7.4-10.4); MONOCYTE # 0.6 10^3/ul (0.3-0.9); MONOCYTES % 7.7 % (0.0-11.0); NEUTROPHILS % 45.9 % (39.0-77.0); PLATELET COUNT 182 10^3/UL (140-415); RED BLOOD COUNT 3.96 10^6/ul (4.20-5.40); WHITE BLOOD COUNT 7.2 10^3/ul (4.8-10.8)
[2016-11-24 06:35] LABS: CALCIUM 9.6 mg/dl (8.4-10.2); CREATININE 0.63 mg/dl (0.44-1.00); MAGNESIUM 1.8 mg/dl (1.7-2.5); POTASSIUM 4.5 mmol/L (3.5-5.1)
[2016-11-24 08:00] VITALS: BP 138/63; RESP 18
[2016-11-24] MEDS: CEFEPIME 1GM/50 ML (PMX) 50 ML IVPB SCH (08:17)
[2016-11-24] MEDS: morphine 4 MG/ML VIAL IV PRN (09:26)
[2016-11-24 10:00] VITALS: BP_SYST 149; RESP 20
--- NOTE | 2016-11-24 13:54 | PDOCDIS ---
Discharge Instructions CONDITION Patient Condition: Good HOME CARE INSTRUCTIONS: Diet Instructions: Regular ACTIVITY: Activity Restrictions: No Restrictions FOLLOW UP/APPOINTMENTS Follow-up Plan FOLLOW UP WITH DR SIMON THIS TUESDAY AT 1:30 PM AT HIS [facility], FOLLOW UP WITH DR Srinivasan ADAMS INSTRUCTED TANISHA MORFIN Nov 24, 2016 13:54
--- NOTE | 2016-11-25 19:18 | DS ---
Date/Time of Note Date/Time of Note DATE: 11/25/16 TIME: 19:14 Discharge Summary Admission/Discharge Info Admit Date/Time Nov 22, 2016 at 20:15 Discharge Date/Time Nov 24, 2016 at 16:30 Discharge Diagnosis 1. Recurrent UTI secondary to infected ureteral stents Patient to follow-up with urology in clinic in 2 days for removal of stents Continue p.o. antibiotics until then 2. History of obstructive uropathy, status post bilateral stent placement Follow with urology 3. History of parathyroid adenoma, status post parathyroidectomy Her calcium seem to have normalized after surgery No acute issue here Patient Condition: Good Hospital Course Patient is a 60-year-old female with history of obstructive uropathy status post bilateral stent placement, hyperparathyroidism and parathyroid adenoma status post recent parathyroidectomy, depression, anemia who was sent for UTI and flank/lower back pain. Patient seems to have failed outpatient treatment. She says she was diagnosed with a UTI 3 weeks ago and has been on antibiotics since. Patient has a persistent UTI, her urologist was spoken to and he recommended stent removal as an outpatient as will continue to have a UTI. Patient had no evidence of sepsis and was felt to be stable for DC with plans to follow-up with urology in 2 days for stent removal. The day of discharge patient's vitals, labs and physical exam are stable, she no acute complaints and questions answered. . Home Meds Reported Medications Nitrofurantoin Monohyd Macrocr* (Macrobid*) 100 Mg Capsr, 100 MG PO Q12H for 10 Days, CAP START DATE 11/17/16 FOR 10 DAYS 11/22/16 Cephalexin* (Cephalexin*) 500 Mg Capsule, 500 MG PO Q8H, #10 CAP START DATE 11/17/16 FOR 10 DAYS 11/22/16 Follow-up Plan Follow-up with urology in 2 days, follow with PCP 1-2 weeks Primary Care Provider Addison Gonzales Time spent on discharge: > 30 minutes TANISHA MORFIN Nov 25, 2016 19:17
== END 2016-11-24 16:30 | disposition home or self-care (01) | DRG 699 ==
LOC: FTE 14:35 → PP2 20:15
PROVIDERS: ADMIT Internal Medicine; ATTEND Internal Medicine
DX: T83.592A Infection and inflammatory reaction due to indwelling ureteral stent, initial encounter (principal); N39.0 Urinary tract infection, site not specified; N13.9 Obstructive and reflux uropathy, unspecified; J45.909 Unspecified asthma, uncomplicated; Z90.722 Acquired absence of ovaries, bilateral; Y84.6 Urinary catheterization as the cause of abnormal reaction of the patient, or of later complication, without mention of misadventure at the time of the procedure
CPT/HCPCS: 36415; 80048; 80053; 81001; 83690; 83735; 84100; 85025; 87040; 87086; 96374; J0692; J1200; J2270; J2543; J3370; J7030; J7050

== ENCOUNTER 2016-12-06 05:49 | Inpatient (IN) | payer MEDICARE, OTHER ==
[~2016-12-06] VITALS: Ht 160 cm; Wt 80.0 kg
[~2016-12-06 05:49] MED LIST changes: -ACET325T40 PO; -CEFAZOLIN 1 GM INJ ONE; +CEPH500C PO; -CHOL100062 PO; -DEXAMETHASONE 4 MG/ML 1 ML INJ ONE; -DOCU-216 PO; -FENTAnyl 50 MCG/ML VIAL ONE; -GLYCOPYRROLATE 0.4 MG INJ ONE; -HYDR-902 PO; -HYDROmorphONE 2 MG/ML SYG ONE; -LACT1CAP57 PO; -LEVO500T72 PO; -LIDOCAINE 2% (SDV) 5 ML INJ ONE; -METOCLOPRAMIDE 10 MG INJ ONE; -MIDAZOLAM 1 MG/ML 2 ML INJ ONE; -NEOSTIGMINE 3 MG/3 ML SYRINGE ONE; +NITR-58 PO; -OMEG-129 PO; -ONDANSETRON 4 MG INJ ONE; -PROPOFOL 200 MG INJ ONE; -ROCURONIUM 50 MG INJ ONE; -SUCCINYLCHOLINE CHLORIDE 100 MG/5 ML SYG IV ONE
[2016-12-06] MEDS ORDERED: KETOROLAC 30 MG INJ IV STA (06:41)
[2016-12-06] MEDS ORDERED: SOD CHLORIDE 0.9% 1,000 ML IV STA (06:41)
[2016-12-06] MEDS ORDERED: ONDANSETRON 4 MG INJ IV STA (06:41)
[2016-12-06 08:01] LABS: BASOPHILS % 0.5 % (0.0-2.0); EOSINOPHILS # 0.2 10^3/ul (0.0-0.5); EOSINOPHILS % 4.2 % (0.0-7.0); HEMATOCRIT 39.1 % (37.0-47.0); LYMPHOCYTES # 2.4 10^3/ul (0.8-2.9); LYMPHOCYTES % 43.6 % (15.0-51.0); MEAN CORPUSCULAR HEMOGLOBIN 30.4 pg (29.0-33.0); MEAN CORPUSCULAR HGB CONC 33.2 g/dl (32.0-37.0); MEAN CORPUSCULAR VOLUME 91.6 fl (82.0-101.0); MEAN PLATELET VOLUME 10.6 fl (7.4-10.4); MONOCYTE # 0.4 10^3/ul (0.3-0.9); MONOCYTES % 7.1 % (0.0-11.0); NEUTROPHILS % 44.4 % (39.0-77.0); PLATELET COUNT 212 10^3/UL (140-415); RED BLOOD COUNT 4.27 10^6/ul (4.20-5.40); RED CELL DISTRIBUTION WIDTH 12.8 % (11.5-14.5); WHITE BLOOD COUNT 5.5 10^3/ul (4.8-10.8)
[2016-12-06 08:11] LABS: ADD UMIC YES; UR ASCORBIC ACID NEGATIVE (NEGATIVE); UR BILIRUBIN (Dip) NEGATIVE (NEGATIVE); UR BLOOD (Dip) NEGATIVE (NEGATIVE); UR CLARITY CLEAR (CLEAR); UR COLOR STRAW (YELLOW); UR GLUCOSE (Dip) NEGATIVE (NEGATIVE); UR KETONES (Dip) NEGATIVE (NEGATIVE); UR LEUKOCYTE ESTERASE (Dip) 1+ Leu/ul (NEGATIVE); UR NITRITE (Dip) NEGATIVE (NEGATIVE); UR RBC 3 /HPF (0-5); UR TOTAL PROTEIN (Dip) NEGATIVE (NEGATIVE); UR UROBILINOGEN (Dip) NEGATIVE (NEGATIVE)
[2016-12-06 08:40] LABS: ALBUMIN/GLOBULIN RATIO 1.33; BILIRUBIN,INDIRECT 0.2 mg/dl (0-1.1); BILIRUBIN,TOTAL 0.2 mg/dl (0.2-1.3); CREATININE 0.61 mg/dl (0.44-1.00); POTASSIUM 3.7 mmol/L (3.5-5.1)
--- NOTE | 2016-12-06 09:48 | ERA ---
ER Documentation Chief Complaint Date/Time DATE: 12/06/16 TIME: 09:38 Chief Complaint TEQUILA flank pain x 2 months +kidney stones. sx 10/19/16 HPI This is a 60-year-old female with a past medical history of kidney stones in the past who is presenting with moderate bilateral flank pain, left worse than right, radiating to the left groin, for approximately 2 months. It started to get worse over the last week or so. She endorses nausea but no vomiting. She otherwise has not felt sick. She has had no fever or chills. She was seen by her accreditation manager, Dr. Lewis, who ordered a CAT scan of the abdomen and pelvis last week. The CT scan demonstrated left nephrolithiasis. There was moderate left hydronephrosis and proximal hydroureter. There was a 9 x 17 mm left proximal ureteral calculus present. There is a surgically absent gallbladder. There is a small anterior abdominal wall umbilical hernia containing a loop of small bowel without evidence of small bowel obstruction. Dr. Lewis requested that the patient go to the emergency department for further evaluation, so she presents today. Dr. Lewis notified Dr. Merrill, a urologist , of the patient's arrival. The patient denies any other symptoms. She has had no chest pain or trouble breathing. She has had no abdominal pain. She has had no changes to bowel movements. She did not endorse blood in her urine. She has had no weakness or numbness or tingling to the face or extremities. ROS All systems reviewed and are negative except as per history of present illness. Medications Home Meds Reported Medications Nitrofurantoin Monohyd Macrocr* (Macrobid*) 100 Mg Capsr, 100 MG PO Q12H for 10 Days, CAP START DATE 11/17/16 FOR 10 DAYS 11/22/16 Cephalexin* (Cephalexin*) 500 Mg Capsule, 500 MG PO Q8H, #10 CAP START DATE 11/17/16 FOR 10 DAYS 11/22/16 Allergies Allergies: Coded Allergies: No Known Drug Allergy (Unverified Allergy, Unknown, 12/06/16) PMhx/Soc History of Surgery: Yes Anesthesia Reaction: No Hx Neurological Disorder: No Hx Respiratory Disorders: No Hx Cardiac Disorders: No Hx Psychiatric Problems: No Hx Miscellaneous Medical Probl: Yes (varicose vein removed ( 2006)) Hx Alcohol Use: No Hx Substance Use: No Hx Tobacco Use: No Smoking Status: Never smoker FmHx Family History: No diabetes Physical Exam Vitals Vital Signs Date Time Temp Pulse Resp B/P Pulse Ox O2 Delivery O2 Flow Rate FiO2 12/06/16 06:03 98.7 60 18 135/81 98 Physical Exam Const: NAD, Well developed, Well nourished Head: Atraumatic Eyes: Normal Conjunctiva ENT: Normal External Ears, Nose and Mouth. Neck: Full range of motion..~ No meningismus. Resp: Clear to auscultation bilaterally Cardio: Regular rate and rhythm, no murmurs Abd: Soft, non tender, non distended. Normal bowel sounds. B/L CVA tenderness Skin: No petechiae or rashes Back: No midline or flank tenderness Ext: No cyanosis, or edema Neur: Awake and alert Psych: Normal Mood and Affect Result Diagram: 12/06/16 0700 12/06/16 0700 Results 24 hrs Laboratory Tests Test 12/06/16 07:00 White Blood Count 5.510^3/ul Red Blood Count 4.2710^6/ul Hemoglobin 13.0g/dl Hematocrit 39.1% Mean Corpuscular Volume 91.6fl Mean Corpuscular Hemoglobin 30.4pg Mean Corpuscular Hemoglobin Concent 33.2g/dl Red Cell Distribution Width 12.8% Platelet Count 17630^3/UL Mean Platelet Volume 10.6fl Neutrophils % 44.4% Lymphocytes % 43.6% Monocytes % 7.1% Eosinophils % 4.2% Basophils % 0.5% Nucleated Red Blood Cells % 0.0/100WBC Neutrophils # (Manual) 2.410^3/ul Lymphocytes # 2.410^3/ul Monocytes # 0.410^3/ul Eosinophils # 0.210^3/ul Basophils # 0.010^3/ul Nucleated Red Blood Cells # 0.010^3/ul Urine Color STRAW Urine Clarity CLEAR Urine pH 6.0 Urine Specific [place] 1.010 Urine Ketones NEGATIVEmg/dL Urine Nitrite NEGATIVEmg/dL Urine Bilirubin NEGATIVEmg/dL Urine Urobilinogen NEGATIVEmg/dL Urine Leukocyte Esterase 1+Caterina/ul Urine Microscopic RBC 3/HPF Urine Microscopic WBC 9/HPF Urine Hemoglobin NEGATIVEmg/dL Urine Glucose NEGATIVEmg/dL Urine Total Protein NEGATIVEmg/dl Sodium Level 145mmol/L Potassium Level 3.7mmol/L Chloride Level 109mmol/L Carbon Dioxide Level 29mmol/L Anion Gap 11 Blood Urea Nitrogen 13mg/dl Creatinine 0.61mg/dl Glucose Level 84mg/dl Calcium Level 10.0mg/dl Total Bilirubin 0.2mg/dl Direct Bilirubin 0.00mg/dl Indirect Bilirubin 0.2mg/dl Aspartate Amino Transf (AST/SGOT) 24IU/L Alanine Aminotransferase (ALT/SGPT) 34IU/L Alkaline Phosphatase 81IU/L Total Protein 7.0g/dl Albumin 4.0g/dl Globulin 3.00g/dl Albumin/Globulin Ratio 1.33 Lipase 152U/L Current Medications Medications (Trade) Dose Ordered Sig/Glen Route PRN Reason Start Time Stop Time Status Last Admin Dose Admin Sodium Chloride (NS) 1,000 ml @ 1,000 mls/hr Q1H STAT IV 12/06/16 06:41 12/06/16 07:40 DC 12/06/16 07:18 Ondansetron HCl (Zofran Inj) 4 mg ONCE STAT IV 12/06/16 06:41 12/06/16 06:42 DC 12/06/16 07:18 Ketorolac Tromethamine (Toradol) 30 mg ONCE STAT IV 12/06/16 06:41 12/06/16 06:42 DC 12/06/16 07:19 Procedures/MDM The patient presents with bilateral flank pain, left worse than right, and a CT of the abdomen and pelvis from last week that demonstrated obstructive nephrolithiasis on the left with hydroureter and hydronephrosis. The patient's accreditation manager and urologist are aware and requested admission for procedural intervention likely. The patient's blood work was obtained and reviewed. The patient's CMP shows mild elevation in her sodium that does not need to be emergently treated. It was otherwise unremarkable. The patient does not have findings of renal dysfunction and her blood work. The patient's CBC shows no leukocytosis or left shift. The patient's urinalysis shows leukocyte esterase and WBCs. However, there are no bacteria. I do not intend to give antibiotics at this time. Dr Merrill was called to discuss the case. He is aware of the patient's arrival and will see her in the hospital. The patient will be admitted to the panel service as per her insurance at 0938AM. Dr. Monet Gonzalez accepted the patient. Departure Diagnosis: Primary Impression: Nephrolithiasis Additional Impressions: Renal colic Hydronephrosis Qualified Code: N13.2 - Hydronephrosis with urinary obstruction due to renal calculus Hydroureter Condition: ABEL Meredtih MD Dec 06, 2016 09:48
[2016-12-06] MEDS ORDERED: ACETAMINOPHEN 325 MG TAB PO PRN (10:00)
[2016-12-06] MEDS ORDERED: ONDANSETRON 4 MG INJ IV PRN ×2 (10:00→12:30)
[2016-12-06] MEDS ORDERED: FENTAnyl 50 MCG/ML VIAL IV ONE (10:00)
[2016-12-06 11:00] VITALS: BP 127/69; RESP 20
[2016-12-06 11:40] VITALS: Ht 160 cm; Wt 80.0 kg
[2016-12-06] MEDS ORDERED: BISACODYL 10 MG SUPP PR PRN (12:30)
[2016-12-06] MEDS ORDERED: DOCUSATE SODIUM 100 MG CAP PO PRN (12:30)
[2016-12-06] MEDS ORDERED: MAGNESIUM HYDROXIDE 30ML CUP PO PRN (12:30)
[2016-12-06] MEDS ORDERED: HYDROCODONE/APAP (5/325) TAB PO PRN ×2 (12:30)
[2016-12-06] MEDS ORDERED: NACL 0.9% 3 ML SYG IV SCH (12:30)
[2016-12-06] MEDS ORDERED: ACETAMINOPHEN 650 MG SUPP PR PRN (12:30)
[2016-12-06] MEDS: SOD CHLORIDE 0.9% 1,000 ML IV SCH (12:56)
[2016-12-06] MEDS: ACETAMINOPHEN 325 MG TAB PO PRN ×2 (13:10→20:48)
--- NOTE | 2016-12-06 13:23 | CONS ---
Date/Time of Note Date/Time of Note DATE: 12/06/16 TIME: 13:14 Assessment/Plan Assessment/Plan Chief Complaint/Hosp Course 60-year-old female has a 9 x 17 mm stone in the left upper ureter was hydronephrosis. I will order a KUB to see the stone on the plain film , do a urine culture ,cover her with antibiotics. She will need to undergo cystoscopy left ureteroscopy laser lithotripsy removal of the stone from the left upper ureter and insertion of a new JJ stent Problems: Consultation Date/Type/Reason Admit Date/Time Dec 06, 2016 at 10:53 Date of Consultation: Dec 06, 2016 Type of Consultation: Urology Reason for Consultation Left upper ureteral stone Referring Provider: TANISHA MORFIN Hx of Present Illness 60-year-old female who is known to have a history of kidney stones was admitted here on September 27 was found to have left upper ureteral stone she had a JJ stent placed in patient later on underwent cystoscopy ureteroscopy and insertion of a JJ stent and also extracorporeal shockwave lithotripsy [facility] by Dr. Rodriguez. The patient did have a JJ stent which was removed. patient stated that she was told she is okay however she was having left flank pain and did see Dr. Reji Lewis who ordered a CT scan of the abdomen and pelvis and that showed a large stone 9 x 17 mm in the left upper ureter therefore the patient presented to the emergency room this morning and was admitted Constitutional: no complaints Eyes: no complaints ENT: other (Scar on the neck from recent parathyroid surgery) Respiratory: no complaints Cardiovascular: no complaints Gastrointestinal: no complaints Genitourinary: flank pain (Left flank) Musculoskeletal: no complaints Skin: no complaints Neurologic: no complaints Endocrine: other (She did have a parathyroid nodule for which she was operated on) Past Medical History Medical History: hypertension, urinary tract infection, other (Hyperparathyroid , her calcium level has come down after the parathyroid surgery) Past Surgical History Past Surgical Hx: noncontributory, other (Parathyroid surgery, left ureteroscopy and insertion of left ureteral JJ stent, left extracorporeal shockwave lithotripsy at [facility]) Family History Significant Family History: hypertension Social History Alcohol Use: none Smoking Status: Never smoker Drug Use: none Exam/Review of Systems Vital Signs Vitals Vital Signs Date Time Temp Pulse Resp B/P Pulse Ox O2 Delivery O2 Flow Rate FiO2 12/06/16 11:00 97.5 51 20 127/69 100 12/06/16 10:36 Room Air Exam Constitutional: alert, oriented Psych: no complaints Head: normocephalic Eyes: nl conjunctiva ENMT: nl external ears & nose Neck: non-tender, other (Scar from the parathyroid surgery) Respiratory: clear to auscultation Cardiovascular: regular rate and rhythm Gastrointestinal: soft Genitourinary - Female: CVA tenderness (Left flank) Extremities: normal pulses, No calf tenderness Results Result Diagram: 12/06/16 0700 12/06/16 0700 Results 24 hrs Laboratory Tests Test 12/06/16 07:00 White Blood Count 5.5 # Red Blood Count 4.27 Hemoglobin 13.0 Hematocrit 39.1 Mean Corpuscular Volume 91.6 Mean Corpuscular Hemoglobin 30.4 Mean Corpuscular Hemoglobin Concent 33.2 Red Cell Distribution Width 12.8 Platelet Count 212 Mean Platelet Volume 10.6 H Neutrophils % 44.4 Lymphocytes % 43.6 Monocytes % 7.1 Eosinophils % 4.2 Basophils % 0.5 Nucleated Red Blood Cells % 0.0 Neutrophils # (Manual) 2.4 Lymphocytes # 2.4 Monocytes # 0.4 Eosinophils # 0.2 Basophils # 0.0 Nucleated Red Blood Cells # 0.0 Urine Color STRAW Urine Clarity CLEAR Urine pH 6.0 Urine Specific [place] 1.010 Urine Ketones NEGATIVE Urine Nitrite NEGATIVE Urine Bilirubin NEGATIVE Urine Urobilinogen NEGATIVE Urine Leukocyte Esterase 1+ H Urine Microscopic RBC 3 Urine Microscopic WBC 9 H Urine Hemoglobin NEGATIVE Urine Glucose NEGATIVE Urine Total Protein NEGATIVE Sodium Level 145 H Potassium Level 3.7 Chloride Level 109 Carbon Dioxide Level 29 Anion Gap 11 Blood Urea Nitrogen 13 Creatinine 0.61 Glucose Level 84 Calcium Level 10.0 Total Bilirubin 0.2 Direct Bilirubin 0.00 Indirect Bilirubin 0.2 Aspartate Amino Transf (AST/SGOT) 24 Alanine Aminotransferase (ALT/SGPT) 34 Alkaline Phosphatase 81 Total Protein 7.0 Albumin 4.0 Globulin 3.00 Albumin/Globulin Ratio 1.33 Lipase 152 Medications Medications Current Medications Sodium Chloride (NS) 1,000 ml @ 100 mls/hr Q10H IV Last administered on t 12:56; Admin Dose 100 MLS/HR; Start 12/06/16 at 12:25 Ondansetron HCl (Zofran Inj) 4 mg Q6H PRN IV NAUSEA AND/OR VOMITING; Start 02/11 at 12:30 Acetaminophen (Tylenol Tab) 650 mg Q6H PRN PO PAIN LEVEL 1-3 OR FEVER Last administered on 12/06/16t 13:10; Admin Dose 650 MG; Start 12/06/16 at 12:30 Acetaminophen (Tylenol Supp) 650 mg Q6H PRN [place] PAIN LEVEL 1-3 OR FEVER; Start 12/06/16 at 12:30 Acetaminophen/ Hydrocodone Bitart ([place] (5/325)) 1 tab Q6H PRN PO MODERATE PAIN LEVEL 4-6; Start 12/06/16 at 12:30 Acetaminophen/ Hydrocodone Bitart ([place] (5/325)) 2 tab Q6H PRN PO SEVERE PAIN LEVEL 7-10; Start 12/06/16 at 12:30 Morphine Sulfate (morphine) 2 mg Q4H PRN IV SEVERE PAIN LEVEL 7-10; Start 12/06 at 12:30 Docusate Sodium (Colace) 100 mg Q12H PRN PO CONSTIPATION; Start 12/06/16 at 12: 30 Magnesium Hydroxide (Milk Of Mag) 30 ml DAILY PRN PO CONSTIPATION; Start at 12:30 Bisacodyl (Dulcolax Supp) 10 mg DAILY PRN [place] CONSTIPATION; Start 12/06/16 at 12 :30 Pantoprazole (Protonix Iv) 40 mg DAILY@06 IV ; Start 12/07/16 at 06:00 PHILL PAGE MD Dec 06, 2016 13:23
--- NOTE | 2016-12-06 13:30 | CONS ---
Date/Time of Note Date/Time of Note DATE: 12/06/16 TIME: 13:30 Assessment/Plan Assessment/Plan Additional Assessment/Plan 1. left Ureteral stone with obstructive uropathy and left moderate hydronephrosis 2. intractable left flank pain concerned abotu left pyelonephritis 3. H/o recurrent kidney stone due to Primary Hyperparathyroidism now s/p Parathyroidectomy 4. Osteoarthritis, left hip replacement surgery Plan: IV Fluids NS at 100 cc/hr IV abx ceftriaxone to cover for left pyelonephritis pain control with IV pain meds Urolgoy consult to see pt Possible plan for cystocopy with left uretereal JJ stent placement Thanks for consultation, we will continue to follow up Consultation Date/Type/Reason Admit Date/Time Dec 06, 2016 at 10:53 Date of Consultation: Dec 06, 2016 Type of Consultation: NEPHROLOGY Reason for Consultation Recurrent nephrolithiasis with left ureteral stone with hydronephrosis Referring Provider: TANISHA MORFIN of Present Illness 60-year-old female who has PMHx of Recurrent bilateral nephrolithiasis, admitted in 09/2016- She is known to me since then, work up revealed Primary Hyperparathyroidsm, then she underwent Parathyroidectomy. she had a Left uretereal stone causing Left moderate Hydronephrologist for which she had a cystoscopy with left ureteral stent placement, pt had a episode of recurrent UTI since stent was placed- she subsequently had a remvoal of left ureteral stent, pt is not happy with Urolgoy and she is requesting to have another Urolgoist to see pt. pt had a CT abdomen with plevis after stent removal - which still showed persistent left hydronephrosis with left ureteral stone- she is getting admitted for IV abx, IVF hydration, intractable pain and Urolgoy Evaluation by Constitutional: no complaints Eyes: no complaints ENT: other (Scar on the neck from recent parathyroid surgery) Respiratory: no complaints Cardiovascular: no complaints Gastrointestinal: no complaints Genitourinary: flank pain (Left flank) Musculoskeletal: no complaints Skin: no complaints Neurologic: no complaints Endocrine: other (She did have a parathyroid nodule for which she was operated on) Psychological: no complaints Past Medical History Medical History: hypertension, urinary tract infection, other (Hyperparathyroid , her calcium level has come down after the parathyroid surgery) Past Surgical History Past Surgical Hx: noncontributory, other (Parathyroid surgery, left ureteroscopy and insertion of left ureteral JJ stent, left extracorporeal shockwave lithotripsy at [facility]) Social History Alcohol Use: none Smoking Status: Never smoker Drug Use: none Exam/Review of Systems Vital Signs Vitals Vital Signs Date Time Temp Pulse Resp B/P Pulse Ox O2 Delivery O2 Flow Rate FiO2 12/06/16 11:00 97.5 51 20 127/69 100 12/06/16 10:36 Room Air Exam Constitutional: alert Psych: no complaints Head: normocephalic Eyes: nl conjunctiva Neck: non-tender, supple Respiratory: clear to auscultation, normal air movement Cardiovascular: nl pulses, regular rate and rhythm Gastrointestinal: non-tender, soft Musculoskeletal: nl extremities to inspection, nl gait and stance, other (back tenderness, left side ) Extremities: normal pulses Neurological: SEQUENCING MACHINE OPERATOR II-XII intact, nl mental status, nl speech, nl strength Results Result Diagram: 12/06/16 0700 12/06/16 0700 Results 24 hrs Laboratory Tests Test 12/06/16 07:00 White Blood Count 5.5 # Red Blood Count 4.27 Hemoglobin 13.0 Hematocrit 39.1 Mean Corpuscular Volume 91.6 Mean Corpuscular Hemoglobin 30.4 Mean Corpuscular Hemoglobin Concent 33.2 Red Cell Distribution Width 12.8 Platelet Count 212 Mean Platelet Volume 10.6 H Neutrophils % 44.4 Lymphocytes % 43.6 Monocytes % 7.1 Eosinophils % 4.2 Basophils % 0.5 Nucleated Red Blood Cells % 0.0 Neutrophils # (Manual) 2.4 Lymphocytes # 2.4 Monocytes # 0.4 Eosinophils # 0.2 Basophils # 0.0 Nucleated Red Blood Cells # 0.0 Urine Color STRAW Urine Clarity CLEAR Urine pH 6.0 Urine Specific [place] 1.010 Urine Ketones NEGATIVE Urine Nitrite NEGATIVE Urine Bilirubin NEGATIVE Urine Urobilinogen NEGATIVE Urine Leukocyte Esterase 1+ H Urine Microscopic RBC 3 Urine Microscopic WBC 9 H Urine Hemoglobin NEGATIVE Urine Glucose NEGATIVE Urine Total Protein NEGATIVE Sodium Level 145 H Potassium Level 3.7 Chloride Level 109 Carbon Dioxide Level 29 Anion Gap 11 Blood Urea Nitrogen 13 Creatinine 0.61 Glucose Level 84 Calcium Level 10.0 Total Bilirubin 0.2 Direct Bilirubin 0.00 Indirect Bilirubin 0.2 Aspartate Amino Transf (AST/SGOT) 24 Alanine Aminotransferase (ALT/SGPT) 34 Alkaline Phosphatase 81 Total Protein 7.0 Albumin 4.0 Globulin 3.00 Albumin/Globulin Ratio 1.33 Lipase 152 Medications Medications Current Medications Sodium Chloride (NS) 1,000 ml @ 100 mls/hr Q10H IV Last administered on 12:56; Admin Dose 100 MLS/HR; Start 12/06/16 at 12:25 Ondansetron HCl (Zofran Inj) 4 mg Q6H PRN IV NAUSEA AND/OR VOMITING; Start 02/11 at 12:30 Acetaminophen (Tylenol Tab) 650 mg Q6H PRN PO PAIN LEVEL 1-3 OR FEVER Last administered on 12/06/16 13:10; Admin Dose 650 MG; Start 12/06/16 at 12:30 Acetaminophen (Tylenol Supp) 650 mg Q6H PRN [place] PAIN LEVEL 1-3 OR FEVER; Start 12/06/16 at 12:30 Acetaminophen/ Hydrocodone Bitart ([place] (5/325)) 1 tab Q6H PRN PO MODERATE PAIN LEVEL 4-6; Start 12/06/16 at 12:30 Acetaminophen/ Hydrocodone Bitart ([place] (5/325)) 2 tab Q6H PRN PO SEVERE PAIN LEVEL 7-10; Start 12/06/16 at 12:30 Morphine Sulfate (morphine) 2 mg Q4H PRN IV SEVERE PAIN LEVEL 7-10; Start 12/06 at 12:30 Docusate Sodium (Colace) 100 mg Q12H PRN PO CONSTIPATION; Start 12/06/16 at 12: 30 Magnesium Hydroxide (Milk Of Mag) 30 ml DAILY PRN PO CONSTIPATION; Start at 12:30 Bisacodyl (Dulcolax Supp) 10 mg DAILY PRN [place] CONSTIPATION; Start 12/06/16 at 12 :30 Pantoprazole (Protonix Iv) 40 mg DAILY@06 IV ; Start 12/07/16 at 06:00 JANI ADAMS MD Dec 06, 2016 13:30
[2016-12-06 14:00] VITALS: BP 122/59; RESP 18
[2016-12-06 14:04] LABS: INR 0.98
[2016-12-06 14:05] LABS: PARTIAL THROMBOPLASTIN TIME 30.9 Sec (25.0-35.0)
--- NOTE | 2016-12-06 15:52 | RADRPT ---
PROCEDURE: XR Chest. CLINICAL INDICATION: Preoperative evaluation. TECHNIQUE: Single AP portable chest. COMPARISON: 09/30/2016 Chest x-ray FINDINGS: The cardiomediastinal silhouette is within normal limits of size. The lungs are clear without pleur al effusion or focal consolidation. No pneumothorax. The osseous structures and soft tissues are unr emarkable. IMPRESSION: 1. No evidence for active cardiopulmonary disease. RPTAT:AAJJ Joanna Wagoner Physician Date Time Electronically viewed and signed by Joanna Wagoner Physician on 12/06/2016 15:52 LORI/
--- NOTE | 2016-12-06 15:55 | RADRPT ---
PROCEDURE: XR Abdomen. CLINICAL INDICATION: Left ureteral stone. TECHNIQUE: AP abdomen x-ray. COMPARISON: CT abdomen 09/03/2016 11/26/2014 abdominal KUB FINDINGS: The bowel gas pattern is normal. There is no evidence of free air or obstruction. No abnormal calcif ications overlying the left ureter, kidney, or bladder. Surgical clips overlying the left prasanth pelvi s. Status post cholecystectomy. Left hip prosthesis in place. The osseus structures are unremarkable. IMPRESSION: 1. No free air or obstruction. 2. No evidence of abnormal left ureteral, renal, or bladder calcification. CT correlation may be co nsidered. RPTAT:AAJJ Physician Basilio Date Time Electronically viewed and signed by Physician Basilio on 12/06/2016 15:55 LORI/
[2016-12-06] MEDS ORDERED: CEFTRIAXONE 1 GM/50 ML (PMX) 50 ML IVPB ONE (17:00)
--- NOTE | 2016-12-06 17:04 | HP ---
Date/Time of Note Date/Time of Note DATE: 12/06/16 TIME: 17:00 Assessment/Plan VTE Prophylaxis VTE Prophylaxis Intervention: SCD's Lines/Catheters IV [facility] Saline Lock Urinary Cath still in place: No Assessment/Plan Chief Complaint/Hosp Course Impression and plan 1. Left ureteral stone with hydronephrosis. Urologist consulted. Continue IV fluids. 2. Suspect pyelonephritis. Urinalysis with positive leukocyte esterase test. Follow-up on urine culture. Continue antibiotics. 3. History of primary hyperparathyroidism. Patient is status post parathyroidectomy. Monitor for now. Admission process times 40 minutes Discussed plan of care with Dr. Perez Problems: HPI/ROS Admit Date/Time Admit Date/Time Dec 06, 2016 at 10:53 Hx of Present Illness This is a 60-year-old female with history of primary hyperparathyroidism status post surgical intervention, osteoporosis, recurrent renal stones, who is reportedly admitted on September 27 secondary to left upper ureteral stone status post JJ stent. She was seen at that time by urologist Dr. Rodriguez. She was discharged and follow-up with her neurologist as outpatient. She did see that she had follow-up for a few weeks ago where she had her stent removed. After removal of her stent a week ago she still reported having moderate flank pain bilaterally more notable on the left side. She of note per report had CT scan of her abdomen and pelvis which again redemonstrated left ureteral stone and hydronephrosis. She was brought to [facility] for further evaluation. Of note her CBC and BMP were unremarkable. She remained afebrile. No reports of dysuria however she does report having flank pain still. We will evaluate her for the aformentiond issues. ROS 12 point review of systems obtained and entirely negative except that mentioned in history present illness Eyes: no complaints ENT: other (Scar on the neck from recent parathyroid surgery) Respiratory: no complaints Cardiovascular: no complaints Gastrointestinal: no complaints Genitourinary: flank pain (Left flank) Musculoskeletal: no complaints Skin: no complaints Neurologic: no complaints Psychological: no complaints PMH/Family/Social Past Medical History Medical/surgical history 1. Primary hyperparathyroidism status post surgical intervention 2. Osteoarthritis 3. Recurrent renal stone Medical History: hypertension, urinary tract infection, other (Hyperparathyroid , her calcium level has come down after the parathyroid surgery) Past Surgical History Past Surgical Hx: noncontributory, other (Parathyroid surgery, left ureteroscopy and insertion of left ureteral JJ stent, left extracorporeal shockwave lithotripsy at [facility]) Social History Alcohol Use: none Smoking Status: Never smoker Drug Use: none Exam/Review of Systems Vital Signs Vitals Vital Signs Date Time Temp Pulse Resp B/P Pulse Ox O2 Delivery O2 Flow Rate FiO2 12/06/16 11:00 97.5 51 20 127/69 100 12/06/16 10:36 Room Air Exam Constitutional: alert, oriented Psych: nl mood/affect Head: normocephalic Neck: supple Respiratory: clear to auscultation, normal air movement Cardiovascular: regular rate and rhythm Gastrointestinal: soft, tender (On bilateral flank) Extremities: normal pulses Neurological: CAPACITY PLANNER II-XII intact, nl mental status, nl speech Labs Result Diagram: 12/06/16 0700 12/06/16 0700 Medications Medications Current Medications Sodium Chloride (NS) 1,000 ml @ 100 mls/hr Q10H IV Last administered on 12:56; Admin Dose 100 MLS/HR; Start 12/06/16 at 12:25 Ondansetron HCl (Zofran Inj) 4 mg Q6H PRN IV NAUSEA AND/OR VOMITING; Start 02/11 at 12:30 Acetaminophen (Tylenol Tab) 650 mg Q6H PRN PO PAIN LEVEL 1-3 OR FEVER Last administered on 12/06/16 13:10; Admin Dose 650 MG; Start 12/06/16 at 12:30 Acetaminophen (Tylenol Supp) 650 mg Q6H PRN [place] PAIN LEVEL 1-3 OR FEVER; Start 12/06/16 at 12:30 Acetaminophen/ Hydrocodone Bitart ([place] (5/325)) 1 tab Q6H PRN PO MODERATE PAIN LEVEL 4-6; Start 12/06/16 at 12:30 Acetaminophen/ Hydrocodone Bitart ([place] (5/325)) 2 tab Q6H PRN PO SEVERE PAIN LEVEL 7-10; Start 12/06/16 at 12:30 Morphine Sulfate (morphine) 2 mg Q4H PRN IV SEVERE PAIN LEVEL 7-10; Start 12/06 at 12:30 Docusate Sodium (Colace) 100 mg Q12H PRN PO CONSTIPATION; Start 12/06/16 at 12: 30 Magnesium Hydroxide (Milk Of Mag) 30 ml DAILY PRN PO CONSTIPATION; Start at 12:30 Bisacodyl (Dulcolax Supp) 10 mg DAILY PRN [place] CONSTIPATION; Start 12/06/16 at 12 :30 Pantoprazole 40 mg 40 mg DAILY@06 IV ; Start 12/07/16 at 06:00 Ceftriaxone Sodium 50 ml @ 100 mls/hr Q24H IVPB ; Start 12/07/16 at 17:00 Ceftriaxone Sodium (Rocephin) 50 ml @ 100 mls/hr ONCE ONCE IVPB ; Start at 17:00; Stop 12/06/16 at 17:29 JEANCARLOS JACQUES Dec 06, 2016 17:04
[2016-12-06 20:37] VITALS: BP 123/69; RESP 18
[2016-12-06 21:30] VITALS: PULSE 55
[2016-12-07] MEDS: SOD CHLORIDE 0.9% 1,000 ML IV SCH ×5 (01:12→23:10)
[2016-12-07 03:07] VITALS: BP 130/60; RESP 18
[2016-12-07] MEDS ORDERED: PANTOPRAZOLE 40 MG INJ IV SCH (06:00)
[2016-12-07 06:01] LABS: BASOPHILS % 0.6 % (0.0-2.0); EOSINOPHILS # 0.2 10^3/ul (0.0-0.5); EOSINOPHILS % 3.4 % (0.0-7.0); HEMATOCRIT 39.2 % (37.0-47.0); HEMOGLOBIN 12.5 g/dl (12.0-16.0); LYMPHOCYTES # 2.5 10^3/ul (0.8-2.9); LYMPHOCYTES % 38.5 % (15.0-51.0); MEAN CORPUSCULAR HGB CONC 31.9 g/dl (32.0-37.0); MEAN PLATELET VOLUME 10.5 fl (7.4-10.4); MONOCYTE # 0.5 10^3/ul (0.3-0.9); NEUTROPHILS % 50.3 % (39.0-77.0); PLATELET COUNT 208 10^3/UL (140-415); RED BLOOD COUNT 4.31 10^6/ul (4.20-5.40); RED CELL DISTRIBUTION WIDTH 13.1 % (11.5-14.5); WHITE BLOOD COUNT 6.5 10^3/ul (4.8-10.8)
[2016-12-07 06:27] LABS: ALBUMIN 3.4 g/dl (3.3-4.9); BILIRUBIN,INDIRECT 0.3 mg/dl (0-1.1); BILIRUBIN,TOTAL 0.3 mg/dl (0.2-1.3); CALCIUM 9.9 mg/dl (8.4-10.2); CREATININE 0.63 mg/dl (0.44-1.00); MAGNESIUM 1.9 mg/dl (1.7-2.5); PHOSPHORUS 3.2 mg/dl (2.5-4.9); POTASSIUM 4.3 mmol/L (3.5-5.1); TOTAL PROTEIN 6.2 g/dl (6.1-8.1)
[2016-12-07 06:28] LABS: ALBUMIN/GLOBULIN RATIO 1.21; CHOL/HDL RATIO 4.6 RATIO
[2016-12-07] MEDS: morphine 2 MG INJ IV PRN (06:31)
[2016-12-07 06:40] LABS: T3 UPTAKE 30.1 % (23.5-40.5)
[2016-12-07 06:54] LABS: THYROID STIMULATING HORMONE 0.573 MIU/L (0.465-4.680)
[2016-12-07 08:01] VITALS: BP 139/65; RESP 16
--- NOTE | 2016-12-07 08:33 | RADRPT ---
PROCEDURE: CT Abdomen and Pelvis without contrast. CLINICAL INDICATION: Abdominal and pelvic pain. Left upper ureteral calculus. TECHNIQUE: CT scan of the abdomen and pelvis without contrast was performed. Coronal and sagittal reformatted images were obtained from the axial source images. Images were reviewed on a high-resolu [employer] PACS workstation. Total exam DLP is 1094.14 mGy-cm. CTDIvol is 19.92 mGy. One or more of the following dose reduction techniques were used: Automated exposure control, adjustment of the mA and/ or kV according to patient size, use of iterative reconstruction technique. COMPARISON: CT scan of the abdomen and pelvis dated 09/23/2016 which demonstrated moderate to rafaela re bilateral hydronephrosis, bilateral ureteral stents, upper left ureteral calculi, distal right ur eteral calculi, nonobstructing left renal calculi, small midline abdominal wall hernia, osteoarthros is of the spine, hepatomegaly, previous cholecystectomy, and left hip arthroplasty. FINDINGS: The lung bases are normal. There is no pleural effusion. The liver is mildly enlarged. There is no focal lytic lesion. The gallbladder is surgically absent. Surgical clips are present in the gallbladder bed. The bile du cts are normal. The spleen is normal in size. There is no focal splenic lesion. Both adrenals are normal with no enlargement or mass. The pancreas is unremarkable with no mass or evidence of pancreatitis. There is no renal mass on either side. Previously noted bilateral ureteral stents have been removed. There is mild right hydronephrosis, improved. Previously no distal right ureteral calculi are no lo nger present. There is moderate left hydronephrosis, also improved. There are multiple small calculi in the proximal left ureter measuring between 0.1 cm and 0.5 cm and numbering approximately 8. Ther e is a nonobstructing 0.3 cm calculus in the mid to lower left kidney. There is no other renal calcu parish or ureteral calculus. The abdominal aorta is not dilated. There is no retroperitoneal lymphadenopathy or mass. There is no pelvic lymphadenopathy or mass. Multiple surgical clips are present in the left adnexal region. The bladder and distal ureters are normal. The periappendiceal region is unremarkable with no evidence of appendicitis. As seen previously, there is a midline abdominal wall hernia containing a small amount of small jasmine l without evidence of obstruction. The bowel and mesentery are otherwise normal. There is no free fluid or free gas. There is osteoarthrosis of the thoracic spine, lumbar spine, and right hip. There is a total left hi p arthroplasty. There is no fracture or lytic lesion. IMPRESSION: 1. Mild hepatomegaly. 2. Status post cholecystectomy. 3. Bilateral ureteral stents have been removed. 4. Mild right hydronephrosis, improved. No right urinary tract calculus. 5. Moderate left hydronephrosis, proved. Multiple small calculi in the proximal thigh ureter measur ing between 0.1 cm and 0.5 cm. Number see nonobstructing 0.3 cm calculus in the mid to lower left ki dney. 7. Prior left adnexal region surgery. 8. Small midline abdominal wall hernia containing small bowel without evidence of obstruction. 9. Osteoarthrosis of the thoracic spine, lumbar spine, and right hip. 10. Total left hip arthroplasty. RPTAT: QQ .Devendra Frank MD, MD Date Time Electronically viewed and signed by .Devendra Frank MD, on 12/07/2016 08:32 .R/
--- NOTE | 2016-12-07 09:00 | CONS ---
Date/Time of Note Date/Time of Note DATE: 12/07/16 TIME: 08:58 Assessment/Plan Assessment/Plan Additional Assessment/Plan 1. left Ureteral stone with obstructive uropathy and left moderate hydronephrosis 2. intractable left flank pain concerned abotu left pyelonephritis 3. H/o recurrent kidney stone due to Primary Hyperparathyroidism now s/p Parathyroidectomy 4. Osteoarthritis, left hip replacement surgery Plan: IV Fluids NS at 100 cc/hr IV abx ceftriaxone to cover for left pyelonephritis pain control with IV pain meds Urolgoy consult saw pt and Possible plan for cystocopy with left uretereal JJ stent placement will conitnue to follow up Consultation Date/Type/Reason Admit Date/Time Dec 06, 2016 at 10:53 Initial Consult Date 12/06/16 Type of Consultation: NEPHROLOGY Referring Provider: TANISHA MORFIN 24 HR Interval Summary Free Text/Dictation pain controlled, on IVF and IV abx, Electrolytes and Cr stable Exam/Review of Systems Vital Signs Vitals Vital Signs Date Time Temp Pulse Resp B/P Pulse Ox O2 Delivery O2 Flow Rate FiO2 12/07/16 08:01 98.3 54 16 139/65 98 12/06/16 10:36 Room Air Intake and Output 12/06/16 12/06/16 12/07/16 15:00 23:00 07:00 Intake Total 1040 ml 1800 ml Balance 1040 ml 1800 ml Exam Constitutional: alert Psych: no complaints Head: normocephalic Eyes: nl conjunctiva Neck: non-tender, supple Respiratory: clear to auscultation, normal air movement Cardiovascular: nl pulses, regular rate and rhythm Gastrointestinal: non-tender, soft Musculoskeletal: nl extremities to inspection, nl gait and stance, other (back tenderness, left side ) Extremities: normal pulses Neurological: STRAIGHTEDGE MAN II-XII intact, nl mental status, nl speech, nl strength Results Result Diagram: 12/07/16 0508 12/07/16 0508 Results 24 hrs Laboratory Tests Test 12/06/16 13:37 12/07/16 05:08 Prothrombin Time 13.0 Prothrombin Time Ratio 1.0 INR International Normalized Ratio 0.98 Activated Partial Thromboplast Time 30.9 White Blood Count 6.5 Red Blood Count 4.31 Hemoglobin 12.5 Hematocrit 39.2 Mean Corpuscular Volume 91.0 Mean Corpuscular Hemoglobin 29.0 Mean Corpuscular Hemoglobin Concent 31.9 L Red Cell Distribution Width 13.1 Platelet Count 208 Mean Platelet Volume 10.5 H Neutrophils % 50.3 Lymphocytes % 38.5 Monocytes % 7.0 Eosinophils % 3.4 Basophils % 0.6 Nucleated Red Blood Cells % 0.0 Neutrophils # (Manual) 3.3 Lymphocytes # 2.5 Monocytes # 0.5 Eosinophils # 0.2 Basophils # 0.0 Nucleated Red Blood Cells # 0.0 Sodium Level 144 Potassium Level 4.3 Chloride Level 111 H Carbon Dioxide Level 29 Anion Gap 8 Blood Urea Nitrogen 12 Creatinine 0.63 Glucose Level 89 Hemoglobin A1c 5.3 Calcium Level 9.9 Phosphorus Level 3.2 Magnesium Level 1.9 Total Bilirubin 0.3 Direct Bilirubin 0.00 Indirect Bilirubin 0.3 Aspartate Amino Transf (AST/SGOT) 22 Alanine Aminotransferase (ALT/SGPT) 28 Alkaline Phosphatase 67 Total Protein 6.2 Albumin 3.4 Globulin 2.80 Albumin/Globulin Ratio 1.21 Triglycerides Level 105 Cholesterol Level 152 LDL Cholesterol, Calculated 98 HDL Cholesterol 33 L Cholesterol/HDL Ratio 4.6 Thyroid Stimulating Hormone (TSH) 0.573 Free Thyroxine Index 2.47 Thyroxine (T4) 8.2 Triiodothyronine (T3) Uptake 30.1 Medications Medications Current Medications Sodium Chloride (NS) 1,000 ml @ 100 mls/hr Q10H IV Last administered on 01:12; Admin Dose 100 MLS/HR; Start 12/06/16 at 12:25 Ondansetron HCl (Zofran Inj) 4 mg Q6H PRN IV NAUSEA AND/OR VOMITING; Start 02/11 at 12:30 Acetaminophen (Tylenol Tab) 650 mg Q6H PRN PO PAIN LEVEL 1-3 OR FEVER Last administered on 12/06/16 20:48; Admin Dose 650 MG; Start 12/06/16 at 12:30 Acetaminophen (Tylenol Supp) 650 mg Q6H PRN [place] PAIN LEVEL 1-3 OR FEVER; Start 12/06/16 at 12:30 Acetaminophen/ Hydrocodone Bitart ([place] (5/325)) 1 tab Q6H PRN PO MODERATE PAIN LEVEL 4-6; Start 12/06/16 at 12:30 Acetaminophen/ Hydrocodone Bitart ([place] (5/325)) 2 tab Q6H PRN PO SEVERE PAIN LEVEL 7-10; Start 12/06/16 at 12:30 Morphine Sulfate (morphine) 2 mg Q4H PRN IV SEVERE PAIN LEVEL 7-10 Last administered on 12/07/16 06:31; Admin Dose 2 MG; Start 12/06/16 at 12:30 Docusate Sodium (Colace) 100 mg Q12H PRN PO CONSTIPATION; Start 12/06/16 at 12: 30 Magnesium Hydroxide (Milk Of Mag) 30 ml DAILY PRN PO CONSTIPATION; Start at 12:30 Bisacodyl (Dulcolax Supp) 10 mg DAILY PRN [place] CONSTIPATION; Start 12/06/16 at 12 :30 Pantoprazole 40 mg 40 mg DAILY@06 IV Last administered on 12/07/16 06:30; Admin Dose 40 MG; Start 12/07/16 at 06:00 Ceftriaxone Sodium (Rocephin) 50 ml @ 100 mls/hr Q24H IVPB ; Start 12/07/16 at 17:00 JANI ADAMS MD Dec 07, 2016 09:00
[2016-12-07 14:01] VITALS: BP 109/59; RESP 16
--- NOTE | 2016-12-07 15:14 | PN ---
Date/Time of Note Date/Time of Note DATE: 12/07/16 TIME: 15:11 Assessment/Plan VTE Prophylaxis VTE Prophylaxis Intervention: SCD's Lines/Catheters IV C[facility]ter Type (from [facility]): Peripheral IV Urinary Cath still in place: No Assessment/Plan Chief Complaint/Hosp Course Impression and plan 1. Left ureteral stone with hydronephrosis. Urologist consulted. Moderate left hydronephrosis with small CT scan of the abdomen again redemonstrated calculi in the proximal thigh ureter measuring between 0.1 cm and 0.5 cm and a nonobstructing 0.3 cm calculus in the mid to lower left kidney. Continue IV fluids.Possible plan for cystoscopy with left ureteral JJ stent placement. 2. Suspect pyelonephritis. Urinalysis with positive leukocyte esterase test. Follow-up on urine culture. Continue antibiotics. 3. History of primary hyperparathyroidism. Patient is status post parathyroidectomy. Monitor for now. Disposition and plan: Continue with analgesics and IV hydration. Tentative plan for urological intervention. We will follow-up. Discussed plan of care with Dr. Perez Problems: Subjective 24 Hr Interval Summary Free Text/Dictation Still reports having a moderate amount of pain. Exam/Review of Systems Vital Signs Vitals Vital Signs Date Time Temp Pulse Resp B/P Pulse Ox O2 Delivery O2 Flow Rate FiO2 12/07/16 14:01 98.0 50 16 109/59 97 12/06/16 10:36 Room Air Intake and Output 12/06/16 12/06/16 12/07/16 15:00 23:00 07:00 Intake Total 1040 ml 1800 ml Balance 1040 ml 1800 ml Exam Constitutional: alert, oriented Psych: nl mood/affect Head: normocephalic Neck: supple Respiratory: clear to auscultation, normal air movement Cardiovascular: regular rate and rhythm Gastrointestinal: soft, tender (On bilateral flank) Extremities: normal pulses Neurological: [employer] AMBASSADOR II-XII intact, nl mental status, nl speech Results Result Diagram: 12/07/16 0508 12/07/16 0508 Results 24 hrs Laboratory Tests Test 12/07/16 05:08 White Blood Count 6.5 Red Blood Count 4.31 Hemoglobin 12.5 Hematocrit 39.2 Mean Corpuscular Volume 91.0 Mean Corpuscular Hemoglobin 29.0 Mean Corpuscular Hemoglobin Concent 31.9 L Red Cell Distribution Width 13.1 Platelet Count 208 Mean Platelet Volume 10.5 H Neutrophils % 50.3 Lymphocytes % 38.5 Monocytes % 7.0 Eosinophils % 3.4 Basophils % 0.6 Nucleated Red Blood Cells % 0.0 Neutrophils # (Manual) 3.3 Lymphocytes # 2.5 Monocytes # 0.5 Eosinophils # 0.2 Basophils # 0.0 Nucleated Red Blood Cells # 0.0 Sodium Level 144 Potassium Level 4.3 Chloride Level 111 H Carbon Dioxide Level 29 Anion Gap 8 Blood Urea Nitrogen 12 Creatinine 0.63 Glucose Level 89 Hemoglobin A1c 5.3 Calcium Level 9.9 Phosphorus Level 3.2 Magnesium Level 1.9 Total Bilirubin 0.3 Direct Bilirubin 0.00 Indirect Bilirubin 0.3 Aspartate Amino Transf (AST/SGOT) 22 Alanine Aminotransferase (ALT/SGPT) 28 Alkaline Phosphatase 67 Total Protein 6.2 Albumin 3.4 Globulin 2.80 Albumin/Globulin Ratio 1.21 Triglycerides Level 105 Cholesterol Level 152 LDL Cholesterol, Calculated 98 HDL Cholesterol 33 L Cholesterol/HDL Ratio 4.6 Thyroid Stimulating Hormone (TSH) 0.573 Free Thyroxine Index 2.47 Thyroxine (T4) 8.2 Triiodothyronine (T3) Uptake 30.1 Medications Medications Current Medications Sodium Chloride (NS) 1,000 ml @ 100 mls/hr Q10H IV Last administered on 12:31; Admin Dose 100 MLS/HR; Start 12/06/16 at 12:25 Ondansetron HCl (Zofran Inj) 4 mg Q6H PRN IV NAUSEA AND/OR VOMITING; Start 02/11 at 12:30 Acetaminophen (Tylenol Tab) 650 mg Q6H PRN PO PAIN LEVEL 1-3 OR FEVER Last administered on 12/06/16 20:48; Admin Dose 650 MG; Start 12/06/16 at 12:30 Acetaminophen (Tylenol Supp) 650 mg Q6H PRN [place] PAIN LEVEL 1-3 OR FEVER; Start 12/06/16 at 12:30 Acetaminophen/ Hydrocodone Bitart ([place] (5/325)) 1 tab Q6H PRN PO MODERATE PAIN LEVEL 4-6; Start 12/06/16 at 12:30 Acetaminophen/ Hydrocodone Bitart ([place] (5/325)) 2 tab Q6H PRN PO SEVERE PAIN LEVEL 7-10 Last administered on 12/07/16 10:17; Admin Dose 2 TAB; Start at 12:30 Morphine Sulfate (morphine) 2 mg Q4H PRN IV SEVERE PAIN LEVEL 7-10 Last administered on 12/07/16 06:31; Admin Dose 2 MG; Start 12/06/16 at 12:30 Docusate Sodium (Colace) 100 mg Q12H PRN PO CONSTIPATION; Start 12/06/16 at 12: 30 Magnesium Hydroxide (Milk Of Mag) 30 ml DAILY PRN PO CONSTIPATION; Start at 12:30 Bisacodyl (Dulcolax Supp) 10 mg DAILY PRN [place] CONSTIPATION; Start 12/06/16 at 12 :30 Pantoprazole 40 mg 40 mg DAILY@06 IV Last administered on 12/07/16 06:30; Admin Dose 40 MG; Start 12/07/16 at 06:00 Ceftriaxone Sodium (Rocephin) 50 ml @ 100 mls/hr Q24H IVPB ; Start 12/07/16 at 17:00 JEANCARLOS JACQUES Dec 07, 2016 15:14
[2016-12-07] MEDS: CEFTRIAXONE 1 GM/50 ML (PMX) 50 ML IVPB SCH (17:11)
--- NOTE | 2016-12-07 19:58 | PN ---
Date/Time of Note Date/Time of Note DATE: 12/07/16 TIME: 19:52 Assessment/Plan VTE Prophylaxis VTE Prophylaxis Intervention: ambulation Lines/Catheters IV Catheter Type (from [facility]): Peripheral IV Urinary Cath still in place: No Assessment/Plan Chief Complaint/Hosp Course 60-year-old female has 8 stones in the left upper ureter with hydronephrosis as seen on the CT scan. She is scheduled to undergo cystoscopy left ureteroscopy laser lithotripsy removal of the stone from the left upper ureter and insertion of a new JJ stent tomorrow morning at 7:30 AM. I have explained the procedure to her; benefits, risks, complications, success and failure and she is agreeable to proceed Problems: Subjective 24 Hr Interval Summary Constitutional: no complaints Eyes: no complaints Respiratory: no complaints Cardiovascular: no complaints, No edema Gastrointestinal: no complaints Genitourinary: flank pain, No dysuria, No hematuria Musculoskeletal: back pain Skin: no complaints Neurologic: no complaints Lymphatic: no complaints Exam/Review of Systems Vital Signs Vitals Vital Signs Date Time Temp Pulse Resp B/P Pulse Ox O2 Delivery O2 Flow Rate FiO2 12/07/16 14:01 98.0 50 16 109/59 97 12/06/16 10:36 Room Air Intake and Output 12/06/16 12/06/16 12/07/16 15:00 23:00 07:00 Intake Total 1040 ml 1800 ml Balance 1040 ml 1800 ml Exam Constitutional: alert Psych: no complaints Head: normocephalic Eyes: nl conjunctiva ENMT: nl external ears & nose Neck: supple Respiratory: clear to auscultation, No wheezing Cardiovascular: No edema Gastrointestinal: non-tender, soft Genitourinary - Female: CVA tenderness Musculoskeletal: nl extremities to inspection Extremities: No calf tenderness, No pitting pedal edema Results Result Diagram: 12/07/16 0508 12/07/16 0508 Results 24 hrs Laboratory Tests Test 12/07/16 05:08 White Blood Count 6.5 Red Blood Count 4.31 Hemoglobin 12.5 Hematocrit 39.2 Mean Corpuscular Volume 91.0 Mean Corpuscular Hemoglobin 29.0 Mean Corpuscular Hemoglobin Concent 31.9 L Red Cell Distribution Width 13.1 Platelet Count 208 Mean Platelet Volume 10.5 H Neutrophils % 50.3 Lymphocytes % 38.5 Monocytes % 7.0 Eosinophils % 3.4 Basophils % 0.6 Nucleated Red Blood Cells % 0.0 Neutrophils # (Manual) 3.3 Lymphocytes # 2.5 Monocytes # 0.5 Eosinophils # 0.2 Basophils # 0.0 Nucleated Red Blood Cells # 0.0 Sodium Level 144 Potassium Level 4.3 Chloride Level 111 H Carbon Dioxide Level 29 Anion Gap 8 Blood Urea Nitrogen 12 Creatinine 0.63 Glucose Level 89 Hemoglobin A1c 5.3 Calcium Level 9.9 Phosphorus Level 3.2 Magnesium Level 1.9 Total Bilirubin 0.3 Direct Bilirubin 0.00 Indirect Bilirubin 0.3 Aspartate Amino Transf (AST/SGOT) 22 Alanine Aminotransferase (ALT/SGPT) 28 Alkaline Phosphatase 67 Total Protein 6.2 Albumin 3.4 Globulin 2.80 Albumin/Globulin Ratio 1.21 Triglycerides Level 105 Cholesterol Level 152 LDL Cholesterol, Calculated 98 HDL Cholesterol 33 L Cholesterol/HDL Ratio 4.6 Thyroid Stimulating Hormone (TSH) 0.573 Free Thyroxine Index 2.47 Thyroxine (T4) 8.2 Triiodothyronine (T3) Uptake 30.1 Imaging Free Text/Dictation CT scan of the abdomen and pelvis: There are multiple small calculi in the proximal left ureter measuring between 0.1 cm and 0.5 cm and numbering approximately 8. There is a nonobstructing 0.3 cm calculus in the mid to lower left kidney. There is no other renal calculus or ureteral calculus. Medications Medications Current Medications Sodium Chloride (NS) 1,000 ml @ 100 mls/hr Q10H IV Last administered on 12:31; Admin Dose 100 MLS/HR; Start 12/06/16 at 12:25 Ondansetron HCl (Zofran Inj) 4 mg Q6H PRN IV NAUSEA AND/OR VOMITING; Start 02/11 at 12:30 Acetaminophen (Tylenol Tab) 650 mg Q6H PRN PO PAIN LEVEL 1-3 OR FEVER Last administered on 12/06/16 20:48; Admin Dose 650 MG; Start 12/06/16 at 12:30 Acetaminophen (Tylenol Supp) 650 mg Q6H PRN [place] PAIN LEVEL 1-3 OR FEVER; Start 12/06/16 at 12:30 Acetaminophen/ Hydrocodone Bitart ([place] (5/325)) 1 tab Q6H PRN PO MODERATE PAIN LEVEL 4-6; Start 12/06/16 at 12:30 Acetaminophen/ Hydrocodone Bitart ([place] (5/325)) 2 tab Q6H PRN PO SEVERE PAIN LEVEL 7-10 Last administered on 12/07/16 10:17; Admin Dose 2 TAB; Start at 12:30 Morphine Sulfate (morphine) 2 mg Q4H PRN IV SEVERE PAIN LEVEL 7-10 Last administered on 12/07/16 06:31; Admin Dose 2 MG; Start 12/06/16 at 12:30 Docusate Sodium (Colace) 100 mg Q12H PRN PO CONSTIPATION; Start 12/06/16 at 12: 30 Magnesium Hydroxide (Milk Of Mag) 30 ml DAILY PRN PO CONSTIPATION; Start at 12:30 Bisacodyl 10 mg 10 mg DAILY PRN [place] CONSTIPATION; Start 12/06/16 at 12:30 Ceftriaxone Sodium (Rocephin) 50 ml @ 100 mls/hr Q24H IVPB Last administered on 12/07/16 17:11; Admin Dose 100 MLS/HR; Start 12/07/16 at 17:00 Pantoprazole (Protonix Tab) 40 mg DAILY@06 PO ; Start 12/08/16 at 06:00 PHILL PAGE MD Dec 07, 2016 19:58
[2016-12-07] MEDS: ACETAMINOPHEN 325 MG TAB PO PRN (20:11)
[2016-12-07 20:38] VITALS: BP 145/66; RESP 20
[2016-12-08] VITALS (14 sets, daily range): BP systolic 116–158; BP diastolic 61–78; PULSE 54–88; RESP 14–29
[2016-12-08] MEDS: morphine 2 MG INJ IV PRN ×2 (04:26→22:16)
[2016-12-08] MEDS: PANTOPRAZOLE (EC) 40 MG TAB PO SCH (05:08)
[2016-12-08 05:33] LABS: BASOPHILS % 0.5 % (0.0-2.0); EOSINOPHILS # 0.3 10^3/ul (0.0-0.5); EOSINOPHILS % 4.2 % (0.0-7.0); HEMATOCRIT 36.3 % (37.0-47.0); HEMOGLOBIN 11.5 g/dl (12.0-16.0); LYMPHOCYTES # 2.7 10^3/ul (0.8-2.9); LYMPHOCYTES % 45.8 % (15.0-51.0); MEAN CORPUSCULAR HEMOGLOBIN 28.8 pg (29.0-33.0); MEAN CORPUSCULAR HGB CONC 31.7 g/dl (32.0-37.0); MEAN CORPUSCULAR VOLUME 90.8 fl (82.0-101.0); MEAN PLATELET VOLUME 10.5 fl (7.4-10.4); MONOCYTE # 0.5 10^3/ul (0.3-0.9); MONOCYTES % 8.2 % (0.0-11.0); NEUTROPHILS % 41.1 % (39.0-77.0); PLATELET COUNT 194 10^3/UL (140-415); RED CELL DISTRIBUTION WIDTH 13.1 % (11.5-14.5)
[2016-12-08 05:49] LABS: CALCIUM 9.5 mg/dl (8.4-10.2); CREATININE 0.74 mg/dl (0.44-1.00); POTASSIUM 4.6 mmol/L (3.5-5.1)
[2016-12-08] MEDS ORDERED: IOHEXOL 300MG/ML 30 ML BTL ONE (07:06)
[2016-12-08] MEDS ORDERED: METHYLENE BLUE 1% 10 ML INJ ONE (07:10)
--- NOTE | 2016-12-08 07:10 | HPN ---
Date/Time of Note Date/Time of Note DATE: 12/08/16 TIME: 07:10 Interval H&P Admission Note Pt. seen H&P reviewed: No system changes PHILL PAGE MD Dec 08, 2016 07:10
[2016-12-08] MEDS ORDERED: PROPOFOL 20 ML ONE (07:24)
[2016-12-08] MEDS ORDERED: ROCURONIUM 50 MG INJ ONE (07:24)
[2016-12-08] MEDS ORDERED: FENTAnyl 50 MCG/ML VIAL ONE (07:24)
[2016-12-08] MEDS ORDERED: MIDAZOLAM 1 MG/ML 2 ML INJ ONE (07:24)
[2016-12-08] MEDS ORDERED: ONDANSETRON 4 MG INJ ONE (08:15)
[2016-12-08] MEDS ORDERED: DEXAMETHASONE 4 MG/ML 1 ML INJ ONE (08:15)
[2016-12-08] MEDS ORDERED: METOCLOPRAMIDE 10 MG INJ ONE (08:15)
[2016-12-08] MEDS ORDERED: KETOROLAC 30 MG INJ ONE (08:15)
[2016-12-08] MEDS ORDERED: SUGAMMADEX SODIUM 200 MG/2 ML VIAL IV ONE (08:22)
[2016-12-08] MEDS ORDERED: morphine (1 MG/ML) 10ML SYRINGE IV PRN ×3 (08:30)
[2016-12-08] MEDS ORDERED: MEPERIDINE 25 MG INJ IV PRN (08:30)
[2016-12-08] MEDS ORDERED: FENTAnyl 50 MCG/ML VIAL IV PRN ×3 (08:30)
[2016-12-08] MEDS ORDERED: EPHEDrine SULFATE 50 MG/5 ML SYG IV PRN (08:30)
[2016-12-08] MEDS ORDERED: DIPHENHYDRAMINE 50 MG INJ IV PRN (08:30)
[2016-12-08] MEDS ORDERED: LABETALOL HCL 20MG INJ IV PRN (08:30)
[2016-12-08] MEDS ORDERED: hydrALAzine 20 MG INJ IV PRN (08:30)
[2016-12-08] MEDS ORDERED: ONDANSETRON 4 MG INJ IV PRN (08:30)
--- NOTE | 2016-12-08 08:37 | OPR ---
Date/Time of Note Date/Time of Note DATE: 12/08/16 TIME: 08:29 Operative Report Procedure Date: Dec 08, 2016 Preoperative Diagnosis Left upper ureteral stone and left renal stone Postoperative Diagnosis Left upper ureteral stone and left renal stone Operation Performed Cystoscopy left ureteral pyeloscopy laser lithotripsy removal of stone fragments from the left upper ureter and the left kidney and insertion of left ureteral JJ stent 6 Martiniquais by 22 cm long Surgeon: PHILL PAGE MD Anesthesia Type: general Anesthesiologist: NELY MAE MD Estimated Blood Loss: none Specimens Stone fragment Complications: no Pt Condition Post Procedure: stable Indications Left upper ureteral stone and renal stone Operative\Procedure Findings Left upper ureteral stone and left renal stone or so the bladder appeared to have areas indicative of UTI Procedure Description The patient was brought to the operating room she was given general endotracheal anesthesia. The patient was positioned in the lithotomy position. The patient received 2 g of Ancef IV at the start of the procedure. Timeout was done. The patient was identified by her name birthdate the procedure and the side of the procedure. The genital area was prepped and draped in the usual sterile manner. #21 Martiniquais cystoscope sheath was introduced into the bladder and urine collected for culture and sensitivity. 5 [place]iquais open ended catheter was used to cannulate the left ureteral orifice and then a 0.035 zip wire was passed through the 5 Martiniquais open ended all the way up to the kidney. Then the open-ended was removed leaving the zip wire in place. The cystoscope was removed then a dual-lumen ureteral catheter was used and advanced on the zip wire all the way up to the kidney. A 0.035 sensor wire was passed through the second channel of the dual-lumen catheter all the way up to the kidney. The dual-lumen was then removed leaving the [address] the sensor wire was used as a safety wire and a zip wire was used to introduced the rigid ureteroscope and it and the ureter was inspected all the way from the bladder up to the kidney and the upper ureter 2 stones were seen therefore I removed the rigid ureteroscope and inserted a access sheath 11-13 mm diameter 28 cm long into the left ureter and through that I passed the digital flexible ureteroscope and all the way up to the proximal ureter where the stones were visualized 1 of them was stuck to the wall site treated it was a holmium laser and broken into pieces these pieces are too small and the past on the room the other stone in the upper ureter was basketed and removed and there was another piece that also was basketed then I did pyeloscopy inspected all the calyces in the kidney and there was a stone in the lower pole calyx which we basketed and removed at the end of the procedure the ureter as well as the kidney were clear of stones the ureteroscope as well as access sheath was removed then on the sensor wire I repeated the cystoscopy and passed a 6 [place] by 22 cm long JJ stent had its proximal and curling into the kidney and the distal end curling into the bladder. The distal end has a string that was brought out through the urethra and taped to her right groin with 2 pieces of Tegaderm. The patient tolerated the procedure well and was transferred to the recovery room in a stable and satisfactory condition PHILL PAGE MD Dec 08, 2016 08:37
[2016-12-08] MEDS ORDERED: LIDOCAINE 1% (MPF) 5 ML VIAL SC ONE (09:00)
[2016-12-08] MEDS: SOD CHLORIDE 0.9% 1,000 ML IV SCH ×2 (10:37→22:16)
--- NOTE | 2016-12-08 11:00 | RADRPT ---
PROCEDURE: X-ray fluoroscopy guidance CLINICAL INDICATION: Flank pain. Cystogram, lithotripsy and ureteral stent placement. Fluoroscopic guidance. TECHNIQUE: Fluoroscopic guidance was utilized for an intraoperative procedure. COMPARISON: None available FINDINGS: Fluoroscopic guidance was utilized for and intraoperative procedure. 32.2 of fluoroscopy time was ut ilized for the procedure. 28 x-ray images were obtained during the procedure in progress. Final imag es demonstrate a left ureteral stent in grossly appropriate location. IMPRESSION: X-ray fluoroscopic guidance utilized for intraoperative procedure. Left ureteral stent in grossly appropriate location. Please see procedure note for details. RPTAT: AA .Marcus Vargas MD, Date Time Electronically viewed and signed by .Marcus Vargas MD, on 12/08/2016 11:00 .P/
--- NOTE | 2016-12-08 13:42 | RADRPT ---
PROCEDURE: XR Chest. CLINICAL INDICATION: Check Line Placement TECHNIQUE: Single frontal view of the chest was obtained. COMPARISON: Chest x-ray from 12/06/2016 FINDINGS: There has been interval placement of a left-sided PICC line with its tip in the mid to distal SVC. The heart and mediastinum are within normal limits. There is a new mild pulmonary vascular congestion. The aortic arch is calcified. There is no significant pleural effusion or pneumothorax. IMPRESSION: Interval placement of a left-sided PICC line with its tip in the mid to distal SVC. New mild pulmonary vascular congestion. RPTAT: EE Physician Chon Date Time Electronically viewed and signed by Physician Chon on 12/08/2016 13:42 /
--- NOTE | 2016-12-08 13:43 | RADRPT ---
PROCEDURE: US guidance for PICC line CLINICAL INDICATION: PICC line placement TECHNIQUE: Multiple real-time images were acquired of the patient's arm utilizing a high resolutio n transducer. This was performed by the PICC line nurse for venous access. COMPARISON: None FINDINGS: See impression. IMPRESSION: Ultrasound guidance for PICC line placement. There is a patent and compressible left upper extremity vein. RPTAT: AA Physician Chon Date Time Electronically viewed and signed by Carmine Miramontes Physician on 12/08/2016 13:42 /
[2016-12-08] MEDS: ACETAMINOPHEN 325 MG TAB PO PRN (15:14)
[2016-12-08] MEDS: CEFTRIAXONE 1 GM/50 ML (PMX) 50 ML IVPB SCH (18:00)
--- NOTE | 2016-12-08 18:11 | CONS ---
Date/Time of Note Date/Time of Note DATE: 12/08/16 TIME: 18:09 Assessment/Plan Assessment/Plan Additional Assessment/Plan 1. left Ureteral stone with obstructive uropathy and left moderate hydronephrosis s/p Cystoscopy left ureteral pyeloscopy laser lithotripsy removal of stone fragments from the left upper ureter and the left kidney and insertion of left ureteral JJ stent 6 [place] Island[place] by 22 cm long 2. intractable left flank pain concerned abotu left pyelonephritis 3. H/o recurrent kidney stone due to Primary Hyperparathyroidism now s/p Parathyroidectomy 4. Osteoarthritis, left hip replacement surgery Plan: IV Fluids NSat 70 cc/hr IV abx ceftriaxone to cover for left pyelonephritis pain control with IV pain meds s/p Cystoscopy left ureteral pyeloscopy laser lithotripsy removal of stone fragments from the left upper ureter and the left kidney and insertion of left ureteral JJ stent 6 [place] Island[place] by 22 cm long will conitnue to follow up Case management consult For SNF placement Consultation Date/Type/Reason Admit Date/Time Dec 06, 2016 at 10:53 Initial Consult Date 12/06/16 Type of Consultation: NEPHROLOGY Referring Provider: TANISHA MORFIN 24 HR Interval Summary Free Text/Dictation s/p stone removal by Urology, Urine Cx grew E/coli, not sensisitive to PO abx Exam/Review of Systems Vital Signs Vitals Vital Signs Date Time Temp Pulse Resp B/P Pulse Ox O2 Delivery O2 Flow Rate FiO2 12/08/16 14:30 98.2 73 16 133/61 94 12/08/16 09:10 Room Air 12/08/16 08:55 2.0 Intake and Output 12/07/16 12/07/16 12/08/16 15:00 23:00 07:00 Intake Total 600 ml 1600 ml 1500 ml Balance 600 ml 1600 ml 1500 ml Exam Constitutional: alert Respiratory: clear to auscultation, normal air movement Cardiovascular: nl pulses, regular rate and rhythm Gastrointestinal: non-tender, soft Musculoskeletal: nl extremities to inspection, nl gait and stance, other (back tenderness, left side ) Extremities: normal pulses Neurological: POOL LIFEGUARD II-XII intact, nl mental status, nl speech, nl strength Results Result Diagram: 12/08/16 0508 12/08/16 0508 Results 24 hrs Laboratory Tests Test 12/08/16 05:08 White Blood Count 6.0 Red Blood Count 4.00 L Hemoglobin 11.5 L Hematocrit 36.3 L Mean Corpuscular Volume 90.8 Mean Corpuscular Hemoglobin 28.8 L Mean Corpuscular Hemoglobin Concent 31.7 L Red Cell Distribution Width 13.1 Platelet Count 194 Mean Platelet Volume 10.5 H Neutrophils % 41.1 Lymphocytes % 45.8 Monocytes % 8.2 Eosinophils % 4.2 Basophils % 0.5 Nucleated Red Blood Cells % 0.0 Neutrophils # (Manual) 2.5 Lymphocytes # 2.7 Monocytes # 0.5 Eosinophils # 0.3 Basophils # 0.0 Nucleated Red Blood Cells # 0.0 Sodium Level 143 Potassium Level 4.6 Chloride Level 111 H Carbon Dioxide Level 29 Anion Gap 8 Blood Urea Nitrogen 12 Creatinine 0.74 Glucose Level 101 Calcium Level 9.5 Medications Medications Current Medications Sodium Chloride (NS) 1,000 ml @ 100 mls/hr Q10H IV Last administered on 10:37; Admin Dose 100 MLS/HR; Start 12/06/16 at 12:25 Ondansetron HCl (Zofran Inj) 4 mg Q6H PRN IV NAUSEA AND/OR VOMITING; Start 02/11 at 12:30 Acetaminophen (Tylenol Tab) 650 mg Q6H PRN PO PAIN LEVEL 1-3 OR FEVER Last administered on 12/08/16 15:14; Admin Dose 650 MG; Start 12/06/16 at 12:30 Acetaminophen (Tylenol Supp) 650 mg Q6H PRN [place] PAIN LEVEL 1-3 OR FEVER; Start 12/06/16 at 12:30 Acetaminophen/ Hydrocodone Bitart ([place] (5/325)) 1 tab Q6H PRN PO MODERATE PAIN LEVEL 4-6; Start 12/06/16 at 12:30 Acetaminophen/ Hydrocodone Bitart ([place] (5/325)) 2 tab Q6H PRN PO SEVERE PAIN LEVEL 7-10 Last administered on 12/07/16 10:17; Admin Dose 2 TAB; Start at 12:30 Morphine Sulfate (morphine) 2 mg Q4H PRN IV SEVERE PAIN LEVEL 7-10 Last administered on 12/08/16 04:26; Admin Dose 2 MG; Start 12/06/16 at 12:30 Docusate Sodium (Colace) 100 mg Q12H PRN PO CONSTIPATION; Start 12/06/16 at 12: 30 Magnesium Hydroxide (Milk Of Mag) 30 ml DAILY PRN PO CONSTIPATION; Start at 12:30 Bisacodyl 10 mg 10 mg DAILY PRN [place] CONSTIPATION; Start 12/06/16 at 12:30 Ceftriaxone Sodium (Rocephin) 50 ml @ 100 mls/hr Q24H IVPB Last administered on 12/08/16t 18:00; Admin Dose 100 MLS/HR; Start 12/07/16 at 17:00 Pantoprazole (Protonix Tab) 40 mg DAILY@06 PO ; Start 12/08/16 at 06:00 IV Flush (NS 10 ml) 10 ml PRN PRN IV IV PROTOCOL; Start 12/08/16 at 13:30 JANI ADAMS MD Dec 08, 2016 18:11
[2016-12-08] MEDS ORDERED: SOD CHLORIDE 0.9% 100 ML ONE (18:50)
--- NOTE | 2016-12-08 20:06 | PN ---
Date/Time of Note Date/Time of Note DATE: 12/08/16 TIME: 20:00 Assessment/Plan Lines/Catheters IV Catheter Type (from [facility], [place]): PICC Line Urinary Cath still in place: No Assessment/Plan Chief Complaint/Hosp Course Impression and plan 1. Left ureteral stone with hydronephrosis. Urologist consulted. Moderate left hydronephrosis with small CT scan of the abdomen again redemonstrated calculi in the proximal thigh ureter measuring between 0.1 cm and 0.5 cm and a nonobstructing 0.3 cm calculus in the mid to lower left kidney. Continue IV fluids.Status post cystoscopy with left ureteral pyeloscopy laser lithotripsy removal of stone fragments from the left upper ureter and the left kidney and insertion of left ureteral JJ stent 6 [place] by 22 cm long. Continue with nephrology recommendations. 2. Suspect pyelonephritis. Urinalysis with positive leukocyte esterase test. Plan for PICC line placement and IV antibiotics for home. 3. History of primary hyperparathyroidism. Patient is status post parathyroidectomy. Monitor for now. Disposition and plan: Continue with analgesics and IV hydration. Plan for transfer to shelter facility with IV antibiotics. DC when medically stable and cleared by consultants Discussed plan of care with Dr. Perez Problems: Subjective 24 Hr Interval Summary Free Text/Dictation s/p cystoscopy. no further reports of pain at this time Exam/Review of Systems Vital Signs Vitals Vital Signs Date Time Temp Pulse Resp B/P Pulse Ox O2 Delivery O2 Flow Rate FiO2 12/08/16 14:30 98.2 73 16 133/61 94 12/08/16 09:10 Room Air 12/08/16 08:55 2.0 Intake and Output 12/07/16 12/07/16 12/08/16 15:00 23:00 07:00 Intake Total 600 ml 1600 ml 1500 ml Balance 600 ml 1600 ml 1500 ml Results Result Diagram: 12/08/16 0508 12/08/16 0508 Results 24 hrs Laboratory Tests Test 12/08/16 05:08 White Blood Count 6.0 Red Blood Count 4.00 L Hemoglobin 11.5 L Hematocrit 36.3 L Mean Corpuscular Volume 90.8 Mean Corpuscular Hemoglobin 28.8 L Mean Corpuscular Hemoglobin Concent 31.7 L Red Cell Distribution Width 13.1 Platelet Count 194 Mean Platelet Volume 10.5 H Neutrophils % 41.1 Lymphocytes % 45.8 Monocytes % 8.2 Eosinophils % 4.2 Basophils % 0.5 Nucleated Red Blood Cells % 0.0 Neutrophils # (Manual) 2.5 Lymphocytes # 2.7 Monocytes # 0.5 Eosinophils # 0.3 Basophils # 0.0 Nucleated Red Blood Cells # 0.0 Sodium Level 143 Potassium Level 4.6 Chloride Level 111 H Carbon Dioxide Level 29 Anion Gap 8 Blood Urea Nitrogen 12 Creatinine 0.74 Glucose Level 101 Calcium Level 9.5 Medications Medications Current Medications Sodium Chloride (NS) 1,000 ml @ 70 mls/hr [id number] IV Last administered on 12/08 10:37; Admin Dose 100 MLS/HR; Start 12/06/16 at 12:25 Ondansetron HCl (Zofran Inj) 4 mg Q6H PRN IV NAUSEA AND/OR VOMITING; Start 02/11 at 12:30 Acetaminophen (Tylenol Tab) 650 mg Q6H PRN PO PAIN LEVEL 1-3 OR FEVER Last administered on 12/08/16 15:14; Admin Dose 650 MG; Start 12/06/16 at 12:30 Acetaminophen (Tylenol Supp) 650 mg Q6H PRN [place] PAIN LEVEL 1-3 OR FEVER; Start 12/06/16 at 12:30 Acetaminophen/ Hydrocodone Bitart ([place] (5/325)) 1 tab Q6H PRN PO MODERATE PAIN LEVEL 4-6; Start 12/06/16 at 12:30 Acetaminophen/ Hydrocodone Bitart ([place] (5/325)) 2 tab Q6H PRN PO SEVERE PAIN LEVEL 7-10 Last administered on 12/07/16 10:17; Admin Dose 2 TAB; Start at 12:30 Morphine Sulfate (morphine) 2 mg Q4H PRN IV SEVERE PAIN LEVEL 7-10 Last administered on 12/08/16 04:26; Admin Dose 2 MG; Start 12/06/16 at 12:30 Docusate Sodium (Colace) 100 mg Q12H PRN PO CONSTIPATION; Start 12/06/16 at 12: 30 Magnesium Hydroxide (Milk Of Mag) 30 ml DAILY PRN PO CONSTIPATION; Start at 12:30 Bisacodyl 10 mg 10 mg DAILY PRN [place] CONSTIPATION; Start 12/06/16 at 12:30 Ceftriaxone Sodium (Rocephin) 50 ml @ 100 mls/hr Q24H IVPB Last administered on 12/08/16t 18:00; Admin Dose 100 MLS/HR; Start 12/07/16 at 17:00 Pantoprazole (Protonix Tab) 40 mg DAILY@06 PO ; Start 12/08/16 at 06:00 IV Flush (NS 10 ml) 10 ml PRN PRN IV IV PROTOCOL; Start 12/08/16 at 13:30 JEANCARLOS JACQUES Dec 08, 2016 20:06
[2016-12-09 03:00] VITALS: BP 129/61; RESP 16
[2016-12-09 04:00] VITALS: PULSE 58
[2016-12-09] MEDS: PANTOPRAZOLE (EC) 40 MG TAB PO SCH (05:17)
[2016-12-09 05:58] LABS: BASOPHILS % 0.1 % (0.0-2.0); HEMATOCRIT 35.8 % (37.0-47.0); LYMPHOCYTES # 2.1 10^3/ul (0.8-2.9); LYMPHOCYTES % 20.8 % (15.0-51.0); MEAN CORPUSCULAR HGB CONC 33.5 g/dl (32.0-37.0); MEAN CORPUSCULAR VOLUME 89.5 fl (82.0-101.0); MONOCYTE # 0.6 10^3/ul (0.3-0.9); MONOCYTES % 5.8 % (0.0-11.0); NEUTROPHIL # 7.4 10^3/ul (1.6-7.5); NEUTROPHILS % 72.9 % (39.0-77.0); PLATELET COUNT 215 10^3/UL (140-415); RED CELL DISTRIBUTION WIDTH 12.6 % (11.5-14.5); WHITE BLOOD COUNT 10.2 10^3/ul (4.8-10.8)
[2016-12-09 06:39] LABS: CALCIUM 10.2 mg/dl (8.4-10.2); CREATININE 0.57 mg/dl (0.44-1.00); POTASSIUM 3.6 mmol/L (3.5-5.1)
[2016-12-09 07:56] VITALS: BP 143/67; RESP 20
--- NOTE | 2016-12-09 08:23 | CONS ---
Date/Time of Note Date/Time of Note DATE: 12/09/16 TIME: 08:22 Assessment/Plan Assessment/Plan Additional Assessment/Plan 1. left Ureteral stone with obstructive uropathy and left moderate hydronephrosis s/p Cystoscopy left ureteral pyeloscopy laser lithotripsy removal of stone fragments from the left upper ureter and the left kidney and insertion of left ureteral JJ stent 6 [place] by 22 cm long 2. intractable left flank pain concerned abotu left pyelonephritis 3. H/o recurrent kidney stone due to Primary Hyperparathyroidism now s/p Parathyroidectomy 4. Osteoarthritis, left hip replacement surgery Plan: d/c IV fluids IV abx ceftriaxone to cover for left pyelonephritis x 2 weeks at [facility] pain control with IV pain meds s/p Cystoscopy left ureteral pyeloscopy laser lithotripsy removal of stone fragments from the left upper ureter and the left kidney and insertion of left ureteral JJ stent 6 [place] by 22 cm long will conitnue to follow up possible d/c to SNF today Consultation Date/Type/Reason Admit Date/Time Dec 06, 2016 at 10:53 Initial Consult Date 12/06/16 Type of Consultation: NEPHROLOGY Referring Provider: TANISHA MORFIN 24 HR Interval Summary Free Text/Dictation s/p PICC line, no acute events, BP stable,a febrile, Exam/Review of Systems Vital Signs Vitals Vital Signs Date Time Temp Pulse Resp B/P Pulse Ox O2 Delivery O2 Flow Rate FiO2 12/09/16 07:56 98.5 53 20 143/67 99 12/08/16 09:10 Room Air 12/08/16 08:55 2.0 Intake and Output 12/08/16 12/08/16 12/09/16 14:59 22:59 06:59 Intake Total 1200 ml 1750 ml 1310 ml Output Total 205 ml Balance 995 ml 1750 ml 1310 ml Exam Constitutional: alert Respiratory: clear to auscultation, normal air movement Cardiovascular: nl pulses, regular rate and rhythm Gastrointestinal: non-tender, soft Musculoskeletal: nl extremities to inspection, nl gait and stance, other (back tenderness, left side ) Extremities: normal pulses Neurological: PRODUCTION WELDER II-XII intact, nl mental status, nl speech, nl strength Results Result Diagram: 12/09/16 0444 12/09/16 0444 Results 24 hrs Laboratory Tests Test 12/09/16 04:44 White Blood Count 10.2 # Red Blood Count 4.00 L Hemoglobin 12.0 Hematocrit 35.8 L Mean Corpuscular Volume 89.5 Mean Corpuscular Hemoglobin 30.0 Mean Corpuscular Hemoglobin Concent 33.5 Red Cell Distribution Width 12.6 Platelet Count 215 Mean Platelet Volume 11.0 H Neutrophils % 72.9 Lymphocytes % 20.8 Monocytes % 5.8 Eosinophils % 0.0 Basophils % 0.1 Nucleated Red Blood Cells % 0.0 Neutrophils # 7.4 Lymphocytes # 2.1 Monocytes # 0.6 Eosinophils # 0.0 Basophils # 0.0 Nucleated Red Blood Cells # 0.0 Sodium Level 142 Potassium Level 3.6 Chloride Level 111 H Carbon Dioxide Level 25 Anion Gap 10 Blood Urea Nitrogen 14 Creatinine 0.57 Glucose Level 115 Calcium Level 10.2 Medications Medications Current Medications Sodium Chloride (NS) 1,000 ml @ 70 mls/hr [id number] IV Last administered on 12/08 22:16; Admin Dose 70 MLS/HR; Start 12/06/16 at 12:25 Ondansetron HCl (Zofran Inj) 4 mg Q6H PRN IV NAUSEA AND/OR VOMITING; Start 02/11 at 12:30 Acetaminophen (Tylenol Tab) 650 mg Q6H PRN PO PAIN LEVEL 1-3 OR FEVER Last administered on 12/08/16 15:14; Admin Dose 650 MG; Start 12/06/16 at 12:30 Acetaminophen (Tylenol Supp) 650 mg Q6H PRN [place] PAIN LEVEL 1-3 OR FEVER; Start 12/06/16 at 12:30 Acetaminophen/ Hydrocodone Bitart ([place] (5/325)) 1 tab Q6H PRN PO MODERATE PAIN LEVEL 4-6; Start 12/06/16 at 12:30 Acetaminophen/ Hydrocodone Bitart ([place] (5/325)) 2 tab Q6H PRN PO SEVERE PAIN LEVEL 7-10 Last administered on 12/07/16 10:17; Admin Dose 2 TAB; Start at 12:30 Morphine Sulfate (morphine) 2 mg Q4H PRN IV SEVERE PAIN LEVEL 7-10 Last administered on 12/08/16 22:16; Admin Dose 2 MG; Start 12/06/16 at 12:30 Docusate Sodium (Colace) 100 mg Q12H PRN PO CONSTIPATION; Start 12/06/16 at 12: 30 Magnesium Hydroxide (Milk Of Mag) 30 ml DAILY PRN PO CONSTIPATION; Start at 12:30 Bisacodyl 10 mg 10 mg DAILY PRN [place] CONSTIPATION; Start 12/06/16 at 12:30 Ceftriaxone Sodium (Rocephin) 50 ml @ 100 mls/hr Q24H IVPB Last administered on 12/08/16 18:00; Admin Dose 100 MLS/HR; Start 12/07/16 at 17:00 Pantoprazole (Protonix Tab) 40 mg DAILY@06 PO Last administered on 12/09/16 05 :17; Admin Dose 40 MG; Start 12/08/16 at 06:00 IV Flush (NS 10 ml) 10 ml PRN PRN IV IV PROTOCOL; Start 12/08/16 at 13:30 Simethicone (Mylicon) 80 mg Q6H PRN PO DISTENSION/GAS/BLOATING Last administered on 12/08/16 22:48; Admin Dose 80 MG; Start 12/08/16 at 22:30 JANI ADAMS MD Dec 09, 2016 08:23
[2016-12-09] MEDS ORDERED: LACTULOSE 30ML CUP PO PRN (09:30)
[2016-12-09] MEDS ORDERED: ONDA4VIA2 IV (10:42)
[2016-12-09] MEDS ORDERED: HYDR-3498 PO (10:42)
[2016-12-09] MEDS ORDERED: PANT40TA4 PO (10:42)
[2016-12-09] MEDS ORDERED: MOR2I IV (10:42)
--- NOTE | 2016-12-09 10:47 | PDOCDIS ---
Discharge Instructions DIAGNOSIS Discharge Diagnosis 1. Left ureteral stone with hydronephrosis. 2. Suspect pyelonephritis. 3. History of primary hyperparathyroidism. CONDITION Patient Condition: Stable HOME CARE INSTRUCTIONS: Special Diet: low fat low cholesterol FOLLOW UP/APPOINTMENTS Follow-up Plan 1. Follow up with Dr. Reagan Merrill in one week 2. Follow up with Dr. Jordan Lewis in one week OTHER ORDERS: Other Orders: 1. Further care and management per fdc facility JEANCARLOS JACQUES Dec 09, 2016 10:47
--- NOTE | 2016-12-09 11:09 | RADRPT ---
Vent Rate: 46 bpm RR Interval: 0 msec ND Interval: 180 msec QRS Duration: 80 msec QT Interval: 450 msec QTC Interval: 393 msec P-R-T [place]: 45 - 16 - 18 degrees Marked sinus bradycardia Abnormal ECG Electronically Signed By: Georgi Uribe [id number]
== END 2016-12-09 14:44 | DRG 669 ==
LOC: E/R 05:49 → PP2 10:53
PROVIDERS: ADMIT Internal Medicine; ATTEND Internal Medicine
PROC: 0TC78ZZ Extirpation of Matter from Left Ureter, Via Natural or Artificial Opening Endoscopic (ICD-10-PCS; 2016-12-08)
PROC: 0T778DZ Dilation of Left Ureter with Intraluminal Device, Via Natural or Artificial Opening Endoscopic (ICD-10-PCS; 2016-12-08)
PROC: 0TC48ZZ Extirpation of Matter from Left Kidney Pelvis, Via Natural or Artificial Opening Endoscopic (ICD-10-PCS; principal; 2016-12-08 07:30)
DX: N13.2 Hydronephrosis with renal and ureteral calculous obstruction (principal); N39.0 Urinary tract infection, site not specified; K42.9 Umbilical hernia without obstruction or gangrene
CPT/HCPCS: 36415; 36569; 71010; 74000; 74176; 74430; 76937; 80048; 80053; 80061; 81001; 83036; 83690; 83735; 84100; 84436; 84443; 84479; 85025; 85610; 85730; 87086; 88300; 93005; 96374; 96375; C1769; C2617; C9113; J0696; J1100; J1885; J2250; J2270; J2405; J2765; J3010; J7030; Q9967

== ENCOUNTER 2017-04-04 17:37 | Emergency (ER) | END 2017-04-04 22:26 | disposition home or self-care (01) ==

== ENCOUNTER 2017-06-07 20:03 | Emergency (ER) | END 2017-06-07 22:10 | disposition left against medical advice (07) ==

== ENCOUNTER 2017-06-24 16:34 | Emergency (ER) | END 2017-06-24 20:50 | disposition home or self-care (01) ==

== ENCOUNTER 2017-09-11 16:19 | Emergency (ER) | END 2017-09-11 21:34 | disposition home or self-care (01) ==

== ENCOUNTER 2018-02-05 10:33 | Emergency (ER) | END 2018-02-05 12:39 | disposition home or self-care (01) ==

== ENCOUNTER 2018-11-20 15:02 | Emergency (ER) | payer MEDICARE, OTHER ==
[~2018-11-20] VITALS: Ht 162.6 cm; Wt 76.7 kg
[~2018-11-20 15:02] MED LIST changes: +CEPH-443 PO; -CEPH500C PO; +CIPR500T4 PO; +HYDR-4011 PO; +IBUP800T48 PO; +NAPR-985 PO; -NITR-58 PO; +OXYC-279 PO
[2018-11-20 15:06] VITALS: Ht 162.6 cm; Wt 76.7 kg
[2018-11-20] MEDS ORDERED: KETOROLAC 15 MG INJ IV STA (18:16)
[2018-11-20] MEDS ORDERED: ONDANSETRON 4 MG INJ IV STA (18:16)
[2018-11-20] MEDS ORDERED: morphine 4 MG/ML VIAL IV STA (18:16)
[2018-11-20] MEDS ORDERED: SOD CHLORIDE 0.9% 1,000 ML IV STA (18:16)
[2018-11-20] MEDS ORDERED: CEFTRIAXONE 1 GM/50 ML (PMX) 50 ML IVPB ONE (21:00)
[2018-11-20 21:25] VITALS: BP 121/74; PULSE 77; RESP 18
== END 2018-11-20 21:27 | disposition home or self-care (01) ==
LOC: E/R 15:02
DX: N20.0 Calculus of kidney (principal); Z96.642 Presence of left artificial hip joint
CPT/HCPCS: 36415; 74176; 80053; 81001; 83690; 85025; 87086; 96374; 96375; 99285; J0696; J1885; J2270; J2405; J7030